=== PATIENT | female | born 1980 | race Caucasian/White ===

== ENCOUNTER 2021-09-07 20:30 | Emergency (ER) | payer OTHER, SELFPAY ==
--- NOTE | ~2021-09-07 | XR_ITS ---
EXAMINATION: XR CHEST CLINICAL INFORMATION: Shortness of breath and cough COMPARISON: 12/12/2013 TECHNIQUE: 2 views of the chest were obtained. FINDINGS: Heart size normal. Multifocal patchy infiltrates are present in both lower lobes and possibly the right upper lobe. No pleural effusions are seen. XR/XR chest 2V IMPRESSION: Commonly reported imaging features of Covid 19 or viral pneumonia are present with new multifocal patchy infiltrates. Other processes such as influenza pneumonia or organizing pneumonia, as can be seen with drug toxicity and connective tissue disease, can cause a similar imaging pattern.
[2021-09-07 20:41] VITALS: BP 199/89; PULSE 97; RESP 20; TEMP 37.4; O2SAT 95; BMI 52.4
[2021-09-07 21:25] LABS: MANUAL DIFF FLAG NO
[2021-09-07 21:26] LABS: Basophils Percent Auto 0.4 % (0-2); Eosinophils Absolute Auto 0.2 X10*3/uL (0.0-0.4); Hematocrit 43.3 % (37.0-47.0); Hemoglobin 13.7 g/dl (12.0-16.0); Imm Gran Abs Auto 0.02 X10*3/uL (0.00-0.03); Imm Gran Pct Auto 0.4 % (0.0-0.4); Lymphocytes Absolute Auto 0.8 X10*3/uL (1.2-4.9); Lymphocytes Percent Auto 14.3 % (20-40); Mean Corpuscular HGB Conc 31.6 g/dl (31.0-35.0); Mean Corpuscular Hemoglobin 29.5 pg (27.0-33.0); Mean Corpuscular Volume 93.1 fL (80.0-98.0); Monocytes Absolute Auto 0.2 X10*3/uL (0.1-1.2); Neutrophils Absolute Auto 4.4 x10*3/uL (2.0-8.3); Neutrophils Percent Auto 77.9 % (45-73); Platelet Count 208 X10*3/uL (160-400); Red Blood Count 4.65 X10*6/uL (4.20-5.50); White Blood Count 5.7 X10*3/uL (4.8-10.8)
[2021-09-07 21:42] LABS: Alanine Aminotransferase 54 U/L (0-31); Albumin Level 3.8 g/dL (3.5-5.0); Alkaline Phosphatase 73 U/L (39-117); Anion Gap 13 (12-20); Aspartate Amino Transferase 40 U/L (5-31); Bilirubin Total 0.2 mg/dL (0.0-1.0); Blood Urea Nitrogen 10 mg/dL (9-16); Calcium 8.6 mg/dL (8.4-10.2); Carbon Dioxide 23 mmol/L (22-29); Chloride 107 mmol/L (96-108); Creatinine Clr Calc Pharmacy 165.5; Estimated Glomerular Filt Rate > 60; Glucose Random 168 mg/dL (60-115); Potassium 3.7 mmol/L (3.3-5.1); Sodium 139 mmol/L (135-145); Total Protein 7.1 g/dL (6.5-8.0)
[2021-09-07 22:07] LABS: Influenza A PCR NEGATIVE (Negative); Influenza B PCR NEGATIVE (Negative); Resp Syncy Virus RNA Qual PCR NEGATIVE (Negative); SARS COV2 PCR INHOUSE POSITIVE (Negative)
[2021-09-07 22:16] LABS: Appearance Urine CLEAR; Color Urine YELLOW; Glucose Urine UA 100 MG/DL (NEG); Leukocyte Esterase Urine NEG (NEG); Nitrite Urine NEG (NEG); Specific Gravity - Urine 1.025 (1.005-1.025); UACC Culture Trigger NO; Urine Blood NEG (NEG); Urine Ketones 5 MG/DL (NEG); Urine Protein 1+ MG/DL (NEG-TRACE)
[2021-09-07 22:21] LABS: UPreg QC Valid YES; Urine Pregnancy NEGATIVE (NEGATIVE)
[2021-09-07 22:30] LABS: Bacteria Urine 1+ /LPF; RBC Urine 0-2 /HPF (0); Squamous Epithelial Cell Urine 1+ /LPF; WBC Urine 0-2 /HPF (0-4)
--- NOTE | 2021-09-07 22:45 | ED.URI ---
HPI - URI/Sore Throat General Chief Complaint: Upper Respiratory Symptoms Stated Complaint: fever Time Seen by Provider: 09/07/21 21:33 Source: patient Mode of arrival: ambulatory History of Present Illness HPI Narrative: 40-year-old female with history of diabetes and COPD presents with 1 week of fevers, worsening dry cough, congestion she on and chest wall pain that she notes is associated and worsened with the coughing. She also endorses that she has positive contact with a COVID positive person. Related Data Allergies Allergy/AdvReac Type Severity Reaction Status Date / Time erythromycin base Allergy Unknown ANAPHYLAXIS Unverified 07/09/20 17:06 [ERYTHROMYCIN BASE] Sulfa (Sulfonamide Allergy Unknown ANAPHYLAXIS Unverified 07/09/20 17:06 Antibiotics) [SULFA (SULFONAMIDE ANTIBIOTICS)] sulfamethoxazole Allergy Unknown HIVES Unverified 07/09/20 17:06 [From BACTRIM] trimethoprim [From BACTRIM] Allergy Unknown HIVES Unverified 07/09/20 17:06 Review of Systems Review of Systems: Pertinent positives and negatives as stated in HPI 10 point review of systems is otherwise negative. PMFSH Past Medical History Source: nursing notes reviewed Medical History Asthma COPD (chronic obstructive pulmonary disease) Depression Diabetes Surgical History H/O knee surgery H/O: History of thyroidectomy Hx of tonsillectomy Social History Social History Advance Directives: No Advance Directives Information Provided: No Patient : No Physical Exam Vital Signs: Vital Signs: Last Vital Signs Temp 99.3 F 09/07/21 20:41 Pulse 97 09/07/21 20:41 Resp 20 09/07/21 20:41 BP 199/89 H 09/07/21 20:41 Pulse Ox 95 09/07/21 20:41 Body Mass Index 52.4 VITAL SIGNS: Reviewed. GENERAL: Well developed, well nourished, in no acute distress. HEAD: Normocephalic/atraumatic EYES: PERRLA, EOMI EARS: Ext canals without abnormality, TMs non-bulging and non-erythematous NOSE: Nares patent bilateral OROPHARYNX: no oral lesions noted, posterior pharynx clear and non-erythematous without noted tonsillar enlargement/erythema/exudates NECK: Supple, no adenopathy LUNGS: Normal breath sounds. No adventitious sounds or accessory muscle use. SpO2<95> CARDIOVASCULAR: Regular rate and rhythm without noted murmurs, no JVD or lower extremity edema. ABDOMEN: Soft, non-tender, non-distended with bowel sounds. SKIN: Inspection of the skin reveals no rashes NEUROLOGIC: Alert and oriented x 4. Strength and sensation to light touch were grossly intact x 4. Course Course Course Narrative: History and clinical presentation most consistent with COVID-19 infection. She is oxygenating well on room air and clinically is without increased work of breathing or tachypnea. On review of all investigations she is positive for COVID-19, all these results were discussed with her bedside and she knows that she needs to self quarantine for the next 14 days. MDM - URI/Sore Throat Lab Data Result diagrams: 09/07/21 21:19 09/07/21 21:19 Labs: Lab Results 09/07/21 09/07/21 09/07/21 Range/Units 21:19 21:19 21:19 WBC 5.7 (4.8-10.8) X10*3/uL RBC 4.65 (4.20-5.50) X10*6/uL Hgb 13.7 (12.0-16.0) g/dl Hct 43.3 (37.0-47.0) % MCV 93.1 (80.0-98.0) fL MCH 29.5 (27.0-33.0) pg MCHC 31.6 (31.0-35.0) g/dl RDW 13.0 (11.0-16.0) % Plt Count 208 (160-400) X10*3/uL MPV 10.0 (9.4-12.3) fL Immature Gran % (Auto) 0.4 (0.0-0.4) % Neut % (Auto) 77.9 H (45-73) % Lymph % (Auto) 14.3 L (20-40) % [place] % (Auto) 4.0 (2-11) % Eos % (Auto) 3.0 (0-4) % Baso % (Auto) 0.4 (0-2) % Lymph # (Auto) 0.8 L (1.2-4.9) X10*3/uL [place] # (Auto) 0.2 (0.1-1.2) X10*3/uL Eos # (Auto) 0.2 (0.0-0.4) X10*3/uL Baso # (Auto) 0.0 (0.0-0.2) X10*3/uL Abs Immat Gran (auto) 0.02 (0.00-0.03) X10*3/uL Absolute Neuts (auto) 4.4 (2.0-8.3) x10*3/uL Absolute Nucleated RBC 0.000 (0.0-0.012) X10*3/uL Nucleated RBC % (auto) 0.0 (0.0-0.2) /100WBC Sodium 139 (135-145) mmol/L Potassium 3.7 (3.3-5.1) mmol/L Chloride 107 (96-108) mmol/L Carbon Dioxide 23 (22-29) mmol/L Anion Gap 13 (12-20) BUN 10 (9-16) mg/dL Creatinine 0.75 (0.5-1.4) mg/dL Estim Creat Clear Calc 165.5 Estimated GFR > 60 Random Glucose 168 H (60-115) mg/dL Calcium 8.6 (8.4-10.2) mg/dL Total Bilirubin 0.2 (0.0-1.0) mg/dL AST 40 H (5-31) U/L ALT 54 H (0-31) U/L Alkaline Phosphatase 73 (39-117) U/L Total Protein 7.1 (6.5-8.0) g/dL Albumin 3.8 (3.5-5.0) g/dL Urine Color Urine Appearance Urine pH (5.0-8.0) Ur Specific [place] (1.005-1.025) Urine Protein (NEG-TRACE) MG/DL Urine Glucose (UA) (NEG) MG/DL Urine Ketones (NEG) MG/DL Urine Blood (NEG) Urine Nitrite (NEG) Ur Leukocyte Esterase (NEG) Urine RBC (0) /HPF Urine WBC (0-4) /HPF Ur Squamous Epith Cells /LPF Urine Bacteria /LPF Urine Yeast /HPF Urine Test (NEGATIVE) Influenza Type A (PCR) NEGATIVE (Negative) Influenza Type B (PCR) NEGATIVE (Negative) RSV RNA Qual (PCR) NEGATIVE (Negative) SARS-CoV-2 RNA (RT-PCR) POSITIVE A (Negative) 09/07/21 09/07/21 Range/Units 22:08 22:08 WBC (4.8-10.8) X10*3/uL RBC (4.20-5.50) X10*6/uL Hgb (12.0-16.0) g/dl Hct (37.0-47.0) % MCV (80.0-98.0) fL MCH (27.0-33.0) pg MCHC (31.0-35.0) g/dl RDW (11.0-16.0) % Plt Count (160-400) X10*3/uL MPV (9.4-12.3) fL Immature Gran % (Auto) (0.0-0.4) % Neut % (Auto) (45-73) % Lymph % (Auto) (20-40) % [place] % (Auto) (2-11) % Eos % (Auto) (0-4) % Baso % (Auto) (0-2) % Lymph # (Auto) (1.2-4.9) X10*3/uL [place] # (Auto) (0.1-1.2) X10*3/uL Eos # (Auto) (0.0-0.4) X10*3/uL Baso # (Auto) (0.0-0.2) X10*3/uL Abs Immat Gran (auto) (0.00-0.03) X10*3/uL Absolute Neuts (auto) (2.0-8.3) x10*3/uL Absolute Nucleated RBC (0.0-0.012) X10*3/uL Nucleated RBC % (auto) (0.0-0.2) /100WBC Sodium (135-145) mmol/L Potassium (3.3-5.1) mmol/L Chloride (96-108) mmol/L Carbon Dioxide (22-29) mmol/L Anion Gap (12-20) BUN (9-16) mg/dL Creatinine (0.5-1.4) mg/dL Estim Creat Clear Calc Estimated GFR Random Glucose (60-115) mg/dL Calcium (8.4-10.2) mg/dL Total Bilirubin (0.0-1.0) mg/dL AST (5-31) U/L ALT (0-31) U/L Alkaline Phosphatase (39-117) U/L Total Protein (6.5-8.0) g/dL Albumin (3.5-5.0) g/dL Urine Color YELLOW Urine Appearance CLEAR Urine pH 6.0 (5.0-8.0) Ur Specific [place] 1.025 (1.005-1.025) Urine Protein 1+ H (NEG-TRACE) MG/DL Urine Glucose (UA) 100 H (NEG) MG/DL Urine Ketones 5 (NEG) MG/DL Urine Blood NEG (NEG) Urine Nitrite NEG (NEG) Ur Leukocyte Esterase NEG (NEG) Urine RBC 0-2 (0) /HPF Urine WBC 0-2 (0-4) /HPF Ur Squamous Epith Cells 1+ /LPF Urine Bacteria 1+ /LPF Urine Yeast TRACE /HPF Urine Test NEGATIVE (NEGATIVE) Influenza Type A (PCR) (Negative) Influenza Type B (PCR) (Negative) RSV RNA Qual (PCR) (Negative) SARS-CoV-2 RNA (RT-PCR) (Negative) Discharge Plan Discharge Clinical Impression: Viral syndrome, SARS-CoV-2 positive Patient Disposition: Home, Self-Care Instructions: Viral Syndrome (ED), COVID-19 (Coronavirus Disease 2019) (ED) Additional Instructions: 1. Tylenol 1000 mg, orally, every 6 hours as needed for pain control/headache/body aches/temperature greater than 100.4. Do not exceed 4000 mg within 24 hours. 2. Ibuprofen 400 mg, orally with milk or food, every 6 hours as needed for pain control/headache/body aches/temperature greater than 100.4. You may take the ibuprofen and Tylenol together. 3. You must adhere to all state and Federal guidelines regarding COVID-19 quarantine and retesting. 4. Follow up with your PCP via Telemedicine appt. Return to the ER for any worsening symptoms. Referrals: Jack Bedoya MD [Primary Care Provider] - 2 days (COVID-19+)
[2021-09-07 23:10] VITALS: BP 154/85; PULSE 87; RESP 19; TEMP 37.2; O2SAT 96
--- NOTE | 2021-09-07 23:11 | PC.NURSE ---
Pt alert and oriented x4, calm and cooperative. Pt denies pain. Pt states she is ready for discharge. No IV in place, vitals stable. Pt ambulated out of ER independently.
== END 2021-09-07 23:11 | disposition home or self-care (01) ==
PROVIDERS: Emergency Provider Student in an Organized Health Care Education/Training Program; PCP Internal Medicine
DX: U07.1 COVID-19 (principal); J44.9 Chronic obstructive pulmonary disease, unspecified; R50.9 Fever, unspecified; Z79.899 Other long term (current) drug therapy
CPT/HCPCS: 0241U; 36415; 71046; 80053; 81001; 81025; 85025; 99283; 99284

== ENCOUNTER → 2024-07-25 11:16 | Outpatient (REF) | payer OTHER, SELFPAY | LOC: HO.SL 11:16 | PROVIDERS: PCP Internal Medicine; Visit Provider Psychiatry & Neurology Neurology | DX: G47.39 Other sleep apnea (principal) | CPT/HCPCS: 95806 ==

== ENCOUNTER → 2024-07-25 19:00 | Outpatient (BNV) | payer OTHER, SELFPAY | PROVIDERS: PCP Internal Medicine; Visit Provider Psychiatry & Neurology Neurology | DX: G47.33 Obstructive sleep apnea (adult) (pediatric) (principal) | CPT/HCPCS: 95806 ==

== ENCOUNTER 2025-01-13 13:10 | Emergency (ER) | payer OTHER, SELFPAY ==
--- NOTE | ~2025-01-13 | CT_ITS ---
EXAMINATION: CT HEAD WITHOUT CONTRAST CLINICAL INFORMATION: Trauma, head strike. COMPARISON: 04/13/2010. TECHNIQUE: Contiguous axial imaging was performed from the skull base to vertex without intravenous administration of contrast. This CT examination was performed using dose optimization techniques as appropriate, variously including the following: *Automated exposure control *Adjustment of mA and/or kV according to patient size (this includes techniques or standardized protocols for targeted exams where dose is matched to indication/reason for exam; i.e. extremities or head) *Use of iterative reconstruction technique FINDINGS: There is no evidence of intracranial hemorrhage or extra-axial fluid collection. There is no mass effect, or edema. No CT evidence of acute territorial infarct. Ventricles, sulci, and cisterns are normal in size and configuration for patient age. No hydrocephalus. No midline shift. Negative hyperdense MCA sign. Negative insular ribbon sign. No significant white matter abnormality. Normal pituitary. Globes and orbital contents image normally. Extra cranial soft tissues demonstrate atrophy of the right parotid gland. No additional abnormalities. The paranasal sinuses, mastoid air cells, and tympanic cavities are normally aerated. No suspicious bony abnormalities. There are no acute fractures evident. There is mild hyperostosis frontalis internus. CT/CT head/brain wo IV con IMPRESSION: No acute intracranial abnormality. No fracture seen. Electronically signed by: Oscar Lopez MD 01/13/2025 04:01 PM EDT
--- NOTE | ~2025-01-13 | CT_ITS ---
EXAMINATION: CT CERVICAL SPINE WITHOUT CONTRAST CLINICAL INFORMATION: Trauma, neck pain. COMPARISON: 04/13/2010. TECHNIQUE: Spiral CT imaging of the cervical spine performed in axial plane without contrast. Multiplanar reformatted images were constructed from the axial data set. This CT examination was performed using dose optimization techniques as appropriate, variously including the following: *Automated exposure control *Adjustment of mA and/or kV according to patient size (this includes techniques or standardized protocols for targeted exams where dose is matched to indication/reason for exam; i.e. extremities or head) *Use of iterative reconstruction technique FINDINGS: CORONAL ALIGNMENT: -Mild levoconvex scoliosis. SAGITTAL ALIGNMENT: -Mild reversal of the normal lordosis, centered at C4. -No subluxations. C1-C2 AND CRANIOCERVICAL JUNCTION: -Intact and normally aligned. VERTEBRAL BODIES AND FACETS: -No fracture, compression deformity, traumatic malalignment. No suspicious bone lesion. -Normal facet alignment and appearance. DISCS: -Early disc degenerative change spanning C4-C7. CENTRAL CANAL: -No evidence of high-grade central canal narrowing or large disc herniation allowing for modality limitations. PREVERTEBRAL AND PARAVERTEBRAL SOFT TISSUES: -No soft tissue swelling. -There has been a total thyroidectomy. LUNG APICES: -Clear bilaterally. CT/CT cervical spine wo IV con IMPRESSION: 1. No CT evidence of acute cervical spine fracture or injury . 2. Total thyroidectomy. Electronically signed by: Oscar Lopez MD 01/13/2025 03:44 PM EDT
[2025-01-13 13:19] VITALS: BP 137/71; PULSE 70; RESP 18; TEMP 36.7; O2SAT 99; BMI 42.3
--- NOTE | 2025-01-13 13:23 | ED.GENADULT ---
HPI - General Adult General Chief complaint: Fall Stated complaint: passed out at work head inj Time Seen by Provider: 01/13/25 18:59 Source: patient Limitations: no limitations History of Present Illness ED Provider: Letha Mirza PA-C HPI narrative: 44-year-old female with a history of dysautonomia, COPD, asthma, depression, morbid obesity who presents after syncopal episode at work. Patient states she developed dizziness/lightheadedness prior to passing out. Patient had a witnessed fall, she did strike her head. The patient was not on blood thinners. Patient now complains of developing migraine, left neck pain, left shoulder pain. Patient states she also has not been feeling well lately, she has had recent cough and cold symptoms. Denies fevers. Denies weakness of upper extremities or paresthesia. Related Data Allergies Allergy/AdvReac Type Severity Reaction Status Date / Time erythromycin base Allergy Unknown ANAPHYLAXIS Verified 01/13/25 13:20 [ERYTHROMYCIN BASE] Sulfa (Sulfonamide Allergy Unknown ANAPHYLAXIS Verified 01/13/25 13:20 Antibiotics) [SULFA (SULFONAMIDE ANTIBIOTICS)] sulfamethoxazole Allergy Unknown HIVES Verified 01/13/25 13:20 [From BACTRIM] trimethoprim [From BACTRIM] Allergy Unknown HIVES Verified 01/13/25 13:20 Review of Systems Review of Systems: Yes all other systems are reviewed and are negative Constitutional: Constitutional: Denies fatigue, Denies fever(s), Reports headache(s) and Reports malaise ENT: Reports dizziness, Reports headache(s) and Reports neck pain Cardiovascular: Cardiovascular: Denies chest pain, Reports syncope and Denies dyspnea Respiratory: Respiratory: Reports cough and Denies dyspnea Gastrointestinal: Gastrointestinal: Denies abdominal pain, Denies nausea and Denies vomiting Musculoskeletal: Musculoskeletal: Reports neck pain Neurologic: Reports dizziness, Reports syncope and Reports headache(s) Endocrine: Endocrine: Denies fatigue PMFSH Past Medical History Attestation statement: The following information was validated with the patient. Medical History Asthma COPD (chronic obstructive pulmonary disease) Depression Diabetes Surgical History H/O knee surgery H/O: History of thyroidectomy Hx of tonsillectomy Social History Social History Smoked in Last 30 Days: No Advance Directives: No Advance Directives Information Provided: No Physical Exam ED Vital Signs: Vital Signs - 24 hr 01/13/25 13:19 01/13/25 19:32 Temperature 98.0 F 97.1 F Pulse Rate 70 73 Respiratory Rate 18 16 Blood Pressure 137/71 116/68 Pulse Oximetry 99 100 Oxygen Delivery Method Room Air Room Air BMI result Body Mass Index 42.3 Const Other: Alert, appears older than stated age Orientation/consciousness: patient oriented x3 Neck Other: Full range of motion Resp Effort & Inspection: normal respiratory effort Cardio Other: Normal peripheral perfusion Skin Other: Warm dry no rash Neuro General: patient oriented x3, gait normal, no focal motor deficits and CN's II-XI intact bilaterally Extrem Other: Full range of motion of left upper extremity no deformity Psych Other: Cooperative Course Course Course Narrative: This is a rapid medical exam performed by Letha Mirza PA-C. The patient is a 44-year-old female who presents after syncopal episode at work. Patient states she developed dizziness prior to passing out. Patient had a witnessed fall she did strike her head. Patient now complains of developing migraine, left neck pain, left shoulder pain. On exam, the patient has full range of motion of the shoulder, there was no deformity, I do not feel she requires an x-ray. Given syncope with collapse, we will screen basic labs and EKG, and scan her head and neck. She also states she has had a fever over the past day, we will add a viral panel. The patient was stable and can return to the waiting room pending her full medical assessment. Medical Decision Making Medical Decision Making MDM Narrative: 44-year-old female with a history of dysautonomia, COPD, asthma, depression, morbid obesity who presents after syncopal episode at work. Patient states she developed dizziness/lightheadedness prior to passing out. Patient had a witnessed fall, she did strike her head. The patient was not on blood thinners. Patient now complains of developing migraine, left neck pain, left shoulder pain. Patient states she also has not been feeling well lately, she has had recent cough and cold symptoms. Denies fevers. Denies weakness of upper extremities or paresthesia. Problem: Dysautonomia, History: Per patient I have considered the following differential diagnoses: Vasovagal syncope, dehydration, anemia, electrolyte abnormality, new arrhythmia, intracranial hemorrhage, cervical spine injury Plan: Patient states she often has near syncopal symptoms with her dysautonomia. She has been recently ill, perhaps this triggered her symptoms today. Screening labs including a viral panel we will be obtained. She did not have preceding palpitations to suggest a new arrhythmia, an EKG was obtained. She had a witnessed fall with significant head strike, now with neck pain, we will be obtaining CT scans. It was reassuring that she is not altered, she is neurologically intact she is not actively vomiting to suggest an intracranial hemorrhage. She also has full range of motion of the neck, I suspect musculoskeletal strain at best. I have independently reviewed the following tests: Labs: No leukocytosis, not anemic, no electrolyte abnormality noted, viral panel negative EKG: Normal sinus rhythm, rate of 65, no ischemic changes no ectopy CT brain: CT/CT head/brain wo IV con IMPRESSION: No acute intracranial abnormality. No fracture seen. CT cervical spine: CT/CT cervical spine wo IV con IMPRESSION: 1. No CT evidence of acute cervical spine fracture or injury . 2. Total thyroidectomy. Lab Data 01/13/25 13:47 01/13/25 13:47 Labs: Lab Results 01/13/25 Range/Units 13:47 WBC 7.7 (4.8-10.8) X10*3/uL RBC 3.97 L (4.20-5.50) X10*6/uL Hgb 11.9 L (12.0-16.0) g/dl Hct 36.8 L (37.0-47.0) % MCV 92.7 (80.0-98.0) fL MCH 30.0 (27.0-33.0) pg MCHC 32.3 (31.0-35.0) g/dl RDW 14.0 (11.0-16.0) % Plt Count 236 (160-400) X10*3/uL MPV 10.1 (9.4-12.3) fL Immature Gran % (Auto) 0.5 H (0.0-0.4) % Neut % (Auto) 71.8 (45-73) % Lymph % (Auto) 18.2 L (20-40) % [place] % (Auto) 8.3 (2-11) % Eos % (Auto) 0.7 (0-4) % Baso % (Auto) 0.5 (0-2) % Lymph # (Auto) 1.4 (1.2-4.9) X10*3/uL [place] # (Auto) 0.6 (0.1-1.2) X10*3/uL Eos # (Auto) 0.1 (0.0-0.4) X10*3/uL Baso # (Auto) 0.0 (0.0-0.2) X10*3/uL Abs Immat Gran (auto) 0.04 H (0.00-0.03) X10*3/uL Absolute Neuts (auto) 5.5 (2.0-8.3) x10*3/uL Absolute Nucleated RBC 0.000 (0.0-0.012) X10*3/uL Nucleated RBC % (auto) 0.0 (0.0-0.2) /100WBC Sodium 140 (135-145) mmol/L Potassium 4.4 (3.3-5.1) mmol/L Chloride 107 (96-108) mmol/L Carbon Dioxide 26 (22-29) mmol/L Anion Gap 11 L (12-20) BUN 21 H (9-16) mg/dL Creatinine 1.22 (0.5-1.4) mg/dL Estim Creat Clear Calc 86.0 Estimated GFR 48 Random Glucose 124 H (60-115) mg/dL Calcium 9.1 (8.4-10.2) mg/dL Magnesium 2.1 (1.6-2.6) mg/dL Beta HCG, Quant < 2 mIU/mL Influenza Type A (PCR) NEGATIVE (Negative) Influenza Type B (PCR) NEGATIVE (Negative) RSV RNA Qual (PCR) NEGATIVE (Negative) SARS-CoV-2 RNA (RT-PCR) NEGATIVE (Negative) Discharge Plan Discharge Clinical Impression: Syncope Patient Disposition: Home, Self-Care Instructions: Syncope (ED) Additional Instructions: All of your screening labs including a viral panel were normal. There were no concerning changes on the EKG. The CT scans of your brain and cervical spine were negative for acute injury. Follow up with your primary care provider as needed. Interventions: ED Discharge Assessment Last Done: 01/13/25 19:33 Print Language: Arabic
--- NOTE | 2025-01-13 13:25 | ECG_ITS ---
Test Reason : syncope Blood Pressure : */* mmHG Vent. Rate : 65 BPM Atrial Rate : 65 BPM P-R Int : 150 ms QRS Dur : 90 ms QT Int : 380 ms P-R-T Axes : -28 29 42 degrees QTcB Int : 395 ms Normal sinus rhythm Normal ECG No previous ECGs available Referred By: Letha Mirza Electronically Signed By: NANCY ZAMORA MD
[2025-01-13 13:59] LABS: MANUAL DIFF FLAG NO
[2025-01-13 14:02] LABS: Basophils Percent Auto 0.5 % (0-2); Eosinophils Absolute Auto 0.1 X10*3/uL (0.0-0.4); Eosinophils Percent Auto 0.7 % (0-4); Hematocrit 36.8 % (37.0-47.0); Hemoglobin 11.9 g/dl (12.0-16.0); Imm Gran Abs Auto 0.04 X10*3/uL (0.00-0.03); Imm Gran Pct Auto 0.5 % (0.0-0.4); Lymphocytes Absolute Auto 1.4 X10*3/uL (1.2-4.9); Lymphocytes Percent Auto 18.2 % (20-40); Mean Corpuscular HGB Conc 32.3 g/dl (31.0-35.0); Mean Corpuscular Volume 92.7 fL (80.0-98.0); Mean Platelet Volume 10.1 fL (9.4-12.3); Monocytes Absolute Auto 0.6 X10*3/uL (0.1-1.2); Monocytes Percent Auto 8.3 % (2-11); Neutrophils Absolute Auto 5.5 x10*3/uL (2.0-8.3); Neutrophils Percent Auto 71.8 % (45-73); Platelet Count 236 X10*3/uL (160-400); Red Blood Count 3.97 X10*6/uL (4.20-5.50); White Blood Count 7.7 X10*3/uL (4.8-10.8)
[2025-01-13 14:23] LABS: Anion Gap 11 (12-20); Blood Urea Nitrogen 21 mg/dL (9-16); Calcium 9.1 mg/dL (8.4-10.2); Carbon Dioxide 26 mmol/L (22-29); Chloride 107 mmol/L (96-108); Estimated Glomerular Filt Rate 48; Glucose Random 124 mg/dL (60-115); Magnesium 2.1 mg/dL (1.6-2.6); Potassium 4.4 mmol/L (3.3-5.1); Sodium 140 mmol/L (135-145)
[2025-01-13 14:24] LABS: HCG Quantitative < 2 mIU/mL
[2025-01-13 14:42] LABS: Influenza A PCR NEGATIVE (Negative); Influenza B PCR NEGATIVE (Negative); Resp Syncy Virus RNA Qual PCR NEGATIVE (Negative); SARS COV2 PCR INHOUSE NEGATIVE (Negative)
[2025-01-13 19:32] VITALS: BP 116/68; PULSE 73; RESP 16; TEMP 36.2; O2SAT 100
[2025-01-13 19:33] VITALS: BP 116/68; PULSE 73; RESP 16; TEMP 36.2; O2SAT 100
--- NOTE | 2025-01-13 19:33 | PC.NURSE ---
Pt reeval by Pit provider, negative workup, cleared for dc home. Pt aware and agreeable to plan of care.
== END 2025-01-13 19:34 | disposition home or self-care (01) ==
PROVIDERS: Physician Assistant Medical; Emergency Provider Emergency Medicine Emergency Medical Services
DX: R55 Syncope and collapse (principal); G43.909 Migraine, unspecified, not intractable, without status migrainosus; R05.9 Cough, unspecified; M54.2 Cervicalgia; M25.512 Pain in left shoulder; Z03.818 Encounter for observation for suspected exposure to other biological agents ruled out; Z79.899 Other long term (current) drug therapy
CPT/HCPCS: 0241U; 36415; 70450; 72125; 80048; 83735; 84702; 85025; 93005; 99284

== ENCOUNTER → 2025-01-13 13:21 | Outpatient (BNV) | payer OTHER, SELFPAY | PROVIDERS: Visit Provider Radiology Diagnostic Radiology | DX: M54.2 Cervicalgia (principal); S09.90XA Unspecified injury of head, initial encounter | CPT/HCPCS: 70450; 72125 ==

== ENCOUNTER → 2025-01-13 13:25 | Outpatient (BNV) | payer OTHER, SELFPAY | PROVIDERS: Emergency Provider Emergency Medicine Emergency Medical Services; Visit Provider Internal Medicine Cardiovascular Disease | DX: R55 Syncope and collapse (principal) | CPT/HCPCS: 93010 ==

== ENCOUNTER 2025-04-26 09:00 | Emergency (ER) | payer OTHER, SELFPAY ==
--- NOTE | ~2025-04-26 | CT_ITS ---
CLINICAL HISTORY: L flank pain CT abdomen and pelvis without contrast Comparison: None provided Findings: The lung bases are clear. Reference axial image 46, there is a 2 mm calculus within the proximal left ureter with moderate left hydroureteronephrosis. No additional urinary calculus. The unenhanced liver, gallbladder, spleen, right adrenal gland and pancreas are unremarkable. Left adrenal nodule on axial 25, measuring up to 13 mm. Hounsfield unit measurement consistent with benign adenoma. No bowel obstruction or free air. Uterus and adnexa are unremarkable. Impression: There is a 2 mm calculus in the proximal left ureter with moderate left hydronephrosis. Additional incidental findings. This document has been electronically signed by: Ba Palma MD on 04/26/2025 11:34:43
[2025-04-26 09:04] VITALS: BP 136/62; PULSE 81; RESP 16; TEMP 36.9; O2SAT 100; BMI 54.1
--- NOTE | 2025-04-26 09:34 | ED.ABDPAIN ---
HPI - Abdominal Pain General Chief Complaint: Abdominal Pain Stated Complaint: LQ pain sent from urgent care Time Seen by Provider: 04/26/25 09:17 Source: patient Mode of arrival: ambulatory Limitations: no limitations History of Present Illness ED Provider: ADELAIDE BRUNNER PA-C HPI narrative: 44-year-old female with pmhx significant for dysautonomia, COPD/asthma, depression, morbid obesity, diabetes on ozempic x2 years, presents to the ED today for evaluation of acute onset left flank pain that woke her from her sleep at 0730 this morning. Pain is wrapping around to her left lower abdomen. Pain is currently 9.5/10. She trialed Motrin early this morning without relief. Reports associated nausea without vomiting. States she had an episode of hematuria on arrival to the ED today. Denies dysuria, increased urinary frequency. Reports normal bowel movements. Denies fever, chills. Denies history of renal stones. Related Data Previous Rx's ?Medication ?Instructions ?Recorded ketorolac 10 mg tablet 10 mg PO Q8H 5 days #15 tabs 04/26/25 prednisone 20 mg tablet 20 mg PO DAILY 3 days #3 tabs 04/26/25 tamsulosin 0.4 mg capsule (Flomax) 0.4 mg PO BEDTIME 14 days #14 caps 04/26/25 Allergies Allergy/AdvReac Type Severity Reaction Status Date / Time erythromycin base Allergy Unknown ANAPHYLAXIS Verified 04/26/25 09:06 (ERYTHROMYCIN BASE) Sulfa (Sulfonamide Allergy Unknown ANAPHYLAXIS Verified 04/26/25 09:06 Antibiotics) (SULFA (SULFONAMIDE ANTIBIOTICS)) sulfamethoxazole (From Allergy Unknown HIVES Verified 04/26/25 09:06 BACTRIM) trimethoprim (From BACTRIM) Allergy Unknown HIVES Verified 04/26/25 09:06 polyethylene glycol Allergy Vomiting Verified 04/26/25 09:06 Review of Systems Review of Systems Constitutional: No fever, chills, fatigue, night sweats, weight changes ENT/Mouth: No ear pain, hearing loss, nasal congestion, sinus pain, rhinorrhea, sore throat Eyes: No eye pain, swelling, redness, vision changes, discharge Cardio: No chest pain, palpitations, BERMUDEZ, orthopnea, peripheral edema Pulm: No SOB, cough, sputum, wheezing, dyspnea, hemoptysis GI: No vomiting, hematemesis, abdominal pain, diarrhea, constipation, hematochezia, melena, +nausea : No irregular bleeding, dysuria, frequency, urgency, hesitancy, urinary flow changes, urinary incontinence or retention, +L flank pain, +hematuria MSK: No back pain, neck pain, joint pain, myalgias Skin: No lesions, rashes Neuro: No weakness, numbness, paresthesias, LOC, dizziness, headache Psych: No anxiety/panic, depression, SI/HI, AH/VH All other systems reviewed and are negative. [facility] Past Medical History Attestation statement: The following information was validated with the patient. Source: old records reviewed and nursing notes reviewed Medical History Diabetes COPD (chronic obstructive pulmonary disease) Asthma Depression Surgical History H/O: H/O knee surgery Hx of tonsillectomy History of thyroidectomy Physical Exam ED Vital Signs: Vital Signs - 24 hr 04/26/25 09:04 04/26/25 10:56 04/26/25 12:27 Temperature 98.4 F 98.5 F 98.5 F Pulse Rate 81 63 63 Respiratory Rate 16 14 14 Blood Pressure 136/62 123/64 123/64 Pulse Oximetry 100 98 98 Oxygen Delivery Method Room Air Room Air Room Air BMI result Body Mass Index 54.1 Vital signs stable, afebrile General: Uncomfortable appearing, holding left flank Skin: Warm, dry, intact. No rashes or lesions. Head: Normocephalic, atraumatic. EENT: Hearing is intact b/l. Conjunctiva clear. PERRLA. EOM intact. Moist mucous membranes.? Neck: Supple without LAD Cardiac: Chest wall symmetric. RRR Lungs: Normal respiratory effort without accessory muscle use. CTA bilaterally. No rales, rhonchi, or wheezes.? Abdomen: Obese abdomen, soft, nondistended, nontender to palpation, no rebound or guarding. Active bowel sounds x4. No CVAT Back: No midline spinous or paraspinal tenderness. No step off deformity. Ext: Upper and lower extremities atraumatic, without tenderness, deformity, swelling or erythema Neuro: AOx3. Normal speech. Ambulating with steady gait. Course Course Course Narrative: CBC without leukocytosis or left shift. H&H stable. Chemistry without acute electrolyte abnormality requiring intervention. No MARY CARMEN. Random glucose 127. Liver function at baseline. Lipase WNL. Beta quant undetectable. Not . Urine showing large blood, over 20 RBCs, trace leukocyte esterase. Negative nitrites, 0-5 WBCs, no urine bacteria. CT abdomen/pelvis showing a 2 mm calculi in the proximal left ureter with moderate left hydronephrosis. > patient treated with IV Toradol and IV fluids with improvement in pain > I did speak with on-call urologist dr. kat - she is recommending patient be discharged home with prednisone, Flomax and pain control with plan for outpatient follow up. Expected to pass stone in 5-9 days. I feel this is reasonable. meds sent to pharmacy. Patient has remained stable throughout ED visit today. Discussed worrisome signs and symptoms and when to return to the ED. All questions answered at this time. Patient is agreeable with disposition and stable for discharge. Medical Decision Making Medical Decision Making [facility] Narrative: 44-year-old female with pmhx significant for dysautonomia, COPD/asthma, depression, morbid obesity, diabetes on ozempic x2 years, presents to the ED today for evaluation of acute onset left flank pain that woke her from her sleep at 0730 this morning. vital signs stable, afebrile. she is uncomfortable appearing holding left flank. Differential diagnosis includes anemia, electrolyte abnormality, UTI, renal colic, nephrolithiasis, pyelonephritis, constipation Plan for labs, UA, pain control, CT, re-evaluation. Differential Diagnosis Differential Diagnoses: The differential diagnosis associated with the presentation includes as above. Admission/Observation not indicated. Consult Healthcare Provider Management of the patient was discussed with: Director Facilities Maintenance (urologist) Lab Data [facility] Lab Attestation statement: I reviewed the patient's lab results. As above 04/26/25 10:16 04/26/25 10:16 Labs: Lab Results 04/26/25 04/26/25 Range/Units 10:16 10:33 WBC 7.3 (4.8-10.8) X10*3/uL RBC 4.01 L (4.20-5.50) X10*6/uL Hgb 12.2 (12.0-16.0) g/dl Hct 36.0 L (37.0-47.0) % MCV 89.8 (80.0-98.0) fL MCH 30.4 (27.0-33.0) pg MCHC 33.9 (31.0-35.0) g/dl RDW 13.1 (11.0-16.0) % Plt Count 250 (160-400) X10*3/uL MPV 9.9 (9.4-12.3) fL Immature Gran % (Auto) 0.3 (0.0-0.4) % Neut % (Auto) 73.2 H (45-73) % Lymph % (Auto) 19.2 L (20-40) % Cache % (Auto) 6.1 (2-11) % Eos % (Auto) 0.7 (0-4) % Baso % (Auto) 0.5 (0-2) % Lymph # (Auto) 1.4 (1.2-4.9) X10*3/uL Cache # (Auto) 0.5 (0.1-1.2) X10*3/uL Eos # (Auto) 0.1 (0.0-0.4) X10*3/uL Baso # (Auto) 0.0 (0.0-0.2) X10*3/uL Abs Immat Gran (auto) 0.02 (0.00-0.03) X10*3/uL Absolute Neuts (auto) 5.4 (2.0-8.3) x10*3/uL Absolute Nucleated RBC 0.000 (0.0-0.012) X10*3/uL Nucleated RBC % (auto) 0.0 (0.0-0.2) /100WBC Sodium 141 (135-145) mmol/L Potassium 4.4 (3.3-5.1) mmol/L Chloride 107 (96-108) mmol/L Carbon Dioxide 24 (22-29) mmol/L Anion Gap 14 (12-20) BUN 13 (9-16) mg/dL Creatinine 1.00 (0.5-1.4) mg/dL Estim Creat Clear Calc 88.7 Estimated GFR > 60 Random Glucose 127 H (60-115) mg/dL Calcium 9.1 (8.4-10.2) mg/dL Magnesium 2.0 (1.6-2.6) mg/dL Total Bilirubin 0.4 (0.0-1.0) mg/dL AST 38 H (5-31) U/L ALT 24 (0-31) U/L Alkaline Phosphatase 60 (39-117) U/L Total Protein 7.1 (6.5-8.0) g/dL Albumin 4.1 (3.5-5.0) g/dL Lipase 35 (8-78) U/L Beta HCG, Quant < 2 mIU/mL Urine Color Other A Urine Appearance Hazy Urine pH 8.0 (5.0-9.0) Ur Specific [place] 1.010 (1.005-1.025) Urine Protein 30 (1+) H (Neg-Trace) mg/dL Urine Glucose (UA) Negative (Negative) mg/dL Urine Ketones Negative (Negative) mg/dL Urine Blood Large (3+) H (Negative) Urine Nitrite Negative (Negative) Ur Leukocyte Esterase Trace H (Negative) Urine RBC >20 H (0-2) /HPF Urine WBC 0-5 (0-5) /HPF Ur Squamous Epith Cells 0-2 (0-2) /HPF Urine Bacteria None Seen (None Seen) Hyaline Casts 0-2 (0-2) /LPF Independent Interpretation I performed an independent interpretation of an: CT Scan Interpretation: ct a/p with L ureteral stone Radiology Impression Discussion of test interpretation with radiology: I have reviewed the radiologist's reading. Radiologist Impression: Procedure(s): CT abdomen pelvis wo IV con Accession Number(s): [id number] cc: Physician,Unknown ; Adelaide Brunner~ Report Number: [id number]: Total DLP = 1039.00 mGy-cm CLINICAL HISTORY: L flank pain CT abdomen and pelvis without contrast Comparison: None provided Findings: The lung bases are clear. Reference axial image 46, there is a 2 mm calculus within the proximal left ureter with moderate left hydroureteronephrosis. No additional urinary calculus. The unenhanced liver, gallbladder, spleen, right adrenal gland and pancreas are unremarkable. Left adrenal nodule on axial 25, measuring up to 13 mm. Hounsfield unit measurement consistent with benign adenoma. No bowel obstruction or free air. Uterus and adnexa are unremarkable. Impression: There is a 2 mm calculus in the proximal left ureter with moderate left hydronephrosis. Additional incidental findings. This document has been electronically signed by: Ba Palma MD on 04/26/2025 11:34:43 External Record Review External record reviewed: Inpatient record Prescription Management I considered prescription management with: Pain Medication (toradol) and Other (prednisone, flomax) Chronic Conditions Patient?s care impacted by: Diabetes Social Determinants Patient?s care significantly limited by Social Determinants of Health including: Other Social Determinant of Health Medications Administered Discontinued Medications Generic Name Dose Route Start Last Admin Trade Name Freq PRN Reason Stop Dose Admin Sodium Chloride 1,000 mls @ 999 mls/hr 04/26/25 10:00 04/26/25 11:20 Ns IV 04/26/25 11:00 Infused .Q1H1M LINDSEY Infusion Ketorolac Tromethamine 30 mg 04/26/25 09:54 04/26/25 10:19 Ketorolac Tromethamine 30 Mg/Ml Vial IVPUSH 04/26/25 09:55 30 mg ONCE ONE Administration Ondansetron HCl 4 mg 04/26/25 10:21 04/26/25 10:30 Ondansetron Hcl 4 Mg/2 Ml Vial IVPUSH 04/26/25 10:22 4 mg ONCE ONE Administration Critical Care Time Critical Care Time Critical Care Time: No Discharge Plan Discharge Clinical Impression: Left ureteral calculus Patient Disposition: Home, Self-Care Instructions: Hydronephrosis (ED), Ureteral Stones (ED) Additional Instructions: Your blood work today is reassuring. Your urine shows a small amount of blood. There is no urinary tract infection. The CT scan of your abdomen shows a 2 mm stone in your left ureter. This is likely the cause of your pain. Urology is recommending we start you on flomax (to help flush the stone out) and prednisone (to decrease inflammation). These have both been sent to your pharmacy. Take these as prescribed. I am also sending toradol (an anti-inflammatory) to your pharmacy for you to take as needed for pain. Do not take this with other NSAIDs such as Motrin/ibuprofen as this can cause increased risk of GI bleeding. You should pass the stone over the next 5-9 days. Please follow up with Urology. You have been provided with a referral. Call them to establish care. They will not call you. Return with any new or worsening symptoms. In the case of an emergency call 911. Prescriptions: New tamsulosin [Flomax] 0.4 mg capsule 0.4 mg PO BEDTIME 14 Days Qty: 14 0RF prednisone 20 mg tablet 20 mg PO DAILY 3 Days Qty: 3 0RF ketorolac 10 mg tablet 10 mg PO Q8H 5 Days Qty: 15 0RF Referrals: [facility] [Provider Group, Urology] Physician,Unknown J [Primary Care Provider, Medical] Interventions: ED Discharge Assessment Last Done: 04/26/25 12:27 Discharge Date/Time: 04/26/25 12:28 Print Language: Ukrainian
[2025-04-26 10:21] LABS: Hematocrit 36.0 % (37.0-47.0); Hemoglobin 12.2 g/dl (12.0-16.0); Imm Gran Abs Auto 0.02 X10*3/uL (0.00-0.03); Imm Gran Pct Auto 0.3 % (0.0-0.4); Lymphocytes Absolute Auto 1.4 X10*3/uL (1.2-4.9); MANUAL DIFF FLAG NO; Mean Corpuscular HGB Conc 33.9 g/dl (31.0-35.0); Mean Corpuscular Hemoglobin 30.4 pg (27.0-33.0); Mean Corpuscular Volume 89.8 fL (80.0-98.0); NRBC Abs Auto 0.000 X10*3/uL (0.0-0.012); NRBC Pct Auto 0.0 /100WBC (0.0-0.2); Platelet Count 250 X10*3/uL (160-400); Red Blood Count 4.01 X10*6/uL (4.20-5.50); White Blood Count 7.3 X10*3/uL (4.8-10.8)
[2025-04-26 10:41] LABS: Alanine Aminotransferase 24 U/L (0-31); Albumin Level 4.1 g/dL (3.5-5.0); Alkaline Phosphatase 60 U/L (39-117); Anion Gap 14 (12-20); Aspartate Amino Transferase 38 U/L (5-31); Blood Urea Nitrogen 13 mg/dL (9-16); Calcium 9.1 mg/dL (8.4-10.2); Carbon Dioxide 24 mmol/L (22-29); Chloride 107 mmol/L (96-108); Creatinine Clr Calc Pharmacy 88.7; Estimated Glomerular Filt Rate > 60; Lipase 35 U/L (8-78); Magnesium 2.0 mg/dL (1.6-2.6); Potassium 4.4 mmol/L (3.3-5.1); Sodium 141 mmol/L (135-145); Total Protein 7.1 g/dL (6.5-8.0)
[2025-04-26 10:49] LABS: Appearance Urine Hazy; Glucose Urine UA Negative (Negative); PH 8.0 (5.0-9.0); Specific Gravity - Urine 1.010 (1.005-1.025)
[2025-04-26 10:50] LABS: UMIC TRIGGER UACC YES
[2025-04-26 10:56] VITALS: BP 123/64; PULSE 63; RESP 14; TEMP 36.9; O2SAT 98
[2025-04-26 12:27] VITALS: BP 123/64; PULSE 63; RESP 14; TEMP 36.9; O2SAT 98
== END 2025-04-26 12:28 | disposition home or self-care (01) ==
PROVIDERS: Physician Assistant Medical; Emergency Provider Emergency Medicine
DX: N20.1 Calculus of ureter (principal); G90.1 Familial dysautonomia [Riley-Day]; J44.89 Other specified chronic obstructive pulmonary disease; F32.A Depression, unspecified; E11.9 Type 2 diabetes mellitus without complications; Z79.84 Long term (current) use of oral hypoglycemic drugs
CPT/HCPCS: 36415; 74176; 80053; 81001; 83690; 83735; 84702; 85025; 96361; 96374; 96375; 99284; 99285; J1885; J2405

== ENCOUNTER → 2025-04-26 10:20 | Outpatient (BNV) | payer OTHER, SELFPAY | PROVIDERS: Emergency Provider Emergency Medicine; Visit Provider Radiology Vascular & Interventional Radiology | DX: N13.2 Hydronephrosis with renal and ureteral calculous obstruction (principal) | CPT/HCPCS: 74176 ==

== ENCOUNTER 2025-07-01 13:47 | Outpatient (AMB) | payer OTHER, SELFPAY ==
--- NOTE | 2025-07-01 13:58 | MHC.OFFVIS ---
Intake Visit Reasons: kidney stone Intake Note: Patient is present for KIDNEY STONE Urology Medication:TAMSULOSIN Antibiotic Allergy:ERTHROMYCIN,SULFA,BACTRIM Blood Thinner:NONE TODAY'S PVR:4ML'S Dishtank Operator Required: No Allergies erythromycin base (ERYTHROMYCIN BASE) Allergy (Unknown, Verified 07/01/25 14:48) ANAPHYLAXIS Sulfa (Sulfonamide Antibiotics) (SULFA (SULFONAMIDE ANTIBIOTICS)) Allergy (Unknown, Verified 07/01/25 14:48) ANAPHYLAXIS sulfamethoxazole (From BACTRIM) Allergy (Unknown, Verified 07/01/25 14:48) HIVES trimethoprim (From BACTRIM) Allergy (Unknown, Verified 07/01/25 14:48) HIVES polyethylene glycol Allergy (Verified 07/01/25 14:48) Vomiting Medication List - Last Reconciled 07/01/25 by KEISHA Brewer- bupropion HCl XL 300 mg PO DAILY cholecalciferol (vitamin D3) (Vitamin D3) 50 mcg PO DAILY epinephrine IM fluvoxamine 100 mg PO BID gabapentin 300 mg PO TID guanfacine ER 2 mg PO DAILY insulin degludec (Tresiba FlexTouch U-100 insulin) units subcut levothyroxine 25 mcg PO DAILY lorazepam mg PO metformin ER 1,000 mg PO BID montelukast 10 mg PO DAILY omeprazole 40 mg PO DAILY semaglutide (Ozempic) mg subcut HPI Comments Details: Juanita is a pleasant 44-year-old female patient. She has a past medical history of diabetes, COPD, asthma, and depression She presents to the office today as a new patient for nephrolithiasis as well as a longstanding history of lower urinary tract symptoms. In discussion with the patient today she reports having seeked emergency room care approximately 2 months ago for left-sided flank pain she had been experiencing at which time a CT KUB was performed and the patient was noted to have a 2 mm calculus in the proximal left ureter with moderate left hydronephrosis. Patient reports shortly after her ER visit pain has since subsided however she does not recall passage of kidney stone. She denies any previous history of nephrolithiasis and or surgical intervention for nephrolithiasis. However, she does report previously following up with [facility] prior to [facility] for her longstanding history of a overactive bladder. She describes having had in office urodynamics and tried multiple medications without any improvement in her lower urinary tract symptoms. She reports she continues with urinary frequency, urinary urgency, and mixed urinary incontinence. In office urinalysis results reviewed with the patient today. 3+ microscopic hematuria however patient is currently on her menses. We did discussed at length potential causes of nephrolithiasis as well as lower urinary tract symptoms. We discussed further workup in risks and benefits of these interventions. All questions were answered. She discusses her intentional weight loss of over 130 lb in the last 15 months with Matteo. She otherwise offers no other issues or concerns at this time. [facility] Medical History Diabetes COPD (chronic obstructive pulmonary disease) Asthma Depression Surgical History H/O: H/O knee surgery Hx of tonsillectomy History of thyroidectomy Review of Systems Const All systems reviewed & are unremarkable except as noted in HPI and below Physical Exam Const General: cooperative, healthy appearing, comfortable, no acute distress, well developed, alert and awake Nutritional Appearance: overweight Orientation/consciousness: patient oriented x3 Limitations: no limitations HEENT Head: Yes normal to inspection, Yes normocephalic and Yes atraumatic Ears: hearing grossly normal bilaterally Eyes General: appearance normal, both eyes and all related structures Neck Neck: Yes normal visual inspection and Yes trachea midline Chest Chest palpation & inspection: normal inspection of the chest Resp Effort & Inspection: normal respiratory effort and able to speak in complete sentences Cardio Rate: regular rate GI Inspection: Yes normal to inspection General: Yes no CVA tenderness Back/Spine/Pelvis Back: no CVA tenderness Skin General skin exam: no rashes or lesions noted Neuro General: patient oriented x3 Extrem General: Yes normal to inspection Psych Appearance: grossly normal and well kempt Mental Status: mental status grossly normal Speech and movement: Normal speech and movement present and Clear speech present Affect: normal affect Attitude: cooperative Thought process: Normal thought process present Thought content: Normal thought content present Insight: Fair insight present (Psych) Judgement: Fair judgement present (Psych) Office Procedures Post Void Residual Post Residual Void Post Void Residual (PVR): 4 [id number] Void Residual by ultrasound Results Reviewed Results Reviewed: Date of Service: 04/26/25 Procedure(s): CT abdomen pelvis wo IV con Findings: The lung bases are clear. Reference axial image 46, there is a 2 mm calculus within the proximal left ureter with moderate left hydroureteronephrosis. No additional urinary calculus. The unenhanced liver, gallbladder, spleen, right adrenal gland and pancreas are unremarkable. Left adrenal nodule on axial 25, measuring up to 13 mm. Hounsfield unit measurement consistent with benign adenoma. No bowel obstruction or free air. Uterus and adnexa are unremarkable. Impression: There is a 2 mm calculus in the proximal left ureter with moderate left hydronephrosis. Assessment & Plan Assessment & Plan (1) Nephrolithiasis: Code(s): N20.0 - Calculus of kidney Category: Medical (2) Lower urinary tract symptoms: Code(s): R39.9 - Unspecified symptoms and signs involving the genitourinary system Category: Medical (3) Urinary incontinence, mixed: Code(s): N39.46 - Mixed incontinence Category: Medical Plan In office urinalysis results reviewed with the patient today; as noted above. PVR 4 mL We did discussed potential causes of nephrolithiasis as well as mixed urinary incontinence; we discussed further treatment options and risks and benefits of these treatment options. All questions were answered. Will obtain retroperitoneal ultrasound for further assessment evaluation. We discussed bladder triggers and irritants. We discussed importance of adequate hydration relation to nephrolithiasis as well as overall health and well-being. We discussed adding 1 oz of lemon juice to water daily. Will schedule for in office urodynamics for further assessment evaluation. Follow-up per doctor's orders; or sooner with any issues, concerns, and or questions. Orders: Orders US retroperitoneal comp Today N20.0 - Calculus of kidney, N39.46 - Mixed incontinence, R39.9 - Unspecified symptoms and signs involving the genitourinary system Urine Cytology Today R31.29 - Other microscopic hematuria Patient Instructions: The patient had an opportunity to ask questions regarding the treatment plan. All questions were answered. Physical exam, labs, and imaging were discussed and reviewed in detail. As well as risks, benefits, and discussion of treatment choices. No major barriers to understanding were identified. The patient expressed understanding and agreement with the above treatment plan. The patient was made aware they should contact our office by phone for worsening of their current condition, the appearance of new symptoms, or with any questions or concerns. Compliance is encouraged with any medications and follow up testing that is ordered. It is a privilege to be allowed the opportunity to participate in? your urological care.? Again, if you have any questions or concerns If you have any questions or concerns please do not hesitate to contact me. The office is [phone]. This note is constructed using voice recognition software. While every effort has been made to ensure accuracy educational technology specialist errors may have been included. Yours sincerely, KEISHA Brewer-JAE Coding Level of Care Code New Pt Level 3 (33802) Diagnoses Nephrolithiasis N20.0 Lower urinary tract symptoms R39.9 Urinary incontinence, mixed N39.46 CPT Codes Post Residual Void - PVR CPT Code: 21228-Cgpv Void Residual by ultrasound ([id number])
--- OUTSIDE RECORDS SUMMARY | 2025-07-01 16:22 | XMS_ITS | Encounter Summary ---
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 Name Role Phone Christie Gonzales MD Primary Care Provider Jack Glynn MD Primary Care Provider Kelli Garcia MD Unavailable [phone] Kalpana Landaverde MD Primary Care Prov ider Sol Womack PA-C Unavailable [phone] Sera Montes MD Unavailable Unava ilable Encounter Details Date Type Department Care Team Description 10/10/2013 Release of Information Medical Records [address] [place] [id number] Abstract, Provider Social History Tobacco Use Types Packs/Day Years Used Date Smoking Tobacco: Never Smokeless Tobacco: Never Alcohol Use Standard Drinks/Week Comments No 0 (1 standard drink = 0.6 oz pur e alcohol) Sex Assigned at Date Recorded Not on file Job Start Date Occupation Industry Not on file Not on file Not on file documented as of this encounter Plan of Treatment Not on file documented as of this encounter Visit Diagnoses Not on filedocumented in this encounter Additional Health Concerns Infection Onset Date Last Indicated Resolved Time COVID-19 Comment:Reporting positive COVID 07/2807/28/2022 07/29/2022 11/14/2022 8:[address] documented as of this encounter Care Teams [employer] Electric[employer] Relationship Specialty Start Date End Date Christie Gonzales MD PCP - General 08/26/10 04/27/21 Jack Bedoya MD PCP - General Internal Medicine 04/28/21 07/24/22 Kalpana Landaverde MD [address] [place] [id number] PCP - General Internal Medicine 07/25/22 Kelli Singh MD Specialist Cardiology 07/06/21 Sol Womack PA-C [address], [place] [id number] Specialist Endocrinology 05/29/24 Sera Montes MD [address] [place] [address] Specialist Neurology 05/29/24 documented as of this encounter
--- OUTSIDE RECORDS SUMMARY | 2025-07-01 16:22 | XMS_ITS | Encounter Summary ---
Author Organization [facility] Address [address] [place] [address] Care Team Providers Care Sole Blacker Name Role Phone Kelli Singh MD Unavailable [phone] Kalpana Landaverde MD Primary Care Prov ider Sol Womack PA-C Unavailable Sera Montes MD Unavailable Unava ilable Reason for Visit * Reason Comments E-prescribe Rx Request Encounter Details Date Type Department Care Team Description 05/05/2023 Refill Endocrinology - [address] [address] Sol Womack PA-C [address] [place] [address] E-prescribe Rx Request Social History Tobacco Use Types Packs/Day Years Used Date Smoking Tobacco: Never Smokeless Tobacco: Never Alcohol Use Standard Drinks/Week Comments Not Currently 0 (1 standard drink = 0.6 oz pur e alcohol) 2 drinks per yr Sex Assigned at Date Recorded Not on file Job Start Date Occupation Industry Not on file Not on file Not on file COVID-19 Exposure Response Date Recorded In the last 10 days, have yo u been in contact with someone who was confirmed or suspected to have Coronavirus/COVID-19? No / Unsure 05/01/2023 11:57 AM EDT documented as of this encounter Miscellaneous Notes * Telephone Encounter - Sol Womack PA-C - 05/10/2023 10:15 AM EDT 5 mg dose was sent to the pharmacy already in March. Please confirm which medication patient is taking. Do they need refill on the 5 mg dose? * Telephone Encounter - Amber Arora PA-C - 05/09/2023 5:24 PM EDT Wrong dose. Provider sent in 5 mg on 04/10/2023. I will forward to ordering provider for consideration. documented in this encounter Plan of Treatment Not on file documented as of this encounter Visit Diagnoses Diagnosis Type 2 diabetes mellitus with diabetic mononeuropathy, without long-term current use of insulin (HCC)- Primary documented in this encounter Care Teams Sole Blacker Relationship Specialty Start Date End Date Kalpana Landaverde MD [address] [place] [address] PCP - General Internal Medicine 07/25/22 Kelli Singh MD Specialist Cardiology 07/06/21 Sol Womack PA-C [address] [place] [address] Specialist Endocrinology 05/29/24 Sera Montes MD [address] [place] [address] Specialist Neurology 05/29/24 documented as of this encounter
--- OUTSIDE RECORDS SUMMARY | 2025-07-01 16:22 | XMS_ITS | Encounter Summary ---
Author Organization [facility] Address [address] [place] [address] Care Team Providers Care Behavioral Science Chair Name Role Phone Christie Gonzales MD Primary Care Provider Jack Glynn MD Primary Care Provider Kelli Garcia MD Unavailable [phone] Kalpana Landaverde MD Primary Care Prov ider Sol Womack PA-C Unavailable [phone] Sera Montes MD Unavailable Unava ilable Encounter Details Date Type Department Care Team Description 03/01/2019 Business Doc Medical Records [address] [place] [address] Abstract, Provider Social History Tobacco Use Types Packs/Day Years Used Date Smoking Tobacco: Never Smokeless Tobacco: Never Alcohol Use Standard Drinks/Week Comments Yes 0 (1 standard drink = 0.6 oz [...] documented as of this encounter Care Teams Behavioral Science Chair Relationship Specialty Start Date End Date Christie Gonzales MD PCP - General 08/26/10 04/27/21 Jack Bedoya MD PCP - General Internal Medicine 04/28/21 07/24/22 Kalpana Landaverde MD [address] [place] [address] PCP - General Internal Medicine 07/25/22 Kelli Singh MD Specialist Cardiology 07/06/21 Sol Womack PA-C [address] [place] [address] Specialist Endocrinology 05/29/24 Sera Montes MD [address] [place] [address] Specialist Neurology 05/29/24 documented as of this encounter
--- OUTSIDE RECORDS SUMMARY | 2025-07-01 16:22 | XMS_ITS | Encounter Summary ---
Author Organization [facility] Address [address] [place] [address] Care Team Providers Care Ammunition Components Inspector Name Role Phone Christie Gonzales MD Primary Care Provider Jack Gylnn MD Primary Care Provider Kelli Garcia MD Unavailable [phone] Kalpana Landaverde MD Primary Care Prov ider Sol Womack PA-C Unavailable [phone] Sera Montes MD Unavailable Unava ilable Reason for Visit * Reason Comments E-prescribe Rx Request Encounter Details Date Type Department Care Team Description 07/07/2019 Refill Adult Medicine [address] [address] Ramesh Atkinson MD [address] [place] [address] E-prescribe Rx Request Social History Tobacco Use [...] on file documented as of this encounter Miscellaneous Notes * Telephone Encounter - Unique Triplett M.A. - 07/08/2019 2:40 PM EDT Last refill 06-10-19 * Telephone Encounter - Vanessa Vu - 07/08/2019 8:28 AM EDT Patient would like script to be: E-PRESCRIBED/FAXED TO PHARMACY WHEN WAS THE PATIENT'S LAST APPOINTMENT IN ADULT MEDICINE? 07-01-19 WHEN WAS THE LAST TIME THE PATIENT SAW THEIR PCP? 11-15-18 Does patient have an upcoming appointment? Yes 09-24-19 (THE MEDICATION REQUESTED IS ON THE MED LIST ABOVE) All of the medications requested were on the CURRENT MEDS list Did you check the Pharmacy information above?: YES Patient wants: 30 -day supply Is this a mail order prescription request ? NO If the refill is from a FAXED refill request what is the RX # listed on the fax? N/A Patients current insurance carrier is: Payor: WORKERS COMP / Plan: WORKERS [place] / Product Type: OTHER documented in this encounter Plan of Treatment Not on file documented as of this encounter Visit Diagnoses Not on filedocumented in this encounter Additional Health Concerns Infection Onset Date Last Indicated Resolved Time COVID-19 Comment:Reporting positive COVID 07/2807/28/2022 07/29/2022 11/14/2022 8:[address] documented as of this encounter Care Teams Ammunition Components Inspector Relationship Specialty Start Date End Date Christie Gonzales MD PCP - General 08/26/10 04/27/21 Jack Bedoya MD PCP - General Internal Medicine 04/28/21 07/24/22 Leila Pérez, Kalpana Herndon MD [address] [place] [address] PCP - General Internal Medicine 07/25/22 Kelli Singh MD Specialist Cardiology 07/06/21 Sol Womack PA-C [address] [place] [address] Specialist Endocrinology 05/29/24 Sera Montes MD [address] [place] [address] Specialist Neurology 05/29/24 documented as of this encounter
--- OUTSIDE RECORDS SUMMARY | 2025-07-01 16:22 | XMS_ITS | Encounter Summary ---
Author Organization [facility] Address [address] [place] [address] Care Team Providers Care Human Resources Manager Name Role Phone Christie Gonzales MD Primary Care Provider Jack Glynn MD Primary Care Provider Kelli Garcia MD Unavailable [phone] Kalpana Landaverde MD Primary Care Prov ider Sol Womack PA-C Unavailable [phone] Sera Montes MD Unavailable Unava ilable Reason for Visit * Reason Onset Date Comments Form 12/28/2018 Encounter Details Date Type Department Care Team Description 12/28/2018 Telephone Endocrinology - [address] [address] John Mejia MD Form Social History Tobacco Use Types Packs/Day Years [...] encounter Miscellaneous Notes * Telephone Encounter - Kathy Car - 12/28/2018 1:31 PM EST [facility] Nuclear med diag. Im department would like form filled out and sent back to them [phone] documented in this encounter Plan of Treatment Not on file documented as of this encounter Visit Diagnoses Not on filedocumented in this encounter Additional Health Concerns Infection Onset Date Last Indicated Resolved Time COVID-19 Comment:Reporting positive COVID 07/2807/28/2022 07/29/2022 11/14/2022 8:[address] documented as of this encounter Care Teams Human Resources Manager Relationship Specialty Start Date End Date Christie Gonzales MD PCP - General 08/26/10 04/27/21 Jack Bedoya MD PCP - General Internal Medicine 04/28/21 07/24/22 Kalpana Landaverde MD [address] [place] [address] PCP - General Internal Medicine 07/25/22 Kelli Singh MD Specialist Cardiology 07/06/21 Sol Womack PA-C [address] [place] [address] Specialist Endocrinology 05/29/24 Sera Montes MD [address] [place] [address] Specialist Neurology 05/29/24 documented as of this encounter
--- OUTSIDE RECORDS SUMMARY | 2025-07-01 16:22 | XMS_ITS | Encounter Summary ---
Author Organization [facility] Address [address] [place] [address] Care Team Providers Care Industrial Organization Manager Name Role Phone Christie Gonzales MD Primary Care Provider Jack Glynn MD Primary Care Provider Kelli Garcia MD Unavailable [phone] Kalpana Landaverde MD Primary Care Prov ider Sol Womack PA-C Unavailable [phone] Sera Montes MD Unavailable Unava ilable Encounter Details Date Type Department Care Team Description 03/04/2019 Telephone General Surgery - [address] [place] [id number] Sylvia Cotto PA-C Social History Tobacco Use Types Packs/Day Years [...] encounter Miscellaneous Notes * Telephone Encounter - Radha Mitchell - 03/05/2019 10:00 AM EDT Lmom about scheduling a 6mth f/u * Telephone Encounter - Sylvia Cotto PA-C - 03/04/2019 11:52 AM EDT Please schedule patient for 6 month f/u with Dr. Vegas s/p total thyroidectomy for thyroid cancer. Pt will have repeat ultrasound prior to this appointment Thank you documented in this encounter Plan of Treatment Not on file documented as of this encounter Visit Diagnoses Not on filedocumented in this encounter Additional Health Concerns Infection Onset Date Last Indicated Resolved Time COVID-19 Comment:Reporting positive COVID 07/2807/28/2022 07/29/2022 11/14/2022 8:[address] documented as of this encounter Care Teams Industrial Organization Manager Relationship Specialty Start Date End Date Christie Gonzales MD PCP - General 08/26/10 04/27/21 Jack Bedoya MD PCP - General Internal Medicine 04/28/21 07/24/22 Kalpana Landaverde MD [address] [place] [address] PCP - General Internal Medicine 07/25/22 Kelli Singh MD Specialist Cardiology 07/06/21 Sol Womack PA-C [address] [place] [address] Specialist Endocrinology 05/29/24 Sera Montes MD [address] [place] [address] Specialist Neurology 05/29/24 documented as of this encounter
--- OUTSIDE RECORDS SUMMARY | 2025-07-01 16:22 | XMS_ITS | Encounter Summary ---
Author Organization [facility] Address [address] [place] [address] Care Team Providers Care Sld Educational Aide Name Role Phone Christie Gonzales MD Primary Care Provider Jack Glynn MD Primary Care Provider Kelli Garcia MD Unavailable [phone] Kalpana Landaverde MD Primary Care Prov ider Sol Womack PA-C Unavailable [phone] Sera Montes MD Unavailable Unava ilable Reason for Visit * Reason Comments E-prescribe Rx Request Encounter Details Date Type Department Care Team Description 05/13/2019 Refill Adult Medicine [address] [address] John Mejia MD E-prescribe Rx Request Social History Tobacco Use [...] encounter Miscellaneous Notes * Telephone Encounter - Bernadette Ordaz - 05/14/2019 11:18 AM EDT Last iov 02/27/2019 Ov 07/01/2019 Lab Results Component Value Date HGBA1C 6.7 02/26/2019 MALBUR 0.7 10/10/2018 MALBCR 1.3 10/10/2018 CHOL 206 10/10/2018 LDL 130 10/10/2018 HDL 42 10/10/2018 TRIG 174 10/10/2018 GLU 170 08/17/2017 CREAT 0.8 10/10/2018 * Telephone Encounter - Estefania Santiago - 05/14/2019 8:55 AM EDT Sent to [facility]ay documented in this encounter Plan of Treatment Not on file documented as of this encounter Visit Diagnoses Not on filedocumented in this encounter Additional Health Concerns Infection Onset Date Last Indicated Resolved Time COVID-19 Comment:Reporting positive COVID 07/2807/28/2022 07/29/2022 11/14/2022 8:[address] documented as of this encounter Care Teams Sld Educational Aide Relationship Specialty Start Date End Date Christie Gonzales MD PCP - General 08/26/10 04/27/21 Jack Bedoya MD PCP - General Internal Medicine 04/28/21 07/24/22 Kalpana Landaverde MD [address] [place] [address] PCP - General Internal Medicine 07/25/22 Kelli Singh MD Specialist Cardiology 07/06/21 Sol Womack PA-C [address] [place] [address] Specialist Endocrinology 05/29/24 Sera Montes MD [address] [place] [address] Specialist Neurology 05/29/24 documented as of this encounter
--- OUTSIDE RECORDS SUMMARY | 2025-07-01 16:22 | XMS_ITS | Encounter Summary ---
Author Organization [facility] Address [address] [place] [address] Care Team Providers Care Center Punch Operator Name Role Phone Christie Gonzales MD Primary Care Provider Jack Glynn MD Primary Care Provider Kelli Garcia MD Unavailable [phone] Kalpana Landaverde MD Primary Care Prov ider Sol Womack PA-C Unavailable [phone] Sera Montes MD Unavailable Unava ilable Encounter Details Date Type Department Care Team Description 11/29/2018 Release of Information Medical Records [address] [place] [address] Abstract, Provider Social History Tobacco Use Types [...] documented as of this encounter Care Teams Center Punch Operator Relationship Specialty Start Date End Date Christie Gonzales MD PCP - General 08/26/10 04/27/21 Jack Bedoya MD PCP - General Internal Medicine 04/28/21 07/24/22 Kalpana Landaverde MD [address] [place] [address] PCP - General Internal Medicine 07/25/22 Kelli Singh MD Specialist Cardiology 07/06/21 Sol Womack PA-C [address] [place] [address] Specialist Endocrinology 05/29/24 Sera Montes MD [address] [place] [address] Specialist Neurology 05/29/24 documented as of this encounter
--- OUTSIDE RECORDS SUMMARY | 2025-07-01 16:22 | XMS_ITS | Encounter Summary ---
Author Organization [facility] Address [address] [place] [address] Care Team Providers Care Eviction Specialist Name Role Phone Christie Gonzales MD Primary Care Provider Jack Glynn MD Primary Care Provider Kelli Garcia MD Unavailable [phone] Kalpana Landaverde MD Primary Care Prov ider Sol Womack PA-C Unavailable [phone] Sera Montes MD Unavailable Unava ilable Encounter Details Date Type Department Care Team Description 05/29/2014 Laboratory Chemical Assistant Report Medical Records [address] [place] [address] Fransico Ngo MD [address] [place] [address] [address] [place] [address] Social History Tobacco Use Types Packs/Day Years [...] documented as of this encounter Care Teams Eviction Specialist Relationship Specialty Start Date End Date Christie Gonzales MD PCP - General 08/26/10 04/27/21 Jack Bedoya MD PCP - General Internal Medicine 04/28/21 07/24/22 Kalpana Landaverde MD [address] [place] [address] PCP - General Internal Medicine 07/25/22 Kelli Singh MD Specialist Cardiology 07/06/21 Sol Womack PA-C [address] [place] [address] Specialist Endocrinology 05/29/24 Sera Montes MD [address] [place] [address] Specialist Neurology 05/29/24 documented as of this encounter
--- OUTSIDE RECORDS SUMMARY | 2025-07-01 16:22 | XMS_ITS | Encounter Summary ---
Author Organization [facility] Address [address] [place] [address] Care Team Providers Care Edge Runner Name Role Phone Jack Bedoya MD Primary Care Provider Kelli Garcia MD Unavailable [phone] Kalpana Landaverde MD Primary Care Prov ider Sol Womack PA-C Unavailable [phone] Sera Montes MD Unavailable Unava ilable Encounter Details Date Type Department Care Team Description 01/20/2022 Pt. Non Urgent Medical Question Endocrinology [facility] [address] [place] [address] Sol Womack PA-C [address] [place], [place] [id number] Social History Tobacco Use Types Packs/Day Years [...] suspected to have Coronavirus/COVID-19? No / Unsure 01/13/2022 4:52 PM EDT documented as of this encounter Plan of Treatment Not on file documented as of this encounter Visit Diagnoses Not on filedocumented in this encounter Additional Health Concerns Infection Onset Date Last Indicated Resolved Time COVID-19 Comment:Reporting positive COVID 07/2807/28/2022 07/29/2022 11/14/2022 8:[address] documented as of this encounter Care Teams Edge Runner Relationship Specialty Start Date End Date Jack Bedoya MD PCP - General Internal Medicine 04/28/21 07/24/22 Kalpana Landaverde MD [address] [place] [address] PCP - General Internal Medicine 07/25/22 Kelli Singh MD Specialist Cardiology 07/06/21 Sol Womack PA-C [address] [place] [address] Specialist Endocrinology 05/29/24 Sera Montes MD [address] [place] [address] Specialist Neurology 05/29/24 documented as of this encounter
--- OUTSIDE RECORDS SUMMARY | 2025-07-01 16:22 | XMS_ITS | Encounter Summary ---
Author Organization [facility] Address [address] [place] [address] Care Team Providers Care Airborne Sensor Specialist Name Role Phone Christie Gonzales MD Primary Care Provider Jack Glynn MD Primary Care Provider Kelli Garcia MD Unavailable [phone] Kalpana Landaverde MD Primary Care Prov ider Sol Womack PA-C Unavailable [phone] Sera Montes MD Unavailable Unava ilable Encounter Details Date Type Department Care Team Description 05/14/2014 Release of Information Medical Records [address] [place] [address] Abstract, Provider Social History Tobacco Use Types [...] documented as of this encounter Care Teams Airborne Sensor Specialist Relationship Specialty Start Date End Date Christie Gonzales MD PCP - General 08/26/10 04/27/21 Jack Bedoya MD PCP - General Internal Medicine 04/28/21 07/24/22 Kalpana Landaverde MD [address] [place] [address] PCP - General Internal Medicine 07/25/22 Kelli Singh MD Specialist Cardiology 07/06/21 Sol Womack PA-C [address] [place] [address] Specialist Endocrinology 05/29/24 Sera Montes MD [address] [place] [address] Specialist Neurology 05/29/24 documented as of this encounter
--- OUTSIDE RECORDS SUMMARY | 2025-07-01 16:22 | XMS_ITS | Encounter Summary ---
Author Organization [facility] Address [address] [place] [address] Care Team Providers Care Professional Services Manager Name Role Phone Christie Gonzales MD Primary Care Provider Jack Glynn MD Primary Care Provider Kelli Garcia MD Unavailable [phone] Kalpana Landaverde MD Primary Care Prov ider Sol Womack PA-C Unavailable [phone] Sera Montes MD Unavailable Unava ilable Encounter Details Date Type Department Care Team Description 01/31/2019 Orders Only Adult Medicine B - [place] [address] [place] [address] John Mejia MD Papillary thyroid carcinoma (HCC) (Primary Dx); Type 2 diabetes mellitus with diabetic mononeuropathy, without long-term current use of insulin (HCC) Social History Tobacco Use Types Packs/Day Years [...] on file documented as of this encounter Results * FREE THYROXINE (T4) (02/26/2019 11:30 AM EDT) FREE T4 (FREE THYROXINE) 1.54 0.70 - 1.80 ng/dL 02/26/2019 3:51 PM EDT [facility] 02/26/2019 11:3 0 AM EDT 02/26/2019 11:30 AM EDT John Mejia MD LAB [facility] * (ABNORMAL) HEMOGLOBIN A1C (02/26/2019 11:30 AM EDT) GLYCATED HEMOGLOBIN A1C 6.7(H) <6.5 % 02/27/2019 12:29 PM EDT [facility] ESTIMATED AVERAGE GLUCOSE 146 mg/dL 02/27/2019 12:29 PM EDT [facility] 02/26/2019 11:3 0 AM EDT 02/26/2019 11:30 AM EDT John Mejia MD LAB Performing Organization Address [facility]/ZIP Co de Phone Number [facility] * TSH (02/26/2019 11:30 AM EDT) TSH 3.18 0.40 - 4.00 uIU/ml 02/26/2019 3:51 PM EDT [facility] 02/26/2019 11:3 0 AM EDT 02/26/2019 11:30 AM EDT John Mejia MD LAB Performing Organization Address [facility]/ZIP Co de Phone Number [facility] documented in this encounter Visit Diagnoses Diagnosis Papillary thyroid carcinoma (HCC)- Primary Malignant neoplasm of thyroid gland Type 2 diabetes mellitus with diabetic mononeuropathy, without long-term current use of insulin (HCC) documented in this encounter Additional Health Concerns Infection Onset Date Last Indicated Resolved Time COVID-19 Comment:Reporting positive COVID 07/2807/28/2022 07/29/2022 11/14/2022 8:[address] documented as of this encounter Care Teams Professional Services Manager Relationship Specialty Start Date End Date Christie Gonzales MD PCP - General 08/26/10 04/27/21 Jack Bedoya MD PCP - General Internal Medicine 04/28/21 07/24/22 Kalpana Landaverde MD [address] [place] [address] PCP - General Internal Medicine 07/25/22 Kelli Singh MD Specialist Cardiology 07/06/21 Sol Womack PA-C [address] [place] [address] Specialist Endocrinology 05/29/24 Sera Montes MD [address] [place] [address] Specialist Neurology 05/29/24 documented as of this encounter
--- OUTSIDE RECORDS SUMMARY | 2025-07-01 16:22 | XMS_ITS | Encounter Summary ---
Author Organization [facility] Address [address] [place] [address] Care Team Providers Care Certified Dialysis Technician Name Role Phone Christie Gonzales MD Primary Care Provider Jack Glynn MD Primary Care Provider Kelli Garcia MD Unavailable [phone] Kalpana Landaverde MD Primary Care Prov ider Sol Womack PA-C Unavailable [phone] Sera Montes MD Unavailable Unava ilable Encounter Details Date Type Department Care Team Description 01/20/2015 Refill Adult Medicine [address] [address] Ankit Brewer PA-C [address] [place] [address] Social History Tobacco Use Types Packs/Day Years [...] encounter Miscellaneous Notes * Telephone Encounter - Lexis Nunes L.P.N. - 01/21/2015 10:41 AM EDT lv 01/19/2015 Juaniat Flores PA-C Script 01/10/2015 #30 refill My chart msg sent * Telephone Encounter - Lexis Nunes L.P.N. - 01/21/2015 10:41 AM EDTFrom: Juanita Fitzgerald To: Ankit Brewer PA-C Sent: 01/20/2015 7:09 AM EDT Subject: Medication Renewal Request Original authorizing provider: JOCELYN Giraldo would like a refill of the following medications: Meclizine HCl 25 MG Tab [Ankit Brewer PA-C] Preferred pharmacy: [id number] [place] - [address] Comment: documented in this encounter Plan of Treatment Not on file documented as of this encounter Visit Diagnoses Diagnosis Sinusitis Unspecified sinusitis (chronic) Vertigo Dizziness and giddiness DIABETES MELLITUS TYPE II-UNCOMPL Type II or unspecified type diabetes mellitus without mention of complication, not stated as uncontrolled documented in this encounter Additional Health Concerns Infection Onset Date Last Indicated Resolved Time COVID-19 Comment:Reporting positive COVID 07/2807/28/2022 07/29/2022 11/14/2022 8:[address] documented as of this encounter Care Teams Certified Dialysis Technician Relationship Specialty Start Date End Date Christie Gonzales MD PCP - General 08/26/10 04/27/21 Jack Bedoya MD PCP - General Internal Medicine 04/28/21 07/24/22 Kalpana Landaverde MD [address] [place] [address] PCP - General Internal Medicine 07/25/22 Kelli Singh MD Specialist Cardiology 07/06/21 Sol Womack PA-C [address] [place] [address] Specialist Endocrinology 05/29/24 Sera Montes MD [address] [place] [address] Specialist Neurology 05/29/24 documented as of this encounter
--- OUTSIDE RECORDS SUMMARY | 2025-07-01 16:22 | XMS_ITS | Encounter Summary ---
Author Organization [facility] Address [address] [place] [address] Care Team Providers Care Revenue Cycle Manager Name Role Phone Christie Gonzales MD Primary Care Provider Jack Glynn MD Primary Care Provider Kelli Garcia MD Unavailable [phone] Kalpana Landaverde MD Primary Care Prov ider Sol Womack PA-C Unavailable [phone] Sera Montes MD Unavailable Unava ilable Encounter Details Date Type Department Care Team Description 04/19/2013 Release of Information Medical Records [address] [place] [address] Abstract, Provider Social History Tobacco Use Types [...] documented as of this encounter Care Teams Revenue Cycle Manager Relationship Specialty Start Date End Date hCristie Gonzales MD PCP - General 08/26/10 04/27/21 Jack Bedoya MD PCP - General Internal Medicine 04/28/21 07/24/22 Kalpana Landaverde MD [address] [place] [address] PCP - General Internal Medicine 07/25/22 Kelli Singh MD Specialist Cardiology 07/06/21 Sol Womack PA-C [address] [place], [place] [address] Specialist Endocrinology 05/29/24 Sera Montes MD [address] [place] [address] Specialist Neurology 05/29/24 documented as of this encounter
--- OUTSIDE RECORDS SUMMARY | 2025-07-01 16:22 | XMS_ITS | Encounter Summary ---
Author Organization [facility] Address [address] [place] [address] Care Team Providers Care Solid Waste Division Supervisor Name Role Phone Christie Gonzales MD Primary Care Provider Jack Glynn MD Primary Care Provider Kelli Garcia MD Unavailable [phone] Kalpana Landaverde MD Primary Care Prov ider Sol Womack PA-C Unavailable [phone] Sera Montes MD Unavailable Unava ilable Reason for Visit * Reason Comments E-prescribe Rx Request Encounter Details Date Type Department Care Team Description 01/24/2019 Refill Adult Medicine [address] [address] Juanita Flores PA-C [address] [place] [address] E-prescribe Rx Request Social History Tobacco Use [...] encounter Miscellaneous Notes * Telephone Encounter - Jamia Amador M.A. - 01/24/2019 11:28 AM EDT Lab Results Component Value Date NA 141 10/10/2018 K 4.7 10/10/2018 CO2 17.7 10/10/2018 CL 105 10/10/2018 BUN 19 10/10/2018 CREAT 0.8 10/10/2018 GLU 138 10/10/2018 CA 9.4 10/10/2018 GFR > 60 10/10/2018 Last rx #90 with 1 refill 07/25/18, last ov with pcp 11/15/18 * Telephone Encounter - Kailey Betancourt - 01/24/2019 11:26 AM EDT Patient would like script to be: E-PRESCRIBED/FAXED TO PHARMACY WHEN WAS THE PATIENT'S LAST APPOINTMENT IN ADULT MEDICINE? 11/15/18 WHEN WAS THE LAST TIME THE PATIENT SAW THEIR PCP? Same as above Does patient have an upcoming appointment? (THE MEDICATION REQUESTED IS ON THE MED LIST ABOVE) All of the medications requested were on the CURRENT MEDS list Did you check the Pharmacy information above?: YES Patient wants: 90 -day supply Is this a mail order [...] Indicated Resolved Time COVID-19 Comment:Reporting positive COVID 10/6 07/28/2022 07/29/2022 11/14/2022 8:[address] documented as of this encounter Care Teams Solid Waste Division Supervisor Relationship Specialty Start Date End Date Christie Gonzales MD PCP - General 08/26/10 04/27/21 Jack Bedoya MD PCP - General Internal Medicine 04/28/21 07/24/22 Kalpana Landaverde MD [address] [place] [address] PCP - General Internal Medicine 07/25/22 Kelli Singh MD Specialist Cardiology 07/06/21 Sol Womack PA-C [address] [place] [address] Specialist Endocrinology 05/29/24 Sera Montes MD [address] [place] [address] Specialist Neurology 05/29/24 documented as of this encounter
--- OUTSIDE RECORDS SUMMARY | 2025-07-01 16:22 | XMS_ITS | Encounter Summary ---
Author Organization [facility] Address [address] [place] [address] Care Team Providers Care Baseball Scout Name Role Phone Christie Gonzales MD Primary Care Provider Jack Glynn MD Primary Care Provider Kelli Garcia MD Unavailable [phone] Kalpana Landaverde MD Primary Care Prov ider Sol Womack PA-C Unavailable [phone] Sera Montes MD Unavailable Unava ilable Encounter Details Date Type Department Care Team Description 12/04/2018 Orders Only Medical Records [address] [place] [address] Matteo Vegas MD [address] [place], [place] [id number] Social History Tobacco Use Types Packs/Day Years [...] on file documented as of this encounter Procedures Procedure Name Priority Date/Time Associated Diagnosis Comments OUTSIDE PATHOLOGY Routine 11/27/2018 documented in this encounter Results * OUTSIDE PATHOLOGY (11/27/2018) Matteo Vegas MD OUTSIDE LAB documented in this encounter Visit Diagnoses Not on filedocumented in this encounter Additional Health Concerns Infection Onset Date Last Indicated Resolved Time COVID-19 Comment:Reporting positive COVID 07/2807/28/2022 07/29/2022 11/14/2022 8:[address] documented as of this encounter Care Teams Baseball Scout Relationship Specialty Start Date End Date Christie Gonzales MD PCP - General 08/26/10 04/27/21 Jack Bedoya MD PCP - General Internal Medicine 04/28/21 07/24/22 Kalpana Landaverde MD [address] [place] [address] PCP - General Internal Medicine 07/25/22 Kelli Singh MD Specialist Cardiology 07/06/21 Sol Womack PA-C [address] [place] [address] Specialist Endocrinology 05/29/24 Sera Montes MD [address] [place] [address] Specialist Neurology 05/29/24 documented as of this encounter
--- OUTSIDE RECORDS SUMMARY | 2025-07-01 16:22 | XMS_ITS | Encounter Summary ---
Author Organization [facility] Address [address] [place] [address] Care Team Providers Care Inside Tester Name Role Phone Christie Gonzales MD Primary Care Provider Jack Glynn MD Primary Care Provider Kelli Garcia MD Unavailable [phone] Kalpana Landaverde MD Primary Care Prov ider Sol Womack PA-C Unavailable [phone] Sera Montes MD Unavailable Unava ilable Reason for Visit * Reason Onset Date Comments Patient Safety Manager Feedback 03/24/2014 Referral to Orth opedics Encounter Details Date Type Department Care Team Description 03/24/2014 Telephone Adult Urgent Care - [address] [address] Natasha Aquino PA-C Patient Safety Manager Feedback (Referral to Orthopedics ) Social History Tobacco Use Types Packs/Day Years [...] Miscellaneous Notes * Telephone Encounter - Radha Garzon - 03/24/2014 2:34 PM EDT GARETH Kaur, you placed a referral for Juanita to be seen for within 2-3 weeks for her Shoulder pain to see JAKE. The soonest appointment I could get her is for 05/08/14. Thank you [facility]'s Coordinator Radha documented in this encounter Plan of Treatment Not on file documented as of this encounter Visit Diagnoses Not on filedocumented in this encounter Additional Health Concerns Infection Onset Date Last Indicated Resolved Time COVID-19 Comment:Reporting positive COVID 07/2807/28/2022 07/29/2022 11/14/2022 8:[address] documented as of this encounter Care Teams Inside Tester Relationship Specialty Start Date End Date Christie Gonzales MD PCP - General 08/26/10 04/27/21 Jack Bedoya MD PCP - General Internal Medicine 04/28/21 07/24/22 Kalpana Landaverde MD [address] [place] [address] PCP - General Internal Medicine 07/25/22 Kelli Singh MD Specialist Cardiology 07/06/21 Sol Womack PA-C [address] [place] [address] Specialist Endocrinology 05/29/24 Sera Montes MD [address] [place] [address] Specialist Neurology 05/29/24 documented as of this encounter
--- OUTSIDE RECORDS SUMMARY | 2025-07-01 16:23 | XMS_ITS | Encounter Summary ---
Author Organization [facility] Address [address] [place] [address] Care Team Providers Care Home Management Supervisor Name Role Phone Kelli Singh MD Unavailable [phone] Kalpana Landaverde MD Primary Care Prov ider Sol Womack PA-C Unavailable [phone] Sera Montes MD Unavailable Unava ilable Reason for Visit * Reason Comments E-prescribe Rx Request Encounter Details Date Type Department Care Team Description 04/08/2024 Refill OBGYN - [address] [place] [phone] Grace Cole, [facility] [address] [place] [address] E-prescribe Rx Request Social History Tobacco Use [...] encounter Miscellaneous Notes * Telephone Encounter - Luna Urbina L.P.N. - 04/10/2024 9:27 AM EDT Rx request for Chayo denied at this time as overdue annual religious studies professor exam has not been scheduled. * Telephone Encounter - Sunitha Laws - 04/08/2024 2:50 PM EDT WHEN WAS THE PATIENTS LAST ANNUAL WIRE STITCHER MACHINE EXAM? 02/07/23 Does patient have an upcoming appointment? No my chart msg sent (THE MEDICATION REQUESTED IS ON THE MED LIST ABOVE) Did you check the Pharmacy information above?: YES Indicate how soon the patient needs the script: BY THE END OF THE DAY Patient would like script to be: E-PRESCRIBED/FAXED TO PHARMACY Is the doctor here today?: YES Can the message wait until the doctor returns?: NO Has the patient been told that the prescription will not be filled until the end of the day? NO Payor: [facility] [employer] [facility] F[facility] / Plan: [facility] / Product Type: MEDICAID RISK documented in this encounter Plan of Treatment Not on file documented as of this encounter Visit Diagnoses Not on filedocumented in this encounter Care Teams Home Management Supervisor Relationship Specialty Start Date End Date Kalpana Landaverde MD [address] [place] [address] PCP - General Internal Medicine 07/25/22 Kelli Singh MD Specialist Cardiology 07/06/21 Sol Womack PA-C [address] [place] [address] Specialist Endocrinology 05/29/24 Sera Motnes MD [address] [place] [address] Specialist Neurology 05/29/24 documented as of this encounter
--- OUTSIDE RECORDS SUMMARY | 2025-07-01 16:23 | XMS_ITS | Encounter Summary ---
Author Organization [facility] Address [address] [place] [address] Care Team Providers Care Manager Diversity Name Role Phone Jack Bedoya MD Primary Care Provider Kelli Garcia MD Unavailable [phone] Kalpana Landaverde MD Primary Care Prov ider Sol Womack PA-C Unavailable [phone] Sera Montes MD Unavailable Unava ilable Encounter Details Date Type Department Care Team Description 09/24/2021 Orders Only Internal Medicine - [address], [address] [place] [address] Emory Andrews MD [address] [place], [place] [phone] Social History Tobacco Use Types Packs/Day Years [...] Exposure Response Date Recorded In the last month, have you been in contact with someone who was confirmed or suspected to have Coronavirus / COVID-19? No / Unsure 09/23/2021 10:26 AM EST documented as of this encounter Plan of Treatment Not on file documented as of this encounter Visit Diagnoses Not on filedocumented in this encounter Additional Health Concerns Infection Onset Date Last Indicated Resolved Time COVID-19 Comment:Reporting positive COVID 10/6 07/28/2022 07/29/2022 11/14/2022 8:[address] documented as of this encounter Care Teams Manager Diversity Relationship Specialty Start Date End Date Jack Bedoya MD PCP - General Internal Medicine 04/28/21 07/24/22 Kalpana Landaverde MD [address] [place] [address] PCP - General Internal Medicine 07/25/22 Kelli Singh MD Specialist Cardiology 07/06/21 Sol Womack PA-C [address] [place] [address] Specialist Endocrinology 05/29/24 Sera Montes MD [address] [place] [address] Specialist Neurology 05/29/24 documented as of this encounter
--- OUTSIDE RECORDS SUMMARY | 2025-07-01 16:23 | XMS_ITS | Encounter Summary ---
Author Organization [facility] Address [address] [place] [address] Care Team Providers Care Chief Station Engineer Name Role Phone Christie Gonzales MD Primary Care Provider Jack Glynn MD Primary Care Provider Kelli Garcia MD Unavailable [phone] Kalpana Landavedre MD Primary Care Prov ider Sol Womack PA-C Unavailable [phone] Sera Montes MD Unavailable Unava ilable Reason for Visit * Reason Comments E-prescribe Rx Request Encounter Details Date Type Department Care Team Description 04/10/2021 Refill Adult Medicine [address] [address] Ankit Brewer PA-C [address] [place] [phone] E-prescribe Rx Request Social History Tobacco Use [...] encounter Miscellaneous Notes * Telephone Encounter - Peyton Tapia M.A. - 04/12/2021 9:41 AM EDT CEE 02/18/2021 (return in 3 mths) No F/U appt * Telephone Encounter - Telma Chung - 04/12/2021 9:32 AM EDT Patient would like script to be: E-PRESCRIBED/FAXED TO PHARMACY WHEN WAS THE PATIENT'S LAST APPOINTMENT IN ADULT MEDICINE? 02/18/21 WHEN WAS THE LAST TIME THE PATIENT SAW THEIR PCP? Same as above Does patient have an upcoming appointment? No-patient refused appointment, will call back to book appointment (THE MEDICATION REQUESTED IS ON THE MED [...] documented as of this encounter Care Teams Chief Station Engineer Relationship Specialty Start Date End Date Christie Gonzales MD PCP - General 08/26/10 04/27/21 Jack Bedoya MD PCP - General Internal Medicine 04/28/21 07/24/22 Kalpana Landaverde MD [address] [place] [address] PCP - General Internal Medicine 07/25/22 Kelli Singh MD Specialist Cardiology 07/06/21 Sol Womack PA-C [address] [place] [address] Specialist Endocrinology 05/29/24 Sera Montes MD [address] [place] [address] Specialist Neurology 05/29/24 documented as of this encounter
--- OUTSIDE RECORDS SUMMARY | 2025-07-01 16:23 | XMS_ITS | Encounter Summary ---
Author Organization [facility] Address [address] [place] [address] Care Team Providers Care Bilingual Elementary School Teacher Name Role Phone Christie Gonzales MD Primary Care Provider Jack Glynn MD Primary Care Provider Kelli Garcia MD Unavailable [phone] Kalpana Landaverde MD Primary Care Prov ider Sol Womack PA-C Unavailable [phone] Sera Montes MD Unavailable Unava ilable Encounter Details Date Type Department Care Team Description 10/17/2020 Pt. Non Urgent Medical Question Adult Medicine [address] [address] Juanita Flores PA-C [address] [place] [address] Social History Tobacco Use Types Packs/Day Years [...] have Coronavirus / COVID-19? No / Unsure 10/12/2020 7:49 AM EST documented as of this encounter Plan of Treatment Not on file documented as of this encounter Visit Diagnoses Not on filedocumented in this encounter Additional Health Concerns Infection Onset Date Last Indicated Resolved Time COVID-19 Comment:Reporting positive COVID 07/2807/28/2022 07/29/2022 11/14/2022 8:[address] documented as of this encounter Care Teams Bilingual Elementary School Teacher Relationship Specialty Start Date End Date Christie Gonzales MD PCP - General 08/26/10 04/27/21 Jack Bedoya MD PCP - General Internal Medicine 04/28/21 07/24/22 Kalpana Landaverde MD [address] [place] [address] PCP - General Internal Medicine 07/25/22 Kelli Singh MD Specialist Cardiology 07/06/21 Sol Womack PA-C [address] [place] [address] Specialist Endocrinology 05/29/24 Sera Montes MD [address] [place] [address] Specialist Neurology 05/29/24 documented as of this encounter
--- OUTSIDE RECORDS SUMMARY | 2025-07-01 16:23 | XMS_ITS | Encounter Summary ---
Author Organization [facility] Address [address] [place] [address] Care Team Providers Care Code Enforcement Officer Name Role Phone Jack Bedoya MD Primary Care Provider Kelli Garcia MD Unavailable [phone] Kalpana Landaverde MD Primary Care Prov ider Sol Womack PA-C Unavailable [phone] Sera Montes MD Unavailable Unava ilable Encounter Details Date Type Department Care Team Description 09/10/2021 Hospital Medical Records [address] [place], [place] [address] [place] [address] Social History Tobacco Use Types Packs/Day Years [...] or suspected to have Coronavirus / COVID-19? Unable to assess 08/23/2021 7:54 AM EDT documented as of this encounter Plan of Treatment Not on file documented as of this encounter Procedures Procedure Name Priority Date/Time Associated Diagnosis Comments OUTSIDE VASCULAR STUDY Routine 09/13/2021 OUTSIDE ECHO Routine 09/13/2021 OUTSIDE EKG Routine 09/12/2021 OUTSIDE PLAIN FILM Routine 09/12/2021 OUTSIDE LAB Routine 09/12/[address] Routine 09/10/2021 documented in this encounter Results * OUTSIDE VASCULAR STUDY (09/13/2021) Provider Default CARDIOLOGY * OUTSIDE ECHO (09/13/2021) Provider Default CARDIOLOGY * OUTSIDE PLAIN FILM (09/12/2021) Provider Default RADIOLOGY * OUTSIDE LAB (09/12/2021) Provider Default LAB * OUTSIDE EKG (09/12/2021) Provider Default CARDIOLOGY * OUTSIDE CT (09/10/2021) Provider Default RADIOLOGY documented in this encounter Visit Diagnoses Not on filedocumented in this encounter Additional Health Concerns Infection Onset Date Last Indicated Resolved Time COVID-19 Comment:Reporting positive COVID 07/2807/28/2022 07/29/2022 11/14/2022 8:[address] documented as of this encounter Care Teams Code Enforcement Officer Relationship Specialty Start Date End Date Jack Bedoya MD PCP - General Internal Medicine 04/28/21 07/24/22 Kalpana Landaverde MD [address] [place] [address] PCP - General Internal Medicine 07/25/22 Kelli Singh MD Specialist Cardiology 07/06/21 Sol Womack PA-C [address] [place] [address] Specialist Endocrinology 05/29/24 Sera Montes MD [address] [place] [address] Specialist Neurology 05/29/24 documented as of this encounter
--- OUTSIDE RECORDS SUMMARY | 2025-07-01 16:23 | XMS_ITS | Encounter Summary ---
Author Organization [facility] Address [address] [place] [address] Care Team Providers Care Statement Request Clerk Name Role Phone Jack Bedoya MD Primary Care Provider Kelli Garcia MD Unavailable [phone] Kalpana Landaverde MD Primary Care Prov ider Sol Womack PA-C Unavailable [phone] Sera Montes MD Unavailable Unava ilable Reason for Visit * Reason Comments E-prescribe Rx Request Encounter Details Date Type Department Care Team Description 03/19/2022 Refill Adult Medicine [address] [address] Jack Bedoya MD E-prescribe Rx Request Social History Tobacco [...] suspected to have Coronavirus/COVID-19? No / Unsure 02/21/2022 10:00 AM EDT documented as of this encounter Miscellaneous Notes * Telephone Encounter - Unique Triplett M.A. - 03/22/2022 10:46 AM EDT Lab Results Component Value Date NA 141 05/28/2021 K 4.4 05/28/2021 CO2 26 05/28/2021 CL 109 05/28/2021 BUN 15 05/28/2021 CREAT 0.58 05/28/2021 GLU 153 12/29/2021 CA 8.9 05/28/2021 GFR > 60 05/28/2021 Ref Range & Units 5 mo ago 9 mo ago 1 yr ago IRON (FE) 40 - 150 ug/dL 40 41 70 TOTAL IRON BINDING CAPACITY 250 - 450 ug/dL 358 375 333 % FE SATURATION 15 - 50 % 11??Low?? 11??Low?? 21 Resulting Agency [facility] Narrative Performed by: [employer] Release to patient->Immediate Specimen Collected: 10/14/21 ??3:47 PM Last Resulted: 10/14/21 ??7:24 PM CEE 10/14/21 NOV 03/31/22 * Telephone Encounter - Kika Alcazar - 03/22/2022 9:12 AM EDT Patient would like script to be: E-PRESCRIBED/FAXED TO PHARMACY WHEN WAS THE PATIENT'S LAST APPOINTMENT IN ADULT MEDICINE? 10/14/2021 WHEN WAS THE LAST TIME THE PATIENT SAW THEIR PCP? 10/05/2021 Does patient have an upcoming appointment? Yes 03/31/2022 (THE MEDICATION REQUESTED IS ON THE MED [...] documented as of this encounter Care Teams Statement Request Clerk Relationship Specialty Start Date End Date Jack Bedoya MD PCP - General Internal Medicine 04/28/21 07/24/22 Kalpana Landaverde MD [address] [place] [address] PCP - General Internal Medicine 07/25/22 Kelli Singh MD Specialist Cardiology 07/06/21 Sol Womack PA-C [address] [place] [address] Specialist Endocrinology 05/29/24 Sera Montes MD [address] [place] [address] Specialist Neurology 05/29/24 documented as of this encounter
--- OUTSIDE RECORDS SUMMARY | 2025-07-01 16:23 | XMS_ITS | Encounter Summary ---
Author Organization [facility] Address [address] [place] [address] Care Team Providers Care Residential Supervisor Name Role Phone Kelli Singh MD Unavailable [phone] Kalpana Landaverde MD Primary Care Prov ider Sol Womack PA-C Unavailable [phone] Sera Montes MD Unavailable Unava ilable Reason for Visit * Reason Onset Date Comments Fainting Spell 01/31/2024 Encounter Details Date Type Department Care Team Description 01/31/2024 Pt. Non Urgent Medical Question Adult Medicine [facility] [address] [place] [address] Kalpana Landaverde MD [address] [place] [phone] Social History Tobacco Use Types Packs/Day Years Used Date Smoking Tobacco: Never Smokeless Tobacco: Never Alcohol Use Standard Drinks/Week Comments Not Currently 0 (1 standard drink = 0.6 oz pur e alcohol) 2 drinks per yr Sex Assigned at Date Recorded Not on file Job Start Date Occupation Industry Not on file Not on file Not on file documented as of this encounter Progress Notes * Unique Triplett M.A. - 02/01/2024 8:09 AM EDT Please review if this PT should be triaged by phone as PT's upcoming appointment is not until 02-12-24. Thank you documented in this encounter Miscellaneous Notes * Telephone Encounter - Jamia Amador M.A. - 01/31/2024 4:20 PM EDTFrom: Juanita Nuno Deal To: Nurys Pérez Sent: 01/31/2024 2:46 PM EDT Subject: Question Good afternoon. I am writing because i have been nearly fainting every time i shower or anytime im very hot. All the symptoms yemi had over the last few months have been things that have gotten worse, like the headaches. 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 Both my pharmacist and one of the drs have told me to conta ct my primary to discuss getting evaluated for POTS. I do have an appointment on the 11 of february, but wanted to mention it cause i am very likely to forget. Dr suggested a blood pressure monitor for those feeling faint moments. Thank you for reading this. Hope to discuss it on the . documented in this encounter Plan of Treatment Not on file documented as of this encounter Visit Diagnoses Not on filedocumented in this encounter Care Teams Residential Supervisor Relationship Specialty Start Date End Date Kalpana Landaverde MD [address] [place] [address] PCP - General Internal Medicine 07/25/22 Kelli Singh MD Specialist Cardiology 07/06/21 Sol Womack PA-C [address] [place] [address] Specialist Endocrinology 05/29/24 Sera Montes MD [address] [place] [address] Specialist Neurology 05/29/24 documented as of this encounter
--- OUTSIDE RECORDS SUMMARY | 2025-07-01 16:23 | XMS_ITS | Encounter Summary ---
Author Organization [facility] Address [address] [place] [address] Care Team Providers Care Timber Mill Worker Name Role Phone Christie Gonzales MD Primary Care Provider Jack Glynn MD Primary Care Provider Kelli Garcia MD Unavailable [phone] Kalpana Landaverde MD Primary Care Prov ider Sol Womack PA-C Unavailable [phone] Sera Montes MD Unavailable Unava ilable Reason for Visit * Reason Onset Date Comments Medication 05/17/2018 Encounter Details Date Type Department Care Team Description 05/17/2018 Telephone Endocrinology - [address] [address] John Mejia MD Medication Social History Tobacco Use Types Packs/Day Years [...] encounter Miscellaneous Notes * Telephone Encounter - Farnaz Morales M.A. - 05/17/2018 8:59 AM EDT As below, pt needs free style per insurance issues * Telephone Encounter - Unique Sykes - 05/17/2018 8:40 AM EDT Who is calling? The patient Name of the medication Kristal flex ( given to her free at appointment ) What is the specific problem or interaction? Needs test strips, but requires PA for them, would like to know if she could be prescribed medication that her insurance covers [facility] [place] [address] [address] [facility] Pharmacy Contact Telephone [phone] Pharmacy Address and Hours Address Hours [address] [place] [address] If the patient is having a problem with taking the med - how long has the problem been going on? N/A documented in this encounter Plan of Treatment Not on file documented as of this encounter Results * FINE NDLE ASPRTN W/IMAGING GUIDANCE (06/20/2018 10:24 AM EDT) 06/20/2018 10:4 0 AM EDT Addenda Addendum by Myrna Khan DO on 07/02/2018 9:18 AM EDT RESULTS ADDENDUM: A.THYROID, RIGHT MID POLE, (FINE NEEDLE ASPIRATION WITH CELL BLOCK): ?? - ?BETHESDA SYSTEM CLASSIFICATION: ATYPIA OF UNDETERMINED SIGNIFICANCE. ? ?? 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 NOTE: PER BETHESDA SYSTEM GUIDELINES, REPEAT/FOLLOW-UP FNA IS RECOMMENDED FOR EVALUATION OF ADDITIONAL CELLULAR MATERIAL. PROCUREMENT OF FNA MATERIAL FOR MOLECULAR TESTING MAY ALSO BE HELPFUL. B.THYROID, LEFT MID POLE, (FINE NEEDLE ASPIRATION WITH CELL BLOCK): ?? - ?BETHESDA SYSTEM CLASSIFICATION: BENIGN. ? ?? -DESCRIPTION: ?BENIGN FOLLICULAR CELLS, COLLOID AND HISTIOCYTES ? MANI WARREN M.D., PATHOLOGIST (CASE ELECTRONICALLY SIGNED 06 27 2018) Impressions [facility] OTHER EXTERNAL - 06/20/2018 10:44 AM EDT IMPRESSION: Successful fine-needle aspiration of dominant bilateral thyroid nodules. Addendum will be issued when results become available. Narrative [facility] OTHER EXTERNAL - 06/20/2018 10:44 AM EDT SONO GUIDED NEEDLE BIOPSY x 2 FINE-NEEDLE ASPIRATION WITH IMAGING GUIDANCE x 2 INDICATION: Denise's disease; multinodular goiter; biopsy of dominant nodules requested. COMPARISON: Thyroid ultrasound study from 06/05/2018. FINDINGS/TECHNIQUE: Following a discussion of the risks, benefits, and alternatives to the procedure, written informed consent was obtained from the patient. The patient was then positioned in supine with neck extended and a timeout was performed by the radiologist. Under image guidance, the previously identified hypoechoic nodule at the right midpole was targeted for biopsy. The skin was prepped with Betadine solution and sterile technique was employed throughout the procedure. Due to the location of the nodule and thickness of overlying soft tissues/strap muscles, patient was informed that biopsy may prove difficult or may be nondiagnostic, prior to sampling. Under direct ultrasound guidance, fine-needle aspiration was performed utilizing 3 separate passes with 27-gauge needles. Although needle position was within the nodule on all 3 attempts, scant material was obtained. Slides and CytoLyt specimen prepared and submitted for pathology review. Next, the heterogeneous nodule at the mid pole of the left lobe was identified and overlying skin was prepped with Betadine solution. Utilizing sterile technique and ultrasound guidance, fine-needle aspiration was performed utilizing 3 separate passes with 27-gauge needles. Separate slides and CytoLyt specimen prepared and submitted for pathology review. The patient tolerated the procedure well with no immediate complications at the time of discharge. The patient was informed that results will be provided directly by the ordering physician. Procedure Note BillMyrna, DO - 06/20/2018 SONO GUIDED NEEDLE BIOPSY x 2 FINE-NEEDLE ASPIRATION WITH IMAGING GUIDANCE x 2 INDICATION: Denise's disease; multinodular goiter; biopsy of dominantnodules requested. COMPARISON: Thyroid ultrasound study from 06/05/2018. FINDINGS/TECHNIQUE: Following a discussion of the risks, benefits, and alternatives to theprocedure, written informed consent was obtained from the patient. The patient was then positioned in supine with neck extended and a timeoutwas performed by the radiologist. Under image guidance, the previously identified hypoechoicnodule at the right midpole was targeted for biopsy. The skin was prepped with Betadinesolution and sterile technique was employed throughout the procedure. Due to the location ofthe nodule and thickness of overlying soft tissues/strap muscles, patient was informedthat biopsy may prove difficult or may be nondiagnostic, prior to sampling. Under direct ultrasound guidance, fine-needle aspiration was performedutilizing 3 separate passes with 27-gauge needles. Although needle position was within thenodule on all 3 attempts, scant material was obtained. Slides and CytoLyt specimen prepared andsubmitted for pathology review. Next, the heterogeneous nodule at the mid pole of the left lobe wasidentified and overlying skin was prepped with Betadine solution. Utilizing sterile technique andultrasound guidance, fine-needle aspiration was performed utilizing 3 separate passes [id number] needles. Separate slides and CytoLyt specimen prepared and submitted for pathologyreview. The patient tolerated the procedure well with no immediate complicationsat the time of discharge. The patient was informed that results will be provided directlyby the ordering physician. IMPRESSION IMPRESSION: Successful fine-needle aspiration of dominant bilateralthyroid nodules. Addendum will be issued when results become available. John Mejia MD ULTRASOUND [facility] OTHER EXTERNAL * US SOFT TISSUE HEAD/NECK (06/05/2018 11:01 AM EDT) 06/05/2018 3:59 PM EDT Narrative [facility] OTHER EXTERNAL - 06/05/2018 4:01 PM EDT Thyroid ultrasound. History Denise disease. No prior studies available for comparison. Right thyroid lobe measures 5 x 1.7 x 1.9 cm. There is small mixed echogenicity lesion in the midpole with slightly irregular margins measuring 0.7 x 1.1 x 0.7 cm. Left thyroid lobe measures 5.3 x 1.8 x 2.1 cm. There is predominantly cystic lesion in the midpole measuring 1.5 x 1.1 x 1.3 cm with somewhat irregular nodular garcia. There is also slightly exophytic well-defined mixed echogenicity lesion located in the mid/lower pole patient 1.1 x 0.5 x 1.1 cm. Ultrasound-guided biopsy of the right mid pole nodule and left mid pole nodules is recommended for further assessment. CONCLUSIONS: Bilateral thyroid nodules as detailed. Ultrasound-guided biopsy of the midpole nodules on each side is recommended. Procedure Note Dilia Ramos MD - 06/05/2018 Thyroid ultrasound. History Denise disease. No prior studies available for comparison. Right thyroid lobe measures 5 x 1.7 x 1.9 cm. There is small mixedechogenicity lesion in the midpole with slightly irregular margins measuring 0.7 x 1.1 x 0.7 cm. Leftthyroid lobe measures 5.3 x 1.8 x 2.1 cm. There is predominantly cystic lesion in themidpole measuring 1.5 x 1.1 x 1.3 cm with somewhat irregular nodular garcia. There is alsoslightly exophytic well-defined mixed echogenicity lesion located in the mid/lower polepatient 1.1 x 0.5 x 1.1 cm. Ultrasound-guided biopsy of the right mid pole nodule and left mid polenodules is recommended for further assessment. CONCLUSIONS: Bilateral thyroid nodules as detailed. Ultrasound-guidedbiopsy of the midpole nodules on each side is recommended. 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 Multinodular goiter Nontoxic multinodular goiter documented in this encounter Additional Health Concerns Infection Onset Date Last Indicated Resolved Time COVID-19 Comment:Reporting positive COVID 07/2807/28/2022 07/29/2022 11/14/2022 8:[address] documented as of this encounter Care Teams Timber Mill Worker Relationship Specialty Start Date End Date Christie Gonzales MD PCP - General 08/26/10 04/27/21 Jack Bedoya MD PCP - General Internal Medicine 04/28/21 07/24/22 Kalpana Landaverde MD [address] [place] [address] PCP - General Internal Medicine 07/25/22 Kelli Singh MD Specialist Cardiology 07/06/21 Sol Womack PA-C [address] [place] [address] Specialist Endocrinology 05/29/24 Sera Montes MD [address] [place] [address] [place] [address] Specialist Neurology 05/29/24 documented as of this encounter
--- OUTSIDE RECORDS SUMMARY | 2025-07-01 16:23 | XMS_ITS | Encounter Summary ---
Author Organization [facility] Address [address] [place] [address] Care Team Providers Care Car Carder Name Role Phone Kelli Singh MD Unavailable [phone] Kalpana Landaverde MD Primary Care Prov ider Sol Womack PA-C Unavailable [phone] Sera Montes MD Unavailable Unava ilable Reason for Visit * Reason Comments E-prescribe Rx Request Encounter Details Date Type Department Care Team Description 12/18/2023 Refill Endocrinology - [place] [address] [place] [address] Sol Womack PA-C [address] [facility] [place] [address] E-prescribe Rx Request Social History Tobacco Use [...] encounter Miscellaneous Notes * Telephone Encounter - Carol Houston M.A. - 12/18/2023 10:30 AM EST Yeni 08/02/23 Ov 12/26/23 Lab Results Component Value Date HGBA1C 7.8 09/04/2023 MALBUR 28.5 05/01/2023 MALBCR 13.4 05/01/2023 CHOL 200 07/20/2023 LDL 122 07/20/2023 HDL 43 07/20/2023 TRIG 176 07/20/2023 GLU 138 11/03/2023 CREAT 0.84 11/03/2023 documented in this encounter Plan of Treatment Not on file documented as of this encounter Visit Diagnoses Diagnosis Type 2 diabetes mellitus with diabetic mononeuropathy, without long-term current use of insulin (HCC) documented in this encounter Care Teams Car Carder Relationship Specialty Start Date End Date Kalpana Landaverde MD [address] [place] [address] PCP - General Internal Medicine 07/25/22 Kelli Singh MD Specialist Cardiology 07/06/21 Sol Womack PA-C [address] [place] [address] Specialist Endocrinology 05/29/24 Sera Montes MD [address] [place] [address] Specialist Neurology 05/29/24 documented as of this encounter
--- OUTSIDE RECORDS SUMMARY | 2025-07-01 16:23 | XMS_ITS | Encounter Summary ---
Author Organization [facility] Address [address] [place] [address] Care Team Providers Care Felter Tennis Balls Name Role Phone Jack Bedoya MD Primary Care Provider Kelli Garcia MD Unavailable [phone] Kalpana Landaverde MD Primary Care Prov ider Sol Womack PA-C Unavailable [phone] Sera Montes MD Unavailable Unava ilable Reason for Visit * Reason Onset Date Comments refill request 03/11/2022 Encounter Details Date Type Department Care Team Description 03/11/2022 Refill Adult Medicine [address] [address] Jack Bedoya MD refill request Social History Tobacco Use Types Packs/Day Years [...] Telephone Encounter - Peyton Tapia M.A. - 03/11/2022 3:08 PM EDT CEE 10/05/2021 F/U appt 03/31/2022 30 day supply pending med f/u appt * Telephone Encounter - Uzma Cho - 03/11/2022 2:50 PM EDT Patient would like script to be: E-PRESCRIBED/FAXED TO PHARMACY WHEN WAS THE PATIENT'S LAST APPOINTMENT IN ADULT MEDICINE? 10/14/21 WHEN WAS THE LAST TIME THE PATIENT SAW THEIR PCP? 10/14/21 Does patient have an upcoming appointment? Yes 03/31/22 (THE MEDICATION REQUESTED IS ON THE MED LIST ABOVE) All of the medications requested were on the CURRENT MEDS list Did you check the Pharmacy information above?: YES Patient wants: 30 -day supply Is this a mail order prescription request ? YES If the refill is from a FAXED [...] documented as of this encounter Care Teams Felter Tennis Balls Relationship Specialty Start Date End Date aJck Bedoya MD PCP - General Internal Medicine 04/28/21 07/24/22 Leila Pérez, Kalpana Herndon MD [address] [place] [address] PCP - General Internal Medicine 07/25/22 Kelli Singh MD Specialist Cardiology 07/06/21 Sol Womack PA-C [address] [place] [address] Specialist Endocrinology 05/29/24 Sera Montes MD [address] [place] [address] Specialist Neurology 05/29/24 documented as of this encounter
--- OUTSIDE RECORDS SUMMARY | 2025-07-01 16:23 | XMS_ITS | Encounter Summary ---
Author Organization [facility] Address [address] [place] [address] Care Team Providers Care Pit Boss Name Role Phone Kelli Singh MD Unavailable [phone] Kalpana Landaverde MD Primary Care Prov ider Sol Womack PA-C Unavailable [phone] Sera Montes MD Unavailable Unava ilable Reason for Visit * Reason Comments E-prescribe Rx Request Encounter Details Date Type Department Care Team Description 12/18/2023 Refill Endocrinology - [place] [address] [place] [address] Foreign Tavarez MD [address] [place], [place] [phone] E-prescribe Rx Request Social History Tobacco Use [...] as of this encounter Visit Diagnoses Diagnosis Denise's disease Chronic lymphocytic thyroiditis documented in this encounter Care Teams Pit Boss Relationship Specialty Start Date End Date Kalpana Landaverde MD [address] [place] [address] PCP - General Internal Medicine 07/25/22 Kelli Singh MD Specialist Cardiology 07/06/21 Sol Womack PA-C [address] [place] [address] Specialist Endocrinology 05/29/24 Sera Montes MD [address] [place] [address] Specialist Neurology 05/29/24 documented as of this encounter
--- OUTSIDE RECORDS SUMMARY | 2025-07-01 16:23 | XMS_ITS | Encounter Summary ---
Author Organization [facility] Address [address] [place] [address] Care Team Providers Care Manager Enterprise Name Role Phone Christie Gonzales MD Primary Care Provider Jack Glynn MD Primary Care Provider Kelli Garcia MD Unavailable [phone] Kalpana Landaverde MD Primary Care Prov ider Sol Womack PA-C Unavailable [phone] Sera Montes MD Unavailable Unava ilable Encounter Details Date Type Department Care Team Description 10/17/2020 Pt. Non Urgent Medic al Question Adult Medicine [address] [address] Christie Gonzales MD Social History Tobacco Use Types Packs/Day Years [...] as of this encounter Care Teams Manager Enterprise Relationship Specialty Start Date End Date Christie Gonzales MD PCP - General 08/26/10 04/27/21 Jack Bedoya MD PCP - General Internal Medicine 04/28/21 07/24/22 Kalpana Landaverde MD [address] [place] [address] PCP - General Internal Medicine 07/25/22 Kelli Singh MD Specialist Cardiology 07/06/21 Sol Womack PA-C [address] [place] [address] Specialist Endocrinology 05/29/24 Sera Montes MD [address] [place] [address] Specialist Neurology 05/29/24 documented as of this encounter
--- OUTSIDE RECORDS SUMMARY | 2025-07-01 16:23 | XMS_ITS | Encounter Summary ---
Author Organization [facility] Address [address] [place] [address] Care Team Providers Care Piano Case Maker Name Role Phone Christie Gonzales MD Primary Care Provider Jack Glynn MD Primary Care Provider Kelli Garcia MD Unavailable [phone] Kalpana Landaverde MD Primary Care Prov ider Sol Womack PA-C Unavailable [phone] Sera Montes MD Unavailable Unava ilable Encounter Details Date Type Department Care Team Description 03/17/2021 Refill Adult Medicine [address] [address] Ankit Brewer PA-C [address] [place] [address] Social History Tobacco Use Types Packs/Day Years [...] have Coronavirus / COVID-19? No / Unsure 02/18/2021 9:39 AM EDT documented as of this encounter Miscellaneous Notes * Telephone Encounter - Honorio Hernandez. - 03/23/2021 12:40 PM EDT tizanidine (ZANAFLEX) 4 MG tablet 90 tablet 0 03/19/2021 Sig: TAKE 1 TABLET BY MOUTH EVERY 8 HOURS NEEDED FOR MUSCLE SPASM Sent to pharmacy as: tiZANidine HCl 4 MG Oral Tablet (ZANAFLEX) Class: Normal Order: [id number] Date/Time Signed: 03/19/2021 ??3:13 PM E-Prescribing Status: Receipt confirmed by pharmacy (03/19/2021 ??3:13 PM EDT) Warnings History * Telephone Encounter - Grace Munguia M.A. - 03/18/2021 1:25 PM EDT Lab Results Component Value Date NA 140 09/25/2020 K 4.3 09/25/2020 CO2 27 09/25/2020 CL 108 09/25/2020 BUN 8 09/25/2020 CREAT 0.64 09/25/2020 GLU 156 09/25/2020 CA 8.9 09/25/2020 GFR > 60 09/25/2020 documented in this encounter Plan of Treatment Not on file documented as of this encounter Visit Diagnoses Not on filedocumented in this encounter Additional Health Concerns Infection Onset Date Last Indicated Resolved Time COVID-19 Comment:Reporting positive COVID 07/2807/28/2022 07/29/2022 11/14/2022 8:[address] documented as of this encounter Care Teams Piano Case Maker Relationship Specialty Start Date End Date Christie Gonzales MD PCP - General 08/26/10 04/27/21 Jack Bedoya MD PCP - General Internal Medicine 04/28/21 07/24/22 Kalpana Landaverde MD [address] [place] [address] PCP - General Internal Medicine 07/25/22 Kelli Singh MD Specialist Cardiology 07/06/21 Sol Womack PA-C [address] [place] [address] Specialist Endocrinology 05/29/24 Sera Montes MD [address] [place] [address] Specialist Neurology 05/29/24 documented as of this encounter
--- OUTSIDE RECORDS SUMMARY | 2025-07-01 16:23 | XMS_ITS | Encounter Summary ---
Author Organization [facility] Address [address] [place] [address] Care Team Providers Care Electrical Engineer Name Role Phone Kelli Singh MD Unavailable [phone] Kalpana Landaverde MD Primary Care Prov ider Sol Womack PA-C Unavailable [phone] Sera Montes MD Unavailable Unava ilable Encounter Details Date Type Department Care Team Description 05/13/2024 Refill Adult Medicine [address] [address] Yue Schwartz PA-C [address] [place] [address] [id number] Social History Tobacco Use Types Packs/Day Years [...] Miscellaneous Notes * Telephone Encounter - Farnaz Dorantes L.P.N. - 05/14/2024 8:38 AM EDT Last visit 04/01/24 Next 05/29/24 Emi I called her because she should have refills left, she said she does not.. she called the pharmacy to verify and they said she has no more refills.. she said she is meeting with you on 05/29 and she will discuss with you if she is to stay on it... so only asking 30 days ,, Radha documented in this encounter Plan of Treatment Not on file documented as of this encounter Visit Diagnoses Not on filedocumented in this encounter Care Teams Electrical Engineer Relationship Specialty Start Date End Date Kalpana Landaverde MD [address] [place] [address] PCP - General Internal Medicine 07/25/22 Kelli Singh MD Specialist Cardiology 07/06/21 Sol Womack PA-C [address] [place] [address] Specialist Endocrinology 05/29/24 Sera Montes MD [address] [place] [address] Specialist Neurology 05/29/24 documented as of this encounter
--- OUTSIDE RECORDS SUMMARY | 2025-07-01 16:23 | XMS_ITS | Encounter Summary ---
Author Organization [facility] Address [address] [place] [address] Care Team Providers Care Club Waiter/Waitress Name Role Phone Jack Bedoya MD Primary Care Provider Kelli Garcia MD Unavailable [phone] Kalpana Landaverde MD Primary Care Prov ider Sol Womack PA-C Unavailable [phone] Sera Montes MD Unavailable Unava ilable Reason for Visit * Reason Onset Date Comments Faxed Refill 07/06/2021 Encounter Details Date Type Department Care Team Description 07/06/2021 Refill Adult Medicine [address] [address] Jack Bedoya MD Faxed Refill Social History Tobacco Use Types Packs/Day Years [...] have Coronavirus / COVID-19? No / Unsure 07/05/2021 8:44 AM EDT documented as of this encounter Miscellaneous Notes * Telephone Encounter - Afia Alvarado M.A. - 07/07/2021 11:45 AM EDT 06/07/21 last refill Please advise * Telephone Encounter - Babak Taveras - 07/06/2021 1:37 PM EDT Patient would like script to be: E-PRESCRIBED/FAXED TO PHARMACY WHEN WAS THE PATIENT'S LAST APPOINTMENT IN ADULT MEDICINE? 07/05/21 WHEN WAS THE LAST TIME THE PATIENT SAW THEIR PCP? 02/18/21 Does patient have an upcoming appointment? Yes 10/05/21 (THE MEDICATION REQUESTED IS ON THE MED LIST ABOVE) One or some of the medications requested were on the HISTORICAL MED list Did you check the Pharmacy information [...] documented as of this encounter Care Teams Club Waiter/Waitress Relationship Specialty Start Date End Date Jack Bedoya MD PCP - General Internal Medicine 04/28/21 07/24/22 Leila Pérez, Kalpana Herndon MD [address] [place] [address] PCP - General Internal Medicine 07/25/22 Kelli Singh MD Specialist Cardiology 07/06/21 Sol Womack PA-C [address] [place] [address] Specialist Endocrinology 05/29/24 Sera Montes MD [address] [place] [address] Specialist Neurology 05/29/24 documented as of this encounter
--- OUTSIDE RECORDS SUMMARY | 2025-07-01 16:23 | XMS_ITS | Encounter Summary ---
Author Organization [facility] Address [address] [place] [address] Care Team Providers Care Registered Health Nurse Name Role Phone Kelli Singh MD Unavailable [phone] Kalpana Landaverde MD Primary Care Prov ider Sol Womack PA-C Unavailable [phone] Sera Montes MD Unavailable Unava ilable Encounter Details Date Type Department Care Team Description 12/13/2023 CGM Report Medical Records [address] [place] [address] Abstract, Provider Social History Tobacco Use Types [...] on filedocumented in this encounter Care Teams Registered Health Nurse Relationship Specialty Start Date End Date Kalpana Landaverde MD [address] [place] [address] PCP - General Internal Medicine 07/25/22 Kelli Singh MD Specialist Cardiology 07/06/21 Sol Womack PA-C [address] [place] [address] Specialist Endocrinology 05/29/24 Sera Montes MD [address] [place] [address] Specialist Neurology 05/29/24 documented as of this encounter
--- OUTSIDE RECORDS SUMMARY | 2025-07-01 16:23 | XMS_ITS | Encounter Summary ---
Author Organization [facility] Address [address] [place] [address] Care Team Providers Care Medical Voucher Clerk Name Role Phone Christie Gonzales MD Primary Care Provider Jack Glynn MD Primary Care Provider Kelli Garcia MD Unavailable [phone] Kalpana Landaverde MD Primary Care Prov ider Sol Wmoack PA-C Unavailable [phone] Sera Montes MD Unavailable Unava ilable Reason for Visit * Reason Comments E-prescribe Rx Request Encounter Details Date Type Department Care Team Description 04/11/2021 Refill Adult Medicine [address] [address] Ankit Brewer PA-C [address] [place] [phone] E-prescribe Rx Request Social History Tobacco Use [...] Encounter - Peyton Tapia M.A. - 04/12/2021 9:38 AM EDT CEE 02/18/2021 (return in 3 mths) No F/U appt * Telephone Encounter - Telma Chung - 04/12/2021 9:33 AM EDT Patient would like script to [...] documented as of this encounter Care Teams Medical Voucher Clerk Relationship Specialty Start Date End Date Christie Gonzales MD PCP - General 08/26/10 04/27/21 Jack Bedoya MD PCP - General Internal Medicine 04/28/21 07/24/22 Kalpana Landaverde MD [address] [place] [address] PCP - General Internal Medicine 07/25/22 Kelli Singh MD Specialist Cardiology 07/06/21 Sol Womack PA-C [address] [place] [address] Specialist Endocrinology 05/29/24 Sera Montes MD [address] [place] [address] Specialist Neurology 05/29/24 documented as of this encounter
--- OUTSIDE RECORDS SUMMARY | 2025-07-01 16:23 | XMS_ITS | Encounter Summary ---
Author Organization [facility] Address [address] [place] [address] Care Team Providers Care Blending Technician Name Role Phone Christie Gonzales MD Primary Care Provider Jack Glynn MD Primary Care Provider Kelli Garcia MD Unavailable [phone] Kalpana Landaverde MD Primary Care Prov ider Sol Womack PA-C Unavailable [phone] Sera Montes MD Unavailable Unava ilable Encounter Details Date Type Department Care Team Description 05/08/2012 Release of Information Medical Records [address] [place] [id number] Abstract, Provider Social History Tobacco Use Types [...] documented as of this encounter Care Teams Blending Technician Relationship Specialty Start Date End Date Christie Gonzales MD PCP - General 08/26/10 04/27/21 Jack Bedoya MD PCP - General Internal Medicine 04/28/21 07/24/22 Kalpana Landaverde MD [address] [place] [id number] PCP - General Internal Medicine 07/25/22 Kelli Singh MD Specialist Cardiology 07/06/21 Sol Womack PA-C [address] [place], [place] [id number] Specialist Endocrinology 05/29/24 Sera Montes MD [address] [place] [address] Specialist Neurology 05/29/24 documented as of this encounter
--- OUTSIDE RECORDS SUMMARY | 2025-07-01 16:23 | XMS_ITS | Encounter Summary ---
Author Organization [facility] Address [address] [place] [address] Care Team Providers Care Paper Finisher Name Role Phone Christie Gonzales MD Primary Care Provider Jack Glynn MD Primary Care Provider Kelli Garcia MD Unavailable [phone] Kalpana Landaverde MD Primary Care Prov ider Sol Womack PA-C Unavailable [phone] Sera Montes MD Unavailable Unava ilable Reason for Visit * Reason Comments E-prescribe Rx Request Encounter Details Date Type Department Care Team Description 11/26/2017 Refill Adult Medicine [address] [address] Christie Gonzales MD E-prescribe Rx Request Social History Tobacco [...] encounter Miscellaneous Notes * Telephone Encounter - Grace Munguia M.A. - 11/28/2017 9:47 AM EST Faxed to pharmacy * Telephone Encounter - Kalina Carr - 11/27/2017 3:20 PM EST Patient would like script to be: E-PRESCRIBED/FAXED TO PHARMACY WHEN WAS THE PATIENT'S LAST APPOINTMENT IN ADULT MEDICINE? 10/31/17 WHEN WAS THE LAST TIME THE PATIENT SAW THEIR PCP? 05/09/17 Does patient have an upcoming appointment? No-unable to reach left voicemaill to call for appointment due to refill request. Appt due (THE MEDICATION REQUESTED IS ON THE MED LIST ABOVE) All of the medications requested were on the CURRENT MEDS list Did you check the Pharmacy information above?: YES Patient wants: 30 -day supply Is this a mail order prescription request ? NO Patients current insurance carrier is: [employer]: WORKERS [...] documented as of this encounter Care Teams Paper Finisher Relationship Specialty Start Date End Date Christie Gonzales MD PCP - General 08/26/10 04/27/21 Jack Bedoya MD PCP - General Internal Medicine 04/28/21 07/24/22 Kalpana Landaverde MD [address] [place] [id number] PCP - General Internal Medicine 07/25/22 Kelli Singh MD Specialist Cardiology 07/06/21 Sol Womack PA-C [address] [place] [address] Specialist Endocrinology 05/29/24 Sera Montes MD [address] [place] [address] Specialist Neurology 05/29/24 documented as of this encounter
--- OUTSIDE RECORDS SUMMARY | 2025-07-01 16:23 | XMS_ITS | Encounter Summary ---
Author Organization [facility] Address [address] [place] [address] Care Team Providers Care Roving Sizer Name Role Phone Christie Gonzales MD Primary Care Provider Jack Glynn MD Primary Care Provider Kelli Garcia MD Unavailable [phone] Kalpana Landaverde MD Primary Care Prov ider Sol Womack PA-C Unavailable [phone] Sera Montes MD Unavailable Unava royaable Encounter Details Date Type Department Care Team Description 02/26/2018 Copyright Clerk Report Medical Records [address] [place] [id number] Chelsea Carrizales, ROBEL Social History Tobacco Use Types Packs/Day Years [...] documented as of this encounter Care Teams Roving Sizer Relationship Specialty Start Date End Date Christie Gonzales MD PCP - General 08/26/10 04/27/21 Jack Bedoya MD PCP - General Internal Medicine 04/28/21 07/24/22 Kalpana Landaverde MD [address] [place] [address] PCP - General Internal Medicine 07/25/22 Kelli Singh MD Specialist Cardiology 07/06/21 Sol Womack PA-C [address] [place] [address] Specialist Endocrinology 05/29/24 Sera Montes MD [address] [place] [address] Specialist Neurology 05/29/24 documented as of this encounter
--- OUTSIDE RECORDS SUMMARY | 2025-07-01 16:23 | XMS_ITS | Encounter Summary ---
Author Organization [facility] Address [address] [place] [address] Care Team Providers Care Cashier Assistant Name Role Phone Christie Gonzales MD Primary Care Provider Jack Glynn MD Primary Care Provider Kelli Garcia MD Unavailable [phone] Kalpana Landaverde MD Primary Care Prov ider Sol Womack PA-C Unavailable [phone] Sera Montes MD Unavailable Unava royaable Encounter Details Date Type Department Care Team Description 06/06/2017 Staff Development Manager Report Medical Records [address] [place] [id number] Chelsea Carrizales, ROBEL Social History Tobacco Use [...] documented as of this encounter Care Teams Cashier Assistant Relationship Specialty Start Date End Date Christie Gonzales MD PCP - General 08/26/10 04/27/21 Jack Bedoya MD PCP - General Internal Medicine 04/28/21 07/24/22 Kalpana Landaverde MD [address] [place] [address] PCP - General Internal Medicine 07/25/22 Kelli Singh MD Specialist Cardiology 07/06/21 Sol Womack PA-C [address] [place] [address] Specialist Endocrinology 05/29/24 Sera Montes MD [address] [place] [address] Specialist Neurology 05/29/24 documented as of this encounter
--- OUTSIDE RECORDS SUMMARY | 2025-07-01 16:23 | XMS_ITS | Clinical Summary ---
Author Organization [facility] [address] [place] [address] [place] [phone] Phone Care Team Providers Care Websphere Developer Name Role Phone Kalpana Feldman MD Primary Care Prov ider Allergies Active Allergy Reactions Criticality Noted Date Comments Erythromycin Anaphylaxis High 11/10/2005 Polyethylene Glycol Hives,Nausea And Vomiting 0 04/18/2022 Sulfa (Sulfonamide Antibiotics) Anaphylaxis High 11/10/2005 Sulfamethoxazole-Trimethopr im 11/10/2005 Medications metFORMIN XR (GLUCOPHAGE-XR) 500 mg 24 hr tablet Take 2 Tablets by mouth 2 times daily (with meals). 3 Active blood-glucose meter kit Test blood sugar daily 4 Active pen needle, diabetic (BD ULTRA-FINE MICRO PEN NEEDLE [facility]) INJECT 4 DEVICES INTO THE SKIN 4 TIMES A DAY 4 Active fluticasone propionate (FLONASE) 50 mcg/actuation nasal spray Administer 2 sprays into affected nostril(s) 1 (one) time each day. 4 Active meloxicam (MOBIC) 7.5 mg tablet Take 1 tablet (7.5 mg total) by mouth 1 (one) time each day if needed. 4 Active glucagon (Baqsimi) 3 mg/actuation nasal spray 1 Dose by Nasal route as needed for Other (hypoglycemia). 3 Active blood sugar diagnostic (FreeStyle Lite Strips) test strip USE TO CHECK BLOOD SUGAR daily , when CGM not working 3 Active fluvoxaMINE (LUVOX) 100 mg tablet Take 1.5 tablets (150 mg total) by mouth at bedtime. 3 Active gabapentin (NEURONTIN) 300 mg capsule Take 1 capsule (300 mg total) by mouth 3 (three) times a day. 3 Active glucagon (Gvoke HypoPen 1-Pack) 1 mg/0.2 mL auto-injector Inject 1 Dose into the skin as needed for Other (sevre hypoglycemia). 2 Active FREESTYLE LANCETS MISC Test blood sugar 1 time daily 8 Active cholecalciferol (VITAMIN D-3) 50 mcg (2,000 unit) capsule Take 1 capsule (2,000 Units total) by mouth 1 (one) time each day. 4 Active buPROPion XL (WELLBUTRIN XL) 300 mg 24 hr tablet Take 1 tablet (300 mg total) by mouth 1 (one) time each day. Do not crush, chew, or split. Active guanFACINE (INTUNIV) 1 mg 24 Hour ER tablet Take 1 tablet (1 mg total) by mouth 1 (one) time each day. 5 Active LORazepam (ATIVAN) 1 mg tablet Take 0.5-1 tablets (0.5-1 mg total) by mouth 1 (one) time each day if needed (Panic attack). 5 Active insulin degludec (Tresiba FlexTouch U-100) 100 unit/mL (3 mL) injection penIndications: Type 2 diabetes mellitus with obesity ([facility]/HCC V24, [facility] V28) 16 unist sc at bedtime 5 Active levothyroxine (SYNTHROID, LEVOTHROID) 200 mcg tablet Take daily 1 tab by mouth 90 each 5 5 Active levothyroxine (SYNTHROID, LEVOTHROID) 25 mcg tablet Take 1 tablet (25 mcg total) by mouth 1 (one) time each day. Take 1 tablet daily along with the 200 mcg tablet. For total 225 daily 30 each 11 5 01/02/20 26 Active montelukast (SINGULAIR) 10 mg tablet TAKE 1 TABLET BY MOUTH AT BEDTIME. 90 tablet 1 5 Active Ventolin HFA 90 mcg/actuation inhaler INHALE 2 PUFFS INTO THE LUNGS EVERY 6 HOURS NEEDED FOR COUGH WHEEZING OR SHORTNESS OF BREATH. 18 each 5 Active EPINEPHrine (EPIPEN) 0.3 mg/0.3 mL injection INJECT 0.3 MG INTO MUSCLE DIRECTED NEEDED (FOR ANAPHYLAXIS TO SULFA/ERYTHOMYCI N ALLERGY) 2 each 1 5 Active omeprazole (PriLOSEC) [address] capsule TAKE 1 CAPSULE BY MOUTH DAILY. 90 capsule 1 5 Active Ozempic 2 mg/dose (8 mg/3 mL) injection penIndications: Type 2 diabetes mellitus with obesity ([facility] V24, [facility] V28) INJECT 2 MG INTO THE SKIN EVERY 7 DAYS. 3 mL 5 5 Active Active Problems Problem Noted Date Diagnosed Date Morbid obesity with BMI of 5 0.0-59.9, adult ([facility] V24, [facility] V28) 07/28/2024 History of papillary adenocarcinoma of thyroid 1 Postural lightheadedness 07/28/2024 Primary hypertension 11/29/2021 Assessment & Plan (09/05/2024 10:37 AM EST): The patient's antihypertensive regimen is based on their underlying medical issues. At the time of this visit, the blood pressure is well controlled on Verapamil (started by neuro). The patient is instructed to follow a low sodium diet and to follow up in 4 months. Orders: Comprehensive metabolic panel; Future Hemoglobin A1c; Future Lipid panel with reflex to direct LDL; Future Palpitations 11/25/2021 History of COVID-19 09/03/2021 Postablative hypothyroidism 02/28/2021 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/2024): After radioactive ablation of papillary thyroid CA Cervical radiculopathy 07/08/2019 Cancer of thyroid ([facility] V24, [facility] V28) 06/2018 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/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 Jun 2018; TADEO Ablation 98.6 mCi 01/10/19 Obsessive-compulsive disorder 06/12/2018 Multinodular goiter 06/09/2018 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/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 Jun 2018 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 Esophageal reflux 11/16/2005 Lumbago 11/16/2005 Cervicalgia 11/16/2005 Immunizations Name Administration Dates Next Due Hepatitis A Adult (Havrix; Vaqta) 19yo and older 05/21/2014 Hepatitis B (Luqrcml-H-Sjdse , Recombivax HB-Adult) 19yo and older 05/01/2023,05/21/2014 Influenza Quadravalent, MDCK , 0.5ml, preservative free (Flucelvax) 6mo and older 11/08/2022 Influenza trivalent, 0.5mL, preservative free (Fluarix; FluLaval; Fluzone) ages 6mo and older (Afluria) 3 years and older 07/20/2016,08/19/2015 Influenza trivalent, MDCK, 0 .5mL, preservative free (Flucelvax) 6mo and older 09/05/2024 Influenza trivalent, with pr eservative (Fluzone; Afluria) 6mo and older 07/03/2021,12/01/2020 Pfizer SARS-CoV-2 COVID-19, mRNA, LNP-S, preservative free 11/14/2021 Pneumococcal polysaccharide 23 valent (Pneumovax 23) 2yo and older 02/27/2019 TD, Adsorbed, Preservative Free 10/23/2000 Tdap Tetanus diptheria acell ular pertussis (Boostrix; Adacel) 7yo and older 08/07/2012 Surgical History Surgery Date Site/Laterality Comments TONSILLECTOMY PROCEDURE: HISTORICAL TONSILLECTOMY SECTION 10/08/2004 PROCEDURE: HISTORICAL DELIVERY THYROIDECTOMY 11/27/2018 PROCEDURE: HISTORICAL TOTAL THYROIDECTOMY; COMMENT: Dr. Vegas; papillary thyroid carcinoma OTHER SURGICAL HISTORY 01/11/2019 PROCEDURE: WHOLE BODY NUCLEAR SCANS, THYROID; COMMENT: TADEO ablation Medical History Medical History Date Comments Lumbago 11/16/2005 DX:Lumbago Cervicalgia 11/16/2005 DX:Cervicalgia Esophageal reflux 11/16/2005 DX:Esophageal reflux Morbid obesity ([facility]/HCC V24, [facility] V28) 11/16/2005 DX:Morbid obesity (HCC) Pure hypercholesterolemia DX:Pur e hypercholesterolemia Diabetes mellitus type 2, co ntrolled, with complications (CMS/HCC V24, CMS/HCC V28) DX:Diabetes mellitus type 2, controlled, with complications ([facility]) 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 DX:Denise 's disease Obsessive-compulsive disorder 06/12/2018 DX :Obsessive-compulsive disorder Elevated BP without diagnosi s of hypertension 10/22/2018 DX:Elevated BP without diagn osis of hypertension Paroxysmal atrial tachycardi a ([facility]/HCC V24) 11/29/2021 DX:Paroxysmal atrial tachyca rdia ([facility]) Primary hypertension 11/29/2021 DX:Primary hypertension PCOS (polycystic ovarian syndrome) DX:PCOS (polycystic ovarian syndrome) Nausea and vomiting DX:Nausea an d vomiting Vagus nerve injury DX:Vagus nerv e injury Back pain DX:Back pain Rectal bleeding DX:Rectal bleedi ng Vaginal bleeding DX:Vaginal blee ding H/O total thyroidectomy DX:H/O t otal thyroidectomy Family History Medical History Relation Name Comments No Known Problems Aunt 1 Breast cancer Aunt 2 Arthritis Father Diabetes Father Hypertension Father Pancreatic cancer Father No Known Problems Grandparent 1 Other cancer Grandparent 2 cancer behind the eye Arthritis Maternal Grandfather Thyroid disease Maternal Grandmother Hash imotos Arthritis Mother Other cancer Mother cancer in OU Other: Other Mother benjun very la rge abd tumor Other: atrial fib Mother has cardio versions Breast cancer Other 2mat cousins Colon cancer Paternal Grandfather Diabetes Paternal Grandfather Cataracts Paternal Grandmother CABG, D M No Known Problems Sister No Known Problems Uncle Blindness Neg Hx Glaucoma Neg Hx Macular degeneration Neg Hx Ovarian cancer Neg Hx Strabismus Neg Hx Uterine cancer Neg Hx Relation Name Status Comments Aunt 1 Aunt 2 Father Grandparent 1 Grandparent 2 Maternal Grandfather Maternal Grandmother Mother Alive Other 2mat cousins Paternal Grandfather Paternal Grandmother Alive Sister Alive Uncle Social History Tobacco Use Types Packs/Day Years Used Date Smoking Tobacco: Never Smokeless Tobacco: Never Tobacco Cessation:Counseling Given: Not Answered Alcohol Use Standard Drinks/Week Comments Not Currently 0 (1 standard drink = 0.6 oz pur e alcohol) Housing Instability Answer Date Recorde d Are you worried that in the next 2 months you may not have stable housing? No 09/05/2024 Food Access & Nutrition Answer Date Rec orded Do you have access to a vari ety of food including fruits and vegetables? Yes 09/05/2024 Access to Healthcare Answer Date Record ed Within the last 3 months, ho barb many times did you visit the emergency department for your medical care? 0 09/05/2024 Health Literacy Answer Date Recorded How often do you need to hav e someone help you when you read instructions, pamphlets, or other written material from your doctor or pharmacy? Never 09/05/2024 Caregiver: How often do you need to have someone help you when you read instructions, pamphlets, or other written material from your doctor or pharmacy? Not on file 09/05/2024 Financial Risk Answer Date Recorded How hard is it for you to pa y for the very basics like food, housing, medical care, and air conditioning / heating? Not very hard 09/05/2024 Transportation Answer Date Recorded Has the lack of transportati on kept you from meetings, work, or from getting things needed for daily living? No Has the lack of transportati on kept you from medical appointments or from getting medications? No 09/05/2024 Social Isolation Answer Date Recorded How often do you feel lonely or isolated from th ose around you? Always 09/05/2024 Food Risk Answer Date Recorded Within the past 12 months we worried whether our food would run out before we got money to buy more. Never true 09/05/2024 Within the past 12 months th e food we bought just didn't last and we didn't have money to get more. Never true 09/05/2024 Dependent Care Answer Date Recorded Do you need help finding or paying for care for your loved ones. For example, child care specialist or elderly care for an older adult? No 09/05/2024 Employment and Income Answer Date Recor ded During the last four weeks, have you been actively looking for work? No 09/05/2024 Living Situation Answer Date Recorded What is your living situation? 1 11/05/2023 Comments No Sex and Gender Information Value Date Recorded Sex Assigned at Female 05/17/2023 9:35 AM EDT Legal Sex Female 3:03 PM EST Gender Identity Female 05/17/2023 9:35 AM EDT Sexual Orientation Bisexual 05/17/2023 9: 35 AM EDT Obstetrics History Para Term AB IAB SAB Ectopic Multiple Livin g Live Births 1 10 23 1 Date Outcome GA Total Labor Labor/2nd/3rd Weight Sex Type Anes PTL Tiffani A1 A5 Name Clin Term Last Filed Vital Signs Vital Sign Reading Time Taken Comments Blood Pressure 118/81 01/17/2025 12:51 PM EDT Pulse 74 01/17/2025 12:51 PM EDT Temperature 36.3 C (97.3 F) 01/17/2025 12:51 PM EDT Respiratory Rate 16 01/17/2025 12:51 PM EDT Oxygen Saturation 97% 12/25/2024 8:33 AM EST Inhaled Oxygen Concentration - - Weight 133 kg (294 lb) 01/22/2025 7:45 AM EDT Height 175.3 cm (5' 9 ) 01/22/2025 7:45 AM EDT Body Mass Index 43.42 01/22/2025 7:45 AM EDT Plan of Treatment Upcoming Encounters Date Type Department Care Team (Late st Contact Info) Description 07/23/2025 10:20 AM EDT Office Visit [facility] - [address] [place] [phone] Kelli Singh MD [address] [place] [address] [place] [phone] Health Maintenance Due Date Last Done Comments Pneumococcal Vaccine: Pediatrics (0 to 5 Years) and At-Risk Patients (6 to 49 Years) (2 of 2 - PCV) 02/28/2020 02/27/2019 HIV Screening 10/01/2022 Hepatitis C Screening 10/01/2022 Hepatitis B Vaccines (3 of 3 - 19+ 3-dose series) 06/26/2023 05/01/2023, 05/21/2014 Diabetes: Annual Urine Albumin-Creatinine Ratio (uACR) 05/29/2025 05/29/2024 Diabetes: Annual Foot Exam 05/29/2025 05/29/2024 COVID-19 Vaccine ( season) 2025 11/14/2021, 01/29/2021 Influenza Vaccine (#1) 2025 , 11/08/2022, 07/03/2021, Additional history exists Diabetes: Blood Sugar Control Test (HGBA1C) 06/28/2025 12/26/2024, 09/05/2024, 05/22/2024, Additional history exists Social Influencers of Health Screening 09/05/2025 09/05/2024 Diabetes: Annual Retina Eye Exam 09/10/2025 09/10/2024 Diabetes: Annual GFR (Glomerular Filtration Rate) 04/21/2026 04/21/2025, 09/05/2024, 03/04/2024, Additional history exists Hypertension/CHF/CAD Annual BMP Blood Test 04/21/2026 04/21/2025, 09/05/2024, 03/04/2024, Additional history exists Breast Cancer Screening 11/09/2026 11/09/19 25, 10/14/2023, 11/06/2018 Cervical Cancer Screening: HPV 03/04/2029 03/04/2024 Cholesterol Screening (Lipid Panel) 09/05/2029 09/05/2024, 07/20/2023 DTaP,Tdap,and Td Vaccines (3 - Td or Tdap) 05/29/2034 05/29/2024, 08/07/2012, 10/23/2000 Hepatitis A Vaccines Aged Out 05/21/2014 No long er eligible based on patient's age to complete this topic Depression Screening Completed 01/17/2025 HIB Vaccines Aged Out No longer eligi ble based on patient's age to complete this topic HPV Vaccines Aged Out No longer eligi ble based on patient's age to complete this topic IPV Vaccines Aged Out No longer eligi ble based on patient's age to complete this topic MMR Vaccines Aged Out No longer eligi ble based on patient's age to complete this topic Meningococcal ACWY Vaccine Aged Out N o longer eligible based on patient's age to complete this topic Meningococcal B Vaccine Aged Out No l onger eligible based on patient's age to complete this topic RSV Immunization Patients Under 20 months Aged Out No longer eligible based on patient's age to complete this topic Varicella Vaccines Aged Out No longer eligible based on patient's age to complete this topic Procedures Procedure Name Priority Date/Time Associated Diagnosis Comments TRIIODOTHYRONINE FREE Routine 04/21/2025 7:59 AM EDT Denise's disease FREE THYROXINE WITH REFLEX TO FREE TRIIODOTHYRONINE Routine 04/21/2025 7:59 AM EDT Denise's disease THYROID STIMULATING HORMONE WITH REFLEX TO FREE T4 AND FREE T3 Routine 04/21/2025 7:59 AM EDT Denise's disease BUN Routine 04/21/2025 7:59 AM EDT Hemorrhage from mouth CREATININE, SERUM Routine 04/21/2025 7:5 9 AM EDT Hemorrhage from mouth HEMOGLOBIN A1C Routine 12/26/2024 3:27 PM EST Type 2 diabetes mellitus with obesity (CMS/HCC V24, CMS/HCC V28) MG MAMMO DIGITAL SCREENING W RUSTAM BILAT Routine 11/09/2024 2:17 PM EST Encounter for screening mammogram for breast cancer LIPID PANEL WITH REFLEX TO DIRECT LDL Routine 09/05/2024 10:45 AM EST Type 2 diabetes mellitus without complication, with long-term current use of insulin ([facility] V24, [facility] V28) Primary hypertension Mixed hyperlipidemia URINE ALBUMIN CREATININE RATIO Routine 05/29/2024 HPV Routine 03/04/2024 from Last 3 Months or Most Recently Relevant to Health Maintenance Results * (ABNORMAL) Thyroid stimulating hormone with reflex to free t4 and free t3 (04/21/2025 7:59 AM EDT) TSH 78.95(H) 0.40 - 4.00 mcIU/mL LAB CHEMISTRY METHOD 04/21/2025 11:17 AM EDT [facility] Blood Venous blood specimen / Unknown Venipuncture / Unknown 04/21/2025 7:59 AM EDT 04/21/2025 7:59 AM EDT Sol WALTERS LAB BLOOD ORDERABLES Final Result [facility] [address] [place] [address], [place] [phone] * (ABNORMAL) Free thyroxine with reflex to free triiodothyronine (04/21/2025 7:59 AM EDT) Free T4 0.53(L) 0.70 - 1.80 ng/dL LAB CHEMISTRY METHOD 04/21/2025 11:39 AM EDT [facility] Blood Venous blood specimen / Unknown Venipuncture / Unknown 04/21/2025 7:59 AM EDT 04/21/2025 7:59 AM EDT Sol WALTERS LAB BLOOD ORDERABLES Final Result [facility] [address] [place] [address], [place] [phone] * (ABNORMAL) Creatinine (04/21/2025 7:59 AM EDT) Pathologist [facility] Creatinine 1.19(H) 0.50 - 1.10 mg/dL LAB CHEMISTRY METHOD 04/21/2025 10:44 AM EDT [facility] eGFR 58(L) >=60 mL/min/1. 73m2 LAB CHEMISTRY METHOD 04/21/2025 10:44 AM EDT [facility] Comment:Calculation based on the Chronic Kidney Disease Epidemiology Collaboration (CKD-EPI) equation refit without adjustment for race. Blood Venous blood specimen / Unknown Venipuncture / Unknown 04/21/2025 7:59 AM EDT 04/21/2025 7:59 AM EDT Reyna WALTERS LAB BLOOD ORDERABLES Final R esult [facility] [address] [place] [address], [place] [phone] * BUN (04/21/2025 7:59 AM EDT) [facility] BUN 14 5 - 25 mg/dL LAB CHEMISTRY METHOD 04/21/2025 10:44 AM EDT [facility] Blood Venous blood specimen / Unknown Venipuncture / Unknown 04/21/2025 7:59 AM EDT 04/21/2025 7:59 AM EDT us Reyna WALTERS LAB BLOOD ORDERABLES Final R esult [facility] [address] [place] [address], [place] [phone] * (ABNORMAL) Triiodothyronine free (04/21/2025 7:59 AM EDT) T3, Free 134(L) 230 - 420 pcg/dL LAB CHEMISTRY METHOD 04/21/2025 12:47 PM EDT [facility] Blood Venous blood specimen / Unknown Venipuncture / Unknown 04/21/2025 7:59 AM EDT 04/21/2025 7:59 AM EDT Sol WALTERS LAB BLOOD ORDERABLES Final Result Performing Organization Address City/[facility]/ZIP Co de Phone Number [facility] [address] [place] [address], [place] [phone] * (ABNORMAL) Hemoglobin A1c (12/26/2024 3:27 PM EST) Hemoglobin A1C 6.8(H) <6.5 % LAB CHEMISTRY METHOD 12/26/2024 9:04 PM EST [facility] Mean Bld Glu Estim. 148 mg/dL LAB CHEMISTRY METHOD 12/26/2024 9:04 PM EST [facility] Blood Venous blood specimen / Unknown Venipuncture / Unknown 12/26/2024 3:27 PM EST 12/26/2024 3:27 PM EST Sol WALTERS LAB BLOOD ORDERABLES Final Result Performing Organization Address [facility]/ZIP Co de Phone Number [facility] [address] [place] [address], [place] [phone] * MG Mammo Digital Screening w Rustam bilat (11/09/2024 2:17 PM EST) Anatomical Region Laterality Modality Breast Bilateral Mammography 11/11/2024 7:34 PM EST Impressions 11/11/2024 7:36 PM EST No mammographic evidence of malignancy. BREAST DENSITY: B - There are scattered areas of fibroglandular density. BI-RADS CATEGORY: 1 - NEGATIVE RECOMMENDATION: Screening bilateral mammogram is recommended in 1 year. MAMMO LOCATION: [facility], [address] [place] [address], [phone], . -------- FINAL REPORT -------- Dictated By: Estefania Giraldo Dictated Date: 11/11/2024 19:34 ET Assigned Physician: Estefania Giraldo Reviewed and Electronically Signed By: Estefania Giraldo Signed Date: 11/11/2024 19:36 ET Workstation ID: [id number] Transcribed By: Self Edit Transcribed Date: 11/11/2024 19:34 ET Narrative 11/11/2024 7:36 PM EST EXAM: Screening Mammogram CLINICAL: 44 years old, Female, routine annual exam. COMPARISON: 10/14/2023 and 11/06/2018 TECHNIQUE: Bilateral MLO and CC views were obtained digitally with 3-D mammogram (digital breast tomosynthesis). Computer-aided detection was utilized in evaluation of this exam (CAD). FINDINGS: No new suspicious mass, architectural distortion, or suspicious calcifications. Procedure Note Estefania Giraldo MD - 11/11/2024 EXAM: Screening Mammogram CLINICAL: 44 years old, Female, routine annual exam. COMPARISON: 10/14/2023 and 11/06/2018 TECHNIQUE: Bilateral MLO and CC views were obtained digitally with 3-Dmammogram (digital breast tomosynthesis). Computer-aided detection wasutilized in evaluation of this exam (CAD). FINDINGS: No new suspicious mass, architectural distortion, or suspiciouscalcifications. IMPRESSION: No mammographic evidence of malignancy. BREAST DENSITY: B - There are scattered areas of fibroglandular density. BI-RADS CATEGORY: 1 - NEGATIVE RECOMMENDATION: Screening bilateral mammogram is recommended in 1 year. MAMMO LOCATION: [facility], [address] [place] [address], [phone], . -------- FINAL REPORT -------- Dictated By: Estefania Giraldo Dictated Date: 11/11/2024 19:34 ET Assigned Physician: Estefania Giraldo Reviewed and Electronically Signed By: Estefania Giraldo Signed Date: 11/11/2024 19:36 ET Workstation ID: [id number] Transcribed By: Self Edit Transcribed Date: 11/11/2024 19:34 ET Kalpana Feldman MD IMG BI PROCEDURES Final Result * (ABNORMAL) Lipid panel with reflex to direct LDL (09/05/2024 10:45 AM EST) [facility] Cholesterol 176 0 - 200 mg/dL LAB CHEMISTRY METHOD 09/05/2024 4:21 PM EST [facility] Triglycerides 100 0 - 150 mg/dL LAB CHEMISTRY METHOD 09/05/2024 4:21 PM EST [facility] HDL 48 >=40 mg/dL LAB CHEMISTRY METHOD 09/05/2024 4:21 PM EST [facility] LDL Calculated 108(H) 0 - 100 mg/dL LAB CHEMISTRY METHOD 09/05/2024 4:21 PM EST [facility] VLDL Cholesterol Dragan 20 mg/dL LAB CHEMISTRY METHOD 09/05/2024 4:21 PM EST [facility] Non HDL Chol. (LDL+VLDL) 128 <145 mg/dL LAB CHEMISTRY METHOD 09/05/2024 4:21 PM EST [facility] Chol/HDL Ratio 3.7 0.0 - 4.4 LAB CHEMISTRY METHOD 09/05/2024 4:21 PM EST [facility] Blood Venous blood specimen / Unknown Venipuncture / Unknown 09/05/2024 10:45 AM EST 09/05/2024 10:45 AM EST us Kalpana Feldman MD LAB BLOOD ORDERABL ES Final Result [facility] [address] [place] [address], * Urine Albumin Creatinine Ratio (05/29/2024) [facility] Urine Albumin Creatinine Ratio abstracted Historical Provider HEALTH MAINTENANCE Final Result * Cervical Cancer Screening: HPV (03/04/2024) [facility] Cervical Cancer Screening: HPV abstracted, negative us Historical Provider HEALTH MAINTENANCE Final Result from Last 3 Months or Most Recently Relevant to Health Maintenance Insurance [facility] Care Teams Websphere Developer Relationship Specialty Start Date End Date Kalpana Feldman MD [address] [place] [phone] PCP - General Internal Medicine 09/06/24
--- OUTSIDE RECORDS SUMMARY | 2025-07-01 16:23 | XMS_ITS | Encounter Summary ---
Author Organization [facility] Address [address] [place] [address] Care Team Providers Care Kettle Operator Name Role Phone Christie Gonzales MD Primary Care Provider Jack Glynn MD Primary Care Provider Kelli Garcia MD Unavailable [phone] Kalpana Landaverde MD Primary Care Prov ider Sol Womack PA-C Unavailable [phone] Sera Montes MD Unavailable Unava ilable Reason for Visit * Reason Comments E-prescribe Rx Request Encounter Details Date Type Department Care Team Description 12/08/2016 Refill Adult Medicine [address] [address] Juanita Flores PA-C [address] [place] [address] E-prescribe Rx Request Social History Tobacco Use [...] Telephone Encounter - Peyton Tapia M.A. - 12/08/2016 2:36 PM EST Yeni 05/19/2016 * Telephone Encounter - Gisselle Lala - 12/08/2016 9:56 AM EST Patient would like script to be: E-PRESCRIBED/FAXED TO PHARMACY WHEN WAS THE PATIENT'S LAST APPOINTMENT IN ADULT MEDICINE? 11/03/16 WHEN WAS THE LAST TIME THE PATIENT SAW THEIR PCP? 05/30/13 Does patient have an upcoming appointment? No-patient [...] Plan: WORKERS COMPENSATION/[place] / Product Type: OTHER * Telephone Encounter - Pam Mariely - 12/08/2016 9:56 AM EST Patient would like script to be: E-PRESCRIBED/FAXED TO PHARMACY WHEN WAS THE PATIENT'S LAST APPOINTMENT IN ADULT MEDICINE? 11/03/16 WHEN WAS THE LAST TIME THE PATIENT SAW THEIR PCP? 05/30/13 Does patient have an upcoming appointment? No-patient will call back to book appointment (THE [...] documented as of this encounter Care Teams Kettle Operator Relationship Specialty Start Date End Date Christie Gonzales MD PCP - General 08/26/10 04/27/21 Jack Bdeoya MD PCP - General Internal Medicine 04/28/21 07/24/22 Kalpana Landaverde MD [address] [place] [address] PCP - General Internal Medicine 07/25/22 Kelli Singh MD Specialist Cardiology 07/06/21 Sol Womack PA-C [address] [place] [address] Specialist Endocrinology 05/29/24 Sera Montes MD [address] [place] [address] Specialist Neurology 05/29/24 documented as of this encounter
--- OUTSIDE RECORDS SUMMARY | 2025-07-01 16:23 | XMS_ITS | Encounter Summary ---
Author Organization [facility] Address [address] [place] [address] Care Team Providers Care It Audit Manager Name Role Phone Jack Bedoya MD Primary Care Provider Kelli Garcia MD Unavailable [phone] Kalpana Landaverde MD Primary Care Prov ider Sol Womack PA-C Unavailable [phone] Sera Montes MD Unavailable Unava ilable Reason for Visit * Reason Onset Date Comments infectious disease 09/03/2021 COVID + URI Symptoms 09/03/2021 Encounter Details Date Type Department Care Team Description 09/03/2021 Pt. Non Urgent Medic al Question Adult Medicine [address] [address] Jack Bedoya MD Social History Tobacco Use Types Packs/Day [...] AM EDT documented as of this encounter Progress Notes * Unique Triplett M.A. - 09/07/2021 7:10 AM EST Please triage BALTAZAR, patient was never contacted yesterday. Thank you * Unique Triplett M.A. - 09/06/2021 12:40 PM EST Refill approved and e-prescribed to patient's pharmacy for rescue inhaler. * Unique Triplett M.A. - 09/06/2021 8:10 AM EST Please see Mychart and triage, thank you. Previously routed inhaler refill request to PCP to refill. * Unique Triplett M.A. - 09/06/2021 7:38 AM EST Please see [employer] message, patient informed of COVID 19 positive testing 09-03-21, requesting refill rescue inhaler as well as Tesalon Perles and offer to schedule Telehealth appointment for treatment/ evaluation. Rescue inhaler pended for your review, h/o asthma. CEE 07/05/21 documented in this encounter Miscellaneous Notes * Telephone Encounter - Unique Triplett M.A. - 09/06/2021 7:34 AM ESTFrom: Juanita Nuno Deal To: Hanane Bedoya Sent: 09/03/2021 11:51 PM EST Subject: Covid Good evening. I just got a positive test result for covid. Due to my history of copd, i was hoping i could ask for a perscription renewal for my rescue inhaler and possibly something for my cough, such as tessalon perles. Any help or guidance would be appreciated. documented in this encounter Plan of Treatment Not on file documented as of this encounter Visit Diagnoses Not on filedocumented in this encounter Additional Health Concerns Infection Onset Date Last Indicated Resolved Time COVID-19 Comment:Reporting positive COVID 07/2807/28/2022 07/29/2022 11/14/2022 8:[address] documented as of this encounter Care Teams It Audit Manager Relationship Specialty Start Date End Date Jack Bedoya MD PCP - General Internal Medicine 04/28/21 07/24/22 Kalpana Landaverde MD [address] [place] [address] PCP - General Internal Medicine 07/25/22 Kelli Singh MD Specialist Cardiology 07/06/21 Sol Womack PA-C [address] [place] [address] Specialist Endocrinology 05/29/24 Sera Montes MD [address] [place] [address] Specialist Neurology 05/29/24 documented as of this encounter
--- OUTSIDE RECORDS SUMMARY | 2025-07-01 16:23 | XMS_ITS | Encounter Summary ---
Author Organization [facility] Address [address] [place] [address] Care Team Providers Care Machine Cloth Trimmer Name Role Phone Christie Gonzales MD Primary Care Provider Jack Glynn MD Primary Care Provider Kelli Garcia MD Unavailable Kalpana Landaverde MD Primary Care Prov ider Sol Womack PA-C Unavailable [phone] Sera Montes MD Unavailable Unava ilable Reason for Visit * Reason Comments E-prescribe Rx Request Encounter Details Date Type Department Care Team Description 10/06/2020 Refill Adult Medicine [address] [address] Christie Gonzales MD E-prescribe Rx Request Social [...] have Coronavirus / COVID-19? No / Unsure 10/07/2020 1:52 PM EST documented as of this encounter Miscellaneous Notes * Telephone Encounter - Oscar Bundy M.A. - 10/07/2020 9:34 AM EST Faxed to pharmacy * Telephone Encounter - Grace Munguia M.A. - 10/06/2020 4:06 PM EST Lab Results Component Value Date NA 140 09/25/2020 K 4.3 09/25/2020 CO2 27 09/25/2020 CL 108 09/25/2020 BUN 8 09/25/2020 CREAT 0.64 09/25/2020 GLU 156 09/25/2020 CA 8.9 09/25/2020 GFR > 60 09/25/2020 \ * Telephone Encounter - Randell Okeefe - 10/06/2020 12:28 PM EST Patient would like script to be: E-PRESCRIBED/FAXED TO PHARMACY WHEN WAS THE PATIENT'S LAST APPOINTMENT IN ADULT MEDICINE? 09/25/20 WHEN WAS THE LAST TIME THE PATIENT SAW THEIR PCP? 03/02/20 Does patient have an upcoming appointment? No, letter mailed to patient to call and schedule a follow up. (THE MEDICATION REQUESTED IS ON THE MED [...] documented as of this encounter Care Teams Machine Cloth Trimmer Relationship Specialty Start Date End Date Christie Gonzales MD PCP - General 08/26/10 04/27/21 Jack Bedoya MD PCP - General Internal Medicine 04/28/21 07/24/22 Kalpana Landaverde MD [address] [place] [address] PCP - General Internal Medicine 07/25/22 Kelli Singh MD Specialist Cardiology 07/06/21 Sol Womack PA-C [address] [place] [address] Specialist Endocrinology 05/29/24 Sera Montes MD [address] [place] [address] Specialist Neurology 05/29/24 documented as of this encounter
--- OUTSIDE RECORDS SUMMARY | 2025-07-01 16:23 | XMS_ITS | Encounter Summary ---
Author Organization [facility] Address [address] [place] [address] Care Team Providers Care Bricklayer'S Assistant Name Role Phone Kelli Singh MD Unavailable [phone] Kalpana Landaverde MD Primary Care Prov ider Sol Womack PA-C Unavailable [phone] Sera Montes MD Unavailable Unava ilable Encounter Details Date Type Department Care Team Description 03/29/2024 Pt. Non Urgent Medical Question Adult Medicine [address] [address] Yue Schwartz PA-C [address] [place] [address] Social History Tobacco Use Types Packs/Day Years [...] as of this encounter Progress Notes * Sandee Suero R.N. - 03/29/2024 1:42 PM EDT Left message for PT on [phone] to call the office back at [phone] Sent my chart message to call the office to book an appointment per Yue * Sandee Suero R.N. - 03/29/2024 12:43 PM EDT Spoke to the patient who c/o Bad headaches -05/01 with the continued neck and head pain. Feels the pain on the left side along her neck that travels up her head. Nothing has changed or gotten worse, but nothing has gotten better. Sumatriptan is not helping, but she is taking it Discovered when she lies down flat the bump disappears. Left ear feels some tingling. No hearing loss. No drainage No swelling in the ear. Neck is slightly swollen on left side where the bump is. Skin is intact. Not red or hot to touch. No red streaking or rashes No known injury No fevers. No blurry vision. No lightheaded/ dizziness. No CP. No SOB. No Vomiting, but occasionally feels nausea when her neck and head are throbbing. Pt feels like it may be some nerve irritation and asking if she should call her back doctor or whatshe should do? documented in this encounter Plan of Treatment Not on file documented as of this encounter Visit Diagnoses Not on filedocumented in this encounter Care Teams Bricklayer'S Assistant Relationship Specialty Start Date End Date Kalpana Landaverde MD [address] [place] [address] PCP - General Internal Medicine 07/25/22 Kelli Singh MD Specialist Cardiology 07/06/21 Sol Womack PA-C [address] [place] [address] Specialist Endocrinology 05/29/24 Sera Montes MD [address] [place] [address] Specialist Neurology 05/29/24 documented as of this encounter
--- OUTSIDE RECORDS SUMMARY | 2025-07-01 16:23 | XMS_ITS | Encounter Summary ---
Author Organization [facility] Address [address] [place] [address] Care Team Providers Care Car Pusher Name Role Phone Christie Gonzales MD Primary Care Provider Jack Glynn MD Primary Care Provider Kelli Garcia MD Unavailable [phone] Kalpana Landaverde MD Primary Care Prov ider Sol Womack PA-C Unavailable [phone] Sera Montes MD Unavailable Unava ilable Reason for Visit * Reason Onset Date Comments Testing 10/30/2020 holter Encounter Details Date Type Department Care Team Description 10/30/2020 Telephone Cardio PVCA Diag Testing [address] [facility] [address] [place] [address] Ankit Brewer PA-C [address] [place] [address] [phone] Testing (holter) Social History Tobacco Use Types Packs/Day Years [...] documented as of this encounter Care Teams Car Pusher Relationship Specialty Start Date End Date Christie Gonzales MD PCP - General 08/26/10 04/27/21 Jack Bedoya MD PCP - General Internal Medicine 04/28/21 07/24/22 Kalpana Landaverde MD [address] [place] [address] PCP - General Internal Medicine 07/25/22 Kelli Singh MD Specialist Cardiology 07/06/21 Sol Womack PA-C [address] [place] [address] Specialist Endocrinology 05/29/24 Sera Montes MD [address] [place] [address] Specialist Neurology 05/29/24 documented as of this encounter
--- OUTSIDE RECORDS SUMMARY | 2025-07-01 16:23 | XMS_ITS | Encounter Summary ---
Author Organization [facility] Address [address] [place] [address] Care Team Providers Care Plate And Weld Inspector Name Role Phone Christie Gonzales MD Primary Care Provider Jack Glynn MD Primary Care Provider Kelli Garcia MD Unavailable [phone] Kalpana Landaverde MD Primary Care Prov ider Sol Womack PA-C Unavailable [phone] Sera Montes MD Unavailable Unava ilable Reason for Visit * Reason Onset Date Comments refill request 01/12/2021 Encounter Details Date Type Department Care Team Description 01/12/2021 Refill Adult Medicine [address] [address] Christie Gonzales MD refill request Social History Tobacco Use [...] Miscellaneous Notes * Telephone Encounter - Jamia Aamdor M.A. - 01/12/2021 4:05 PM EDT Refused pt needs appt per last refill note * Telephone Encounter - Krysten Hernadez - 01/12/2021 2:51 PM EDT Patient would like script to be: E-PRESCRIBED/FAXED TO PHARMACY WHEN WAS THE PATIENT'S LAST APPOINTMENT IN ADULT MEDICINE? [id number] WHEN WAS THE LAST TIME THE PATIENT SAW THEIR PCP? [id number] Does patient have an upcoming appointment? Yes [id number] (THE MEDICATION REQUESTED IS ON THE MED [...] documented as of this encounter Care Teams Plate And Weld Inspector Relationship Specialty Start Date End Date Christie Gonzales MD PCP - General 08/26/10 04/27/21 Jack Bedoya MD PCP - General Internal Medicine 04/28/21 07/24/22 Kalpana Landaverde MD [address] [place] [address] PCP - General Internal Medicine 07/25/22 Kelli Singh MD Specialist Cardiology 07/06/21 Sol Womack PA-C [address] [place] [address] Specialist Endocrinology 05/29/24 Sera Motnes MD [address] [place] [address] Specialist Neurology 05/29/24 documented as of this encounter
--- OUTSIDE RECORDS SUMMARY | 2025-07-01 16:23 | XMS_ITS | Encounter Summary ---
Author Organization [facility] Address [address] [place] [address] Care Team Providers Care Landscape Manager Name Role Phone Christie Gonzales MD Primary Care Provider Jack Glynn MD Primary Care Provider Kelli Garcia MD Unavailable [phone] Kalpana Landaverde MD Primary Care Prov ider Sol Womack PA-C Unavailable [phone] Sera Montes MD Unavailable Unava ilable Encounter Details Date Type Department Care Team Description 08/27/2018 Air Traffic Control Supervisor Report Medical Records [address] [place] [address] Rehab., Miguel Ángel Social History Tobacco Use Types Packs/Day Years [...] documented as of this encounter Care Teams Landscape Manager Relationship Specialty Start Date End Date Christie Gonzales MD PCP - General 08/26/10 04/27/21 Jack Bedoya MD PCP - General Internal Medicine 04/28/21 07/24/22 Kalpana Landaverde MD [address] [place] [address] PCP - General Internal Medicine 07/25/22 Kelli Singh MD Specialist Cardiology 07/06/21 Slo Womack PA-C [address] [place] [address] Specialist Endocrinology 05/29/24 Sera Montes MD [address] [place] [address] Specialist Neurology 05/29/24 documented as of this encounter
--- OUTSIDE RECORDS SUMMARY | 2025-07-01 16:23 | XMS_ITS | Encounter Summary ---
Author Organization [facility] Address [address] [place] [address] Care Team Providers Care Vocational Ed Instructor Name Role Phone Kelli Singh MD Unavailable [phone] Kalpana Landaverde MD Primary Care Prov ider Sol Womack PA-C Unavailable [phone] Sera Montes MD Unavailable Unava ilable Encounter Details Date Type Department Care Team Description 01/05/2024 Orders Only Medical Records [address] [place] [address] Rajinder Fritz Social History Tobacco Use Types Packs/Day Years [...] Name Priority Date/Time Associated Diagnosis Comments OUTSIDE EYE EXAM Routine 11/29/2023 documented in this encounter Results * OUTSIDE EYE EXAM (11/29/2023) Rajinder Fritz PROCEDURES documented in this encounter Visit Diagnoses Not on filedocumented in this encounter Care Teams Vocational Ed Instructor Relationship Specialty Start Date End Date Kalpana Landaverde MD [address] [place], [place] [id number] PCP - General Internal Medicine 07/25/22 Kelli Singh MD Specialist Cardiology 07/06/21 Sol Womack PA-C [address] [place] [address] Specialist Endocrinology 05/29/24 Sera Montes MD [address] [place] [address] Specialist Neurology 05/29/24 documented as of this encounter
--- OUTSIDE RECORDS SUMMARY | 2025-07-01 16:23 | XMS_ITS | Encounter Summary ---
Author Organization [facility] Address [address] [place] [address] Care Team Providers Care Greenhouse Assistant Name Role Phone Kelli Singh MD Unavailable [phone] Kalpana Landaverde MD Primary Care Prov ider Sol Womack PA-C Unavailable [phone] Sera Montes MD Unavailable Unava ilable Reason for Visit * Reason Onset Date Comments Prior Authorization 06/09/2023 Encounter Details Date Type Department Care Team Description 06/09/2023 Telephone Endocrinology - [place] [address] [place] [address] Sol Womack PA-C [address] [facility] [address] Prior Authorization Social History Tobacco Use Types Packs/Day Years [...] suspected to have Coronavirus/COVID-19? No / Unsure 05/25/2023 7:58 AM EDT documented as of this encounter Miscellaneous Notes * Telephone Encounter - Sarah Loja M.A. - 06/09/2023 1:19 PM EDT Auth approved Exp 06/08/24 Faxed to pharm Sarah Rincon Auth Dep Ext [id number] * Telephone Encounter - Sarah Loja M.A. - 06/09/2023 9:56 AM EDT Auth called into [facility] [id number] Tried trulicity, glipizide, insulin aspart flex pen, lantus, humalog, metformin Sarah Loja Prior Auth Dep Ext [phone] * Telephone Encounter - August Garland - 06/09/2023 9:18 AM EDT Prior Authorization for Medication-do not complete and send this encounter unless you have the fax from the pharmacy. Is this a Cover My Meds request: Yes -- Cordon Code [id number] Name of Medication Fiasp Flex Touch Dose of Medication 100 unit / ml How does patient take this med? injection What Pharmacy did the fax come from: [facility] Pharmacy fax #: [phone] [employer] Information from fax: documented in this encounter Plan of Treatment Not on file documented as of this encounter Visit Diagnoses Not on filedocumented in this encounter Care Teams Greenhouse Assistant Relationship Specialty Start Date End Date Kalpana Landaverde MD [address] [place] [address] PCP - General Internal Medicine 07/25/22 Kelli Singh MD Specialist Cardiology 07/06/21 Sol Womack PA-C [address] [place] [address] Specialist Endocrinology 05/29/24 Sera Montes MD [address] [place] [address] Specialist Neurology 05/29/24 documented as of this encounter
--- OUTSIDE RECORDS SUMMARY | 2025-07-01 16:23 | XMS_ITS ---
Author Name [facility] Organization Unknown Care Team Organization Name Specialty Phone Email Start Date End Da te [facility] Kalpana Landaverde Primary Care 02/27/2023 06/10/2024 [facility] Sharee Salomon Primary Care 08/30/20222023
--- OUTSIDE RECORDS SUMMARY | 2025-07-01 16:23 | XMS_ITS | Encounter Summary ---
Author Organization [facility] Address [address] [place] [address] Care Team Providers Care Stuntman Name Role Phone Christie Gonzales MD Primary Care Provider Jack Glynn MD Primary Care Provider Kelli Garcia MD Unavailable [phone] Kalpana Landaverde MD Primary Care Prov ider Sol Womack PA-C Unavailable [phone] Sera Montes MD Unavailable Unava ilable Encounter Details Date Type Department Care Team Description 12/11/2020 Refill Adult Medicine [address] [address] Ankit Brewer PA-C [address] [place] [address] Social History Tobacco Use Types Packs/Day Years [...] encounter Miscellaneous Notes * Telephone Encounter - Christie Gonzales MD - 12/14/2020 5:24 PM EST She was seen within 3 months. I think she can have the 90 day refill Sent a message to contact us for followup * Telephone Encounter - Peyton Tapia M.A. - 12/14/2020 2:10 PM EST CEE 09/25/2020 telehealth (return in 2-3 mths) No F/U appt Lab Results Component Value Date HGBA1C 8.0 10/12/2020 MALBUR 36.8 09/25/2020 MALBCR 19.7 09/25/2020 CHOL 188 09/25/2020 LDL 124 09/25/2020 HDL 45 09/25/2020 TRIG 98 09/25/2020 GLU 156 09/25/2020 CREAT 0.64 09/25/2020 documented in this encounter Plan of Treatment Not on file documented as of this encounter Visit Diagnoses Diagnosis Type 2 diabetes mellitus with diabetic mononeuropathy, without long-term current use of insulin (HCC)- Primary documented in this encounter Additional Health Concerns Infection Onset Date Last Indicated Resolved Time COVID-19 Comment:Reporting positive COVID 07/2807/28/2022 07/29/2022 11/14/2022 8:[address] documented as of this encounter Care Teams Stuntman Relationship Specialty Start Date End Date Christie Gonzales MD PCP - General 08/26/10 04/27/21 Jack Bedoya MD PCP - General Internal Medicine 04/28/21 07/24/22 Kalpana Landaverde MD [address] [place] [address] PCP - General Internal Medicine 07/25/22 Kelli Singh MD Specialist Cardiology 07/06/21 Sol Womack PA-C [address] [place] [address] Specialist Endocrinology 05/29/24 Sera Montes MD [address] [place] [address] Specialist Neurology 05/29/24 documented as of this encounter
--- OUTSIDE RECORDS SUMMARY | 2025-07-01 16:23 | XMS_ITS | Encounter Summary ---
Author Organization [facility] Address [address] [place] [address] Care Team Providers Care Chute Feeder Name Role Phone Kelli Singh MD Unavailable [phone] Kalpana Landaverde MD Primary Care Prov ider Sol Womack PA-C Unavailable [phone] Sera Montes MD Unavailable Unava ilable Encounter Details Date Type Department Care Team Description 07/31/2023 Telephone Adult Medicine [facility] [address] [place] [address] Dale Juarez MD [address] [place] [address] [phone] Social History Tobacco Use Types Packs/Day Years [...] suspected to have Coronavirus/COVID-19? No / Unsure 08/02/2023 4:53 PM EDT documented as of this encounter Miscellaneous Notes * Telephone Encounter - Dale Juarez MD - 07/31/2023 11:19 AM EDT Lab result discussed with patient over the phone. She has abnormal lipid profile along with thyroidprofile. She is on oral contraceptive norethindrone. TSH was 16.58. Free T4 was 0.76. Thyroglobulinlevel was less than 0.01. She does have some generalized body aches and muscle spasms which may be due to uncontrolled hypothyroidism. She has an upcoming appoint with endocrinology. She is compliant with levothyroxine 200 mcg and takes it on an empty stomach with no food or other medications along with it.Advised to follow-up with endocrinology for further management of possible uncontrolled hypothyroidism. FYI to PCP. * Telephone Encounter - Dale Juarez MD - 07/31/2023 11:19 AM EDT ----- Message from Debbie CrainPFerdinandNFerdinand sent at 07/21/2023 8:54 AM EDT ----- Ok to wait documented in this encounter Plan of Treatment Not on file documented as of this encounter Visit Diagnoses Not on filedocumented in this encounter Care Teams Chute Feeder Relationship Specialty Start Date End Date Kalpana Landaverde MD [address] [place] [address] PCP - General Internal Medicine 07/25/22 Kelli Singh MD Specialist Cardiology 07/06/21 Sol Womack PA-C [address] [place] [address] Specialist Endocrinology 05/29/24 Sera Montes MD [address] [place] [address] Specialist Neurology 05/29/24 documented as of this encounter
--- OUTSIDE RECORDS SUMMARY | 2025-07-01 16:23 | XMS_ITS | Encounter Summary ---
Author Organization [facility] Address [address] [place] [address] Care Team Providers Care Industrial Electrician Name Role Phone Jack Bedoya MD Primary Care Provider Kelli Garcia MD Unavailable [phone] Kalpana Landaverde MD Primary Care Prov ider Sol Womack PA-C Unavailable [phone] Sera Montes MD Unavailable Unava ilable Reason for Visit * Reason Comments E-prescribe Rx Request Encounter Details Date Type Department Care Team Description 05/13/2021 Refill Adult Medicine [address] [address] Christie Gonzales MD E-prescribe Rx Request Social [...] have Coronavirus / COVID-19? No / Unsure 05/05/2021 2:27 PM EDT documented as of this encounter Miscellaneous Notes * Telephone Encounter - Peyton Tapia M.A. - 05/13/2021 12:25 PM EDT CEE 05/05/2021 F/U appt 07/05/2021 * Telephone Encounter - Maryjane Olvera - 05/13/2021 11:55 AM EDT Patient would like script to be: E-PRESCRIBED/FAXED TO PHARMACY WHEN WAS THE PATIENT'S LAST APPOINTMENT IN ADULT MEDICINE? 05/05/2021 WHEN WAS THE LAST TIME THE PATIENT SAW THEIR PCP? Not seen by new PCP Does patient have an upcoming appointment? Yes 07/05/2021 (THE MEDICATION REQUESTED IS ON THE MED [...] as of this encounter Care Teams Industrial Electrician Relationship Specialty Start Date End Date Jack Bedoya MD PCP - General Internal Medicine 04/28/21 07/24/22 Leila Pérez, Kalpana Herndon MD [address] [place] [address] PCP - General Internal Medicine 07/25/22 Kelli Singh MD Specialist Cardiology 07/06/21 Sol Womack PA-C [address] [place] [address] Specialist Endocrinology 05/29/24 Sera Montes MD [address] [place] [address] Specialist Neurology 05/29/24 documented as of this encounter
--- OUTSIDE RECORDS SUMMARY | 2025-07-01 16:23 | XMS_ITS | Encounter Summary ---
Author Organization [facility] Address [address] [place] [address] Care Team Providers Care Communications Executive Name Role Phone Christie Gonzales MD Primary Care Provider Jack Glynn MD Primary Care Provider Kelli Garcia MD Unavailable Kalpana Landaverde MD Primary Care Prov ider Sol Womack PA-C Unavailable [phone] Sera Montes MD Unavailable Unava ilable Encounter Details Date Type Department Care Team Description 12/01/2016 Night Triage Doc Medical Records [address] [place] [address] Abstract, Provider Social History Tobacco Use Types [...] documented as of this encounter Care Teams Communications Executive Relationship Specialty Start Date End Date Christie Gonzales MD PCP - General 08/26/10 04/27/21 Jack Bedoya MD PCP - General Internal Medicine 04/28/21 07/24/22 Kalpana Landaverde MD [address] [place] [address] PCP - General Internal Medicine 07/25/22 Kelli Singh MD Specialist Cardiology 07/06/21 Sol Womack PA-C [address] [place] [address] Specialist Endocrinology 05/29/24 Sera Montes MD [address] [place] [address] Specialist Neurology 05/29/24 documented as of this encounter
--- OUTSIDE RECORDS SUMMARY | 2025-07-01 16:23 | XMS_ITS | Encounter Summary ---
Author Organization [facility] Address [address] [place] [address] Care Team Providers Care Toll Test Desk Worker Name Role Phone Christie Gonzales MD Primary Care Provider Jack Glynn MD Primary Care Provider Kelli Garcia MD Unavailable Kalpana Landaverde MD Primary Care Prov ider Sol Womack PA-C Unavailable [phone] Sera Montes MD Unavailable Unava ilable Encounter Details Date Type Department Care Team Description 07/02/2018 Hospital Medical Records [address] [place] [address] Hanane Perez MD [address] [place] [address] Social History Tobacco Use Types Packs/Day Years [...] documented as of this encounter Care Teams Toll Test Desk Worker Relationship Specialty Start Date End Date Christie Gonzales MD PCP - General 08/26/10 04/27/21 Jack Bedoya MD PCP - General Internal Medicine 04/28/21 07/24/22 Kalpana Landaverde MD [address] [place] [address] PCP - General Internal Medicine 07/25/22 Kelli Singh MD Specialist Cardiology 07/06/21 Sol Womack PA-C [address] [place] [address] Specialist Endocrinology 05/29/24 Sera Montes MD [address] [place] [address] Specialist Neurology 05/29/24 documented as of this encounter
--- OUTSIDE RECORDS SUMMARY | 2025-07-01 16:23 | XMS_ITS | Encounter Summary ---
Author Organization [facility] Address [address] [place] [address] Care Team Providers Care Feller Buncher Operator Name Role Phone Jack Bedoya MD Primary Care Provider Kelli Garcia MD Unavailable [phone] Kalpana Landaverde MD Primary Care Prov ider Sol Womack PA-C Unavailable [phone] Sera Montes MD Unavailable Unava ilable Reason for Visit * Reason Comments E-prescribe Rx Request Encounter Details Date Type Department Care Team Description 03/28/2022 Refill Adult Medicine [address] [address] Jack Bedoya MD E-prescribe Rx Request Social [...] suspected to have Coronavirus/COVID-19? No / Unsure 03/31/2022 8:39 AM EDT documented as of this encounter Miscellaneous Notes * Telephone Encounter - Unique Triplett M.A. - 03/28/2022 10:18 AM EDT Lab Results Component Value Date HGBA1C 7.5 03/23/2022 MALBUR 25.9 10/14/2021 MALBCR 15.1 10/14/2021 CHOL 230 10/14/2021 LDL 147 10/14/2021 HDL 40 10/14/2021 TRIG 215 10/14/2021 GLU 153 12/29/2021 CREAT 0.58 05/28/2021 CEE 10/14/21 NOV 03/31/22 *NEW to PCP * Telephone Encounter - Rekha Carr - 03/28/2022 9:28 AM EDT Patient would like script to be: E-PRESCRIBED/FAXED TO PHARMACY WHEN WAS THE PATIENT'S LAST APPOINTMENT IN ADULT MEDICINE? 10/14/21 WHEN WAS THE LAST TIME THE PATIENT SAW THEIR PCP? 10/05/21 Does patient have an upcoming appointment? Yes [...] documented as of this encounter Care Teams Feller Buncher Operator Relationship Specialty Start Date End Date Jack Bedoya MD PCP - General Internal Medicine 04/28/21 07/24/22 Kalpana Landaverde MD [address] [place] [address] PCP - General Internal Medicine 07/25/22 Kelli Singh MD Specialist Cardiology 07/06/21 Sol Womack PA-C [address] [place] [address] Specialist Endocrinology 05/29/24 Sera Montes MD [address] [place] [address] Specialist Neurology 05/29/24 documented as of this encounter
--- OUTSIDE RECORDS SUMMARY | 2025-07-01 16:23 | XMS_ITS | Encounter Summary ---
Author Organization [facility] Address [address] [place] [address] Care Team Providers Care Electronics System Mechanic Name Role Phone Kelli Singh MD Unavailable [phone] Kalpana Landaverde MD Primary Care Prov ider Sol Womack PA-C Unavailable Sera Montes MD Unavailable Unava ilable Reason for Visit * Reason Comments E-prescribe Rx Request Encounter Details Date Type Department Care Team Description 03/27/2024 Refill Endocrinology - [address] [address] Foreign Tavarez MD [address] [place], [place] [id number] E-prescribe Rx Request Social History Tobacco Use [...] encounter Miscellaneous Notes * Telephone Encounter - Shobha Neves M.A. - 03/28/2024 10:00 AM EDT CEE 12/26/23 F/u Lab Results Component Value Date HGBA1C 6.9 12/26/2023 MALBUR 28.5 05/01/2023 MALBCR 13.4 05/01/2023 CHOL 200 07/20/2023 LDL 122 07/20/2023 HDL 43 07/20/2023 TRIG 176 07/20/2023 GLU 160 03/04/2024 CREAT 0.85 03/04/2024 documented in this encounter Plan of Treatment Not on file documented as of this encounter Visit Diagnoses Diagnosis Type 2 diabetes mellitus with diabetic mononeuropathy, without long-term current use of insulin (HCC) documented in this encounter Care Teams Electronics System Mechanic Relationship Specialty Start Date End Date Kalpana Lanadverde MD [address] [place] [address] PCP - General Internal Medicine 07/25/22 Kelli Singh MD Specialist Cardiology 07/06/21 Sol Womack PA-C [address] [place] [address] Specialist Endocrinology 05/29/24 Sera Montes MD [address] [place] [address] Specialist Neurology 05/29/24 documented as of this encounter
--- OUTSIDE RECORDS SUMMARY | 2025-07-01 16:24 | XMS_ITS | Encounter Summary ---
Author Organization [facility] Address [address] [place] [address] Care Team Providers Care Data Communications Technician Name Role Phone Christie Gonzales MD Primary Care Provider Jack Glynn MD Primary Care Provider Kelli Garcia MD Unavailable [phone] Kalpana Landaverde MD Primary Care Prov ider Sol Womack PA-C Unavailable [phone] Sera Montes MD Unavailable Unava ilable Reason for Visit * Reason Comments E-prescribe Rx Request Encounter Details Date Type Department Care Team Description 09/15/2020 Refill Adult Medicine [address] [address] Christie Gonzales MD E-prescribe Rx Request Social [...] encounter Miscellaneous Notes * Telephone Encounter - Dottie Brizuela - 09/15/2020 2:39 PM EST Script sent to pharmacy as requested. * Telephone Encounter - Jamia Amador M.A. - 09/15/2020 11:36 AM EST Lab Results Component Value Date NA 138 06/22/2020 K 4.0 06/22/2020 CO2 23 06/22/2020 CL 106 06/22/2020 BUN 8 06/22/2020 CREAT 0.59 06/22/2020 GLU 116 06/22/2020 CA 8.7 06/22/2020 GFR > 60 06/22/2020 Last appt with pcp 03/02/20 * Telephone Encounter - Jessica Alas - 09/15/2020 7:53 AM EST Patient would like script to be: E-PRESCRIBED/FAXED TO PHARMACY WHEN WAS THE PATIENT'S LAST APPOINTMENT IN ADULT MEDICINE? 06/22/2020 WHEN WAS THE LAST TIME THE PATIENT [...] documented as of this encounter Care Teams Data Communications Technician Relationship Specialty Start Date End Date Christie Gonzales MD PCP - General 08/26/10 04/27/21 Jack Bedoya MD PCP - General Internal Medicine 04/28/21 07/24/22 Kalpana Landaverde MD [address] [place] [address] PCP - General Internal Medicine 07/25/22 Kelli Singh MD Specialist Cardiology 07/06/21 Sol Womack PA-C [address] [place] [address] Specialist Endocrinology 05/29/24 Sera Montes MD [address] [place] [address] Specialist Neurology 05/29/24 documented as of this encounter
--- OUTSIDE RECORDS SUMMARY | 2025-07-01 16:24 | XMS_ITS | Encounter Summary ---
Author Organization [facility] Address [address] [place] [address] Care Team Providers Care Coater Hand Name Role Phone Christie Gonzales MD Primary Care Provider Jack Glynn MD Primary Care Provider Kelli Garcia MD Unavailable [phone] Kalpana Landaverde MD Primary Care Prov ider Sol Womack PA-C Unavailable Sera Montes MD Unavailable Unava ilable Reason for Visit * Reason Comments E-prescribe Rx Request Encounter Details Date Type Department Care Team Description 10/30/2019 Refill Adult Medicine [facility] [address] [place] [address] Juanita Flores PA-C [address] [place] [address] E-prescribe Rx Request Social History Tobacco Use [...] Telephone Encounter - Unique Triplett M.A. - 10/30/2019 1:12 PM EST Lab Results Component Value Date HGBA1C 7.3 10/21/2019 MALBUR 12.9 09/02/2019 MALBCR 8.3 09/02/2019 CHOL 176 07/03/2019 LDL 118 07/03/2019 HDL 36 07/03/2019 TRIG 110 07/03/2019 GLU 144 10/21/2019 CREAT 0.70 10/21/2019 * Telephone Encounter - Telma Suresh - 10/30/2019 7:57 AM EST Patient would like script to be: E-PRESCRIBED/FAXED TO PHARMACY WHEN WAS THE PATIENT'S LAST APPOINTMENT IN ADULT MEDICINE? 10/21/19 WHEN WAS THE LAST TIME THE PATIENT SAW THEIR PCP? 11/15/18 Does patient have an upcoming appointment? Yes 02/24/2020 (THE MEDICATION REQUESTED IS ON THE MED [...] documented as of this encounter Care Teams Coater Hand Relationship Specialty Start Date End Date Gonzales, Christie, MD PCP - General 08/26/10 04/27/21 Jack Bedoya MD PCP - General Internal Medicine 04/28/21 07/24/22 Kalpana Landaverde MD [address] [place] [address] PCP - General Internal Medicine 07/25/22 Kelli Singh MD Specialist Cardiology 07/06/21 Sol Womack PA-C [address] [place] [address] Specialist Endocrinology 05/29/24 Sera Montes MD [address] [place] [address] Specialist Neurology 05/29/24 documented as of this encounter
--- OUTSIDE RECORDS SUMMARY | 2025-07-01 16:24 | XMS_ITS | Encounter Summary ---
Author Organization [facility] Address [address] [place] [address] Care Team Providers Care Transplant Coordinator Name Role Phone Christie Gonzales MD Primary Care Provider Jack Glynn MD Primary Care Provider Kelli Garcia MD Unavailable Kalpana Landaverde MD Primary Care Prov ider Sol Womack PA-C Unavailable [phone] Sera Montes MD Unavailable Unava ilable Encounter Details Date Type Department Care Team Description 01/01/2020 Pt. Non Urgent Medic al Question Adult Medicine [address] [address] Christie Gonzales MD Social History Tobacco Use [...] as of this encounter Progress Notes * Afia Alvarado M.A. - 01/02/2020 8:54 AM EDTFrom: Juanita Nuno Deal To: Christie Gonzales MD Sent: 01/01/2020 7:24 PM EDT Subject: disability Do you think i would qualify for disability? im seriously considering it because of the amount of pain i am in all the time. i thought physical work would be ok, but i dont think i can keep doing it.what do you think? documented in this encounter Plan of Treatment Not on file documented as of this encounter Visit Diagnoses Not on filedocumented in this encounter Additional Health Concerns Infection Onset Date Last Indicated Resolved Time COVID-19 Comment:Reporting positive COVID 07/2807/28/2022 07/29/2022 11/14/2022 8:[address] documented as of this encounter Care Teams Transplant Coordinator Relationship Specialty Start Date End Date Christie Gonzales MD PCP - General 08/26/10 04/27/21 Jack Bedoya MD PCP - General Internal Medicine 04/28/21 07/24/22 Kalpana Landaverde MD [address] [place] [address] PCP - General Internal Medicine 07/25/22 Kelli Singh MD Specialist Cardiology 07/06/21 Sol Womack PA-C [address] [place] [address] Specialist Endocrinology 05/29/24 Sera Montes MD [address] [place] [address] Specialist Neurology 05/29/24 documented as of this encounter
--- OUTSIDE RECORDS SUMMARY | 2025-07-01 16:24 | XMS_ITS | Encounter Summary ---
Author Organization [facility] Address [address] [place] [address] Care Team Providers Care Corrective Therapy Aide Teacher Name Role Phone Christie Gonzales MD Primary Care Provider Jack Glynn MD Primary Care Provider Kelli Garcia MD Unavailable [phone] Kalpana Landaverde MD Primary Care Prov ider Sol Womack PA-C Unavailable [phone] Sera Montes MD Unavailable Unava ilable Reason for Visit * Reason Comments E-prescribe Rx Request Encounter Details Date Type Department Care Team Description 06/10/2020 Refill Adult Medicine [address] [address] Christie Gonzales MD E-prescribe Rx Request Social [...] Telephone Encounter - Oscar Bundy M.A. - 06/11/2020 4:45 PM EDT Faxed to pharmacy * Telephone Encounter - Jessica Alas - 06/10/2020 8:29 AM EDT Patient would like script to be: E-PRESCRIBED/FAXED TO PHARMACY WHEN WAS THE PATIENT'S LAST APPOINTMENT IN ADULT MEDICINE? 05/21/2020 WHEN WAS THE LAST TIME THE PATIENT SAW THEIR PCP? 03/02/2020 Does patient have an upcoming appointment? No-patient [...] documented as of this encounter Care Teams Corrective Therapy Aide Teacher Relationship Specialty Start Date End Date Christie Gonzales MD PCP - General 08/26/10 04/27/21 Jack Bedoya MD PCP - General Internal Medicine 04/28/21 07/24/22 Kalpana Landaverde MD [address] [place] [address] PCP - General Internal Medicine 07/25/22 Kelli Singh MD Specialist Cardiology 07/06/21 Sol Womack PA-C [address] [place] [address] Specialist Endocrinology 05/29/24 Sera Montes MD [address] [place] [address] Specialist Neurology 05/29/24 documented as of this encounter
--- OUTSIDE RECORDS SUMMARY | 2025-07-01 16:24 | XMS_ITS ---
Author Organization [facility] [address] [place] [address] [place] [phone] Phone Care Team Providers Care Comic Illustrator Name Role Phone Kalpana Feldman MD Primary Care Prov ider Active Problems Problem Noted Date Diagnosed Date Morbid obesity with BMI of 5 0.0-59.9, adult ([facility] V24, [facility] V28) 07/28/2024 History of [...] CA Cervical radiculopathy 07/08/2019 Cancer of thyroid ([facility] V24, [facility] V28) 06/2018 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/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 Jun 2018; TADEO Ablation 98.6 mCi 01/10/19 Obsessive-compulsive disorder 06/12/2018 Multinodular goiter 06/09/2018 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/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 Jun 2018 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 Esophageal reflux 11/16/2005 Lumbago 11/16/2005 Cervicalgia 11/16/2005 Current Oncology Plans No current plan information found. Past Plans No past plan information found. Radiation Treatments * No radiation treatments are documented for this patient in [facility]. Treatments may have been administered in another system. Lifetime Dose Tracking * Chemical Lifetime Dose Automatic Entry Manual Entr y CTDIvol 66.37 mGy 66.37 mGy 0 mGy
--- OUTSIDE RECORDS SUMMARY | 2025-07-01 16:24 | XMS_ITS | Encounter Summary ---
Author Organization [facility] Address [address] [place] [address] Care Team Providers Care Trader Name Role Phone Jack Bedoya MD Primary Care Provider Kelli Garcia MD Unavailable [phone] Kalpana Landaverde MD Primary Care Prov ider Sol Womack PA-C Unavailable [phone] Sera Montes MD Unavailable Unava ilable Reason for Visit * Reason Onset Date Comments Medication 04/28/2022 Encounter Details Date Type Department Care Team Description 04/28/2022 Telephone Endocrinology - [address] [address] Sol Womack PA-C [address] [place] [address] Medication Social History Tobacco Use Types Packs/Day [...] suspected to have Coronavirus/COVID-19? No / Unsure 04/27/2022 1:53 PM EDT documented as of this encounter Miscellaneous Notes * Telephone Encounter - Sol Womack PA-C - 04/28/2022 11:43 AM EDT This was ordered again * Telephone Encounter - Joselin Nuno Andres - 04/28/2022 8:50 AM EDT Patient states she was supposed to receive a new prescription for a insulin but has not received it. She says medication is called fiasp. Please review and advise documented in this encounter Plan of Treatment [...] documented as of this encounter Care Teams Trader Relationship Specialty Start Date End Date Jack Bedoya MD PCP - General Internal Medicine 04/28/21 07/24/22 Kalpana Landaverde MD [address] [place] [address] PCP - General Internal Medicine 07/25/22 Kelli Singh MD Specialist Cardiology 07/06/21 Sol Womack PA-C [address] [place] [address] Specialist Endocrinology 05/29/24 Sera Montes MD [address] [place] [address] Specialist Neurology 05/29/24 documented as of this encounter
--- OUTSIDE RECORDS SUMMARY | 2025-07-01 16:24 | XMS_ITS | Encounter Summary ---
Author Organization [facility] Address [address] [place] [address] Care Team Providers Care Real Property Appraiser Name Role Phone Kelli Singh MD Unavailable [phone] Kalpana Landaverde MD Primary Care Prov ider Sol Womack PA-C Unavailable [phone] Sera Montes MD Unavailable Unava ilable Reason for Visit * Reason Onset Date Comments Medication 08/05/2022 Encounter Details Date Type Department Care Team Description 08/05/2022 Refill Gastroenterology - [address] [place] [address] Hanane Perez MD [address] [place] [address] Medication Social History Tobacco Use Types Packs/Day [...] was confirmed or suspected to have Coronavirus/COVID-19? Unable to assess 08/03/2022 8:09 AM EDT documented as of this encounter Plan of Treatment Not on file documented as of this encounter Visit Diagnoses Not on filedocumented in this encounter Additional Health Concerns Infection Onset Date Last Indicated Resolved Time COVID-19 Comment:Reporting positive COVID 07/2807/28/2022 07/29/2022 11/14/2022 8:[address] documented as of this encounter Care Teams Real Property Appraiser Relationship Specialty Start Date End Date Kalpana Landaverde MD [address] [place] [address] PCP - General Internal Medicine 07/25/22 Kelli Singh MD Specialist Cardiology 07/06/21 Sol Womack PA-C [address] [place] [address] Specialist Endocrinology 05/29/24 Sera Montes MD [address] [place] [address] Specialist Neurology 05/29/24 documented as of this encounter
--- OUTSIDE RECORDS SUMMARY | 2025-07-01 16:24 | XMS_ITS | Encounter Summary ---
Author Organization [facility] Address [address] [place] [address] Care Team Providers Care Pet Sitter Name Role Phone Jack Bedoya MD Primary Care Provider Kelli Garcia MD Unavailable [phone] Kalpana Landaverde MD Primary Care Prov ider Sol Womack PA-C Unavailable [phone] Sera Montes MD Unavailable Unava ilable Encounter Details Date Type Department Care Team Description 05/25/2022 CGM Report Medical Records [address] [place] [address] Abstract, Provider Social History Tobacco Use Types [...] documented as of this encounter Care Teams Pet Sitter Relationship Specialty Start Date End Date Jack Bedoya MD PCP - General Internal Medicine 04/28/21 07/24/22 Kalpana Landaverde MD [address] [place] [address] PCP - General Internal Medicine 07/25/22 Kelli Singh MD Specialist Cardiology 07/06/21 Sol Womack PA-C [address] [place] [address] Specialist Endocrinology 05/29/24 Sera Montes MD [address] [place] [address] Specialist Neurology 05/29/24 documented as of this encounter
--- OUTSIDE RECORDS SUMMARY | 2025-07-01 16:24 | XMS_ITS | Encounter Summary ---
Author Organization [facility] Address [address] [place] [address] Care Team Providers Care Carpenter Repairer Name Role Phone Kelli Singh MD Unavailable [phone] Kalpana Landaverde MD Primary Care Prov ider Sol Womack PA-C Unavailable [phone] Sera Montes MD Unavailable Unava ilable Reason for Visit * Reason Onset Date Comments Prior Authorization 04/10/2023 Encounter Details Date Type Department Care Team Description 04/10/2023 Telephone Endocrinology - [place] [address] [place] [address] Sol Womack PA-C [address] [facility] [place] [address] Prior Authorization Social History Tobacco Use Types [...] Telephone Encounter - Sarah Loja M.A. - 04/14/2023 2:19 PM EDT Auth approved Exp 04/13/24 Faxed to pharm Sarah Loja Prior Auth Dep Ext [id number] * Telephone Encounter - Patty Blackburn M.A. - 04/13/2023 4:15 PM EDT Requesting more information. Information completed and faxed back today * Telephone Encounter - Patty Blackburn M.A. - 04/11/2023 12:09 PM EDT Prior authorization for the mounjaro was completed today on cover my meds. Dx code E11.41 type 2 diabetes mellitus with diabetic mononeuropathy , without usp current use of insulin Trials Metformin Trulicity must of tried metformin in combo with Bytania Cohentojenna Trulicity * Telephone Encounter - Janice Zepeda - 04/10/2023 12:59 PM EDT Prior Authorization for Medication-do not complete and send this encounter unless you have the fax from the pharmacy. Is this a Cover My Meds request: Yes -- Cordon Code [id number] Name of Medication Mounjaro Dose of Medication 5 MG/0.5 ML What is the RX # from the faxed refill? How does patient take this med? Inject 5 mg into the skin daily. - Subcutaneous What Pharmacy did the fax come from: [facility] fax #: [phone] [employer] Information from fax: What Prescription Plan does the patient have? BIN/PCN if applicable: Cardholder ID: Person Code: Relationship Code: Help desk phone: documented in this encounter Plan of Treatment Not on file documented as of this encounter Visit Diagnoses Not on filedocumented in this encounter Care Teams Carpenter Repairer Relationship Specialty Start Date End Date Kalpana Landaverde MD [address] [place] [address] PCP - General Internal Medicine 07/25/22 Kelli Singh MD Specialist Cardiology 07/06/21 Sol Womack PA-C [address] [place] [address] Specialist Endocrinology 05/29/24 Sera Montes MD [address] [place] [address] Specialist Neurology 05/29/24 documented as of this encounter
--- OUTSIDE RECORDS SUMMARY | 2025-07-01 16:24 | XMS_ITS | Encounter Summary ---
Author Organization [facility] Address [address] [place] [address] Care Team Providers Care Top Printing Press Operator Name Role Phone Kelli Singh MD Unavailable [phone] Kalpana Landaverde MD Primary Care Prov ider Sol Womack PA-C Unavailable [phone] Sera Montes MD Unavailable Unava ilable Encounter Details Date Type Department Care Team Description 04/11/2023 Pt. Non Urgent Medical Question Endocrinology - [address] [place] [address] Sol Womack PA-C [address] [facility] [place] [address] Social History Tobacco Use Types Packs/Day Years [...] Miscellaneous Notes * Telephone Encounter - Jamia Kimbrough M.A. - 04/11/2023 9:30 AM EDTFrom: Juanita Fitzgerald To: Tracy Womack Sent: 04/11/2023 9:27 AM EDT Subject: Monjauro I forgot to message! Im out of monjauro! My next dose is today documented in this encounter Plan of Treatment Not on file documented as of this encounter Visit Diagnoses Not on filedocumented in this encounter Care Teams Top Printing Press Operator Relationship Specialty Start Date End Date Kalpana Landaverde MD [address] [place] [address] PCP - General Internal Medicine 07/25/22 Kelli Singh MD Specialist Cardiology 07/06/21 Sol Womack PA-C [address] [place] [address] Specialist Endocrinology 05/29/24 Sera Montes MD [address] [place] [address] Specialist Neurology 05/29/24 documented as of this encounter
--- OUTSIDE RECORDS SUMMARY | 2025-07-01 16:24 | XMS_ITS | Encounter Summary ---
Author Organization [facility] Address [address] [place] [address] Care Team Providers Care Hydrologic Engineer Name Role Phone Christie Gonzales MD Primary Care Provider Jack Glynn MD Primary Care Provider Kelli Garcia MD Unavailable [phone] Kalpana Landaverde MD Primary Care Prov ider Sol Womack PA-C Unavailable [phone] Sera Montes MD Unavailable Unava ilable Encounter Details Date Type Department Care Team Description 09/06/2019 Orders Only Adult Medicine - [address] [address] John Mejia MD Social History Tobacco Use Types Packs/Day [...] documented as of this encounter Care Teams Hydrologic Engineer Relationship Specialty Start Date End Date Christie Gonzales MD PCP - General 08/26/10 04/27/21 Jack Bedoya MD PCP - General Internal Medicine 04/28/21 07/24/22 Kalpana Landaverde MD [address] [place] [address] PCP - General Internal Medicine 07/25/22 Kelli Singh MD Specialist Cardiology 07/06/21 Sol Womack PA-C [address] [place] [address] Specialist Endocrinology 05/29/24 Sera Montes MD [address] [place] [address] Specialist Neurology 05/29/24 documented as of this encounter
--- OUTSIDE RECORDS SUMMARY | 2025-07-01 16:24 | XMS_ITS | Encounter Summary ---
Author Organization [facility] Address [address] [place] [address] Care Team Providers Care Laundry Helper Name Role Phone Kelli Singh MD Unavailable [phone] Kalpana Landaverde MD Primary Care Prov ider Sol Womack PA-C Unavailable [phone] Sera Montes MD Unavailable Unava ilable Reason for Visit * Reason Onset Date Comments Medication 11/25/2022 Encounter Details Date Type Department Care Team Description 11/25/2022 Refill Adult Medicine [address] [address] Kalpana Landaverde MD [address] [place] [address] Medication Social History Tobacco Use Types Packs/Day [...] suspected to have Coronavirus/COVID-19? No / Unsure 11/14/2022 8:02 AM EST documented as of this encounter Miscellaneous Notes * Telephone Encounter - Regina Ordonez R.N. - 11/25/2022 9:14 AM EST Has used all the med prescription She was using 3 X daily and it was working really well Asking for a refill She is calling today to start scheduling PT Please advise on refill * Telephone Encounter - Jamia Amador M.A. - 11/25/2022 8:54 AM EST Please triage, pt is requesting a refill of Methocarbamol Last rx 11/14/22 for a 10 day supply only Last appt with pcp 11/14/22 documented in this encounter Plan of Treatment Not on file documented as of this encounter Visit Diagnoses Not on filedocumented in this encounter Care Teams Laundry Helper Relationship Specialty Start Date End Date Kalpana Landaverde MD [address] [place] [address] PCP - General Internal Medicine 07/25/22 Kelli Singh MD Specialist Cardiology 07/06/21 Sol Womack PA-C [address] [place] [address] Specialist Endocrinology 05/29/24 Sera Montes MD [address] [place] [address] Specialist Neurology 05/29/24 documented as of this encounter
--- OUTSIDE RECORDS SUMMARY | 2025-07-01 16:24 | XMS_ITS | Encounter Summary ---
Author Organization [facility] Address [address] [place] [address] Care Team Providers Care Treatment Counselor Name Role Phone Christie Gonzales MD Primary Care Provider Jack Glynn MD Primary Care Provider Kelli Garcia MD Unavailable [phone] Kalpana Landaverde MD Primary Care Prov ider Sol Womack PA-C Unavailable [phone] Sera Montes MD Unavailable Unava ilable Reason for Visit * Reason Comments E-prescribe Rx Request Encounter Details Date Type Department Care Team Description 12/26/2019 Refill Adult Medicine [address] [address] Juanita Flores PA-C [address] [place] [address] [id number] E-prescribe Rx Request Social History Tobacco Use [...] encounter Miscellaneous Notes * Telephone Encounter - Vanessa Vu - 12/26/2019 10:49 AM EST Patient would like script to be: E-PRESCRIBED/FAXED TO PHARMACY WHEN WAS THE PATIENT'S LAST APPOINTMENT IN ADULT MEDICINE? 12/15/19 WHEN WAS THE LAST TIME THE PATIENT SAW THEIR PCP? 11/15/18 Does patient have an upcoming appointment? Yes 02/24/20 (THE MEDICATION REQUESTED IS ON THE MED [...] documented as of this encounter Care Teams Treatment Counselor Relationship Specialty Start Date End Date Christie Gonzales MD PCP - General 08/26/10 04/27/21 Jack Bedoya MD PCP - General Internal Medicine 04/28/21 07/24/22 Kalpana Landaverde MD [address] [place] [address] PCP - General Internal Medicine 07/25/22 Kelli Singh MD Specialist Cardiology 07/06/21 Sol Womack PA-C [address] [place] [address] Specialist Endocrinology 05/29/24 Sera Montes MD [address] [facility] [place] [address] Specialist Neurology 05/29/24 documented as of this encounter
--- OUTSIDE RECORDS SUMMARY | 2025-07-01 16:24 | XMS_ITS | Encounter Summary ---
Author Organization [facility] Address [address] [place] [address] Care Team Providers Care Director Loan Name Role Phone Kelli Singh MD Unavailable [phone] Kalpana Landaverde MD Primary Care Prov ider Sol Womack PA-C Unavailable [phone] Sera Montes MD Unavailable Unava ilable Reason for Visit * Reason Onset Date Comments medication problems 12/28/2022 Encounter Details Date Type Department Care Team Description 12/28/2022 Telephone Adult Medicine [address] [address] Kalpana Landaverde MD [address] [place] [address] medication problems Social History Tobacco Use Types Packs/Day Years [...] suspected to have Coronavirus/COVID-19? No / Unsure 12/07/2022 1:04 PM EST documented as of this encounter Miscellaneous Notes * Telephone Encounter - Alejandro Acuna - 12/28/2022 8:17 AM EST What is the name of the medication patient is having a problem with?: ProAir RespiClick 108 (90 Base) MCG/ACT AEROSOL POWDER,BREATH ACTIVATED What is the problem?: product backordered/unavailable: pro air has been discontinued, please send new RX for Ventolin Is the patient calling about the problem? NO If the patient is not the caller who is? Faxed from [facility] Is this a NEW medication?: NO How long has the patient been taking this medication? Who prescribed this medication for the patient? Kalpana Pérez Who is patients PCP?: Kalpana Pérez Payor: [facility] [email or web address] [facility]FS / Plan: [facility] / Product Type: MEDICAID RISK documented in this encounter Plan of Treatment Not on file documented as of this encounter Visit Diagnoses Not on filedocumented in this encounter Care Teams Director Loan Relationship Specialty Start Date End Date Kalpana Landaverde MD [address] [place] [address] PCP - General Internal Medicine 07/25/22 Kelli Singh MD Specialist Cardiology 07/06/21 Sol Womack PA-C [address] [place] [address] Specialist Endocrinology 05/29/24 Sera Montes MD [address] [place] [address] Specialist Neurology 05/29/24 documented as of this encounter
--- OUTSIDE RECORDS SUMMARY | 2025-07-01 16:24 | XMS_ITS | Encounter Summary ---
Author Organization [facility] Address [address] [place] [address] Care Team Providers Care Research Chief Engineer Name Role Phone Kelli Singh MD Unavailable [phone] Kalpana Landaverde MD Primary Care Prov ider Sol Womack PA-C Unavailable [phone] Sera Montes MD Unavailable Unava ilable Encounter Details Date Type Department Care Team Description 11/01/2022 Pt. Non Urgent Medical Question Adult Medicine [address] [address] Ankit Brewer PA-C [address] [place] [address] Social History Tobacco Use Types Packs/Day Years [...] suspected to have Coronavirus/COVID-19? Unable to assess 10/18/2022 9:17 AM EST documented as of this encounter Progress Notes * Regina Ordonez R.N. - 11/02/2022 10:26 AM EST Left vm for pt to return my call. Sent my chart message documented in this encounter Miscellaneous Notes * Telephone Encounter - Ramu Henning M.A. - 11/01/2022 10:39 AM ESTFrom: Juanita Nuno Deal To: Carlton Brewer Sent: 11/01/2022 10:08 AM EST Subject: Sinus infection Good morning! I took the antibiotics, but the sinus infection has not faded, and it actually seems to be getting worse. My voice improved for like 24 hrs, and is now back to [facility]. I see my surgeon for thyroid follow up tomorrow, so i will ask his opinion on my voice. Not sure what to do about the never ending sinus infection t ho. Let me know what our next step should be. Thanks! Emi documented in this encounter Plan of Treatment Not on file documented as of this encounter Visit Diagnoses Not on filedocumented in this encounter Additional Health Concerns Infection Onset Date Last Indicated Resolved Time COVID-19 Comment:Reporting positive COVID 07/2807/28/2022 07/29/2022 11/14/2022 8:[address] documented as of this encounter Care Teams Research Chief Engineer Relationship Specialty Start Date End Date Kalpana Landaverde MD [address] [place] [address] PCP - General Internal Medicine 07/25/22 Kelli Singh MD Specialist Cardiology 07/06/21 Sol Womack PA-C [address] [place] [address] Specialist Endocrinology 05/29/24 Sera Montes MD [address] [place] [address] Specialist Neurology 05/29/24 documented as of this encounter
--- OUTSIDE RECORDS SUMMARY | 2025-07-01 16:24 | XMS_ITS | Encounter Summary ---
Author Organization [facility] Address [address] [place] [address] Care Team Providers Care Supervisor Hairspring Fabrication Name Role Phone Jack Bedoya MD Primary Care Provider Kelli Garcia MD Unavailable [phone] Kalpana Landaverde MD Primary Care Prov ider Sol Womack PA-C Unavailable [phone] Sera Montes MD Unavailable Unava ilable Reason for Visit * Reason Comments E-prescribe Rx Request Encounter Details Date Type Department Care Team Description 05/27/2022 Refill Endocrinology - [address] [address] Sol Womack PA-C [address] [place] [address] E-prescribe Rx Request Social History Tobacco Use [...] encounter Miscellaneous Notes * Telephone Encounter - Keira Jeffers C.M.A. - 05/27/2022 1:35 PM EDT Last OV Next OV 06/07/22 Last Fill 12/29/21 Lab Results Component Value Date TSH 1.41 03/23/2022 TSH 2.52 12/21/2021 TSH 2.74 10/14/2021 documented in this encounter Plan of Treatment [...] documented as of this encounter Care Teams Supervisor Hairspring Fabrication Relationship Specialty Start Date End Date Jack Bedoya MD PCP - General Internal Medicine 04/28/21 07/24/22 Kalpana Landaverde MD [address] [place] [address] PCP - General Internal Medicine 07/25/22 Kelli Singh MD Specialist Cardiology 07/06/21 Sol Womack PA-C [address] [place] [address] Specialist Endocrinology 05/29/24 Sera Montes MD [address] [place] [address] Specialist Neurology 05/29/24 documented as of this encounter
== END 2025-07-01 14:45 | disposition home or self-care (01) ==
LOC: HO.HUSH 13:47
PROVIDERS: Visit Provider Nurse Practitioner Family
DX: N20.0 Calculus of kidney (principal); R39.9 Unspecified symptoms and signs involving the genitourinary system; N39.46 Mixed incontinence; Z13.9 Encounter for screening, unspecified
CPT/HCPCS: 99203

== ENCOUNTER 2025-07-01 13:47 | Outpatient (REF) | payer OTHER, SELFPAY | END 2025-07-01 13:48 | disposition home or self-care (01) | LOC: HO.LAB 13:47 | PROVIDERS: Visit Provider Nurse Practitioner Family | DX: N20.0 Calculus of kidney (principal); N39.46 Mixed incontinence | CPT/HCPCS: 51798; 81003; 88112; 99202 ==

== ENCOUNTER 2025-08-21 09:03 | Outpatient (AMB) | payer OTHER, SELFPAY ==
--- NOTE | 2025-08-21 09:23 | A.OFFVIS_ITS ---
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 [facility] [facility]. Per ED note, patient states she developed dizziness/lightheadedness before passing out. She had a witnessed fall and did strike her head. After this fall patient had complaints of developing migraine, left neck pain, and left shoulder pain. At today's visit she states that she is having issues with her left side of her neck and the left shoulder, constant dull ache. She noted that she fell at home on 07/31/25, 08/12/25 due to her dysautonomia. She reports that due to her dizzy spells she has to constantly sit down before she feels that she is going to pass out. Allergies erythromycin base (ERYTHROMYCIN BASE) Allergy (Unknown, Verified 07/01/25 14:48) ANAPHYLAXIS Sulfa (Sulfonamide Antibiotics) (SULFA (SULFONAMIDE ANTIBIOTICS)) Allergy (Unknown, Verified 07/01/25 14:48) ANAPHYLAXIS sulfamethoxazole (From BACTRIM) Allergy (Unknown, Verified 07/01/25 14:48) HIVES trimethoprim (From BACTRIM) Allergy (Unknown, Verified 07/01/25 14:48) HIVES polyethylene glycol Allergy (Verified 07/01/25 14:48) Vomiting Medication List - Last Reconciled 08/21/25 by Soo Berg MD bupropion HCl XL 300 mg PO DAILY cholecalciferol (vitamin D3) (Vitamin D3) 50 mcg PO DAILY epinephrine IM fluvoxamine 100 mg PO BID gabapentin 300 mg PO TID guanfacine ER 2 mg PO DAILY insulin degludec (Tresiba FlexTouch U-100 insulin) units subcut levothyroxine 25 mcg PO DAILY lorazepam mg PO metformin ER 1,000 mg PO BID montelukast 10 mg PO DAILY omeprazole 40 mg PO DAILY semaglutide (Ozempic) mg subcut HPI Comments Details: History of DM, dysautonomia (formally diagnosed 1 year ago, though etiology). Gabapentin for the burning between shoulder blades, new medication for 2 years. Neck pain chronic for 15 years. No cspine injections. No PT this year. CT last December reporting No evidence of high-grade central canal narrowing or large disc herniation allowing for modality limitations. Last MRI probably at [facility] more than 2 years ago. Posterior neck pain, goes to occiput. Can get neck and shoulder stiffness. No numbness on arms/hands. Can get dizzy, blurry vision and sensation of blocked ears. There is burning sensation between shoulders. I am not seeing her for WC. 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 Patient was appropriately conversant and oriented. Good historian. MSK: Inspection reveals appropriate head and neck positioning. Tenderness over upper trapezius and cervical paraspinals. No tenderness over occiput or postauricular areas. Cervical ROM was full. Spurling's sign negative. Bilateral shoulder, elbow and wrist ROM WNL. No ligamentous laxity or crepita nce. No increased effusion. Mild right Alberts sign. Negative empty can sign. Strength is 5/5 in all muscle groups tested. No increased tone noted. Neurological: Neurologic examination of the upper and lower extremities was nonfocal with intact sensation, muscle stretch reflexes and without focal motor deficits . Merrill?s negative bilaterally. Babinski was down going bilaterally. Clonus was negative. Gait is non-antalgic without loss of balance. Vital Signs: BMI result Body Mass Index 41.5 Results Reviewed Results Reviewed: Ordering Physician: Letha Mirza Date of Service: 01/13/25 Procedure(s): CT cervical spine wo IV con Accession Number(s): [id number] cc: Letha Mirza; Physician,Unknown ~ Report Number: [id number]: Total DLP = 1425.00 mGy-cm EXAMINATION: CT CERVICAL SPINE WITHOUT CONTRAST CLINICAL INFORMATION: Trauma, neck pain. COMPARISON: 04/13/2010. TECHNIQUE: Spiral CT imaging of the cervical spine performed in axial plane without contrast. Multiplanar reformatted images were constructed from the axial data set. This CT examination was performed using dose optimization techniques as appropriate, variously including the following: *Automated exposure control *Adjustment of mA and/or kV according to patient size (this includes techniques or standardized protocols for targeted exams where dose is matched to indication/reason for exam; i.e. extremities or head) *Use of iterative reconstruction technique FINDINGS: CORONAL ALIGNMENT: -Mild levoconvex scoliosis. SAGITTAL ALIGNMENT: -Mild reversal of the normal lordosis, centered at C4. -No subluxations. C1-C2 AND CRANIOCERVICAL JUNCTION: -Intact and normally aligned. VERTEBRAL BODIES AND FACETS: -No fracture, compression deformity, traumatic malalignment. No suspicious bone lesion. -Normal facet alignment and appearance. DISCS: -Early disc degenerative change spanning C4-C7. CENTRAL CANAL: -No evidence of high-grade central canal narrowing or large disc herniation allowing for modality limitations. PREVERTEBRAL AND PARAVERTEBRAL SOFT TISSUES: -No soft tissue swelling. -There has been a total thyroidectomy. LUNG APICES: -Clear bilaterally. CT/CT cervical spine wo IV con IMPRESSION: 1. No CT evidence of acute cervical spine fracture or injury . 2. Total thyroidectomy. Electronically signed by: Oscar Lopez MD 01/13/2025 03:44 PM EDT Assessment & Plan Assessment & Plan (1) Pain of cervical facet joint: Code(s): M54.2 - Cervicalgia Category: Medical (2) Myofascial pain dysfunction syndrome: Code(s): M79.18 - Myalgia, other site Category: Medical (3) Shoulder pain, bilateral: Code(s): M25.511 - Pain in right shoulder; M25.512 - Pain in left shoulder Category: Medical Qualifiers: Chronicity: chronic Qualified Code(s): M25.511 - Pain in right shoulder; M25.512 - Pain in left shoulder; G89.29 - Other chronic pain Plan Posterior neck pain which I suspect is either cervical facet syndrome versus myofascial pain. No signs of radiculopathy or myelopathy on exam today. Bilateral shoulder pain, which I also suspect is connected to myofascial pain especially of trapezius muscles. Cervical x-ray today to evaluate for facet arthritis. Shoulder x-ray today to evaluate for osteoarthritis. We discussed trial of either cervical facet injections or trigger point injections. She is known to Dr. Briscoe for her lower back pain. Most likely will refer to Dr. Briscoe for cervical facet injections. Patient is eager to proceed with plan. Assessment and plan discussed with patient, and patient was agreeable. All questions were answered thoroughly. Soo Berg MD, MATTEO Board Certified, [place] Board of Physical Medicine and Rehabilitation (ABPMR) Board Certified, [place] Board of Electrodiagnostic Medicine (ABEM) Orders: Orders XR shoulder RT min 2V Today M25.511 - Pain in right shoulder, M25.512 - Pain in left shoulder XR cervical spine 3V Today M25.511 - Pain in right shoulder, M25.512 - Pain in left shoulder, M54.2 - Cervicalgia XR shoulder LT min 2V Today M25.511 - Pain in right shoulder, M25.512 - Pain in left shoulder Coding Level of Care Code New Pt Level 4 (42216) Diagnoses Pain of cervical facet joint M54.2 Myofascial pain dysfunction syndrome M79.18 Chronic pain of both shoulders M25.511; M25.512; G89.29 Chronicity: chronic
[2025-08-21 09:31] VITALS: BMI 41.5
--- OUTSIDE RECORDS SUMMARY | 2025-08-21 10:08 | XMS_ITS | Data Portability ---
Author Organization [place] - [facility], Allergy Address [address] [place] [phone] Care Team Providers Care Full Fashioned Garment Knitter Name Role Phone CARL JIANG Primary Care Provider Assessment Encounter Date Assessment Date Assessment LastModified by Organization Details LastModified Time 04/08/2025 04/08/2025 44-year-old female presents for evaluation of reported salivary gland swelling. On examination the parotid glands are normal to palpation bilaterally without enlargement or defined mass. Submandibular glands are similarly normal to examination and palpation. Examination of the oral mucosa shows normal buccal mucosa, gingival mucosa, and normal tongue. There are several teeth in poor repair. Recommended dental follow-up. Patient is concerned given her history of thyroid cancer. For this reason CT scan of the neck with contrast was ordered. If unremarkable no further intervention will be recommended as her exam is benign. All questions were answered. Not available 04/08/2025 16:38:47 Plan of Treatment Reminders Order Date Submit Date Provider Last Modified By Organization Details Last Modified Time Details Appointments None recorded. Lab None recorded. Referral None recorded. Procedures None recorded. Surgeries None recorded. Imaging CT, neck, soft tissue, w/ contrast 2024 025 [facility], [address] [facility] [address], [place], [address], 10:53:27 Medication Orders None recorded. Patient TargetsNo targets recorded. Patient InstructionsNo instructions recorded. Reason for Referral None Reported. Results Created Date Observation Date Name Description Value Unit Range Abnormal Flag Note LastModifiedBy Organization Detail LastModifiedTime 04/21/20 25 04/21/2025 BUN BUN 14 mg/dL 5-25 Not Available [facility]/S Dept [address] [place], [address], 04/21/2025 10:46:16 04/21/20 25 04/21/2025 BUN note See Report [facility], [address], [place], [place] [id number] Not Available [facility]/S Dept [facility] [place], [address], 04/21/2025 10:46:16 04/21/20 25 04/21/2025 CREAT ININE creatinine 1.19 mg/dL 0.50-1 .10 high Not Available [facility] Dept [address] [place], [place] [address], [address], 04/21/2025 10:46:18 04/21/20 25 04/21/2025 CREAT ININE eGFR 58 mL/mi n/1.7 3m2 >=60 low Calcu latio n based on the Chron ic Kidne y Disea se Epide miolo gy Colla borat ion (CKD- EPI) equat ion refit witho ut adjus tment for race. Not Available [facility] Dept [address] [place], [address], 04/21/2025 10:46:18 04/21/20 25 04/21/2025 CREAT ININE note See Report low [facility], [address], [place], [place] [id number] Not Available [facility]/S Dept [address] [place], [address], 04/21/2025 10:46:18 04/23/20 25 04/22/2025 CT, neck, soft tissu e, w/ contr ast No observ ation record ed. [email or web address] [facility] [address] [address], [place], [address], 05/05/2025 11:25:28 Result Notes None recorded. Problems Name Problem SNOMED Code Status Onset Date Resolution Date Notes Provider Name and Address Organization Details Recorded Time Stomatitis 03934145 Active 025 BRYAN RAMSAY PA-C [address] [facility],[address] [address], [place], [phone], [place] [facility] 16:40:30 Mass of oral cavity 718070640 Active 025 BRYAN RAMSAY PA-C [address] [address], [place], [phone], [facility] 16:41:14 Problem Notes None recorded. Medical Equipment None Reported. Vitals Date Recorded Body weight Body mass index (BMI) Body height Provider Name and Address Organization Details Last Updated DateTime 04/08/2025 065712.16 g 43.4 kg/m2 175.26 cm Marlyn Houston [place] - [facility] 04/08/2025 16:02:08 Social History None recorded. Functional Status None recorded. Mental Status None recorded. Family History Nothing Reported. Medical History No medical history recorded. Gynecological HistoryNo gynecological history recorded. Obstetrics History GPAL:G 0 P 0 0 0 0 Past Encounters Encounter ID Performer Location Encounter Start Date Encounter Closed Date Diagnosis/Indication Diagnosis SNOMED-CT Code Diagnosis ICD10 Code Diagnosis IMO Codes Diagnosis Note [id number] BRYAN RAMSAY PA-C [facility] [address] [place] [address] 04/08/2025 15:42:28 04/08/2025 16:23:38 Mass of oral cavity 416906505 K13.79 212127 Health Concerns Section Related Observation LastModified by Organization Detai ls LastModified Time None Recorded Concern Status LastModified by Organization Details LastModified Time None Recorded Advance Directives Directive None Recorded Payers Insurance Date Sequence Insurance Name Policy Number Policy Abreu Covered Member ID Abreu Member ID Guarantor Name 04/08/2025 1 [facility] NET PLAN (MEDICAID HMO) [id number] Juanita Nuno Deal [id number] Juanita Deal 04/08/2025 1 [facility] (O) [id number] Juanita Nuno Deal [id number] Juanita Deal Notes Date Note Type Note Provider Name and Address Organization Details Recorded Time 04/08/2025 text/html ROS as noted in the HPI 44-year-old female presents for evaluation of reported salivary gland swelling. She states over the last few years she has an area of her inner right cheek which becomes swollen. She often bites the area when she is eating. The swelling is intermittent. It does not bleed. No history of smoking. Does have a history of thyroid cancer treated with radiation. BRYAN RAMSAY PA-C [address] [place] [address], [phone], [place] [facility] 04/08/2025 16:41:48 OBGyn Episode No OBEpisode recorded.
== END 2025-08-21 10:24 | disposition home or self-care (01) ==
LOC: HO.HOS 09:04
PROVIDERS: Visit Provider Physical Medicine & Rehabilitation
DX: M54.2 Cervicalgia (principal); M79.18 Myalgia, other site; M25.511 Pain in right shoulder; M25.512 Pain in left shoulder; G89.29 Other chronic pain
CPT/HCPCS: 99203

== ENCOUNTER 2025-08-21 09:03 | Outpatient (REF) | payer OTHER, SELFPAY ==
--- OUTSIDE RECORDS SUMMARY | 2025-08-20 07:45 | XMS_ITS | Encounter Summary ---
Author Organization [facility] Address [address] [place] [address] Care Team Providers Care Primary [place] Roller Name Role Phone Kalpana Feldman MD Primary Care Prov ider Reason for Referral * Medications - Closed Specialty Diagnoses / Procedures Referred By Fausto lopez Referred To Contact Diagnoses Type 1 diabetes mellitus with retinopathy, macular edema presence unspecified, unspecified laterality, unspecified retinopathy severity (CMS/HCC V24, CMS/HCC V28) Sol Womack PA [address] [place] [address] Phone: tel: fax: Referral ID Status Reason Start Date Expiration Date Visits Re quested Visits Authorized [id number] Closed 1 1 Reason for Visit * Reason Comments Diabetes Mellitus Encounter Details Date Type Department Care Team (Late st Contact Info) Description 08/20/2025 7:45 AM EDT Office Visit Endocrinology - [address] [phone] Sol Womack PA [address] [place] [address] Type 1 diabetes mellitus with retinopathy, macular edema presence unspecified, unspecified laterality, unspecified retinopathy severity (CMS/HCC V24, CMS/HCC V28) (Primary Dx); Postoperative hypothyroidism; Cancer of thyroid (CMS/HCC V24, [facility]/HCC V28) Social History Tobacco Use Types Packs/Day Years [...] ed Within the last 3 months, ho w many times did you visit the emergency [...] your loved ones. For example, child care associate teacher or elderly care for an older adult? No 09/05/2024 Employment and Income Answer Date Recor ded During the last four weeks, have you been actively looking for work? No 09/05/2024 Living Situation Answer Date Recorded What is your living situation? Unrecognized valu e 09/05/2024 Comments No Sex and Gender Information Value Date Recorded Sex Assigned at Female 05/17/2023 9:35 AM EDT Legal Sex Female 3:03 PM EST Gender Identity Female 05/17/2023 9:35 AM EDT Sexual Orientation Bisexual 05/17/2023 9: 35 AM EDT documented as of this encounter Last Filed Vital Signs Vital Sign Reading Time Taken Comments Blood Pressure 109/76 08/20/2025 7:53 AM EDT Pulse 82 08/20/2025 7:53 AM EDT Temperature 36.2 C (97.1 F) 08/20/2025 7:53 AM EDT Respiratory Rate - - Oxygen Saturation - - Inhaled Oxygen Concentration - - Weight 128 kg (281 lb 9.6 oz) 08/20/2025 7:53 AM EDT Height 175.3 cm (5' 9 ) 08/20/2025 7:53 AM EDT Body Mass Index 41.59 08/20/2025 7:53 AM EDT documented in this encounter Ordered Prescriptions Prescription Sig Dispense Quantity Refills Last Filled Start Date End Date levothyroxine (Tirosint) 200 mcg capsule Take 1 tab po daily fasting. 90 capsule 3 08/20/2025 insulin degludec (Tresiba FlexTouch U-100) 100 unit/mL (3 mL) injection pen 14 unist sc at bedtime 15 mL 11 08/20/2025 blood-glucose sensor (FreeStyle Edith 3 Plus Sensor)Indications :Type 1 diabetes mellitus with retinopathy, macular edema presence unspecified, unspecified laterality, unspecified retinopathy severity (CMS/HCC V24, CMS/HCC V28) Apply 1 sensor and change every 15 days. Box = Kit = EA 2 each 11 08/20/2025 documented in this encounter Progress Notes * Raul Stone MA - 08/20/2025 7:45 AM EDT Visit Vitals BP 109/76 (BP Location: Left arm, Patient Position: Sitting, BP Cuff Size: Large adult) Pulse 82 Temp 36.2 ??C (97.1 ??F) (Temporal) Ht 1.753 m (69 ) Wt 128 kg (281 lb 9.6 oz) LMP 07/31/2025 (Exact Date) BMI 41.59 kg/m?? OB Status Having periods Smoking Status Never BSA 2.39 m?? If blood pressure is greater than 140/90 was average BP completed? N/A Medication list reviewed and refills pended: Yes Blood sugar: FSBS: Lab Results Component Value Date GLUCOSE 146 08/20/2025 . Is sugar <70 or > 400? No. Is patient on CGM? No. .If yes, please update blue sticky note with DME or pharmacy information. Are labs up to date? no Foot Exam Due: no Eye Exam Due: no * SELENA Dallas - 08/20/2025 7:45 AM EDT CHIEF COMPLAINT: Diabetes Mellitus IDENTIFIER: Juanita Fitzgerald is a 44 y.o. old female. HPI: Patient presents to the for follow-up on diabetes and thyroid disease. Past medical history of type2 diabetes, hyperlipidemia, hypothyroidism, multinodular goiter, obesity, carpal tunnel syndrome, asthma and history of thyroid cancer. Type 2 diabetes: Hemoglobin A1c Lab Results Component Value Date HGBA1C 6.8 (H) 12/26/2024 HGBA1C 6.2 09/05/2024 HGBA1C 6.7 (A) 05/22/2024 Due for blood work. Patient normally uses CGM. States she has not received it in several months. Was getting it from [facility]. Would like to switch to regular pharmacy. Aware that authorization request could take several weeks for processing Blood sugar in the office 146 Blood sugars at home she states between 11/12/1958 Diabetes medication Patient has been able to get off most of the insulin due to weight loss Lantus 10 units. Previously she was on 16 Ozempic 2 mg Metformin at 1000 mg twice a day Patient has lost over 120 pounds Thyroid carcinoma: Patient with papillary thyroid carcinoma treated with thyroidectomy in 2018. Hadradiation the year after. Now follows up for hypothyroidism. She is supposed to be doing 225 mcg daily. Her TSH have been very high in the 80s and 70s. Patient admits that is because she does not take her medications States when she checks levothyroxine generic she feels dizziness, off balance and like she is goingto fall. When she does not take her thyroid medication she feels better I discussed that huge risk of increased recurrence of thyroid cancer TSH levels are not controlled to the low range of normal Patient is aware of this and understands consequences Follows up with Dr. Awan. He has been doing on monitoring her thyroid ultrasounds. Ultrasound in 2021 demonstrated subcentimeter lesions in the right thyroid bed and another in the left thyroid bed some submandibular lymphadenopathy. This was biopsied and seems that results were inconclusive. They continue to monitor this with ultrasounds. This was rechecked last year. She has not had a follow-up with him this year Ultrasound in 2023 demonstrated stable ultrasound. See below for detailed report Hypertension: Blood pressure 108/76 Wt Readings from Last 3 Encounters: 08/20/25 128 kg (281 lb 9.6 oz) 07/23/25 128 kg (283 lb) 01/22/25 133 kg (294 lb) ROS: GENERAL: No malaise, significant weight loss or fever HEENT: No changes in hearing or vision, nose bleeds or other nasal problems RESPIRATORY: No cough, wheezing or shortness of breath CARDIOVASCULAR: No chest pain, leg swelling or palpitations GI: No abdominal discomfort, blood in stools or black stools ENDOCRINE: See HPI MUSCULOSKELETAL: No joint pain or swelling, back pain, or muscle pain. NEURO: No persistent headache, syncope, seizures, weakness or numbness PAST MEDICAL HISTORY: Patient Active Problem List Diagnosis Date Noted Morbid obesity with BMI of 50.0-59.9, adult ([facility] V24, [facility] V28) 07/28/2024 History of papillary adenocarcinoma of thyroid 07/28/2024 Postural lightheadedness 07/28/2024 Primary hypertension 11/29/2021 Palpitations 11/25/2021 History of COVID-19 09/03/2021 Postablative hypothyroidism 02/28/2021 Cervical radiculopathy 07/08/2019 Cancer of thyroid ([facility] V24, [facility] V28) 07/31/2018 Obsessive-compulsive disorder 06/12/2018 Multinodular goiter 06/09/2018 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 Carpal tunnel syndrome 03/13/2018 Urge incontinence 10/31/2017 Hyperactivity of bladder 10/31/2017 AC joint arthropathy 05/13/2014 Abnormal liver enzymes 01/27/2014 Asthma 12/26/2012 Esophageal reflux 11/16/2005 Lumbago 11/16/2005 Cervicalgia 11/16/2005 SOCIAL HISTORY: Social History Tobacco Use Smoking status: Never Smokeless tobacco: Never Substance Use Topics Alcohol use: Not Currently FAMILY HISTORY: Family Status Relation Name Status Mother Alive Father Sister Alive MGM MGF PGM Alive PGF Aunt (Not Specified) Aunt (Not Specified) Uncle (Not Specified) Grandparent (Not Specified) Grandparent (Not Specified) Other 2mat cousins (Not Specified) Neg Hx (Not Specified) No partnership data on file Family History Problem Relation Name Age of Onset Arthritis Mother Other cancer Mother cancer in [place] Other (Other: Other) Mother karoline very large abd tumor Other (Other: atrial fib) Mother 50.00 has cardioversions Arthritis Father Diabetes Father Hypertension Father Pancreatic cancer Father 54.00 No Known Problems Sister Thyroid disease Maternal Grandmother Hashimotos Arthritis Maternal Grandfather Cataracts Paternal Grandmother CABG, DM Diabetes Paternal Grandfather Colon cancer Paternal Grandfather No Known Problems Aunt Breast cancer Aunt 52.00 No Known Problems Uncle No Known Problems Grandparent Other cancer Grandparent 70.00 cancer behind the eye Breast cancer Other 2mat cousins Blindness Neg Hx Glaucoma Neg Hx Macular degeneration Neg Hx Strabismus Neg Hx Uterine cancer Neg Hx Ovarian cancer Neg Hx ACTIVE MEDICATIONS: Outpatient Medications Marked as Taking for the 08/20/25 encounter (Office Visit) with SELENA Dallas Medication Sig Dispense Refill blood sugar diagnostic (FreeStyle Lite Strips) test strip USE TO CHECK BLOOD SUGAR daily , when CGMnot working blood-glucose meter kit Test blood sugar daily buPROPion XL (WELLBUTRIN XL) 300 mg 24 hr tablet Take 1 tablet (300 mg total) by mouth 1 (one) timeeach day. Do not crush, chew, or split. cholecalciferol (VITAMIN D-3) 50 mcg (2,000 unit) capsule Take 1 capsule (2,000 Units total) by mouth 1 (one) time each day. EPINEPHrine (EPIPEN) 0.3 mg/0.3 mL injection INJECT 0.3 MG INTO MUSCLE DIRECTED NEEDED (FOR ANAPHYLAXIS TO SULFA/ERYTHOMYCIN ALLERGY) 2 each 1 fluvoxaMINE (LUVOX) 100 mg tablet Take 2 tablets (200 mg total) by mouth at bedtime. FREESTYLE LANCETS MISC Test blood sugar 1 time daily gabapentin (NEURONTIN) 300 mg capsule Take 1 capsule (300 mg total) by mouth 3 (three) times a day. glucagon (Baqsimi) 3 mg/actuation nasal spray 1 Dose by Nasal route as needed for Other (hypoglycemia). glucagon (Gvoke HypoPen 1-Pack) 1 mg/0.2 mL auto-injector Inject 1 Dose into the skin as needed forOther (sevre hypoglycemia). guanFACINE (INTUNIV) 1 mg 24 Hour ER tablet Take 1 tablet (1 mg total) by mouth 1 (one) time each day. insulin degludec (Tresiba FlexTouch U-100) 100 unit/mL (3 mL) injection pen 14 unist sc at bedtime 15 mL 11 LORazepam (ATIVAN) 1 mg tablet Take 0.5-1 tablets (0.5-1 mg total) by mouth 1 (one) time each day if needed (Panic attack). midodrine (PROAMATINE) 5 mg tablet Take 0.5 tablets (2.5 mg total) by mouth 2 (two) times a day. 30each 3 montelukast (SINGULAIR) 10 mg tablet TAKE 1 TABLET BY MOUTH AT BEDTIME. 90 tablet 1 omeprazole (PriLOSEC) [address] capsule TAKE 1 CAPSULE BY MOUTH DAILY. 90 capsule 1 Ozempic 2 mg/dose (8 mg/3 mL) injection pen INJECT 2 MG INTO THE SKIN EVERY 7 DAYS. 3 mL 5 pen needle, diabetic (BD ULTRA-FINE MICRO PEN NEEDLE MISC) INJECT 4 DEVICES INTO THE SKIN 4 TIMES ADAY Ventolin HFA 90 mcg/actuation inhaler INHALE 2 PUFFS INTO THE LUNGS EVERY 6 HOURS NEEDED FOR COUGH WHEEZING OR SHORTNESS OF BREATH. 18 each 0 [DISCONTINUED] insulin degludec (Tresiba FlexTouch U-100) 100 unit/mL (3 mL) injection pen 16 unistsc at bedtime [DISCONTINUED] levothyroxine (SYNTHROID, LEVOTHROID) 200 mcg tablet Take daily 1 tab by mouth 90 each 5 [DISCONTINUED] levothyroxine (SYNTHROID, LEVOTHROID) 25 mcg tablet Take 1 tablet (25 mcg total) by mouth 1 (one) time each day. Take 1 tablet daily along with the 200 mcg tablet. For total 225 daily 30 each 11 ALLERGIES: Erythromycin, Sulfa (sulfonamide antibiotics), Polyethylene glycol, and Sulfamethoxazole-trimethoprim PHYSICAL EXAM: Blood pressure 109/76, pulse 82, temperature 36.2 ??C (97.1 ??F), temperature source Temporal, height 1.753 m (69 ), weight 128 kg (281 lb 9.6 oz), last menstrual period 07/31/2025. Body mass index is 41.59 kg/m??. BMI is greater than 25.0 (above the normal range) - see Plan APPEARANCE: Alert and in no acute distress HEART: RRR with normal S1 and S2, no murmurs, no gallops, NECK: no thyroid enlargement, nodules or masses felt. LUNG: clear to auscultation NEURO: Awake, alert and oriented x 3 LABS: Lab Results Component Value Date HGBA1C 6.8 (H) 12/26/2024 CHOL 176 09/05/2024 LDL 122 (A) 07/20/2023 HDL 48 09/05/2024 TRIG 100 09/05/2024 Lab Results Component Value Date GLUCOSE 146 08/20/2025 Lab Results Component Value Date TSH 78.95 (H) 04/21/2025 IMAGING: IMPRESSION: 1. Type 1 diabetes mellitus with retinopathy, macular edema presence unspecified, unspecified laterality, unspecified retinopathy severity (CMS/HCC V24, [facility] V28) 2. Postoperative hypothyroidism 3. Cancer of thyroid ([facility] V24, [facility] V28) PLAN: Patient presents to the office for follow-up on diabetes 1. Diabetes: A1c at goal. Due for blood work Will order CGM to regular pharmacy. Continue with current regimen of metformin and Ozempic Tresiba increased to 14 units Continue with lifestyle modifications Labs ordered 2. Hypothyroidism: Spent most of the visit discussing hypothyroidism and importance of getting her TSH controlled. To the low range of normal. Extensive time explaining risk of increased thyroid carcinoma with uncontrolled TSH Importance of compliance with medications reviewed She mentions side effects to generic brand of levothyroxine. Will try Tirosint. Because she has notbeen taking consistently, I told her lets just start with 200 mcg daily I need her to be consistentfor 4 weeks and then check levels again so we can determine if we need further adjustments If she has side effects reach out to the office Thyroglobulin is ordered as well Follow-up in 3 months 3. Cancer of the thyroid. Due for ultrasound. Will defer to surgery department as she has been following up with them due to enlarged lymph nodes. She agrees to call them to schedule a follow-up appointment Myself and my colleagues maintained a long-term, longitudinal relationship with this patient, overseeing care of chronic conditions including diabetes. This care relationship has significantly influence my decision making and treatment plans during today's encounter. All questions and concerns were addressed. Patient understands and agrees with this treatment plan.Patient was reminded to call or return to the office if any new or existing problems arise This document was made using voice recognition software. It may contain some errors in grammar or syntax Medication and lab orders: Type 1 diabetes mellitus with retinopathy, macular edema presence unspecified, unspecified laterality, unspecified retinopathy severity ([facility] V24, [facility] V28) (Primary) - POC glucose manually resulted - blood-glucose sensor (FreeStyle Edith 3 Plus Sensor); Apply 1 sensor and change every 15 days. Box = Kit = EA Dispense: 2 each; Refill: 11 - Hemoglobin A1c; Future - Basic metabolic panel; Future - Lipid panel with reflex to direct LDL; Future - Microalbumin creatinine urine ratio; Future Postoperative hypothyroidism - Thyroid stimulating hormone with reflex to free t4 and free t3; Future - Thyroglobulin and thyroglobulin antibody panel; Future Cancer of thyroid ([facility] V24, [facility] V28) Other orders - insulin degludec (Tresiba FlexTouch U-100) 100 unit/mL (3 mL) injection pen; 14 unist sc at bedtime Dispense: 15 mL; Refill: 11 - levothyroxine (Tirosint) 200 mcg capsule; Take 1 tab po daily fasting. Dispense: 90 capsule; Refill: 3 SELENA Dallas on 08/20/2025 at 8:38 AM EDT documented in this encounter Plan of Treatment Upcoming Encounters Date Type Department Care Team (Late st Contact Info) Description 11/20/2025 8:40 AM EST Office Visit Endocrinology - [place] [address], [place] [phone] Luis Watson MD [address], [place] Pending Results Name Type Priority Associated Diagnoses Date /Time Thyroglobulin and thyroglobulin antibody panel Lab Routine Denise's disease 08/20/2025 8:47 AM EDT Scheduled Orders Name Type Priority Associated Diagnoses Orde r Schedule Thyroglobulin and thyroglobulin antibody panel Lab Routine Postoperative hypothyroidism 1 Occurrences starting 08/20/2025 until 08/20/2026 documented as of this encounter Procedures Procedure Name Priority Date/Time Associated Diagnosis Comments POC GLUCOSE Routine 08/20/2025 7:57 AM EDT Type 1 diabetes mellitus with retinopathy, macular edema presence unspecified, unspecified laterality, unspecified retinopathy severity ([facility] V24, [facility] V28) documented in this encounter Results * Microalbumin creatinine urine ratio (08/20/2025 8:47 AM EDT) Creatinine, Urine 185.0 mg/dL LAB CHEMISTRY METHOD 08/20/2025 2:26 PM EDT [facility] Microalb, Ur 8.0 0.0 - 29.0 mg/L LAB CHEMISTRY METHOD 08/20/2025 2:26 PM EDT [facility] Microalb/Creat Ratio 4 <30 mg/g creat LAB CHEMISTRY METHOD 08/20/2025 2:26 PM EDT [facility] Urine Urine specimen from urethra / Unknown Non-blood Collection / Unknown 08/20/2025 8:47 AM EDT 08/20/2025 8:47 AM EDT us Sol WALTERS LAB URINE ORDERABLES Final Result [facility] [address] [place] [address], * (ABNORMAL) Lipid panel with reflex to direct LDL (08/20/2025 8:47 AM EDT) Cholesterol 243(H) 0 - 200 mg/dL LAB CHEMISTRY METHOD 08/20/2025 11:01 AM [facility] Triglycerides 114 0 - 150 mg/dL LAB CHEMISTRY METHOD 08/20/2025 11:01 AM [facility] HDL 61 >=40 mg/dL LAB CHEMISTRY METHOD 08/20/2025 11:01 AM [facility] LDL Calculated 159(H) 0 - 100 mg/dL LAB CHEMISTRY METHOD 08/20/2025 11:01 AM [facility] Comment:Estimated LDL Calcul ated using equation: Total cholesterol - HDL cholesterol - (Triglycerides/5) VLDL Cholesterol Dragan 22.8 mg/dL LAB CHEMISTRY METHOD 08/20/2025 11:01 AM [facility] Non HDL Chol. (LDL+VLDL) 182(H) <145 mg/dL LAB CHEMISTRY METHOD 08/20/2025 11:01 AM [facility] Chol/HDL Ratio 4.0 0.0 - 4.4 LAB CHEMISTRY METHOD 08/20/2025 11:01 AM [facility] Blood Venous blood specimen / Unknown Venipuncture / Unknown 08/20/2025 8:47 AM EDT 08/20/2025 8:47 AM EDT us Sol WALTERS LAB BLOOD ORDERABLES Final Result [facility] [address] [place] [address], * Basic metabolic panel (08/20/2025 8:47 AM EDT) Sodium 139 133 - 145 mmol/L LAB CHEMISTRY METHOD 08/20/2025 11:01 AM [facility] Potassium 4.0 3.5 - 5.5 mmol/L LAB CHEMISTRY METHOD 08/20/2025 11:01 AM [facility] Chloride 106 96 - 110 mmol/L LAB CHEMISTRY METHOD 08/20/2025 11:01 AM [facility] CO2 27 21 - 32 mmol/L LAB CHEMISTRY METHOD 08/20/2025 11:01 AM [facility] Anion Gap 6 3 - 11 LAB CHEMISTRY METHOD 08/20/2025 11:01 AM [facility] Glucose 95 70 - 100 mg/dL LAB CHEMISTRY METHOD 08/20/2025 11:01 AM [facility] BUN 16 5 - 25 mg/dL LAB CHEMISTRY METHOD 08/20/2025 11:01 AM [facility] Creatinine 1.05 0.50 - 1.10 mg/dL LAB CHEMISTRY METHOD 08/20/2025 11:01 AM [facility] eGFR 68 >=60 mL/min/1. 73m2 LAB CHEMISTRY METHOD 08/20/2025 11:01 AM [facility] Comment:Calculation based on the Chronic Kidney Disease Epidemiology Collaboration (CKD-EPI) equation refit without adjustment for race. BUN/Creatinine Ratio 15.2 LAB CHEMISTRY METHOD 08/20/2025 11:01 AM [facility] Calcium 9.1 8.5 - 10.5 mg/dL LAB CHEMISTRY METHOD 08/20/2025 11:01 AM [facility] Blood Venous blood specimen / Unknown Venipuncture / Unknown 08/20/2025 8:47 AM EDT 08/20/2025 8:47 AM EDT us Sol WALTERS LAB BLOOD ORDERABLES Final Result [facility] [address] [place] [address], * (ABNORMAL) Thyroid stimulating hormone with reflex to free t4 and free t3 (08/20/2025 8:47 AM EDT) TSH 67.16(H) 0.40 - 4.00 mcIU/mL LAB CHEMISTRY METHOD 08/20/2025 11:56 AM EDT [facility] Blood Venous blood specimen / Unknown Venipuncture / Unknown 08/20/2025 8:47 AM EDT 08/20/2025 8:47 AM EDT us Sol WALTERS LAB BLOOD ORDERABLES Final Result [facility] [address] [place] [address], [place] [phone] * (ABNORMAL) Hemoglobin A1c (08/20/2025 8:47 AM EDT) [facility] Hemoglobin A1C 6.7(H) <6.5 % LAB CHEMISTRY METHOD 08/20/2025 10:53 AM EDT [facility] Mean Bld Glu Estim. 146 mg/dL LAB CHEMISTRY METHOD 08/20/2025 10:53 AM EDT [facility] Blood Venous blood specimen / Unknown Venipuncture / Unknown 08/20/2025 8:47 AM EDT 08/20/2025 8:47 AM EDT us Sol WALTERS LAB BLOOD ORDERABLES Final Result [facility] [address] [place] [address], [place] [phone] * POC glucose manually resulted (08/20/2025 7:57 AM EDT) [facility] Glucose POC 146 mg/dL Blood Capillary blood specimen / Unknown 08/20/2025 7:57 AM EDT us Sol WALTERS POINT OF CARE TEST ENTER/ED IT ORDERABLES Final Result documented in this encounter Visit Diagnoses Diagnosis Type 1 diabetes mellitus with retinopathy, macular edema presence unspecified, unspecified laterality, unspecified retinopathy severity ([facility] V24, [facility] V28)- Primary Postoperative hypothyroidism Postsurgical hypothyroidism Cancer of thyroid ([facility] V24, [facility] V28) Malignant neoplasm of thyroid gland documented in this encounter Discontinued Medications Medication Sig Discontinue Reason Start Date End Da te metFORMIN XR (GLUCOPHAGE-XR) 500 mg 24 hr tablet Take 2 Tablets by mouth 2 times daily (with meals). Formulary change 09/04/2023 08/20/2025 meloxicam (MOBIC) 7.5 mg tablet Take 1 tablet (7.5 mg total) by mouth 1 (one) time each day if needed. Formulary change 12/07/2023 08/20/2025 levothyroxine (SYNTHROID, LEVOTHROID) 25 mcg tablet Take 1 tablet (25 mcg total) by mouth 1 (one) time each day. Take 1 tablet daily along with the 200 mcg tablet. For total 225 daily Formulary change 01/01/2025 08/20/2025 levothyroxine (SYNTHROID, LEVOTHROID) 200 mcg tablet Take daily 1 tab by mouth 01/01/2025 08/20/2025 insulin degludec (Tresiba FlexTouch U-100) 100 unit/mL (3 mL) injection penIndications:Type 2 diabetes mellitus with obesity 16 unist sc at bedtime Reorder 12/25/2024 08/20/2025 documented as of this encounter Additional Health Concerns Assessment Noted Time PHQ-9 Depression Total Score: 23 025 12:35 PM EDT documented as of this encounter Care Teams Primary [place] Relationship Specialty Start Date End Date Kalpana Feldman MD [address] [place] [phone] PCP - General Internal Medicine 09/06/24 documented as of this encounter
--- NOTE | ~2025-08-21 | XR_ITS ---
EXAMINATIONS: 1. XR SHOULDER 2 OR MORE VIEWS RIGHT 2. XR SHOULDER 2 OR MORE VIEWS LEFT CLINICAL INFORMATION: M25.511 - Pain in right shoulder M25.512 - Pain in left shoulder COMPARISON: None available. TECHNIQUE: Two views of the right and left shoulders. FINDINGS: Right: Normal alignment. No fracture. Acromioclavicular and glenohumeral joint spaces are preserved. Tiny curvilinear calcification adjacent to the greater tuberosity of the humerus. Left: Normal alignment. No fracture. Acromioclavicular and glenohumeral joint spaces are preserved. No abnormal soft tissue calcification. XR/XR shoulder LT min 2V IMPRESSION: Right shoulder: Possible minimal calcific tendinitis. No significant degenerative changes. Left shoulder: No significant degenerative changes. Electronically signed by: Sana Gonzalez MD 08/21/2025 10:55 AM EDT
--- NOTE | ~2025-08-21 | XR_ITS ---
EXAMINATION: XR CERVICAL SPINE CLINICAL INFORMATION: M54.2 - Cervicalgia COMPARISON: None available. TECHNIQUE: 3 views of the cervical spine were obtained. FINDINGS: Straightening of the cervical lordosis. No subluxation. Vertebral body heights are maintained. Mild degenerative changes with disc space narrowing and marginal osteophytes are more prominent at C5-C6 and C6-7. Odontoid process appears well aligned with the lateral masses of C1. Multiple surgical clips project over the lower anterior neck. XR/XR cervical spine 3V IMPRESSION: Mild degenerative changes in the lower cervical spine. Electronically signed by: Sana Gonzalez MD 08/21/2025 10:56 AM EDT
--- NOTE | ~2025-08-21 | XR_ITS ---
EXAMINATIONS: 1. XR SHOULDER 2 OR MORE VIEWS RIGHT 2. XR SHOULDER 2 OR MORE VIEWS LEFT CLINICAL INFORMATION: M25.511 - Pain in right shoulder M25.512 - Pain in left shoulder COMPARISON: None available. TECHNIQUE: Two views of the right and left shoulders. FINDINGS: Right: Normal alignment. No fracture. Acromioclavicular and glenohumeral joint spaces are preserved. Tiny curvilinear calcification adjacent to the greater tuberosity of the humerus. Left: Normal alignment. No fracture. Acromioclavicular and glenohumeral joint spaces are preserved. No abnormal soft tissue calcification. XR/XR shoulder RT min 2V IMPRESSION: Right shoulder: Possible minimal calcific tendinitis. No significant degenerative changes. Left shoulder: No significant degenerative changes. Electronically signed by: Sana Gonzalez MD 08/21/2025 10:55 AM EDT
--- OUTSIDE RECORDS SUMMARY | 2025-08-21 11:39 | XMS_ITS ---
Author Organization [facility] [address] [place] [address] [place] [phone] Phone Care Team Providers Care Electrical Worker Name Role Phone Kalpana Feldman MD Primary Care Prov ider Active Problems Problem Noted Date Diagnosed Date Morbid obesity with BMI of 5 0.0-59.9, adult ([facility] V24, [facility] V28) 07/28/2024 History of papillary [...] [place] Cervical radiculopathy 07/08/2019 Cancer of thyroid ([facility] V24, [facility] V28) 06/2018 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/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 Jun 2018; TADEO Ablation 98.6 mCi 01/10/19 Obsessive-compulsive disorder 06/12/2018 Multinodular goiter 06/09/2018 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/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 Jun 2018 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 Carpal tunnel syndrome 03/13/2018 Urge incontinence 10/31/2017 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/2024): [facility]; Jun 2017 Hyperactivity of bladder 10/31/2017 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/2024): [facility]; Jun 2017 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 Esophageal reflux 11/16/2005 Lumbago 11/16/2005 Cervicalgia 11/16/2005 Current Treatment and Therapy Plans No current plan information found. Past Treatment and Therapy Plans No past plan information found. Lifetime Dose Tracking * Chemical Lifetime Dose Automatic Entry Manual Entr y CTDIvol 66.37 mGy 66.37 mGy 0 mGy
--- OUTSIDE RECORDS SUMMARY | 2025-08-21 11:39 | XMS_ITS | Encounter Summary ---
Author Organization [facility] [place] [address] Care Team Providers Care Junior Java Developer Name Role Phone Kalpana Feldman MD Primary Care Prov ider Encounter Details Date Type Department Care Team ([facility] st Contact Info) Description 08/20/2025 Results Follow-Up Endocrinology [address] [phone] Sol Womack PA [address] [place] [address] Social History Tobacco Use Types Packs/Day Years [...] Record ed Within the last 3 months, adarsh day many times did you visit the emergency [...] for your loved ones. For example, child and family services specialist or elderly care for an older [...] as of this encounter Plan of Treatment Upcoming Encounters Date Type Department Care Team (Late st Contact Info) Description 11/20/2025 8:40 AM EST Office Visit Endocrinology - [address] [place] [address] Luis Watson MD [address] [place] [address] documented as of this encounter Visit Diagnoses Not on filedocumented in this encounter Additional Health Concerns Assessment Noted Time PHQ-9 Depression Total Score: 23 01/17/ 025 12:35 PM EDT documented as of this encounter Care Teams Junior Java Developer Relationship Specialty Start Date End Date Kalpana Feldman MD [address] [place] [phone] PCP - General Internal Medicine 09/06/24 documented as of this encounter
--- OUTSIDE RECORDS SUMMARY | 2025-08-21 11:39 | XMS_ITS | Encounter Summary ---
Author Organization [facility] [place] [address] Care Team Providers Care Personal Care Home Administrator Name Role Phone Kalpana Feldman MD Primary Care Prov ider Reason for Visit * Reason Onset Date Comments Allergic Reaction 08/20/2025 Encounter Details Date Type Department Care Team ([facility] st Contact Info) Description 08/20/2025 Telephone Endocrinology [address] [phone] Sol Womack PA [address] [place] [address] Social History Tobacco Use Types Packs/Day Years [...] do you feel lonely or isolated from ose around you? Always 09/05/2024 Food Risk [...] as of this encounter Progress Notes * Kalina James - 08/20/2025 2:11 PM EDT Endocrine Call Primary endocrine provider: Sol Womack PA-C Is the endocrine provider in the office toady?: yes Who is calling? [facility]. If not the patient or parent/guardian please check for authorization to share/verbal release. Why is the person calling? Other question/concern: Pt's pharmacy is calling to request Synthroid asan alternative for Levothyroxine because Pt is allergic. Please forward to endocrine pool (p [phone]). documented in this encounter Plan of Treatment Upcoming Encounters Date Type Department Care Team (Late st Contact Info) Description 11/20/2025 8:40 AM EST Office Visit Endocrinology - [address] [phone] Luis Watson MD [address] [place] [address] documented as of this encounter Visit Diagnoses Not on filedocumented in this encounter Additional Health Concerns Assessment Noted Time PHQ-9 Depression Total Score: 23 01/17/ 025 12:35 PM EDT documented as of this encounter Care Teams Personal Care Home Administrator Relationship Specialty Start Date End Date Kalpana Feldman MD [address] [place] [phone] PCP - General Internal Medicine 09/06/24 documented as of this encounter
--- OUTSIDE RECORDS SUMMARY | 2025-08-21 11:39 | XMS_ITS | Clinical Summary ---
Author Organization [address] Address [address] [place] [phone] Phone Care Team Providers Care Celery Stripper Name Role Phone Kalpana Feldman MD Primary Care Prov ider Allergies Active Allergy Reactions Criticality Noted Date Comments Erythromycin Anaphylaxis High 11/10/2005 Polyethylene Glycol Hives,Nausea And Vomiting 0 04/18/2022 Sulfa (Sulfonamide Antibiotics) Anaphylaxis High 11/10/2005 Sulfamethoxazole-Trimethopr im 11/10/2005 Medications blood-glucose meter kit Test blood sugar daily 04/17/20 24 Active pen needle, diabetic (BD ULTRA-FINE MICRO PEN NEEDLE [facility] [place] INJECT 4 DEVICES INTO THE SKIN 4 TIMES A DAY 03/08/20 24 Active fluticasone propionate (FLONASE) 50 mcg/actuation nasal spray Administer 2 sprays into affected nostril(s) 1 (one) time each day. 01/03/20 24 Active glucagon (Baqsimi) 3 mg/actuation nasal spray 1 Dose by Nasal route as needed for Other (hypoglycemia) . 08/15/20 23 Active blood sugar diagnostic (FreeStyle Lite Strips) test strip USE TO CHECK BLOOD SUGAR daily , when CGM not working 06/08/20 23 Active fluvoxaMINE (LUVOX) 100 mg tablet Take 2 tablets (200 mg total) by mouth at bedtime. 01/19/20 23 Active gabapentin (NEURONTIN) 300 mg capsule Take 1 capsule (300 mg total) by mouth 3 (three) times a day. 11/23/19 23 Active glucagon (Gvoke HypoPen 1-Pack) 1 mg/0.2 mL auto-injector Inject 1 Dose into the skin as needed for Other (sevre hypoglycemia). 06/07/20 22 Active FREESTYLE LANCETS MISC Test blood sugar 1 time daily 05/21/20 18 Active cholecalcifero l (VITAMIN D-3) 50 mcg (2,000 unit) capsule Take 1 capsule (2,000 Units total) by mouth 1 (one) time each day. 05/31/20 24 Active buPROPion XL (WELLBUTRIN XL) 300 mg 24 hr tablet Take 1 tablet (300 mg total) by mouth 1 (one) time each day. Do not crush, chew, or split. Active guanFACINE (INTUNIV) 1 mg 24 Hour ER tablet Take 1 tablet (1 mg total) by mouth 1 (one) time each day. 10/30/19 25 Active LORazepam (ATIVAN) 1 mg tablet Take 0.5-1 tablets (0.5-1 mg total) by mouth 1 (one) time each day if needed (Panic attack). 12/04/19 25 Active montelukast (SINGULAIR) 10 mg tablet TAKE 1 TABLET BY MOUTH AT BEDTIME. 90 tablet 1 01/08/20 25 Active Ventolin HFA 90 mcg/actuation inhaler INHALE 2 PUFFS INTO THE LUNGS EVERY 6 HOURS NEEDED FOR COUGH WHEEZING OR SHORTNESS OF BREATH. 18 each 04/14/20 25 Active EPINEPHrine (EPIPEN) 0.3 mg/0.3 mL injection INJECT 0.3 MG INTO MUSCLE DIRECTED NEEDED (FOR ANAPHYLAXIS TO SULFA/ERYTHOMY ARI ALLERGY) 2 each 1 05/19/20 25 Active omeprazole (PriLOSEC) [address] capsule TAKE 1 CAPSULE BY MOUTH DAILY. 90 capsule 1 05/19/20 25 Active Ozempic 2 mg/dose (8 mg/3 mL) injection penIndications :Type 2 diabetes mellitus with obesity INJECT 2 MG INTO THE SKIN EVERY 7 DAYS. 3 mL 5 05/27/20 25 Active midodrine (PROAMATINE) 5 mg tablet Take 0.5 tablets (2.5 mg total) by mouth 2 (two) times a day. 30 each 3 07/23/20 25 Active blood-glucose sensor (FreeStyle Edith 3 Plus Sensor)Indicat ions:Type 1 diabetes mellitus with retinopathy, macular edema presence unspecified, unspecified laterality, unspecified retinopathy severity ([facility] V24, [facility] V28) Apply 1 sensor and change every 15 days. Box = Kit = EA 2 each 11 08/20/20 Active insulin degludec (Tresiba FlexTouch U-100) 100 unit/mL (3 mL) injection pen 14 unist sc at bedtime 15 mL 11 08/20/20 Active levothyroxine (Tirosint) 200 mcg capsule Take 1 tab po daily fasting. 90 capsule 3 08/20/20 Active metFORMIN XR (GLUCOPHAGE-XR ) 500 mg 24 hr tablet Take 2 Tablets by mouth 2 times daily (with meals). 09/04/20 025 Discontinued(F ormulary change) meloxicam (MOBIC) 7.5 mg tablet Take 1 tablet (7.5 mg total) by mouth 1 (one) time each day if needed. 12/07/19 24 Discontinued(F ormulary change) insulin degludec (Tresiba FlexTouch U-100) 100 unit/mL (3 mL) injection penIndications :Type 2 diabetes mellitus with obesity 16 unist sc at bedtime 12/26/19 Discontinued(R eorder) levothyroxine (SYNTHROID, LEVOTHROID) 200 mcg tablet Take daily 1 tab by mouth 90 each 5 01/02/20 25 025 Discontinued levothyroxine (SYNTHROID, LEVOTHROID) 25 mcg tablet Take 1 tablet (25 mcg total) by mouth 1 (one) time each day. Take 1 tablet daily along with the 200 mcg tablet. For total 225 daily 30 each 11 01/02/20 025 Discontinued(F ormulary change) Active Problems Problem Noted Date Diagnosed Date Morbid obesity with BMI of 5 0.0-59.9, adult (CMS/[facility] V24, [facility] V28) 07/28/2024 History of papillary adenocarcinoma [...] CA Cervical radiculopathy 07/08/2019 Cancer of thyroid (CMS/HCC V24, CMS/HCC V28) 06/2018 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/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 Jun 2018; TADEO Ablation 98.6 mCi 01/10/19 Obsessive-compulsive disorder 06/12/2018 Multinodular goiter 06/09/2018 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/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 Jun 2018 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 Carpal tunnel syndrome 03/13/2018 Urge incontinence 10/31/2017 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/2024): [facility]; Jun 2017 Hyperactivity of bladder 10/31/2017 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/2024): [facility]; Jun 2017 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 Esophageal reflux 11/16/2005 Lumbago 11/16/2005 Cervicalgia 11/16/2005 Encounters Date Type Department Care Team Description 08/20/2025 7:45 AM EDT Office Visit Endocrinology - [address] [phone] Sol Womack PA Type 1 diabetes mellitus with retinopathy, macular edema presence unspecified, unspecified laterality, unspecified retinopathy severity ([facility]/HCC V24, [facility] V28) (Primary Dx); Postoperative hypothyroidism; Cancer of thyroid ([facility] V24, [facility] V28) 08/20/2025 Results Follow-Up Endocrinology - [address] [phone] Sol Womack PA 08/20/2025 Telephone Endocrinology - [address] [phone] Sol Womack PA 07/23/2025 10:20 AM EDT Office Visit [facility] - [facility] [address] [facility] [address] [place] [id number] Kelli Phillips MD Syncope, unspecified syncope type (Primary Dx); Palpitations from Last 3 Months Immunizations Immunization Administration Dates Next Due Hepatitis A Adult (Havrix; Vaqta) 19yo and older 05/21/2014 Hepatitis B (Cwxagsb-[id number]-Inacx , Recombivax HB-Adult) 19yo and older 05/01/2023,05/21/2014 [...] Esophageal reflux 11/16/2005 DX:Esophageal reflux Morbid obesity ([facility] V24, [facility] V28) 11/16/2005 DX:Morbid obesity ([facility]) Pure hypercholesterolemia DX:Pur e hypercholesterolemia Diabetes mellitus type 2, co ntrolled, with complications (CMS/HCC V24, CMS/HCC V28) DX:Diabetes mellitus type 2, controlled, with complications ([facility]) 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 For example, child adolescent care or elderly care for an older adult? [...] Ectopic Multiple Livin g Live Births 1 1 1 1 Date Outcome GA Total Labor Labor/2nd/3rd Weight Sex Type Anes PTL Tiffani A1 A5 Name Clin Term Last Filed Vital Signs Vital Sign Reading Time Taken Comments Blood Pressure 109/76 08/20/2025 7:53 AM EDT Pulse 82 08/20/2025 7:53 AM EDT Temperature 36.2 C (97.1 F) 08/20/2025 7:53 AM EDT Respiratory Rate 16 01/17/2025 12:51 PM EDT Oxygen Saturation 98% 07/23/2025 9:58 AM EDT Inhaled Oxygen Concentration - - Weight 128 kg (281 lb 9.6 oz) 08/20/2025 7:53 AM EDT Height 175.3 cm (5' 9 ) 08/20/2025 7:53 AM EDT Body Mass Index 41.59 08/20/2025 7:53 AM EDT Plan of Treatment Upcoming Encounters Date Type Department Care Team (Late st Contact Info) Description 11/20/2025 8:40 AM EST Office Visit Endocrinology [address] [phone] Luis Watson MD [address] [place] [address] Health Maintenance Due Date Last Done Comments HPV Vaccines (1 - Risk 3-dose SCDM series) 2008 Pneumococcal Vaccine: Pediatrics (0 to 5 Years) and At-Risk Patients (6 to 49 Years) (2 of 2 - PCV) 02/28/2020 02/27/2019 HIV Screening 10/01/2022 Hepatitis C Screening 10/01/2022 Hepatitis B Vaccines (3 of 3 - 19+ 3-dose series) 06/26/2023 05/01/2023, 05/21/2014 Diabetes: Annual Foot Exam 05/29/2025 05/29/2024 COVID-19 Vaccine (3 - 2024- season) 2025 11/14/2021, 01/29/2021 Influenza Vaccine (#1) 2025 , 11/08/2022, 07/03/2021, Additional history exists Social Influencers of Health Screening 09/05/2025 09/05/2024 Diabetes: Annual Retina Eye Exam 09/10/2025 09/10/2024 Diabetes: Blood Sugar Control Test (HGBA1C) 02/18/2026 08/20/2025, 12/26/2024, 09/05/2024, Additional history exists Diabetes: Annual Urine Albumin-Creatinine Ratio (uACR) 08/20/2026 08/20/2025, 05/29/2024 Diabetes: Annual GFR (Glomerular Filtration Rate) 08/20/2026 08/20/2025, 04/21/2025, 09/05/2024, Additional history exists Hypertension/CHF/CAD Annual BMP Blood Test 08/20/2026 08/20/2025, 04/21/2025, 09/05/2024, Additional history exists Breast Cancer Screening 11/09/2026 11/09/19 25, 10/14/2023, 11/06/2018 Cervical Cancer Screening: HPV 03/04/2029 03/04/2024 Cholesterol Screening (Lipid Panel) 09/05/2029 09/05/2024, 07/20/2023 DTaP,Tdap,and Td Vaccines (3 - Td or Tdap) 05/29/2034 05/29/2024, 08/07/2012, 10/23/2000 RSV Immunization Adult Patients (1 - 1-dose 75+ series) 2056 Hepatitis A Vaccines Aged Out 05/21/2014 No [...] Date/Time Associated Diagnosis Comments TRIIODOTHYRONINE FREE Routine 08/20/2025 8:47 AM EDT Denise's disease FREE THYROXINE WITH REFLEX TO FREE TRIIODOTHYRONINE Routine 08/20/2025 8:47 AM EDT Denise's disease HEMOGLOBIN A1C Routine 08/20/2025 8:47 AM EDT Type 1 diabetes mellitus with retinopathy, macular edema presence unspecified, unspecified laterality, unspecified retinopathy severity (CMS/HCC V24, CMS/HCC V28) THYROID STIMULATING HORMONE WITH REFLEX TO FREE T4 AND FREE T3 Routine 08/20/2025 8:47 AM EDT Denise's disease BASIC METABOLIC PANEL Routine 08/20/2025 8:47 AM EDT Type 1 diabetes mellitus with retinopathy, macular edema presence unspecified, unspecified laterality, unspecified retinopathy severity (CMS/HCC V24, CMS/HCC V28) LIPID PANEL WITH REFLEX TO DIRECT LDL Routine 08/20/2025 8:47 AM EDT Type 1 diabetes mellitus with retinopathy, macular edema presence unspecified, unspecified laterality, unspecified retinopathy severity (CMS/HCC V24, CMS/[facility] V28) MICROALBUMIN CREATININE URINE RATIO Routine 08/20/2025 8:47 AM EDT Type 1 diabetes mellitus with retinopathy, macular edema presence unspecified, unspecified laterality, unspecified retinopathy severity (CMS/HCC V24, CMS/[facility] V28) POC GLUCOSE Routine 08/20/2025 7:57 AM EDT Type 1 diabetes mellitus with retinopathy, macular edema presence unspecified, unspecified laterality, unspecified retinopathy severity (CMS/[facility] V24, CMS/[facility] V28) ECG 12-LEAD Routine 07/23/2025 10:15 AM EDT Syncope, unspecified syncope type MG MAMMO DIGITAL SCREENING W RUSTAM BILAT Routine 11/09/2024 2:17 PM EST Encounter for screening mammogram for breast cancer LIPID PANEL WITH REFLEX TO DIRECT LDL Routine 09/05/2024 10:45 AM EST Type 2 diabetes mellitus without complication, with long-term current use of insulin ([facility] V24, CMS/[facility] V28) Primary hypertension Mixed hyperlipidemia HM HPV Routine 03/04/2024 from Last 3 Months or Most Recently Relevant to Health Maintenance Results * (ABNORMAL) Thyroid stimulating hormone with reflex to free t4 and free t3 (08/20/2025 8:47 AM EDT) TSH 67.16(H) 0.40 - 4.00 mcIU/mL LAB CHEMISTRY METHOD 08/20/2025 11:56 AM EDT [facility] Blood Venous blood specimen / Unknown Venipuncture / Unknown 08/20/2025 8:47 AM EDT 08/20/2025 8:47 AM EDT Sol WALTERS LAB BLOOD ORDERABLES Final Result Performing Organization Address [facility]/ZIP Co de Phone Number [facility] [address] [place] [address], [place] [phone] * (ABNORMAL) Free thyroxine with reflex to free triiodothyronine (08/20/2025 8:47 AM EDT) Pathologist [facility] Free T4 0.55(L) 0.70 - 1.80 ng/dL LAB CHEMISTRY METHOD 08/20/2025 12:[address] [facility] Blood Venous blood specimen / Unknown Venipuncture / Unknown 08/20/2025 8:47 AM EDT 08/20/2025 8:47 AM EDT Sol WALTERS LAB BLOOD ORDERABLES Final Result Performing Organization Address [facility]/ZIP Co de Phone Number [facility] [address] [place] [address], [place] [phone] * (ABNORMAL) Lipid panel with reflex to direct LDL (08/20/2025 8:47 AM EDT) Only the most recent of2 resultswithin the time period is included. Cholesterol 243(H) 0 - 200 mg/dL LAB CHEMISTRY METHOD 08/20/2025 11:[address] [facility] Triglycerides 114 0 - 150 mg/dL LAB CHEMISTRY METHOD 08/20/2025 11:[address] [facility] HDL 61 >=40 mg/dL LAB CHEMISTRY METHOD 08/20/2025 11:[address] [facility] LDL Calculated 159(H) 0 - 100 mg/dL LAB CHEMISTRY METHOD 08/20/2025 11:[address] [facility] Comment:Estimated LDL Calcul ated using equation: Total cholesterol - HDL cholesterol - (Triglycerides/5) VLDL Cholesterol Dragan 22.8 mg/dL LAB CHEMISTRY METHOD 08/20/2025 11:[address] [facility] Non HDL Chol. (LDL+VLDL) 182(H) <145 mg/dL LAB CHEMISTRY METHOD 08/20/2025 11:[address] [facility] Chol/HDL Ratio 4.0 0.0 - 4.4 LAB CHEMISTRY METHOD 08/20/2025 11:[address] [facility] Blood Venous blood specimen / Unknown Venipuncture / Unknown 08/20/2025 8:47 AM EDT 08/20/2025 8:47 AM EDT us Sol WALTERS LAB BLOOD ORDERABLES Final Result Performing Organization Address City/[facility]/ZIP Co de Phone Number [facility] [address] [place] [address], [place] [phone] * Microalbumin creatinine urine ratio (08/20/2025 8:47 AM EDT) Creatinine, Urine 185.0 mg/dL LAB CHEMISTRY METHOD 08/20/2025 2:[address] [facility] Microalb, Ur 8.0 0.0 - 29.0 mg/L LAB CHEMISTRY METHOD 08/20/2025 2:[address] [facility] Microalb/Creat Ratio 4 <30 mg/g creat LAB CHEMISTRY METHOD 08/20/2025 2:[address] [facility] Urine Urine specimen from urethra / Unknown Non-blood Collection / Unknown 08/20/2025 8:47 AM EDT 08/20/2025 8:47 AM EDT us Sol WALTERS LAB URINE ORDERABLES Final Result Performing Organization Address [facility]/ZIP Co de Phone Number [facility] [address] [place] [address], [place] [phone] * (ABNORMAL) Triiodothyronine free (08/20/2025 8:47 AM EDT) Pathologist [facility] T3, Free 163(L) 230 - 420 pcg/dL LAB CHEMISTRY METHOD 08/20/2025 4:[address] [facility] Blood Venous blood specimen / Unknown Venipuncture / Unknown 08/20/2025 8:47 AM EDT 08/20/2025 8:47 AM EDT Sol WALTERS LAB BLOOD ORDERABLES Final Result Performing Organization Address [facility]/ZIP Co de Phone Number [facility] [address] [place] [address], [place] [phone] * (ABNORMAL) Hemoglobin A1c (08/20/2025 8:47 AM EDT) [facility] Hemoglobin A1C 6.7(H) <6.5 % LAB CHEMISTRY METHOD 08/20/2025 10:[address] [facility] Mean Bld Glu Estim. 146 mg/dL LAB CHEMISTRY METHOD 08/20/2025 10:[address] [facility] Blood Venous blood specimen / Unknown Venipuncture / Unknown 08/20/2025 8:47 AM EDT 08/20/2025 8:47 AM EDT us Sol WALTERS LAB BLOOD ORDERABLES Final Result Performing Organization Address City/[facility]/ZIP Co de Phone Number [facility] [address] [place] [address], [place] [phone] * Basic metabolic panel (08/20/2025 8:47 AM EDT) [facility] Sodium 139 133 - 145 mmol/L LAB CHEMISTRY METHOD 08/20/2025 11:[address] [facility] Potassium 4.0 3.5 - 5.5 mmol/L LAB CHEMISTRY METHOD 08/20/2025 11:[address] [facility] Chloride 106 96 - 110 mmol/L LAB CHEMISTRY METHOD 08/20/2025 11:01 AM [facility] CO2 27 21 - 32 mmol/L LAB CHEMISTRY METHOD 08/20/2025 11:01 AM [facility] Anion Gap 6 3 - 11 LAB CHEMISTRY METHOD 08/20/2025 11:01 AM [facility] Glucose 95 70 - 100 mg/dL LAB CHEMISTRY METHOD 08/20/2025 11:01 AM [facility] BUN 16 5 - 25 mg/dL LAB CHEMISTRY METHOD 08/20/2025 11:01 AM [facility] Creatinine 1.05 0.50 - 1.10 mg/dL LAB CHEMISTRY METHOD 08/20/2025 11:01 AM [facility] eGFR 68 >=60 mL/min/1. 73m2 LAB CHEMISTRY METHOD 08/20/2025 11:01 AM [facility] Comment:Calculation based on the Chronic Kidney Disease Epidemiology Collaboration (CKD-EPI) equation refit without adjustment for race. BUN/Creatinine Ratio 15.2 LAB CHEMISTRY METHOD 08/20/2025 11:01 AM [facility] Calcium 9.1 8.5 - 10.5 mg/dL LAB CHEMISTRY METHOD 08/20/2025 11:01 AM [facility] Blood Venous blood specimen / Unknown Venipuncture / Unknown 08/20/2025 8:47 AM EDT 08/20/2025 8:47 AM EDT us Sol WALTERS LAB BLOOD ORDERABLES Final Result [facility] [address] [place] [address], * POC glucose manually resulted (08/20/2025 7:57 AM EDT) Glucose POC 146 mg/dL Blood Capillary blood specimen / Unknown 08/20/2025 7:57 AM EDT us Sol WALTERS POINT OF CARE TEST ENTER/ED IT ORDERABLES Final Result * ECG 12 lead (07/23/2025 10:15 AM EDT) Ventricular Rate ECG 68 BPM GEMUSE Atrial Rate 68 BPM GEMUSE P-R Interval 158 ms GEMUSE QRS Duration 96 ms GEMUSE Q-T Interval 386 ms GEMUSE QTc 410 ms GEMUSE P Wave Convent Station 51 degrees GEMUSE R Convent Station 79 degrees GEMUSE T Convent Station 71 degrees GEMUSE ECG Interpretation Normal sinus rhythm Normal ECG When compared with ECG of 12-NOV-2022 16:12, No significant change was found Confirmed by KELLI PHILLIPS ([id number]) on 07/23/2025 12:17:39 PM GEMUSE 07/23/2025 10:1 5 AM EDT 07/23/2025 12:17 PM EDT us Kelli Phillips MD ECG ORDERABLES Final Result GEMUSE * MG Mammo Digital Screening w Urstam bilat (11/09/2024 2:17 PM EST) Anatomical Region Laterality Modality Breast Bilateral Mammography 11/11/2024 7:34 PM EST Impressions 11/11/2024 7:36 PM EST No mammographic evidence of malignancy. BREAST DENSITY: B - There are scattered areas of fibroglandular density. BI-RADS CATEGORY: 1 - NEGATIVE RECOMMENDATION: Screening bilateral mammogram is recommended in 1 year. MAMMO LOCATION: [facility], [address] [place] [address], [phone], . -------- FINAL REPORT -------- Dictated By: Estefania Giraldo Dictated Date: 11/11/2024 19:34 ET Assigned Physician: Estefania Giraldo Reviewed and Electronically Signed By: Estefania Giraldo Signed Date: 11/11/2024 19:36 ET Workstation ID: [id number] Transcribed By: Self Edit Transcribed Date: 11/11/2024 [...] is recommended in 1 year. MAMMO LOCATION: [facility], [address] [place] [address], [phone], . -------- FINAL REPORT -------- Dictated By: Estefania Giraldo Dictated Date: 11/11/2024 19:34 ET Assigned Physician: Estefania Giraldo Reviewed and Electronically Signed By: Estefania Giraldo Signed Date: 11/11/2024 19:36 ET Workstation ID: [id number] Transcribed By: Self Edit Transcribed Date: 11/11/2024 19:34 ET Kalpana Feldman MD IMG BI PROCEDURES Final Result * Cervical Cancer Screening: HPV (03/04/2024) Cervical Cancer Screening: HPV abstracted, negative Historical Provider HEALTH MAINTENANCE Final Result from Last 3 Months or Most Recently Relevant to Health Maintenance Insurance [facility] Care Teams Celery Stripper Relationship Specialty Start Date End Date Kalpana Feldman MD [address] [place] [phone] PCP - General Internal Medicine 09/06/24
== END 2025-08-21 09:04 | disposition home or self-care (01) ==
LOC: HO.HOSX 09:03
PROVIDERS: Visit Provider Physical Medicine & Rehabilitation
DX: M54.2 Cervicalgia (principal); M25.511 Pain in right shoulder; M25.512 Pain in left shoulder; G89.29 Other chronic pain; M79.18 Myalgia, other site; Z79.899 Other long term (current) drug therapy
CPT/HCPCS: 72040; 73030; 99202

== ENCOUNTER → 2025-08-21 09:53 | Outpatient (BNV) | payer OTHER, SELFPAY | PROVIDERS: Visit Provider Radiology Body Imaging | DX: M54.2 Cervicalgia (principal); M25.512 Pain in left shoulder; M25.511 Pain in right shoulder | CPT/HCPCS: 72040; 73030 ==

== ENCOUNTER 2025-09-13 00:16 | Emergency (ER) | payer OTHER, SELFPAY ==
--- OUTSIDE RECORDS SUMMARY | 2025-09-10 09:30 | XMS_ITS | Encounter Summary ---
Author Organization [facility] [place] [address] Care Team Providers Care Ticket Collector Name Role Phone Kalpana Feldman MD Primary Care Prov ider Reason for Referral * Consultation (Routine) - Closed Specialty Diagnoses / Procedures Referred By Fausto lopez Referred To Contact Rheumatology Diagnoses Cervical radiculopathy Dysautonomia (CMS/HCC V24, CMS/HCC V28) Evelina Wilde PA [address] [place] [address] Phone: tel: fax: [facility] Rheumatology [address] [place] [address] Phone: tel: fax: Referral ID Status Reason Start Date Expiration Date V isits Requested Visits Authorized [id number] Closed Specialty Services Required 09/10/2025 09/10/2026 1 1 Reason for Visit * Reason Comments Dizziness Encounter Details Date Type Department Care Team ([facility] st Contact Info) Description 09/10/2025 9:30 AM EST Office Visit Adult Medicine [address] [phone] Evelina Wilde PA [address] [place] [phone] Dysautonomia (CMS/HCC V24, CMS/[facility] V28) (Primary Dx); Type 2 diabetes mellitus [...] care for your loved ones. For example, vocational childcare teacher or elderly care for an older [...] of possible Corrina-Danlos syndrome. She reports contacting [place] rheumatology and was told that they could [...] advised to follow with [facility] POT[facility] program for exercise. Has been trying to work on doing the lower body exercises. Reports walking daily. Hydrating well. Typically having at least 1 core meal daily. Reports having small snacks throughout the day. Ozempichas been curbing her appetite and she has lost a significant amount of weight with this medication. She reports following with external pulmonary disease specialist for cervical radiculopathy. Prescribed gabapentin and [...] Type 2 diabetes mellitus with morbid obesity ([facility] V24, CMS/[facility] V28) 09/10/2025 Dysautonomia (CMS/HCC V24, CMS/[facility] V28) 09/10/2025 Morbid obesity with BMI of 50.0-59.9, adult (CMS/[facility] V24, CMS/[facility] V28) 07/28/2024 History of papillary adenocarcinoma of thyroid 07/28/2024 Postural lightheadedness 07/28/2024 Primary hypertension 11/29/2021 Palpitations 11/25/2021 History of COVID-19 09/03/2021 Postablative hypothyroidism 02/28/2021 Cervical radiculopathy 07/08/2019 Cancer of thyroid ([facility] V24, [facility] V28) 07/31/2018 Obsessive-compulsive disorder 06/12/2018 Multinodular goiter [...] her symptoms. She will schedule appointment with [facility]QU[facility]ENDER to discuss. She is referred to [facility] rheumatology. She will follow-up with physiatry for [...] Referral Reason: Specialty Services Required Referral Location: [facility] - Rheumatology [facility] Requested Specialty: Rheumatology Number of Visits [...] Description 11/20/2025 8:40 AM EST Office Visit [address] [phone] Luis Watson MD [address] [place], [place] 01/08/2026 8:30 AM EDT Office Visit Adult Medicine [address] [phone] Kalpana Feldman MD [address] [place], [place] Scheduled Referrals Name Type Priority Associated Diagnoses Order Schedule Ambulatory referral to Rheumatology Outpatient Referral Routine Cervical radiculopathy Dysautonomia (CMS/HCC V24, CMS/HCC V28) 1 Occurrences starting 09/10/2025 until 09/10/2026 documented as of this encounter Results * Iron and TIBC (09/10/2025 10:15 AM EST) Iron 85 40 - 150 mcg/dL 09/10/2025 1:54 PM EST [facility] TIBC 336 250 - 450 mcg/dL 09/10/2025 1:54 PM EST [facility] Iron Saturation 25 15 - 50 % 1:54 PM EST [facility] Blood Venous blood specimen / Unknown Venipuncture / Unknown 09/10/2025 10:15 AM EST 09/10/2025 10:15 AM EST us Evelina WALTERS LAB BLOOD ORDERABLES Final Resul t [facility] [address] [place] [address], * Ferritin (09/10/2025 10:15 AM EST) Ferritin 31 7 - 271 ng/mL 09/10/2025 1:58 PM EST [facility] Blood Venous blood specimen / Unknown Venipuncture / Unknown 09/10/2025 10:15 AM EST 09/10/2025 10:15 AM EST Evelina WALTERS LAB BLOOD ORDERABLES Final Resul t [facility] [address] [place] [address], documented in this encounter Visit Diagnoses Diagnosis Dysautonomia (CMS/[facility] V24, [facility] V28)- Primary Unspecified disorder of autonomic nervous system Type 2 diabetes mellitus with morbid obesity (CMS/HCC V24, [facility] V28) History of papillary adenocarcinoma of thyroid [...] documented as of this encounter Care Teams Ticket Collector Relationship Specialty Start Date End Date Kalpana Feldman MD [address] [place] [address] PCP - General Internal Medicine 09/06/24 documented as of this encounter
--- OUTSIDE RECORDS SUMMARY | 2025-09-10 10:10 | XMS_ITS | Encounter Summary ---
Author Organization [facility] [place] [address] Care Team Providers Care Riveting Machine Operator Name Role Phone Kalpana Feldman MD Primary Care Prov ider Encounter Details Date Type Department Care Team (Late st Contact Info) Description 09/10/2025 10:10 AM EST Lab Draw Station - [address] [phone] Dysautonomia (CMS/HCC V24, CMS/HCC V28) Social History [...] care for your loved ones. For example, exceptional children teacher or elderly care for an older [...] 11/20/2025 8:40 AM EST Office Visit Endocrinology [address] [phone] Luis Watson MD [address] [place] [address] 01/08/2026 8:30 AM EDT Office Visit Adult Medicine [address] [phone] Kalpana Feldman MD [address] [place], [place] documented as of this encounter Procedures Procedure Name Priority Date/Time Associated Diagnosis Comments CBC WITH AUTO DIFFERENTIAL Routine 09/10/2025 10:15 AM EST Dysautonomia (CMS/HCC V24, CMS/HCC V28) IRON AND TIBC Routine 09/10/2025 10:15 AM EST Dysautonomia ([facility]/HCC V24, CMS/HCC V28) CBC AND DIFFERENTIAL Routine 09/10/2025 10:15 AM EST Dysautonomia ([facility]/HCC V24, CMS/HCC V28) FERRITIN Routine 09/10/2025 10:15 AM EST Dysautonomia ([facility]/HCC V24, CMS/HCC V28) documented in this encounter Results * (ABNORMAL) CBC auto differential (09/10/2025 10:15 AM EST) WBC 8.9 4.8 - 10.8 K/mcL LAB HEMETOLOGY METHOD 09/10/2025 12:28 PM [facility] RBC 4.50 3.80 - 4.80 M/mcL LAB HEMETOLOGY METHOD 09/10/2025 12:28 PM [facility] Hemoglobin 13.1 11.5 - 16.0 g/dL LAB HEMETOLOGY METHOD 09/10/2025 12:28 PM [facility] Hematocrit 41.1 35.0 - 47.0 % LAB HEMETOLOGY METHOD 09/10/2025 12:28 PM [facility] MCV 91.9 79.0 - 98.0 FL LAB HEMETOLOGY METHOD 09/10/2025 12:28 PM [facility] MCH 29.3 27.0 - 32.0 pcg LAB HEMETOLOGY METHOD 09/10/2025 12:28 PM [facility] MCHC 31.9(L) 32.0 - 37.0 g/dL LAB HEMETOLOGY METHOD 09/10/2025 12:28 PM [facility] RDW 13.4 11.0 - 15.0 % LAB HEMETOLOGY METHOD 09/10/2025 12:28 PM [facility] Platelets 321 130 - 400 K/mcL LAB HEMETOLOGY METHOD 09/10/2025 12:28 PM [facility] MPV 10.4 7.0 - 11.0 FL LAB HEMETOLOGY METHOD 09/10/2025 12:28 PM [facility] NRBC 0.0 <1.0 % LAB HEMETOLOGY METHOD 09/10/2025 12:28 PM [facility] NRBC Absolute 0.00 <0.10 K/mcL LAB HEMETOLOGY METHOD 09/10/2025 12:28 PM [facility] Neutrophils Relative 72.3 % LAB HEMETOLOGY METHOD 09/10/2025 12:28 PM [facility] Lymphocytes Relative 19.4 % LAB HEMETOLOGY METHOD 09/10/2025 12:28 PM [facility] Monocytes Relative 6.5 % LAB HEMETOLOGY METHOD 09/10/2025 12:28 PM [facility] Eosinophils Relative 0.5 % LAB HEMETOLOGY METHOD 09/10/2025 12:28 PM [facility] Basophils Relative 0.8 % LAB HEMETOLOGY METHOD 09/10/2025 12:28 PM [facility] Immature Granulocytes Relative 0.5 % LAB HEMETOLOGY METHOD 09/10/2025 12:28 PM [facility] Neutrophils Absolute 6.43 1.50 - 7.00 K/mcL LAB HEMETOLOGY METHOD 09/10/2025 12:28 PM EST [facility] Lymphocytes Absolute 1.72 1.00 - 5.00 K/mcL LAB HEMETOLOGY METHOD 09/10/2025 12:28 PM EST [facility] Monocytes Absolute 0.58 0.20 - 1.00 K/[facility] LAB HEMETOLOGY METHOD 09/10/2025 12:28 PM EST [facility] Eosinophils Absolute 0.04 0.00 - 0.50 K/[facility] LAB HEMETOLOGY METHOD 09/10/2025 12:28 PM EST [facility] Basophils Absolute 0.07 0.00 - 0.20 K/[facility] LAB HEMETOLOGY METHOD 09/10/2025 12:28 PM EST [facility] Immature Granulocytes Absolute 0.04(H) 0.00 - 0.03 K/[facility] LAB HEMETOLOGY METHOD 09/10/2025 12:28 PM EST [facility] Blood Venous blood specimen / Unknown Venipuncture / Unknown 09/10/2025 10:15 AM EST 09/10/2025 10:15 AM EST Evelina WALTERS LAB BLOOD ORDERABLES Final Resul t Performing Organization Address City/[facility]/ZIP Co de Phone Number [facility] [address] [place] [address], * Ferritin (09/10/2025 10:15 AM EST) Ferritin 31 7 - 271 ng/mL 09/10/2025 1:58 PM EST [facility] Blood Venous blood specimen / Unknown Venipuncture / Unknown 09/10/2025 10:15 AM EST 09/10/2025 10:15 AM EST Evelina WALTERS LAB BLOOD ORDERABLES Final Resul t [facility] [address] [place] [address], [place] [phone] * Iron and TIBC (09/10/2025 10:15 AM EST) Iron 85 40 - 150 mcg/dL 09/10/2025 1:54 PM EST [facility] TIBC 336 250 - 450 mcg/dL 09/10/2025 1:54 PM EST [facility] Iron Saturation 25 15 - 50 % 1:54 PM EST [facility] Blood Venous blood specimen / Unknown Venipuncture / Unknown 09/10/2025 10:15 AM EST 09/10/2025 10:15 AM EST us Evelina WALTERS LAB BLOOD ORDERABLES Final Resul t Performing Organization Address City/State/[facility] Co de Phone Number [facility] [address] [place] [address], [place] [phone] documented in this encounter Visit Diagnoses Diagnosis Dysautonomia (CMS/HCC V24, CMS/HCC V28) Unspecified disorder of autonomic nervous system documented in this encounter Additional Health Concerns Assessment Noted Time PHQ-9 Depression Total Score: 23 01/17/ 025 12:35 PM EDT documented as of this encounter Care Teams Riveting Machine Operator Relationship Specialty Start Date End Date Kalpana Feldman MD [address] [place] [phone] PCP - General Internal Medicine 09/06/24 documented as of this encounter
--- NOTE | 2025-09-13 | ECG_ITS ---
Test Reason : SYNCOPE Blood Pressure : */* mmHG Vent. Rate : 85 BPM Atrial Rate : 85 BPM P-R Int : 170 ms QRS Dur : 98 ms QT Int : 376 ms P-R-T Axes : 27 38 44 degrees QTcB Int : 447 ms Normal sinus rhythm Normal ECG When compared with ECG of 13-Jan-2025 13:36, QT has lengthened Referred By: Generic ED Physician Electronically Signed By: JULY WALLS
[2025-09-13 00:18] VITALS: BP 154/78; PULSE 97; RESP 19; TEMP 36.9; O2SAT 97; BMI 40.1
[2025-09-13 00:31] LABS: Glucose, Whole Blood 152 mg/dL (60-115)
[2025-09-13 00:35] VITALS: BP 116/65; PULSE 85
[2025-09-13 00:46] LABS: MANUAL DIFF FLAG NO
--- NOTE | 2025-09-13 00:55 | ED.GENADULT ---
HPI - General Adult General Chief complaint: Syncope Stated complaint: General Medical Time Seen by Provider: 09/13/25 00:34 Source: patient Limitations: no limitations History of Present Illness ED Provider: Letha Mirza PA-C HPI narrative: 44-year-old female with a history of dysautonomia, COPD, asthma, depression, morbid obesity who presents after syncopal episode at home. Per the patient's has been, the patient lost consciousness while on the couch. He states he watched her ?faint?, she began making loud noises with a yelling, her body began to shake. Episode was brief, there was no postictal phase. The patient is not become incontinent of urine there was no biting of the tongue. Patient denies recent illness, cough cold symptoms, fever, nausea vomiting diarrhea. Related Data Home Medications ?Medication ?Instructions ?Recorded ?Confirmed bupropion HCl 300 mg 24 hr tablet, 300 mg PO DAILY 07/01/25 08/21/25 extended release cholecalciferol (vitamin D3) 50 50 mcg PO DAILY 07/01/25 08/21/25 mcg (2,000 unit) capsule (Vitamin D3) epinephrine 0.3 mg/0.3 mL IM 07/01/25 08/21/25 injection, auto-injector fluvoxamine 100 mg tablet 100 mg PO BID 07/01/25 08/21/25 gabapentin 300 mg capsule 300 mg PO TID 07/01/25 08/21/25 guanfacine 2 mg tablet,extended 2 mg PO DAILY 07/01/25 08/21/25 release 24 hr insulin degludec 100 unit/mL (3 unit subcut 07/01/25 08/21/25 mL) subcutaneous pen (Tresiba FlexTouch U-100 insulin) levothyroxine 25 mcg tablet 25 mcg PO DAILY 07/01/25 08/21/25 lorazepam 1 mg tablet mg PO 07/01/25 08/21/25 metformin 500 mg tablet,extended 1,000 mg PO BID 07/01/25 08/21/25 release 24 hr montelukast 10 mg tablet 10 mg PO DAILY 07/01/25 08/21/25 omeprazole 40 mg capsule,delayed 40 mg PO DAILY 07/01/25 08/21/25 release semaglutide 2 mg/dose (8 mg/3 mL) mg subcut 07/01/25 08/21/25 subcutaneous pen injector (Ozempic) Allergies Allergy/AdvReac Type Severity Reaction Status Date / Time erythromycin base Allergy Unknown ANAPHYLAXIS Verified 09/13/25 00:23 (ERYTHROMYCIN BASE) Sulfa (Sulfonamide Allergy Unknown ANAPHYLAXIS Verified 09/13/25 00:23 Antibiotics) (SULFA (SULFONAMIDE ANTIBIOTICS)) sulfamethoxazole (From Allergy Unknown HIVES Verified 09/13/25 00:23 BACTRIM) trimethoprim (From BACTRIM) Allergy Unknown HIVES Verified 09/13/25 00:23 polyethylene glycol Allergy Vomiting Verified 09/13/25 00:23 [facility] Past Medical History Medical History Diabetes COPD (chronic obstructive pulmonary disease) Asthma Depression Surgical History H/O: H/O knee surgery Hx of tonsillectomy History of thyroidectomy Social History Social History (Updated 08/21/25 @ 09:33 by [place] Bhardwaj) Alcohol intake: never Patient Tobacco Use Status: Never used Tobacco Smoked in Last 30 Days: No Use of substances other than those prescribed or required for medical reasons: No Substance Use Type: Marijuana Advance Directives: No Advance Directives Information Provided: No Do you have a plan to hurt others: No Plan Patient : No Current occupational status: employed 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 Physical Exam ED Vital Signs: Vital Signs - 24 hr 09/13/25 00:18 09/13/25 00:35 09/13/25 01:41 Temperature 98.4 F Pulse Rate 97 85 83 Respiratory Rate 19 Blood Pressure 154/78 H 116/65 115/66 Pulse Oximetry 97 Oxygen Delivery Method Room Air 09/13/25 01:42 09/13/25 02:00 09/13/25 02:36 Temperature 98.4 F Pulse Rate 94 67 Respiratory Rate 18 Blood Pressure 111/70 113/56 L Pulse Oximetry 97 98 Oxygen Delivery Method Room Air Room Air 09/13/25 02:36 Temperature 98.4 F Pulse Rate 67 Respiratory Rate 18 Blood Pressure 113/56 L Pulse Oximetry 98 Oxygen Delivery Method Room Air BMI result Body Mass Index 40.1 Medical Decision Making Medical Decision Making MDM Narrative: 44-year-old female with a history of dysautonomia, COPD, asthma, depression, morbid obesity who presents after syncopal episode at home. Per the patient's has been, the patient lost consciousness while on the couch. He states he watched her ?faint?, she began making loud noises with a yelling, her body began to shake. Episode was brief, there was no postictal phase. The patient is not become incontinent of urine there was no biting of the tongue. Patient denies recent illness, cough cold symptoms, fever, nausea vomiting diarrhea. Problem: Known dysautonomia History: Per patient and her I have considered the following differential diagnoses: Episode of POTS, new arrhythmia, vasovagal syncope, dehydration, anemia, orthostatic hypotension, Plan: The patient has known underlying POTS. EKG obtained, there was no new arrhythmia. We will obtain screening labs check for underlying organic causes that could have triggered her syncopal episode; dehydration, electrolyte abnormality, anemia. We will screen her orthostatic vitals. This is not a new diagnosis for the patient. I did consider seizure activity, however for what the describes it is highly atypical, there was no postictal phase there was no injury sustained. She does follow Neurology. I have independently reviewed the following tests: Labs: No leukocytosis, not anemic, no electrolyte abnormality, not , lipase 101.......... She is on Ozempic, she does not drink alcohol she has no abdominal pain or nausea vomiting EKG: Normal sinus rhythm, rate 85, no ischemic changes no ectopy QTC 447 Differential Diagnosis Differential Diagnoses: The differential diagnosis associated with the presentation includes See [facility] Admission/Observation Consideration of admission/observation: Escalation of care including admission/observation considered Not applicable Lab Data [facility] Lab Attestation statement: I reviewed the patient's lab results. 09/13/25 00:41 09/13/25 00:41 Labs: Lab Results 09/13/25 09/13/25 Range/Units 00: 00:41 WBC 7.8 (4.8-10.8) X10*3/uL RBC 3.92 L (4.20-5.50) X10*6/uL Hgb 11.5 L (12.0-16.0) g/dl Hct 35.1 L (37.0-47.0) % MCV 89.5 (80.0-98.0) fL MCH 29.3 (27.0-33.0) pg MCHC 32.8 (31.0-35.0) g/dl RDW 13.4 (11.0-16.0) % Plt Count 248 (160-400) X10*3/uL MPV 9.9 (9.4-12.3) fL Immature Gran % (Auto) 0.4 (0.0-0.4) % Neut % (Auto) 59.0 (45-73) % Lymph % (Auto) 29.4 (20-40) % [place] % (Auto) 9.8 (2-11) % Eos % (Auto) 0.9 (0-4) % Baso % (Auto) 0.5 (0-2) % Lymph # (Auto) 2.3 (1.2-4.9) X10*3/uL [place] # (Auto) 0.8 (0.1-1.2) X10*3/uL Eos # (Auto) 0.1 (0.0-0.4) X10*3/uL Baso # (Auto) 0.0 (0.0-0.2) X10*3/uL Abs Immat Gran (auto) 0.03 (0.00-0.03) X10*3/uL Absolute Neuts (auto) 4.6 (2.0-8.3) x10*3/uL Absolute Nucleated RBC 0.000 (0.0-0.012) X10*3/uL Nucleated RBC % (auto) 0.0 (0.0-0.2) /100WBC Sodium 143 (135-145) mmol/L Potassium 3.5 D (3.3-5.1) mmol/L Chloride 106 (96-108) mmol/L Carbon Dioxide 25 (22-29) mmol/L Anion Gap 16 (12-20) BUN 22 H (9-16) mg/dL Creatinine 1.13 (0.5-1.4) mg/dL Estim Creat Clear Calc 90.2 Estimated GFR 53 POC Glucose 152 H (60-115) mg/dL Random Glucose 151 H (60-115) mg/dL Calcium 9.1 (8.4-10.2) mg/dL Total Bilirubin 0.2 (0.0-1.0) mg/dL AST 38 H (5-31) U/L ALT 26 (0-31) U/L Alkaline Phosphatase 61 (39-117) U/L Troponin I High Sens < 2.7 (<3.5-17.0) ng/L Total Protein 7.1 (6.5-8.0) g/dL Albumin 4.1 (3.5-5.0) g/dL Lipase 101 H (8-78) U/L Beta HCG, Quant < 2 mIU/mL Ethyl Alcohol < 10 mg/dL Independent Interpretation I performed an independent interpretation of an: EKG Discharge Plan Discharge Clinical Impression: Syncope Patient Disposition: Home, Self-Care Instructions: Syncope (ED) Additional Instructions: All of your screening labs including a cardiac enzymes were normal. There were no concerning changes on your EKG. Your orthostatic vitals were also within a normal range. Continue to follow up with your healthcare provider who manages your POTS. Prescriptions: No Action omeprazole 40 mg capsule,delayed release(DR/EC) 40 mg PO DAILY levothyroxine 25 mcg tablet 25 mcg PO DAILY fluvoxamine 100 mg tablet 100 mg PO BID gabapentin 300 mg capsule 300 mg PO TID montelukast 10 mg tablet 10 mg PO DAILY lorazepam 1 mg tablet PO epinephrine 0.3 mg/0.3 mL auto-injector IM metformin 500 mg tablet extended release 24 hr 1,000 mg PO BID bupropion HCl 300 mg tablet extended release 24 hr 300 mg PO DAILY cholecalciferol (vitamin D3) [Vitamin D3] 50 mcg (2,000 unit) capsule 50 mcg PO DAILY guanfacine 2 mg tablet extended release 24 hr 2 mg PO DAILY insulin degludec [Tresiba FlexTouch U-100] 100 unit/mL (3 mL) insulin pen subcut Ozempic 2 mg/dose (8 mg/3 mL) pen injector subcut Interventions: ED Discharge Assessment Last Done: 09/13/25 02:36 Discharge Date/Time: 09/13/25 02:40 Print Language: Kazakh
--- OUTSIDE RECORDS SUMMARY | 2025-09-13 00:59 | XMS_ITS | Encounter Summary ---
Author Organization [facility] Address [address] [place] [address] Care Team Providers Care Thinner Sprayer Name Role Phone Christie Gonzales MD Primary Care Provider Jack Glynn MD Primary Care Provider Kelli Garcia MD Unavailable [phone] Kalpana Landaverde MD Primary Care Prov ider Sol Womack PA-C Unavailable [phone] Sera Montes MD Unavailable Unava ilable Reason for Visit * Reason Comments E-prescribe Rx Request Encounter Details Date Type Department Care Team Description 08/30/2019 Refill Adult Medicine [address] [address] Christie Gonzales MD E-prescribe Rx Request Social [...] encounter Miscellaneous Notes * Telephone Encounter - Kailey Betancourt - 08/31/2019 10:45 AM EST Patient would like script to be: E-PRESCRIBED/FAXED TO PHARMACY WHEN WAS THE PATIENT'S LAST APPOINTMENT IN ADULT MEDICINE? 02/27/19 WHEN WAS THE LAST TIME THE PATIENT SAW THEIR PCP? 02/12/19 Does patient have an upcoming appointment? Yes 09/24/19 (THE MEDICATION REQUESTED IS ON THE MED [...] documented as of this encounter Care Teams Thinner Sprayer Relationship Specialty Start Date End Date Christie Gonzales MD PCP - General 08/26/10 04/27/21 Jack Bedoya MD PCP - General Internal Medicine 04/28/21 07/24/22 Kalpana Landaverde MD [address] [place] [id number] PCP - General Internal Medicine 07/25/22 Kelli Singh MD Specialist Cardiology 07/06/21 Sol Womack PA-C [address] [place] [phone] Specialist Endocrinology 05/29/24 Sera Montes MD [address] [place] [phone] Specialist Neurology 05/29/24 documented as of this encounter
--- OUTSIDE RECORDS SUMMARY | 2025-09-13 00:59 | XMS_ITS ---
Author Organization [address] Address [address] [place] [phone] Phone Care Team Providers Care Dynamometer Tester Name Role Phone Kalpana Feldman MD Primary Care Prov ider Active Problems Problem Noted Date Diagnosed Date Type 2 diabetes mellitus wit h morbid obesity ([facility] V24, [facility] V28) 09/10/2025 Dysautonomia ([facility] V24, [facility] V28) 09/10/20 25 Morbid obesity with BMI of 5 0.0-59.9, adult ([facility] V24, [facility] V28) 07/28/2024 History of papillary adenocarcinoma of [...] CA Cervical radiculopathy 07/08/2019 Cancer of thyroid ([facility]/HCC V24, CMS/HCC V28) 06/2018 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/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 Jun 2018; TADEO Ablation 98.6 mCi 01/10/19 Obsessive-compulsive disorder 06/12/2018 Multinodular goiter 06/09/2018 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/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 Jun 2018 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
--- OUTSIDE RECORDS SUMMARY | 2025-09-13 00:59 | XMS_ITS | Encounter Summary ---
Author Organization [facility] Address [address] [place] [address] Care Team Providers Care Machine Loader Name Role Phone Christie Gonzales MD Primary Care Provider Jack Glynn MD Primary Care Provider Kelli Garcia MD Unavailable [phone] Kalpana Landaverde MD Primary Care Prov ider Sol Womack PA-C Unavailable [phone] Sera Montes MD Unavailable Unava ilable Encounter Details Date Type Department Care Team Description 08/05/2019 Orders Only Physiatry [address] [address] Darryl Aleman PA-C Cervical radiculopathy Social History Tobacco Use Types [...] Procedure Name Priority Date/Time Associated Diagnosis Comments MRI OF CERVICAL SPINE NO CONTRAST Routine 08/05/2019 Cervical radiculopathy documented in this encounter Results * MRI OF CERVICAL SPINE NO CONTRAST (08/05/2019) Darryl Aleman PA-C [facility] documented in this encounter Visit Diagnoses Diagnosis Cervical radiculopathy Brachial neuritis or radiculitis nos documented in this encounter Additional Health Concerns Infection Onset Date Last Indicated Resolved Time COVID-19 Comment:Reporting positive COVID 07/2807/28/2022 07/29/2022 11/14/2022 8:[address] documented as of this encounter Care Teams Machine Loader Relationship Specialty Start Date End Date Christie Gonzales MD PCP - General 08/26/10 04/27/21 Jack Bedoya MD PCP - General Internal Medicine 04/28/21 07/24/22 Leila Pérez, Kalpana Herndon MD [address] [place] [address] PCP - General Internal Medicine 07/25/22 Kelli Singh MD Specialist Cardiology 07/06/21 Sol Womack PA-C [address] [place] [address] Specialist Endocrinology 05/29/24 Sera Montes MD [address] [place] [address] Specialist Neurology 05/29/24 documented as of this encounter
--- OUTSIDE RECORDS SUMMARY | 2025-09-13 00:59 | XMS_ITS | Encounter Summary ---
Author Organization [facility] Address [address] [place] [address] Care Team Providers Care Compatibility Test Engineer Name Role Phone Jack Bedoya MD Primary Care Provider Kelli Garcia MD Unavailable [phone] Kalpana Landaverde MD Primary Care Prov ider Sol Womack PA-C Unavailable [phone] Sera Montes MD Unavailable Unava ilable Reason for Visit * Reason Onset Date Comments LAB WORK 05/20/2021 Encounter Details Date Type Department Care Team Description 05/20/2021 Telephone General Surgery - [place] [address] [facility] [address] [place] [id number] Ronda Kilgore, MS,RDN,LDN [address] [facility] [address] [place] [phone] LAB WORK Social History Tobacco Use Types Packs/Day Years [...] have Coronavirus / COVID-19? No / Unsure 05/20/2021 8:29 AM EDT documented as of this encounter Miscellaneous Notes * Telephone Encounter - Ronda Kilgore MS,ROSELIA,MINNAN - 05/20/2021 9:05 AM EDT Please order bariatric labs documented in this encounter Plan of Treatment Not on file documented as of this encounter Visit Diagnoses Not on filedocumented in this encounter Additional Health Concerns Infection Onset Date Last Indicated Resolved Time COVID-19 Comment:Reporting positive COVID 07/2807/28/2022 07/29/2022 11/14/2022 8:[address] documented as of this encounter Care Teams Compatibility Test Engineer Relationship Specialty Start Date End Date Jack Bedoya MD PCP - General Internal Medicine 04/28/21 07/24/22 Kalpana Landaverde MD [address] [place] [address] PCP - General Internal Medicine 07/25/22 Kelli Singh MD Specialist Cardiology 07/06/21 Sol Womack PA-C [address] [place] [address] Specialist Endocrinology 05/29/24 Sera Montes MD [address] [place] [address] Specialist Neurology 05/29/24 documented as of this encounter
--- OUTSIDE RECORDS SUMMARY | 2025-09-13 00:59 | XMS_ITS | Encounter Summary ---
Author Organization [facility] Address [address] [place] [address] Care Team Providers Care Optometric Assistant Name Role Phone Christie Gonzales MD Primary Care Provider Jack Glynn MD Primary Care Provider Kelli Garcia MD Unavailable Kalpana Landaverde MD Primary Care Prov ider Sol Womack PA-C Unavailable [phone] Sera Montes MD Unavailable Unava ilable Encounter Details Date Type Department Care Team Description 01/20/2015 Refill Adult Medicine [address] [address] Ankit Brewer PA-C [address] [place] [address] Social History Tobacco Use Types Packs/Day Years [...] - 01/21/2015 10:41 AM EDT lv 01/19/2015 Juanita Flores PA-C Script 01/10/2015 #30 refill My chart msg sent * Telephone Encounter - Lexis Nunes L.P.N. - 01/21/2015 10:41 AM EDTFrom: Juanita Fitzgerald To: Ankit Brewer PA-C Sent: 01/20/2015 7:09 AM EDT Subject: Medication Renewal Request Original authorizing provider: JOCELYN Giraldo would like a refill of the following medications: Meclizine HCl 25 MG Tab [Ankit Brewer PA-C] Preferred pharmacy: [id number] [place] - [address] Comment: documented in this encounter [...] documented as of this encounter Care Teams Optometric Assistant Relationship Specialty Start Date End Date Christie Gonzales MD PCP - General 08/26/10 04/27/21 Jack Bedoya MD PCP - General Internal Medicine 04/28/21 07/24/22 Kalpana Landaverde MD [address] [place] [address] PCP - General Internal Medicine 07/25/22 Kelli Singh MD Specialist Cardiology 07/06/21 Sol Womack PA-C [address] [place] [address] Specialist Endocrinology 05/29/24 Sera Montes MD [address] [place] [address] Specialist Neurology 05/29/24 documented as of this encounter
--- OUTSIDE RECORDS SUMMARY | 2025-09-13 00:59 | XMS_ITS | Encounter Summary ---
Author Organization [facility] Address [address] [place] [address] Care Team Providers Care Sewer Pipe Sorter Name Role Phone Christie Gonzales MD Primary Care Provider Jack Glynn MD Primary Care Provider Kelli Garcia MD Unavailable [phone] Kalpana Landaverde MD Primary Care Prov ider Sol Womack PA-C Unavailable [phone] Sera Montes MD Unavailable Unava ilable Reason for Visit * Reason Onset Date Comments Shortness Of Breath 09/02/2013 Encounter Details Date Type Department Care Team Description 09/02/2013 Telephone Adult Medicine [address] [address] Christie Gonzales MD Shortness Of Breath Social History Tobacco Use Types Packs/Day Years [...] encounter Miscellaneous Notes * Telephone Encounter - Alma Delia Jaime R.N. - 09/02/2013 11:48 AM EST Thank you. Pt understands and agrees, she is relieved to try the codeine and will take with OTC guiatuss * Telephone Encounter - Hermelinda Lynch PA-C - 09/02/2013 11:44 AM EST I am Rxing straight codeine 30mg tabs that she can take along with OTC cough medication. I will print and fax this to her pharmacy * Telephone Encounter - Alma Delia Jaime R.N. - 09/02/2013 11:40 AM EST Because the base is OTC even with codeine, the insurance will not pay for this, it would cost the pt $28 and she cannot pay for this ( Prior auth would take too long,) Do you have any other suggestions i can give the pt? * Telephone Encounter - Hermelinda Lynch PA-C - 09/02/2013 11:30 AM EST Will provide note. Can pick it up at [place] [facility] today if neeed. Please call pharmacy and have them fill this script. It is NOT available OTC (CODIENE!!!!) Patient needs this Rx * Telephone Encounter - Alma Delia Jaime R.N. - 09/02/2013 11:26 AM EST Pt was not able to fill cough syrup, ( was told the base was available over the counter so the pharmacist would not fill it) She would like a work note for a few days as she is not well enough to work. * Telephone Encounter - Hermelinda Lynch PA-C - 09/02/2013 11:14 AM EST Thank you. If not improving somewhat in next few days she needs to be re-evaluated * Telephone Encounter - Alma Delia Jaime R.N. - 09/02/2013 10:56 AM EST Pt has had cough for 3 Days, she was seen in urgent care yesterday, last night she had a fever of 104, the cough is not worse but she feels worse with fever and body aches. C/O chest wall pain with deep breath and cough, denies SOB at rest now, but when she coughs she hastrouble breathing, able to speak in full sentences and has no audible wheezing,, cough is Non productive for Sputum, denies fever (99) able to take PO with no difficulty, denies N/V/D, voiding QS Advised home care following the cough Protocol. RN reinforced telephone consultation and advice. Reviewed with the patient the signs and symptoms to watch for that would require immediate attention. If symptoms change, worsen or increase in intensity, to call back immediately. Pt states she was to call Sylvia lynch if she was not better today. * Telephone Encounter - Krysten Hernadez - 09/02/2013 9:28 AM EST Symptoms patient is presenting: congestion, fever last night 104, sob, cough is painful to chest, started antibiotic yesterday How long has patient had these symptoms?: PCP: Christie Gonzales Payor: [employer] FFS Plan: /[facility] [place]/$0/20/F/HMO Product Type: MEDICAID [id number] documented in this encounter Plan of Treatment Not on file documented as of this encounter Visit Diagnoses Not on filedocumented in this encounter Additional Health Concerns Infection Onset Date Last Indicated Resolved Time COVID-19 Comment:Reporting positive COVID 07/2807/28/2022 07/29/2022 11/14/2022 8:[address] documented as of this encounter Care Teams Sewer Pipe Sorter Relationship Specialty Start Date End Date Christie Gonzales MD PCP - General 08/26/10 04/27/21 Jack Bedoya MD PCP - General Internal Medicine 04/28/21 07/24/22 Kalpana Landaverde MD [address] [place] [address] PCP - General Internal Medicine 07/25/22 Kelli Singh MD Specialist Cardiology 07/06/21 Sol Womack PA-C [address] [place] [address] Specialist Endocrinology 05/29/24 Sera Montes MD [address] [place] [address] Specialist Neurology 05/29/24 documented as of this encounter
--- OUTSIDE RECORDS SUMMARY | 2025-09-13 00:59 | XMS_ITS | Encounter Summary ---
Author Organization [facility] Address [address] [place] [address] Care Team Providers Care Transaction Manager Name Role Phone Kelli Singh MD Unavailable [phone] Kalpana Landaverde MD Primary Care Prov ider Sol Womack PA-C Unavailable [phone] Sera Montes MD Unavailable Unava ilable Reason for Visit * Reason Onset Date Comments Fainting Spell 01/31/2024 Encounter Details Date Type Department Care Team Description 01/31/2024 Pt. Non Urgent Medical Question Adult Medicine [facility] [address] [place] [id number] Kalpana Landaverde MD [address] [place] [phone] Social History Tobacco Use Types Packs/Day Years [...] headaches. 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
--- OUTSIDE RECORDS SUMMARY | 2025-09-13 00:59 | XMS_ITS | Encounter Summary ---
Author Organization [facility] Address [address] [place] [address] Care Team Providers Care Solar Hot Water Installer Name Role Phone Christie Gonzales MD Primary Care Provider Jack Glynn MD Primary Care Provider Kelli Garcia MD Unavailable [phone] Kalpana Landaverde MD Primary Care Prov ider Sol Womack PA-C Unavailable [phone] Sera Montes MD Unavailable Unava ilable Reason for Visit * Reason Comments E-prescribe Rx Request Encounter Details Date Type Department Care Team Description 01/24/2019 Refill Adult Medicine [address] [address] Juanita Flores PA-C [address] [place] [address] E-prescribe Rx Request Social History Tobacco Use [...] as of this encounter Care Teams Solar Hot Water Installer Relationship Specialty Start Date End Date Christie Gonzales MD PCP - General 08/26/10 04/27/21 Jack Bedoya MD PCP - General Internal Medicine 04/28/21 07/24/22 Kalpana Landaverde MD [address] [place] [address] PCP - General Internal Medicine 07/25/22 Kelli Singh MD Specialist Cardiology 07/06/21 Sol Womack PA-C [address] [place] [address] Specialist Endocrinology 05/29/24 Sera Montes MD [address] [place] [address] Specialist Neurology 05/29/24 documented as of this encounter
--- OUTSIDE RECORDS SUMMARY | 2025-09-13 00:59 | XMS_ITS | Encounter Summary ---
Author Organization [facility] Address [address] [place] [address] Care Team Providers Care Gm/Svp Global Publisher Business Name Role Phone Christie Gonzales MD Primary Care Provider Jack Glynn MD Primary Care Provider Kelli Garcia MD Unavailable [phone] Kalpana Landaverde MD Primary Care Prov ider Sol Womack PA-C Unavailable [phone] Sera Montes MD Unavailable Unava ilable Encounter Details Date Type Department Care Team Description 01/01/[address] [facility] [address] [place] [address] John Mejia MD Papillary thyroid carcinoma (HCC) Social History Tobacco Use Types Packs/Day [...] Procedure Name Priority Date/Time Associated Diagnosis Comments WHOLE BODY NUCLEAR SCANS, THYROID Routine 12/28/2018 Papillary thyroid carcinoma (HCC) documented in this encounter Results * WHOLE BODY NUCLEAR SCANS, THYROID (12/28/2018) John Mejia MD RADIOLOGY documented in this encounter Visit Diagnoses Diagnosis Papillary thyroid carcinoma (HCC) Malignant neoplasm of thyroid gland documented in this encounter Additional Health Concerns Infection Onset Date Last Indicated Resolved Time COVID-19 Comment:Reporting positive COVID 07/2807/28/2022 07/29/2022 11/14/2022 8:[address] documented as of this encounter Care Teams Gm/Svp Global Publisher Business Relationship Specialty Start Date End Date Christie Gonzales MD PCP - General 08/26/10 04/27/21 Jack Bedoya MD PCP - General Internal Medicine 04/28/21 07/24/22 Kalpana Landaverde MD [address] [place] [address] PCP - General Internal Medicine 07/25/22 Kelli Singh MD Specialist Cardiology 07/06/21 Sol Womack PA-C [address] [place] [address] Specialist Endocrinology 05/29/24 Sera Montes MD [address] [place] [address] Specialist Neurology 05/29/24 documented as of this encounter
--- OUTSIDE RECORDS SUMMARY | 2025-09-13 00:59 | XMS_ITS | Clinical Summary ---
Author Organization [address] Address [address] [place] [phone] Phone Care Team Providers Care Needle Polisher Name Role Phone Kalpana Feldman MD Primary Care Prov ider Allergies Active Allergy Reactions Criticality Noted Date Comments Erythromycin Anaphylaxis High 11/10/2005 Polyethylene Glycol Hives,Nausea And Vomiting 0 04/18/2022 Sulfa (Sulfonamide Antibiotics) Anaphylaxis High 11/10/2005 Sulfamethoxazole-Trimethopr im 11/10/2005 Medications blood-glucose meter kit Test blood sugar daily 04/17/20 24 Active pen needle, diabetic (BD ULTRA-FINE MICRO PEN NEEDLE [facility]) INJECT 4 DEVICES INTO THE SKIN 4 [...] by mouth at bedtime. 01/19/20 23 Active glucagon (Gvoke HypoPen 1-Pack) 1 [...] Box = Kit = EA 2 each 08/20/20 Active insulin degludec (Tresiba FlexTouch U-100) 100 unit/mL (3 mL) injection pen 14 unist sc at bedtime 15 mL 11 08/20/20 Active Synthroid 200 mcg tablet Take 1 tablet (200 mcg total) by mouth 1 (one) time each day. 30 each 08/21/20 026 Active ascorbic acid/collagen hydr (COLLAGEN SKIN RENEWAL ORAL) Take by mouth. Activ e metFORMIN XR (GLUCOPHAGE-XR ) 500 mg 24 hr tablet Take 2 Tablets by mouth 2 times daily (with meals). 09/04/20 025 Discontinued(F ormulary change) meloxicam (MOBIC) 7.5 mg tablet Take 1 tablet (7.5 mg total) by mouth 1 (one) time each day if needed. 12/07/19 025 Discontinued(F ormulary change) gabapentin (NEURONTIN) 300 mg capsule Take 1 capsule (300 mg total) by mouth 3 (three) times a day. 11/23/19 025 Discontinued(E xpired) insulin degludec (Tresiba FlexTouch U-100) 100 unit/mL (3 mL) injection penIndications :Type 2 diabetes mellitus with obesity 16 unist sc at bedtime 12/26/19 025 Discontinued(R eorder) levothyroxine (SYNTHROID, LEVOTHROID) 200 mcg tablet Take daily 1 tab by mouth 90 each 5 01/02/20 025 Discontinued levothyroxine (SYNTHROID, LEVOTHROID) 25 mcg tablet Take 1 tablet (25 mcg total) by mouth 1 (one) time each day. Take 1 tablet daily along with the 200 mcg tablet. For total 225 daily 30 each 11 01/02/20 025 Discontinued(F ormulary change) levothyroxine (Tirosint) 200 mcg capsule Take 1 tab po daily fasting. 90 capsule 3 08/20/20 025 Discontinued Active Problems Problem Noted Date Diagnosed Date Type 2 diabetes mellitus wit h morbid obesity ([facility]24, [facility] V28) 09/10/2025 Dysautonomia ([facility] V24, [facility] V28) 09/10/20 25 Morbid obesity with BMI of 5 0.0-59.9, adult ([facility] V24, [facility] V28) 07/28/2024 History of papillary adenocarcinoma of [...] CA Cervical radiculopathy 07/08/2019 Cancer of thyroid ([facility] V24, [facility] V28) 06/2018 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/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 Jun 2018; TADEO Ablation 98.6 mCi 01/10/19 Obsessive-compulsive disorder 06/12/2018 Multinodular goiter 06/09/2018 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/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 Jun 2018 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 V24, [facility]/HCC V28) 09/10/2025 9:30 AM EST Office Visit Adult Medicine [address] [phone] Evelina Wilde PA Dysautonomia (CMS/HCC V24, CMS/HCC V28) (Primary Dx); Type 2 diabetes mellitus with morbid obesity (CMS/HCC V24, CMS/HCC V28); History of papillary adenocarcinoma of thyroid; Postoperative hypothyroidism; Cervical radiculopathy 09/09/2025 Telephone Adult Medicine [address] [phone] Kalpana Pearce MD 08/20/2025 7:45 AM EDT Office Visit Endocrinology [address] [phone] Sol Womack PA Type 1 diabetes mellitus with retinopathy, macular edema presence unspecified, unspecified laterality, unspecified retinopathy severity (CMS/HCC V24, CMS/HCC V28) (Primary Dx); Postoperative hypothyroidism; Cancer of thyroid ([facility]/HCC V24, CMS/HCC V28) 08/20/2025 Results Follow-Up Endocrinology - [place] [address] [place], [place] [phone] Sol Womack PA 08/20/2025 Telephone Endocrinology - [place] [address] [place], [place] [phone] Sol Womack PA 07/23/2025 10:20 AM EDT Office Visit [facility] [address] [facility] [address] [place] [address] Kelli Phillips MD Syncope, unspecified syncope type (Primary Dx); Palpitations from Last 3 Months Immunizations Immunization Administration Dates Next Due Hepatitis A Adult (Havrix; Vaqta) 19yo and older 05/21/2014 Hepatitis B (Ollrncy-B-Jcjga , Recombivax HB-Adult) 19yo and older 05/01/2023,05/21/2014 [...] Esophageal reflux 11/16/2005 DX:Esophageal reflux Morbid obesity ([facility] V24, [facility] V28) 11/16/2005 DX:Morbid obesity ([facility]) Pure hypercholesterolemia DX:Pur e hypercholesterolemia Diabetes mellitus type 2, co ntrolled, with complications ([facility] V24, [facility] V28) DX:Diabetes mellitus type 2, controlled, with complications (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 V24) 11/29/2021 DX:Paroxysmal atrial tachyca rdia ([facility]) Primary hypertension 11/29/2021 DX:Primary hypertension PCOS [...] Mother cancer in [place]U Other: Other Mother beningn very la rge abd tumor Other: atrial [...] your loved ones. For example, child care development specialist or elderly care for an older [...] Ectopic Multiple Livin g Live Births 1 Date Outcome GA Total Labor Labor/2nd/3rd [...] Mass Index 39.58 09/10/2025 9:30 AM EST Plan of Treatment Upcoming Encounters Date Type Department Care Team (Late st Contact Info) Description 11/20/2025 8:40 AM EST Office Visit Endocrinology [address] [phone] Luis Watson MD [address] [place] [address] 01/08/2026 8:30 AM EDT Office Visit Adult Medicine [address] [phone] Kalpana Feldman MD [address] [place] [address] Health Maintenance Due Date Last Done Comments HPV Vaccines (1 - Risk 3-dose SCDM series) 2008 Pneumococcal Vaccine: Pediatrics (0 to 5 Years) and At-Risk Patients (6 to 49 Years) (2 of 2 - PCV) 02/28/2020 02/27/2019 Hepatitis B Vaccines (3 of 3 - 19+ 3-dose series) 06/26/2023 05/01/2023, 05/21/2014 Diabetes: Annual Foot Exam 05/29/2025 05/29/2024 COVID-19 Vaccine ( - 2024- season) 2025 11/14/2021, 01/29/2021 Influenza Vaccine (#1) 2025 , 11/08/2022, 07/03/2021, Additional history exists Diabetes: Annual Retina Eye Exam 09/10/2025 09/10/2024 Diabetes: Blood Sugar Control Test (HGBA1C) 02/18/2026 08/20/2025, 12/26/2024, 09/05/2024, Additional history exists Diabetes: Annual Urine Albumin-Creatinine Ratio (uACR) 08/20/2026 08/20/2025, 05/29/2024 Diabetes: Annual GFR (Glomerular Filtration Rate) 08/20/2026 08/20/2025, 04/21/2025, 09/05/2024, Additional history exists Hypertension/CHF/CAD Annual BMP Blood Test 08/20/2026 08/20/2025, 04/21/2025, 09/05/2024, Additional history exists Social Influencers of Health Screening 09/10/2026 09/10/2025, 09/05/2024 Breast Cancer Screening 11/09/2026 11/09/19, 10/14/2023, 11/06/2018 Cervical Cancer Screening: HPV 03/04/2029 03/04/2024 Cholesterol Screening (Lipid Panel) 08/20/2030 08/20/2025, 09/05/2024, 07/20/2023 DTaP,Tdap,and Td Vaccines (3 - Td or Tdap) 05/29/2034 05/29/2024, 08/07/2012, 10/23/2000 RSV Immunization Adult Patients (1 - 1-dose 75+ series) 2056 Hepatitis A Vaccines Aged Out 05/21/2014 No long er eligible based on patient's age to complete this topic Depression Screening Completed 01/17/2025 HIB Vaccines Aged Out No longer eligi ble based on patient's age to complete this topic HIV Screening Discontinued Hepatitis C Screening Discontinued IPV Vaccines Aged Out No longer eligi [...] DIFFERENTIAL Routine 09/10/2025 10:15 AM EST Dysautonomia ([facility] V24, [facility] V28) CBC AND DIFFERENTIAL Routine 09/10/2025 10:15 AM EST Dysautonomia ([facility]/HCC V24, CMS/[facility] V28) FERRITIN Routine 09/10/2025 10:15 AM EST Dysautonomia ([facility]/HCC V24, CMS/[facility] V28) IRON AND TIBC Routine 09/10/2025 10:15 AM EST Dysautonomia ([facility]/HCC V24, CMS/[facility] V28) TRIIODOTHYRONINE FREE Routine 08/20/2025 8:47 AM EDT [...] Routine 08/20/2025 8:47 AM EDT Denise's disease THYROGLOBULIN AND THYROGLOBULIN ANTIBODY PANEL Routine 08/20/2025 8:47 AM EDT Denise's disease [...] unspecified retinopathy severity (CMS/HCC V24, CMS/HCC V28) MICROALBUMIN CREATININE URINE RATIO Routine 08/20/2025 8:47 AM EDT Type 1 diabetes mellitus with retinopathy, macular edema presence unspecified, unspecified laterality, unspecified retinopathy severity (CMS/HCC V24, CMS/HCC V28) POC GLUCOSE Routine 08/20/2025 7:57 AM EDT Type 1 diabetes mellitus with retinopathy, macular edema presence unspecified, unspecified laterality, unspecified retinopathy severity (CMS/HCC V24, CMS/HCC V28) ECG 12-LEAD Routine 07/23/2025 10:15 AM EDT Syncope, unspecified syncope type MG MAMMO DIGITAL SCREENING W RUSTAM BILAT Routine 11/09/2024 2:17 PM EST Encounter for screening mammogram for breast cancer HM HPV Routine 03/04/2024 from Last 3 Months or Most Recently Relevant to Health Maintenance Results * (ABNORMAL) CBC auto differential (09/10/2025 10:15 AM EST) WBC 8.9 4.8 - 10.8 K/mcL LAB HEMETOLOGY METHOD 09/10/2025 12:28 PM [facility] RBC 4.50 3.80 - 4.80 M/mcL LAB HEMETOLOGY METHOD 09/10/2025 12:28 PM [facility] Hemoglobin 13.1 11.5 - 16.0 g/dL LAB HEMETOLOGY METHOD 09/10/2025 12:28 PM [facility] Hematocrit 41.1 35.0 - 47.0 % LAB HEMETOLOGY METHOD 09/10/2025 12:28 PM [facility] MCV 91.9 79.0 - 98.0 FL LAB HEMETOLOGY METHOD 09/10/2025 12:28 PM [facility] MCH 29.3 27.0 - 32.0 pcg LAB HEMETOLOGY METHOD 09/10/2025 12:28 PM [facility] MCHC 31.9(L) 32.0 - 37.0 g/dL LAB HEMETOLOGY METHOD 09/10/2025 12:28 PM [facility] RDW 13.4 11.0 - 15.0 % LAB HEMETOLOGY METHOD 09/10/2025 12:28 PM [facility] Platelets 321 130 - 400 K/[facility] LAB HEMETOLOGY METHOD 09/10/2025 12:28 PM [facility] MPV 10.4 7.0 - 11.0 FL LAB HEMETOLOGY METHOD 09/10/2025 12:28 PM [facility] NRBC 0.0 <1.0 % LAB HEMETOLOGY METHOD 09/10/2025 12:28 PM [facility] NRBC Absolute 0.00 <0.10 K/mcL LAB HEMETOLOGY METHOD 09/10/2025 12:28 PM [facility] Neutrophils Relative 72.3 % LAB HEMETOLOGY METHOD 09/10/2025 12:28 PM [facility] Lymphocytes Relative 19.4 % LAB HEMETOLOGY METHOD 09/10/2025 12:28 PM [facility] Monocytes Relative 6.5 % LAB HEMETOLOGY METHOD 09/10/2025 12:28 PM [facility] Eosinophils Relative 0.5 % LAB HEMETOLOGY METHOD 09/10/2025 12:28 PM [facility] Basophils Relative 0.8 % LAB HEMETOLOGY METHOD 09/10/2025 12:28 PM [facility] Immature Granulocytes Relative 0.5 % LAB HEMETOLOGY METHOD 09/10/2025 12:28 PM [facility] Neutrophils Absolute 6.43 1.50 - 7.00 K/mcL LAB HEMETOLOGY METHOD 09/10/2025 12:28 PM [facility] Lymphocytes Absolute 1.72 1.00 - 5.00 K/mcL LAB HEMETOLOGY METHOD 09/10/2025 12:28 PM [facility] Monocytes Absolute 0.58 0.20 - 1.00 K/mcL LAB HEMETOLOGY METHOD 09/10/2025 12:28 PM [facility] Eosinophils Absolute 0.04 0.00 - 0.50 K/mcL LAB HEMETOLOGY METHOD 09/10/2025 12:28 PM [facility] Basophils Absolute 0.07 0.00 - 0.20 K/mcL LAB HEMETOLOGY METHOD 09/10/2025 12:28 PM [facility] Immature Granulocytes Absolute 0.04(H) 0.00 - 0.03 K/mcL LAB HEMETOLOGY METHOD 09/10/2025 12:28 PM [facility] Blood Venous blood specimen / Unknown Venipuncture / Unknown 09/10/2025 10:15 AM EST 09/10/2025 10:15 AM EST Evelina WALTERS LAB BLOOD ORDERABLES Final Resul t Performing Organization Address City/[facility] [address]/ZIP Co de Phone Number [facility] [address] [place] [address], [place] [phone] * Iron and TIBC (09/10/2025 10:15 AM EST) Iron 85 40 - 150 mcg/dL 09/10/2025 1:54 PM EST [facility] TIBC 336 250 - 450 mcg/dL 09/10/2025 1:54 PM EST [facility] Iron Saturation 25 15 - 50 % 1:54 PM EST [facility] Blood Venous blood specimen / Unknown Venipuncture / Unknown 09/10/2025 10:15 AM EST 09/10/2025 10:15 AM EST Evelina WALTERS LAB BLOOD ORDERABLES Final Resul t Performing Organization Address [facility] [address]/ZIP Co de Phone Number [facility] [address] [place] [address], [place] [phone] * Ferritin (09/10/2025 10:15 AM EST) Ferritin 31 7 - 271 ng/mL 09/10/2025 1:58 PM EST [facility] Blood Venous blood specimen / Unknown Venipuncture / Unknown 09/10/2025 10:15 AM EST 09/10/2025 10:15 AM EST Evelina WALTERS LAB BLOOD ORDERABLES Final Resul t Performing Organization Address City/[facility] [address]/ZIP Co de Phone Number [facility] [address] [place] [address], [place] [phone] * (ABNORMAL) Thyroid stimulating hormone with reflex to free t4 and free t3 (08/20/2025 8:47 AM EDT) TSH 67.16(H) 0.40 - 4.00 mcIU/mL LAB CHEMISTRY METHOD 08/20/2025 11:56 AM EDT [facility] Blood Venous blood specimen / Unknown Venipuncture / Unknown 08/20/2025 8:47 AM EDT 08/20/2025 8:47 AM EDT Sol WALTERS LAB BLOOD ORDERABLES Final Result Performing Organization Address [facility] [address]/ZIP Co de Phone Number [facility] [address] [place] [address], [place] [phone] * (ABNORMAL) Free thyroxine with reflex to free triiodothyronine (08/20/2025 8:47 AM EDT) [facility] Free T4 0.55(L) 0.70 - 1.80 ng/dL LAB CHEMISTRY METHOD 08/20/2025 12:45 PM EDT [facility] Blood Venous blood specimen / Unknown Venipuncture / Unknown 08/20/2025 8:47 AM EDT 08/20/2025 8:47 AM EDT us Sol WALTERS LAB BLOOD ORDERABLES Final Result Performing Organization Address [facility] [address]/ZIP Co de Phone Number [facility] [address] [place] [address], [place] [phone] * (ABNORMAL) Lipid panel with reflex to direct LDL (08/20/2025 8:47 AM EDT) Pathologist [facility] Cholesterol 243(H) 0 - 200 mg/dL LAB CHEMISTRY METHOD 08/20/2025 11:01 AM EDT [facility] Triglycerides 114 0 - 150 mg/dL LAB CHEMISTRY METHOD 08/20/2025 11:01 AM EDT [facility] HDL 61 >=40 mg/dL LAB CHEMISTRY METHOD 08/20/2025 11:01 AM EDT [facility] LDL Calculated 159(H) 0 - 100 mg/dL LAB CHEMISTRY METHOD 08/20/2025 11:01 AM EDT [facility] Comment:Estimated LDL Calcul ated using equation: Total cholesterol - HDL cholesterol - (Triglycerides/5) VLDL Cholesterol Dragan 22.8 mg/dL LAB CHEMISTRY METHOD 08/20/2025 11:01 AM EDT [facility] Non HDL Chol. (LDL+VLDL) 182(H) <145 mg/dL LAB CHEMISTRY METHOD 08/20/2025 11:01 AM EDT [facility] Chol/HDL Ratio 4.0 0.0 - 4.4 LAB CHEMISTRY METHOD 08/20/2025 11:01 AM T [facility] Blood Venous blood specimen / Unknown Venipuncture / Unknown 08/20/2025 8:47 AM EDT 08/20/2025 8:47 AM EDT us Sol WALTERS LAB BLOOD ORDERABLES Final Result [facility] [address] [place] [address], * Thyroglobulin and thyroglobulin antibody panel (08/20/2025 8:47 AM EDT) Thyroglobulin Antibody <2 <4 IU/mL 08/22/2025 1:21 PM EDT [facility] Thyroglobulin 2.3 SeeBelow ng/mL 08/22/2025 1:21 PM EDT [facility] Comment: Thyroglobulin Reference Range: Intact thyroid: 1.6-50.0 ng/mL Athyrotic, post-thyroidectomy (tumor marker): <0.1 ng/mL Thyroglobulin antibodies can interfere with the determination of thyroglobulin. If the specimen contains thyroglobulin antibodies, please interpret the thyroglobulin result with caution. The [employer] DXI chemiluminescent immunoassay is used. Results obtained with different assay methods or kits cannot be used interchangeably. Results cannot be interpreted as absolute evidence of the presence or absence of malignant disease. Test performed at [facility], [address], [place] [address] Sachi Doe MD, PhD - Interpreter Blood Venous blood specimen / Unknown Venipuncture / Unknown 08/20/2025 8:47 AM EDT 08/20/2025 8:47 AM EDT Sol WALTERS LAB BLOOD ORDERABLES Final Result [facility] [address] [place] [address] * Microalbumin creatinine urine ratio (08/20/2025 8:47 AM EDT) Creatinine, Urine 185.0 mg/dL LAB CHEMISTRY METHOD 08/20/2025 2:26 PM EDT [facility] Microalb, Ur 8.0 0.0 - 29.0 mg/L LAB CHEMISTRY METHOD 08/20/2025 2:26 PM EDT [facility] Microalb/Creat Ratio 4 <30 mg/g creat LAB CHEMISTRY METHOD 08/20/2025 2:26 PM EDT [facility] Urine Urine specimen from urethra / Unknown Non-blood Collection / Unknown 08/20/2025 8:47 AM EDT 08/20/2025 8:47 AM EDT Sol WALTERS LAB URINE ORDERABLES Final Result [facility] [address] [place] [address], [place] [phone] * (ABNORMAL) Triiodothyronine free (08/20/2025 8:47 AM EDT) T3, Free 163(L) 230 - 420 pcg/dL LAB CHEMISTRY METHOD 08/20/2025 4:14 PM EDT [facility] Blood Venous blood specimen / Unknown Venipuncture / Unknown 08/20/2025 8:47 AM EDT 08/20/2025 8:47 AM EDT Sol WALTERS LAB BLOOD ORDERABLES Final Result Performing Organization Address [facility] [address]/ZIP Co de Phone Number [facility] [address] [place] [address], [place] [phone] * (ABNORMAL) Hemoglobin A1c (08/20/2025 8:47 AM EDT) Hemoglobin A1C 6.7(H) <6.5 % LAB CHEMISTRY METHOD 08/20/2025 10:53 AM EDT [facility] Mean Bld Glu Estim. 146 mg/dL LAB CHEMISTRY METHOD 08/20/2025 10:53 AM EDT [facility] Blood Venous blood specimen / Unknown Venipuncture / Unknown 08/20/2025 8:47 AM EDT 08/20/2025 8:47 AM EDT Sol WALTERS LAB BLOOD ORDERABLES Final Result Performing Organization Address City/[facility] [address]/ZIP Co de Phone Number [facility] [address] [place] [address], [place] [phone] * Basic metabolic panel (08/20/2025 8:47 AM EDT) Sodium 139 133 - 145 mmol/L LAB CHEMISTRY METHOD 08/20/2025 11:01 AM EDT [facility] Potassium 4.0 3.5 - 5.5 mmol/L LAB CHEMISTRY METHOD 08/20/2025 11:01 AM EDT [facility] Chloride 106 96 - 110 mmol/L LAB CHEMISTRY METHOD 08/20/2025 11:01 AM EDT [facility] CO2 27 21 - 32 mmol/L LAB CHEMISTRY METHOD 08/20/2025 11:01 AM EDT [facility] Anion Gap 6 3 - 11 LAB CHEMISTRY METHOD 08/20/2025 11:01 AM [facility] Glucose 95 70 - 100 mg/dL LAB CHEMISTRY METHOD 08/20/2025 11:01 AM [facility] BUN 16 5 - 25 mg/dL LAB CHEMISTRY METHOD 08/20/2025 11:01 AM [facility] Creatinine 1.05 0.50 - 1.10 mg/dL LAB CHEMISTRY METHOD 08/20/2025 11:01 AM [facility] eGFR 68 >=60 mL/min/1. 73m2 LAB CHEMISTRY METHOD 08/20/2025 11:01 AM [facility] Comment:Calculation based on the Chronic Kidney Disease Epidemiology Collaboration (CKD-EPI) equation refit without adjustment for race. BUN/Creatinine Ratio 15.2 LAB CHEMISTRY METHOD 08/20/2025 11:01 AM [facility] Calcium 9.1 8.5 - 10.5 mg/dL LAB CHEMISTRY METHOD 08/20/2025 11:01 AM [facility] Blood Venous blood specimen / Unknown Venipuncture / Unknown 08/20/2025 8:47 AM EDT 08/20/2025 8:47 AM EDT Sol WALTERS LAB BLOOD ORDERABLES Final Result [facility] [address] [place] [address], [place] [phone] * POC glucose manually resulted (08/20/2025 7:57 AM EDT) Glucose POC 146 mg/dL Blood Capillary blood specimen / Unknown 08/20/2025 7:57 AM EDT Sol WALTERS POINT OF CARE TEST ENTER/ED IT ORDERABLES Final Result * ECG 12 lead (07/23/2025 10:15 AM EDT) Ventricular Rate ECG 68 BPM GEMUSE Atrial Rate 68 BPM GEMUSE P-R Interval 158 ms GEMUSE QRS Duration 96 ms GEMUSE Q-T Interval 386 ms GEMUSE QTc 410 ms GEMUSE P Wave [place] 51 degrees GEMUSE R [place] 79 degrees GEMUSE T [place] 71 degrees GEMUSE ECG Interpretation Normal sinus rhythm Normal ECG When compared with ECG of 12-NOV-2022 16:12, No significant change was found Confirmed by KELLI PHILLIPS ([id number]) on 07/23/2025 12:17:39 PM GEMUSE 07/23/2025 10:1 5 AM EDT 07/23/2025 12:17 PM EDT us Kelli Phillips MD ECG ORDERABLES Final Result GEMUSE * MG Mammo Digital Screening w Rustam bilat (11/09/2024 2:17 PM EST) Anatomical Region Laterality Modality Breast Bilateral Mammography 11/11/2024 7:34 PM EST Impressions 11/11/2024 7:36 PM EST No mammographic evidence of malignancy. BREAST DENSITY: B - There are scattered areas of fibroglandular density. BI-RADS CATEGORY: 1 - NEGATIVE RECOMMENDATION: Screening bilateral mammogram is recommended in 1 year. MAMMO LOCATION: [facility], [address] [place] [address], [phone], . -------- FINAL REPORT -------- Dictated By: Estefania Giraldo Dictated Date: 11/11/2024 19:34 ET Assigned Physician: Estefania Giraldo Reviewed and Electronically Signed By: Estefania Giraldo Signed Date: 11/11/2024 19:36 ET Workstation ID: [id number] Transcribed By: Self Edit Transcribed Date: 11/11/2024 [...] is recommended in 1 year. MAMMO LOCATION: [facility], [address] [place] [address], [id number], . -------- FINAL REPORT -------- Dictated By: Estefania Giraldo Dictated Date: 11/11/2024 19:34 ET Assigned Physician: Estefania Giraldo Reviewed and Electronically Signed By: Estefania Giraldo Signed Date: 11/11/2024 19:36 ET Workstation ID: [id number] Transcribed By: Self Edit Transcribed Date: 11/11/2024 19:34 ET Kalpana Feldman MD IMG BI PROCEDURES Final Result * Cervical Cancer Screening: HPV (03/04/2024) Cervical Cancer Screening: HPV abstracted, negative Historical Provider HEALTH MAINTENANCE Final Result from Last 3 Months or Most Recently Relevant to Health Maintenance Insurance [facility] Care Teams Needle Polisher Relationship Specialty Start Date End Date Kalpana Feldman MD [address] [place] [phone] PCP - General Internal Medicine 09/06/24
--- OUTSIDE RECORDS SUMMARY | 2025-09-13 00:59 | XMS_ITS | Encounter Summary ---
Author Organization [facility] Address [address] [place] [address] Care Team Providers Care Sql Consultant Name Role Phone Christie Gonzales MD Primary Care Provider Jack Glynn MD Primary Care Provider Kelli Garcia MD Unavailable [phone] Kalpana Landaverde MD Primary Care Prov ider Sol Womack PA-C Unavailable [phone] Sera Montes MD Unavailable Unava ilable Reason for Referral * Non BARBARA (Urgent) - Authorized/Booked Specialty Diagnoses / Procedures Referred By Fausto lopez Referred To Contact General Surgery Diagnoses Cancer of thyroid (HCC) Multinodular goiter Procedures REFERRAL TO GENERAL SURGERY John Mejia MD [address] [place] [address] Matteo Vegas MD [address] [place] [address] Referral ID Status Reason Start Date Expiration Date V isits Requested Visits Authorized [id number] Authorized/B ooked 07/31/2018 12 12 Reason for Visit * Reason Onset Date Comments other 07/05/2018 FYI Encounter Details Date Type Department Care Team Description 07/05/2018 Telephone Gastroenterology [facility] [address] [place] [address] Noe Tang PAStevenC other (FYI) Social History Tobacco Use Types Packs/Day Years [...] encounter Miscellaneous Notes * Telephone Encounter - Noe Tang PA-C - 07/05/2018 10:53 AM EDT Hopefully the infection/symptoms will resolve by the time of the EGD but if not, she will need to reschedule. * Telephone Encounter - Fabi Morales - 07/05/2018 9:28 AM EDT FYI: Spoke to the patient today to reshedule her upper endoscopy at [facility] with Dr. Perez on 08-07-18 at 1:00pm. While speaking with the patient she make me aware that she saw Juanita Hernandez in adult medicine, had chest x-ray done and found that she has Aspiration pneumonia/cough/fever documented in this encounter Plan of Treatment Not on file documented as of this encounter Visit Diagnoses Diagnosis Cancer of thyroid (HCC) Malignant neoplasm of thyroid gland Multinodular goiter Nontoxic multinodular goiter documented in this encounter Additional Health Concerns Infection Onset Date Last Indicated Resolved Time COVID-19 Comment:Reporting positive COVID 07/2807/28/2022 07/29/2022 11/14/2022 8:[address] documented as of this encounter Care Teams Sql Consultant Relationship Specialty Start Date End Date Christie Gonzales MD PCP - General 08/26/10 04/27/21 Jack Bedoya MD PCP - General Internal Medicine 04/28/21 07/24/22 Kalpana Landaverde MD [address] [place] [address] PCP - General Internal Medicine 07/25/22 Kelli Singh MD Specialist Cardiology 07/06/21 Sol Womack PA-C [address] [place] [address] Specialist Endocrinology 05/29/24 Sera Montes MD [address] [place] [address] Specialist Neurology 05/29/24 documented as of this encounter
--- OUTSIDE RECORDS SUMMARY | 2025-09-13 00:59 | XMS_ITS | Encounter Summary ---
Author Organization [facility] Address [address] [place] [address] Care Team Providers Care Collar Shaper Operator Name Role Phone Kelli Singh MD Unavailable [phone] Kalpana Landaverde MD Primary Care Prov ider Sol Womack PA-C Unavailable [phone] Sera Montes MD Unavailable Unava ilable Encounter Details Date Type Department Care Team Description 05/26/2023 CGM Report Medical Records [address] [place] [address] Abstract, Provider Social History Tobacco Use Types [...] on filedocumented in this encounter Care Teams Collar Shaper Operator Relationship Specialty Start Date End Date Kalpana Landaverde MD [address] [place] [address] PCP - General Internal Medicine 07/25/22 Kelli Singh MD Specialist Cardiology 07/06/21 Sol Womack PA-C [address] [place] [address] Specialist Endocrinology 05/29/24 Sera Montes MD [address] [place] [address] Specialist Neurology 05/29/24 documented as of this encounter
--- OUTSIDE RECORDS SUMMARY | 2025-09-13 00:59 | XMS_ITS | Encounter Summary ---
Author Organization [facility] Address [address] [place] [address] Care Team Providers Care Family Mediator Name Role Phone Christie Gonzales MD Primary Care Provider Jack Glynn MD Primary Care Provider Kelli Garcia MD Unavailable [phone] Kalpana Landaverde MD Primary Care Prov ider Sol Womack PA-C Unavailable [phone] Sera Montes MD Unavailable Unava ilable Encounter Details Date Type Department Care Team Description 05/14/2014 Release of Information Medical Records [address] [place] [address] Abstract, Provider Social History Tobacco Use Types [...] documented as of this encounter Care Teams Family Mediator Relationship Specialty Start Date End Date Christie Gonzales MD PCP - General 08/26/10 04/27/21 Jack Bedoya MD PCP - General Internal Medicine 04/28/21 07/24/22 Kalpana Landaverde MD [address] [place] [address] PCP - General Internal Medicine 07/25/22 Kelli Singh MD Specialist Cardiology 07/06/21 Sol Womack PA-C [address] [place] [address] Specialist Endocrinology 05/29/24 Sera Montes MD [address] [place] [address] Specialist Neurology 05/29/24 documented as of this encounter
--- OUTSIDE RECORDS SUMMARY | 2025-09-13 00:59 | XMS_ITS | Encounter Summary ---
Author Organization [facility] Address [address] [place] [address] Care Team Providers Care Natural Resources Extension Educator Name Role Phone Jack Bedoya MD Primary Care Provider Kelli Garcia MD Unavailable [phone] Kalpana Landaverde MD Primary Care Prov ider Sol Womack PA-C Unavailable [phone] Sera Montes MD Unavailable Unava ilable Reason for Visit * Reason Comments E-prescribe Rx Request Encounter Details Date Type Department Care Team Description 02/20/2022 Refill Adult Medicine [address] [address] Evelina Wilde PA [address] [place] [address] E-prescribe Rx Request Social History Tobacco Use [...] Telephone Encounter - Unique Triplett M.A. - 02/22/2022 10:38 AM EDT Lab Results Component Value Date HGBA1C 7.8 12/21/2021 MALBUR 25.9 10/14/2021 MALBCR 15.1 10/14/2021 CHOL 230 10/14/2021 LDL 147 10/14/2021 HDL 40 10/14/2021 TRIG 215 10/14/2021 GLU 153 12/29/2021 CREAT 0.58 05/28/2021 CEE 10/14/21- PCP NOV 03/31/22 * Telephone Encounter - Marisela Espinoza - 02/22/2022 9:34 AM EDT Patient would like script to [...] documented as of this encounter Care Teams Natural Resources Extension Educator Relationship Specialty Start Date End Date Jack Bedoya MD PCP - General Internal Medicine 04/28/21 07/24/22 Kalpana Landaverde MD [address] [place] [address] PCP - General Internal Medicine 07/25/22 Kelli Singh MD Specialist Cardiology 07/06/21 Sol Womack PA-C [address] [place] [address] Specialist Endocrinology 05/29/24 Sera Montes MD [address] [place] [address] Specialist Neurology 05/29/24 documented as of this encounter
--- OUTSIDE RECORDS SUMMARY | 2025-09-13 00:59 | XMS_ITS | Encounter Summary ---
Author Organization [facility] Address [address] [place] [address] Care Team Providers Care Women'S Studies Lecturer Name Role Phone Christie Gonzales MD Primary Care Provider Jack Glynn MD Primary Care Provider Kelli Garcia MD Unavailable [phone] Kalpana Landaverde MD Primary Care Prov ider Sol Womack PA-C Unavailable [phone] Sera Montes MD Unavailable Unava ilable Encounter Details Date Type Department Care Team Description 12/04/2018 Orders Only Medical Records [address] [place] [address] Matteo Vegas MD [address] [place], [place] [id number] Social History Tobacco Use Types Packs/Day Years [...] documented as of this encounter Care Teams Women'S Studies Lecturer Relationship Specialty Start Date End Date Christie Gonzales MD PCP - General 08/26/10 04/27/21 Jack Bedoya MD PCP - General Internal Medicine 04/28/21 07/24/22 Kalpana Landaverde MD [address] [place] [address] PCP - General Internal Medicine 07/25/22 Kelli Singh MD Specialist Cardiology 07/06/21 Sol Womack PA-C [address] [place] [address] Specialist Endocrinology 05/29/24 Sera Montes MD [address] [place] [address] Specialist Neurology 05/29/24 documented as of this encounter
--- OUTSIDE RECORDS SUMMARY | 2025-09-13 00:59 | XMS_ITS | Encounter Summary ---
Author Organization [facility] Address [address] [place] [address] Care Team Providers Care Mobile Heavy Equipment Mechanic Name Role Phone Christie Gonzales MD Primary Care Provider Jack Glynn MD Primary Care Provider Kelli Garcia MD Unavailable Kalpana Landaverde MD Primary Care Prov ider Sol Womack PA-C Unavailable [phone] Sera Montes MD Unavailable Unava ilable Encounter Details Date Type Department Care Team Description 11/27/2018 Orders Only Medical Records [address] [place] [address] Matteo Vegas MD [address] [place], [place] [id number] Social History Tobacco Use Types Packs/Day Years [...] Name Priority Date/Time Associated Diagnosis Comments OUTSIDE LAB Routine 11/27/2018 documented in this encounter Results * OUTSIDE LAB (11/27/2018) Matteo Vegas MD LAB documented in this encounter Visit Diagnoses Not on filedocumented in this encounter Additional Health Concerns Infection Onset Date Last Indicated Resolved Time COVID-19 Comment:Reporting positive COVID 07/2807/28/2022 07/29/2022 11/14/2022 8:[address] documented as of this encounter Care Teams Mobile Heavy Equipment Mechanic Relationship Specialty Start Date End Date Christie Gonzales MD PCP - General 08/26/10 04/27/21 Jack Bedoya MD PCP - General Internal Medicine 04/28/21 07/24/22 Kalpana Landaverde MD [address] [place] [address] PCP - General Internal Medicine 07/25/22 Kelli Singh MD Specialist Cardiology 07/06/21 Sol Womack PA-C [address] [place] [address] Specialist Endocrinology 05/29/24 Sera Montes MD [address] [place] [address] Specialist Neurology 05/29/24 documented as of this encounter
--- OUTSIDE RECORDS SUMMARY | 2025-09-13 00:59 | XMS_ITS | Encounter Summary ---
Author Organization [facility] Address [address] [place] [address] Care Team Providers Care Wireless Sales Associate Name Role Phone Jack Bedoya MD Primary Care Provider Kelli Garcia MD Unavailable [phone] Kalpana Landaverde MD Primary Care Prov ider Sol Womack PA-C Unavailable [phone] Sera Montes MD Unavailable Unava ilable Encounter Details Date Type Department Care Team Description 05/17/2021 Pediatric Ophthalmologist Report Medical Records [address] [place] [address] Alexsander Wilkins MD, MD Social History Tobacco Use Types Packs/Day [...] documented as of this encounter Care Teams Wireless Sales Associate Relationship Specialty Start Date End Date Jack Bedoya MD PCP - General Internal Medicine 04/28/21 07/24/22 Kalpana Landaverde MD [address] [place] [address] PCP - General Internal Medicine 07/25/22 Kelli Singh MD Specialist Cardiology 07/06/21 Sol Womack PA-C [address] [place] [address] Specialist Endocrinology 05/29/24 Sera Montes MD [address] [place] [address] Specialist Neurology 05/29/24 documented as of this encounter
--- OUTSIDE RECORDS SUMMARY | 2025-09-13 00:59 | XMS_ITS | Encounter Summary ---
Author Organization [facility] Address [address] [place] [address] Care Team Providers Care Mechanical Engineering Draftsperson Name Role Phone Christie Gonzales MD Primary Care Provider Jack Glynn MD Primary Care Provider Kelli Garcia MD Unavailable [phone] Kalpana Landaverde MD Primary Care Prov ider Sol Womack PA-C Unavailable [phone] Sera Montes MD Unavailable Unava ilable Encounter Details Date Type Department Care Team Description 04/19/2013 Release of Information Medical Records [address] [place] [address] Abstract, Provider Social History Tobacco Use Types [...] documented as of this encounter Care Teams Mechanical Engineering Draftsperson Relationship Specialty Start Date End Date Christie Gonzales MD PCP - General 08/26/10 04/27/21 Jack Bedoya MD PCP - General Internal Medicine 04/28/21 07/24/22 Kalpana Landaverde MD [address] [place] [address] PCP - General Internal Medicine 07/25/22 Kelli Singh MD Specialist Cardiology 07/06/21 Sol Womack PA-C [address] [place], [place] [id number] Specialist Endocrinology 05/29/24 Sera Montes MD [address] [place] [address] Specialist Neurology 05/29/24 documented as of this encounter
--- OUTSIDE RECORDS SUMMARY | 2025-09-13 00:59 | XMS_ITS | Encounter Summary ---
Author Organization [facility] Address [address] [place] [address] Care Team Providers Care Phone Manager Name Role Phone Christie Gonzales MD Primary Care Provider Jack Glynn MD Primary Care Provider Kelli Garcia MD Unavailable [phone] Kalpana Landaverde MD Primary Care Prov ider Sol Womack PA-C Unavailable [phone] Sera Montes MD Unavailable Unava ilable Encounter Details Date Type Department Care Team Description 01/31/2019 Telephone Adult Medicine [address] [address] John Mejia MD Social History Tobacco Use [...] encounter Miscellaneous Notes * Telephone Encounter - John Mejia MD - 01/31/2019 3:49 PM EDT D/w pt will check tsh > 6 weeks on meds. A1C also. Has loss of taste ?? 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 documented in this encounter Additional Health Concerns Infection Onset Date Last Indicated Resolved Time COVID-19 Comment:Reporting positive COVID 07/2807/28/2022 07/29/2022 11/14/2022 8:[address] documented as of this encounter Care Teams Phone Manager Relationship Specialty Start Date End Date Christie Gonzales MD PCP - General 08/26/10 04/27/21 Jack Bedoya MD PCP - General Internal Medicine 04/28/21 07/24/22 Kalpana Landaverde MD [address] [place] [address] PCP - General Internal Medicine 07/25/22 Kelli Singh MD Specialist Cardiology 07/06/21 Sol Womack PA-C [address] [place] [address] Specialist Endocrinology 05/29/24 Sera Montes MD [address] [place] [address] Specialist Neurology 05/29/24 documented as of this encounter
--- OUTSIDE RECORDS SUMMARY | 2025-09-13 00:59 | XMS_ITS | Encounter Summary ---
Author Organization [facility] Address [address] [place] [address] Care Team Providers Care Regional Facilities Specialist Name Role Phone Kelli Singh MD Unavailable [phone] Kalpana Landaverde MD Primary Care Prov ider Sol Womack PA-C Unavailable [phone] Sera Montes MD Unavailable Unava ilable Reason for Visit * Reason Comments E-prescribe Rx Request Encounter Details Date Type Department Care Team Description 12/18/2023 Refill Endocrinology - [place] [address] [place] [address] Foreign Tavarez MD [address] [place], [place] [phone] E-prescribe Rx Request Social History Tobacco Use [...] thyroiditis documented in this encounter Care Teams Regional Facilities Specialist Relationship Specialty Start Date End Date Kalpana Landaverde MD [address] [place] [address] PCP - General Internal Medicine 07/25/22 Kelli Singh MD Specialist Cardiology 07/06/21 Sol Womack PA-C [address] [place] [address] Specialist Endocrinology 05/29/24 Sera Montes MD [address] [place] [address] Specialist Neurology 05/29/24 documented as of this encounter
--- OUTSIDE RECORDS SUMMARY | 2025-09-13 00:59 | XMS_ITS | Encounter Summary ---
Author Organization [facility] Address [address] [place] [address] Care Team Providers Care Hr Business Partner Name Role Phone Jack Bedoya MD Primary Care Provider Kelli Garcia MD Unavailable [phone] Kalpana Landaverde MD Primary Care Prov ider Sol Womack PA-C Unavailable [phone] Sera Montes MD Unavailable Unava ilable Encounter Details Date Type Department Care Team Description 09/10/2021 Hospital Medical Records [address] [place], [place] [id number] [place] [address] Social History Tobacco Use Types Packs/Day Years [...] documented as of this encounter Care Teams Hr Business Partner Relationship Specialty Start Date End Date Jack Bedoya MD PCP - General Internal Medicine 04/28/21 07/24/22 Kalpana Landaverde MD [address] [place] [address] PCP - General Internal Medicine 07/25/22 Kelli Singh MD Specialist Cardiology 07/06/21 Sol Womack PA-C [address] [place] [address] Specialist Endocrinology 05/29/24 Sera Montes MD [address] [place] [address] Specialist Neurology 05/29/24 documented as of this encounter
--- OUTSIDE RECORDS SUMMARY | 2025-09-13 00:59 | XMS_ITS | Encounter Summary ---
Author Organization [facility] Address [address] [place] [address] Care Team Providers Care Visual Design Lead Name Role Phone Jack Bedoya MD Primary Care Provider Kelli Garcia MD Unavailable [phone] Kalpana Landaverde MD Primary Care Prov ider Sol Womack PA-C Unavailable [phone] Sera Montes MD Unavailable Unava ilable Reason for Visit * Reason Onset Date Comments Faxed Refill 07/06/2021 Encounter Details Date Type Department Care Team Description 07/06/2021 Refill Adult Medicine [address] [address] Jack Bedoya MD Faxed Refill Social History [...] documented as of this encounter Care Teams Visual Design Lead Relationship Specialty Start Date End Date Jack Bedoya MD PCP - General Internal Medicine 04/28/21 07/24/22 Leila Pérez, Kalpana Herndon MD [address] [place] [address] PCP - General Internal Medicine 07/25/22 Kelli Singh MD Specialist Cardiology 07/06/21 Sol Womack PA-C [address] [place] [address] Specialist Endocrinology 05/29/24 Sera Montes MD [address] [place] [address] Specialist Neurology 05/29/24 documented as of this encounter
--- OUTSIDE RECORDS SUMMARY | 2025-09-13 00:59 | XMS_ITS | Encounter Summary ---
Author Organization [facility] Address [address] [place] [address] Care Team Providers Care Echo Tech Name Role Phone Kelli Singh MD Unavailable [phone] Kalpana Landaverde MD Primary Care Prov ider Sol Womack PA-C Unavailable [phone] Sera Montes MD Unavailable Unava ilable Encounter Details Date Type Department Care Team Description 07/31/2023 Telephone Adult Medicine [address] [address] Dale Juarez MD [address] [place] [address] Social History Tobacco Use Types Packs/Day Years [...] on filedocumented in this encounter Care Teams Echo Tech Relationship Specialty Start Date End Date Kalpana Landaverde MD [address] [place] [address] PCP - General Internal Medicine 07/25/22 Kelli Singh MD Specialist Cardiology 07/06/21 Sol Womack PA-C [address] [place] [address] Specialist Endocrinology 05/29/24 Sera Montes MD [address] [place] [address] Specialist Neurology 05/29/24 documented as of this encounter
--- OUTSIDE RECORDS SUMMARY | 2025-09-13 00:59 | XMS_ITS | Encounter Summary ---
Author Organization [facility] Address [address] [place] [address] Care Team Providers Care Blueprint Reader Name Role Phone Kelli Singh MD Unavailable [phone] Kalpana Landaverde MD Primary Care Prov ider Sol Womack PA-C Unavailable [phone] Sera Montes MD Unavailable Unava ilable Reason for Visit * Reason Comments E-prescribe Rx Request Encounter Details Date Type Department Care Team Description 01/24/2024 Refill Endocrinology - [place] [address] [place] [address] Sol Womack PA-C [address] [facility] [place] [address] E-prescribe Rx Request Social History Tobacco Use [...] Telephone Encounter - Carol Houston M.A. - 01/24/2024 5:01 PM EDT Yeni 12/26/23 Ov 06/27/24 Lab Results Component Value Date HGBA1C 6.9 12/26/2023 MALBUR 28.5 05/01/2023 MALBCR 13.4 05/01/2023 CHOL 200 07/20/2023 LDL 122 07/20/2023 HDL 43 07/20/2023 TRIG 176 07/20/2023 GLU 138 11/03/2023 CREAT 0.84 11/03/2023 * Telephone Encounter - Zoila Romero - 01/24/2024 11:01 AM EDT Patient would like script to be: E-PRESCRIBED/FAXED TO PHARMACY WHEN WAS THE PATIENT'S LAST APPOINTMENT IN ADULT MEDICINE? 10/19/23 WHEN WAS THE LAST TIME THE PATIENT SAW THEIR PCP? 09/04/23 Does patient have an upcoming appointment? Yes 02/12/24 (THE MEDICATION REQUESTED IS ON THE MED [...] N/A Patients current insurance carrier is: Payor: [facility] [employer] / Plan: [facility] / Product Type: MEDICAID RISK documented in this encounter Plan of Treatment Not on file documented as of this encounter Visit Diagnoses Not on filedocumented in this encounter Care Teams Blueprint Reader Relationship Specialty Start Date End Date Kalpana Landaverde MD [address] [place] [address] PCP - General Internal Medicine 07/25/22 Kelli Singh MD Specialist Cardiology 07/06/21 Sol Womack PA-C [address] [place] [address] Specialist Endocrinology 05/29/24 Sera Montes MD [address] [place] [address] Specialist Neurology 05/29/24 documented as of this encounter
--- OUTSIDE RECORDS SUMMARY | 2025-09-13 00:59 | XMS_ITS | Encounter Summary ---
Author Organization [facility] Address [address] [place] [address] Care Team Providers Care Fight Manager Name Role Phone Christie Gonzales MD Primary Care Provider Jack Glynn MD Primary Care Provider Kelli Garcia MD Unavailable [phone] Kalpana Landaverde MD Primary Care Prov ider Sol Womack PA-C Unavailable [phone] Sera Montes MD Unavailable Unava ilable Reason for Visit * Reason Comments E-prescribe Rx Request Encounter Details Date Type Department Care Team Description 05/13/2019 Refill Adult Medicine [address] [address] John Mejia MD E-prescribe Rx Request Social [...] - 05/14/2019 8:55 AM EDT Sent to [place] documented in this encounter Plan of Treatment Not on file documented as of this encounter Visit Diagnoses Not on filedocumented in this encounter Additional Health Concerns Infection Onset Date Last Indicated Resolved Time COVID-19 Comment:Reporting positive COVID 07/2807/28/2022 07/29/2022 11/14/2022 8:[address] documented as of this encounter Care Teams Fight Manager Relationship Specialty Start Date End Date Christie Gonzales MD PCP - General 08/26/10 04/27/21 Jack Bedoya MD PCP - General Internal Medicine 04/28/21 07/24/22 Kalpana Landaverde MD [address] [place] [address] PCP - General Internal Medicine 07/25/22 Kelli Singh MD Specialist Cardiology 07/06/21 Sol Womack PA-C [address] [place] [address] Specialist Endocrinology 05/29/24 Sera Montes MD [address] [place] [address] Specialist Neurology 05/29/24 documented as of this encounter
--- OUTSIDE RECORDS SUMMARY | 2025-09-13 00:59 | XMS_ITS | Encounter Summary ---
Author Organization [facility] Address [address] [place] [address] Care Team Providers Care Ordnance Corps Officer Name Role Phone Christie Gonzales MD Primary Care Provider Jack Glynn MD Primary Care Provider Kelli Garcia MD Unavailable [phone] Kalpana Landaverde MD Primary Care Prov ider Sol Womack PA-C Unavailable [phone] Sera Montes MD Unavailable Unava ilable Reason for Visit * Reason Onset Date Comments Sales Representative Printing Supplies Feedback 03/24/2014 Referral to Orth opedics Encounter Details Date Type Department Care Team Description 03/24/2014 Telephone Adult Urgent Care - [address] [address] Natasha Aquino PA-C Sales Representative Printing Supplies Feedback (Referral to Orthopedics ) Social History [...] get her is for 05/08/14. Thank you [facility]'s Coordinator Radha documented in this encounter Plan of Treatment Not on file documented as of this encounter Visit Diagnoses Not on filedocumented in this encounter Additional Health Concerns Infection Onset Date Last Indicated Resolved Time COVID-19 Comment:Reporting positive COVID 07/2807/28/2022 07/29/2022 11/14/2022 8:[address] documented as of this encounter Care Teams Ordnance Corps Officer Relationship Specialty Start Date End Date Christie Gonzales MD PCP - General 08/26/10 04/27/21 Jack Bedoya MD PCP - General Internal Medicine 04/28/21 07/24/22 Kalpana Landaverde MD [address] [place] [address] PCP - General Internal Medicine 07/25/22 Kelli Singh MD Specialist Cardiology 07/06/21 Sol Womack PA-C [address] [place] [address] Specialist Endocrinology 05/29/24 Sera Montes MD [address] [place] [address] Specialist Neurology 05/29/24 documented as of this encounter
--- OUTSIDE RECORDS SUMMARY | 2025-09-13 00:59 | XMS_ITS | Encounter Summary ---
Author Organization [facility] Address [address] [place] [address] Care Team Providers Care Admissions Officer Name Role Phone Christie Gonzales MD Primary Care Provider Jack Glynn MD Primary Care Provider Kelli Garcia MD Unavailable [phone] Kalpana Landaverde MD Primary Care Prov ider Sol Womack PA-C Unavailable [phone] Sera Montes MD Unavailable Unava ilable Encounter Details Date Type Department Care Team Description 06/25/2015 APPLICATIONS MANAGER/[facility] Report Medical Records [address] [place] [address] Abstract, Provider Social History Tobacco Use Types [...] documented as of this encounter Care Teams Admissions Officer Relationship Specialty Start Date End Date Christie Gonzales MD PCP - General 08/26/10 04/27/21 Jack Bedoya MD PCP - General Internal Medicine 04/28/21 07/24/22 Kalpana Landaverde MD [address] [place] [address] PCP - General Internal Medicine 07/25/22 Kelli Singh MD Specialist Cardiology 07/06/21 Sol Womack PA-C [address] [place] [address] Specialist Endocrinology 05/29/24 Sera Montes MD [address] [place] [address] Specialist Neurology 05/29/24 documented as of this encounter
--- OUTSIDE RECORDS SUMMARY | 2025-09-13 00:59 | XMS_ITS | Encounter Summary ---
Author Organization [facility] Address [address] [place] [address] Care Team Providers Care Cnc Laser Operator Name Role Phone Kelli Singh MD Unavailable [phone] Kalpana Landaverde MD Primary Care Prov ider Sol Womack PA-C Unavailable [phone] Sera Montes MD Unavailable Unava ilable Encounter Details Date Type Department Care Team Description 07/20/2023 CGM Report Medical Records [address] [place] [address] Abstract, Provider Social History Tobacco Use Types [...] suspected to have Coronavirus/COVID-19? No / Unsure 07/20/2023 1:54 PM EDT documented as of this encounter Plan of Treatment Not on file documented as of this encounter Visit Diagnoses Not on filedocumented in this encounter Care Teams Cnc Laser Operator Relationship Specialty Start Date End Date Kalpana Landaverde MD [address] [place] [address] PCP - General Internal Medicine 07/25/22 Kelli Singh MD Specialist Cardiology 07/06/21 Sol Womack PA-C [address] [place] [address] Specialist Endocrinology 05/29/24 Sera Montes MD [address] [place] [address] Specialist Neurology 05/29/24 documented as of this encounter
--- OUTSIDE RECORDS SUMMARY | 2025-09-13 00:59 | XMS_ITS | Encounter Summary ---
Author Organization [facility] Address [address] [place] [address] Care Team Providers Care Transactional Attorney Name Role Phone Christie Gonzales MD Primary Care Provider Jack Glynn MD Primary Care Provider Kelli Garcia MD Unavailable [phone] Kalpana Landaverde MD Primary Care Prov ider Sol Womack PA-C Unavailable [phone] Sera Montes MD Unavailable Unava ilable Encounter Details Date Type Department Care Team Description 03/04/2019 Telephone General Surgery - [address] [place] [id number] Sylvia Cotto PA-C Social History Tobacco [...] documented as of this encounter Care Teams Transactional Attorney Relationship Specialty Start Date End Date Christie Gonzales MD PCP - General 08/26/10 04/27/21 Jack Bedoya MD PCP - General Internal Medicine 04/28/21 07/24/22 Kalpana Landaverde MD [address] [place] [address] PCP - General Internal Medicine 07/25/22 Kelli Singh MD Specialist Cardiology 07/06/21 Sol Womack PA-C [address] [place] [address] Specialist Endocrinology 05/29/24 Sera Montes MD [address] [place] [address] Specialist Neurology 05/29/24 documented as of this encounter
--- OUTSIDE RECORDS SUMMARY | 2025-09-13 00:59 | XMS_ITS | Encounter Summary ---
Author Organization [facility] Address [address] [place] [address] Care Team Providers Care Passenger Interline Clerk Name Role Phone Christie Gonzales MD Primary Care Provider Jack Glynn MD Primary Care Provider Kelli Garcia MD Unavailable [phone] Kalpana Landaverde MD Primary Care Prov ider Sol Womack PA-C Unavailable [phone] Sera Montes MD Unavailable Unava ilable Reason for Visit * Reason Comments E-prescribe Rx Request Encounter Details Date Type Department Care Team Description 07/07/2019 Refill Adult Medicine [address] [address] Ramesh Atkinson MD [address] [place] [address] E-prescribe Rx Request Social History Tobacco Use [...] documented as of this encounter Care Teams Passenger Interline Clerk Relationship Specialty Start Date End Date Christie Gonzales MD PCP - General 08/26/10 04/27/21 Jack Bedoya MD PCP - General Internal Medicine 04/28/21 07/24/22 Leila Pérez, Kalpana Herndon MD [address] [place] [address] PCP - General Internal Medicine 07/25/22 Kelli Singh MD Specialist Cardiology 07/06/21 Sol Womack PA-C [address] [place] [address] Specialist Endocrinology 05/29/24 Sera Montes MD [address] [place] [address] Specialist Neurology 05/29/24 documented as of this encounter
--- OUTSIDE RECORDS SUMMARY | 2025-09-13 00:59 | XMS_ITS | Encounter Summary ---
Author Organization [facility] Address [address] [place] [address] Care Team Providers Care Supervisor Benzene Refining Name Role Phone Kelli Singh MD Unavailable [phone] Kalpana Landaverde MD Primary Care Prov ider Sol Womack PA-C Unavailable Sera Montes MD Unavailable Unava ilable Reason for Visit * Reason Onset Date Comments Prior Authorization 06/09/2023 Encounter Details Date Type Department Care Team Description 06/09/2023 Telephone Endocrinology - [place] [address] [place] [address] Sol Womack PA-C [address] [facility] [place] [address] Prior Authorization Social History Tobacco Use Types [...] to pharm Sarah Rincon Auth Dep Ext [phone] * Telephone Encounter - Sarah Loja M.A. - 06/09/2023 9:56 AM EDT Auth called into [facility] [id number] Tried trulicity, glipizide, insulin aspart flex pen, lantus, humalog, metformin Sarah Loja Prior Auth Dep Ext [phone] * Telephone Encounter - August Garland - 06/09/2023 9:18 AM EDT Prior Authorization for Medication-do not complete and send this encounter unless you have the fax from the pharmacy. Is this a Cover My Meds request: Yes -- Cordon Code [id number] Name of Medication Fiasp Flex Touch Dose of Medication 100 unit / ml How does patient take this med? injection What Pharmacy did the fax come from: [facility] Pharm[facility] fax #: [phone] [employer] Information from fax: documented in this encounter Plan of Treatment Not on file documented as of this encounter Visit Diagnoses Not on filedocumented in this encounter Care Teams Supervisor Benzene Refining Relationship Specialty Start Date End Date Kalpana Landaverde MD [address] [place] [address] PCP - General Internal Medicine 07/25/22 Kelli Singh MD Specialist Cardiology 07/06/21 Sol Womack PA-C [address] [place] [address] Specialist Endocrinology 05/29/24 Sera Montes MD [address] [place] [address] Specialist Neurology 05/29/24 documented as of this encounter
[2025-09-13 01:00] LABS: Alanine Aminotransferase 26 U/L (0-31); Albumin Level 4.1 g/dL (3.5-5.0); Alkaline Phosphatase 61 U/L (39-117); Anion Gap 16 (12-20); Aspartate Amino Transferase 38 U/L (5-31); Blood Urea Nitrogen 22 mg/dL (9-16); Calcium 9.1 mg/dL (8.4-10.2); Carbon Dioxide 25 mmol/L (22-29); Chloride 106 mmol/L (96-108); Creatinine Clr Calc Pharmacy 90.2; Estimated Glomerular Filt Rate 53; Lipase 101 U/L (8-78); Potassium 3.5 mmol/L (3.3-5.1); Sodium 143 mmol/L (135-145); Total Protein 7.1 g/dL (6.5-8.0)
--- OUTSIDE RECORDS SUMMARY | 2025-09-13 01:00 | XMS_ITS | Encounter Summary ---
Author Organization [facility] Address [address] [place] [address] Care Team Providers Care Political Scientist Name Role Phone Jack Bedoya MD Primary Care Provider Kelli Garcia MD Unavailable [phone] Kalpana Landaverde MD Primary Care Prov ider Sol Womack PA-C Unavailable [phone] Sera Montes MD Unavailable Unava ilable Reason for Visit * Reason Comments E-prescribe Rx Request Encounter Details Date Type Department Care Team Description 03/28/2022 Refill Adult Medicine [address] [address] Jack Bedoya MD E-prescribe Rx Request Social [...] documented as of this encounter Care Teams Political Scientist Relationship Specialty Start Date End Date Jack Bedoya MD PCP - General Internal Medicine 04/28/21 07/24/22 Kalpana Landaverde MD [address] [place] [address] PCP - General Internal Medicine 07/25/22 Kelli Singh MD Specialist Cardiology 07/06/21 Sol Womack PA-C [address] [place] [address] Specialist Endocrinology 05/29/24 Sera Montes MD [address] [place] [address] Specialist Neurology 05/29/24 documented as of this encounter
--- OUTSIDE RECORDS SUMMARY | 2025-09-13 01:00 | XMS_ITS | Encounter Summary ---
Author Organization [facility] Address [address] [place] [address] Care Team Providers Care Towboat Captain Name Role Phone Christie Gonzales MD Primary Care Provider Jack Glynn MD Primary Care Provider Kelli Garcia MD Unavailable [phone] Kalpana Landaverde MD Primary Care Prov ider Sol Womack PA-C Unavailable [phone] Sera Montes MD Unavailable Unava ilable Reason for Visit * Reason Comments E-prescribe Rx Request Encounter Details Date Type Department Care Team Description 10/15/2015 Refill Adult Medicine [address] [address] Juanita Flores PA-C [address] [place] [place] [phone] E-prescribe Rx Request Social History Tobacco Use [...] encounter Miscellaneous Notes * Telephone Encounter - Yaima Pasha - 10/18/2015 2:50 PM EST Patient would like script to be: E-PRESCRIBED/FAXED TO PHARMACY WHEN WAS THE PATIENT'S LAST APPOINTMENT IN ADULT MEDICINE? 09/21/15 WHEN WAS THE LAST TIME THE PATIENT SAW THEIR PCP? 05/30/13 Does patient have an upcoming appointment? No-unable to reach left [facility] to call for appointment due to refill request. Appt due with PCP (THE MEDICATION REQUESTED IS ON THE MED [...] documented as of this encounter Care Teams Towboat Captain Relationship Specialty Start Date End Date Christie Gonzales MD PCP - General 08/26/10 04/27/21 Jack Bedoya MD PCP - General Internal Medicine 04/28/21 07/24/22 Kalpana Landaverde MD [address] [place] [address] PCP - General Internal Medicine 07/25/22 Kelli Singh MD Specialist Cardiology 07/06/21 Sol Womack PA-C [address] [place] [address] Specialist Endocrinology 05/29/24 Sera Montes MD [address] [place] [address] Specialist Neurology 05/29/24 documented as of this encounter
--- OUTSIDE RECORDS SUMMARY | 2025-09-13 01:00 | XMS_ITS | Encounter Summary ---
Author Organization [facility] Address [address] [place] [address] Care Team Providers Care Towel Sorter Name Role Phone Christie Gonzales MD Primary Care Provider Jack Glynn MD Primary Care Provider Kelli Garcia MD Unavailable [phone] Kalpana Landaverde MD Primary Care Prov ider Sol Womack PA-C Unavailable [phone] Sera Montes MD Unavailable Unava ilable Encounter Details Date Type Department Care Team Description 07/02/2018 Hospital Medical Records [address] [place] [address] Hanane Perez MD [address] [place] [address] Social History Tobacco Use Types Packs/Day Years [...] documented as of this encounter Care Teams Towel Sorter Relationship Specialty Start Date End Date Christie Gonzales MD PCP - General 08/26/10 04/27/21 Jack Bedoya MD PCP - General Internal Medicine 04/28/21 07/24/22 Kalpana Landaverde MD [address] [place] [address] PCP - General Internal Medicine 07/25/22 Kelli Singh MD Specialist Cardiology 07/06/21 Sol Womack PA-C [address] [place] [address] Specialist Endocrinology 05/29/24 Sera Montes MD [address] [place] [address] Specialist Neurology 05/29/24 documented as of this encounter
--- OUTSIDE RECORDS SUMMARY | 2025-09-13 01:00 | XMS_ITS | Encounter Summary ---
Author Organization [facility] Address [address] [place] [address] Care Team Providers Care Metal Control Worker Name Role Phone Christie Gonzales MD Primary Care Provider Jack Glynn MD Primary Care Provider Kelli Garcia MD Unavailable [phone] Kalpana Landaverde MD Primary Care Prov ider Sol Womack PA-C Unavailable [phone] Sera Montes MD Unavailable Unava ilable Reason for Visit * Reason Comments E-prescribe Rx Request Encounter Details Date Type Department Care Team Description 12/08/2016 Refill Adult Medicine [address] [address] Juanita Flores PA-C [address] [place] [address] E-prescribe Rx Request Social History Tobacco Use [...] documented as of this encounter Care Teams Metal Control Worker Relationship Specialty Start Date End Date Christie Gonzales MD PCP - General 08/26/10 04/27/21 Jack Bedoya MD PCP - General Internal Medicine 04/28/21 07/24/22 Kalpana Landaverde MD [address] [place] [address] PCP - General Internal Medicine 07/25/22 Kelli Singh MD Specialist Cardiology 07/06/21 Sol Womack PA-C [address] [place] [address] Specialist Endocrinology 05/29/24 Sera Montes MD [address] [place] [address] Specialist Neurology 05/29/24 documented as of this encounter
--- OUTSIDE RECORDS SUMMARY | 2025-09-13 01:00 | XMS_ITS | Encounter Summary ---
Author Organization [facility] Address [address] [place] [address] Care Team Providers Care Cleaning Porter Name Role Phone Christie Gonzales MD Primary Care Provider Jack Glynn MD Primary Care Provider Kelli Garcia MD Unavailable [phone] Kalpana Landaverde MD Primary Care Prov ider Sol Womack PA-C Unavailable [phone] Sera Montes MD Unavailable Unava ilable Reason for Visit * Reason Onset Date Comments LAB WORK 09/27/2018 Encounter Details Date Type Department Care Team Description 09/27/2018 Telephone Endocrinology - [address] [address] John Mejia MD LAB WORK Social History Tobacco Use Types [...] encounter Miscellaneous Notes * Telephone Encounter - Desi Jones L.P.N. - 09/27/2018 1:34 PM EST AIC pended ,please sign if ok ,has appt on 10/11 for 3 month follow up. * Telephone Encounter - Unique Onel - 09/27/2018 12:26 PM EST Patient calling to request labs be ordered: What lab work is patient requesting? A1c Does patient have an upcoming appointment, if yes when and WITH WHO? yes 10/11/[address] Mejia Patients PCP is: Christie Gonzales documented in this encounter Plan of Treatment Not on file documented as of this encounter Results * (ABNORMAL) LIPID PROFILE (10/10/2018 8:50 AM EST) Cholesterol 206(H) 0 - 200 mg/dL 10/10/2018 4:28 PM EST [facility] TRIGLYCERIDES 174(H) 0 - 150 mg/dL 10/10/2018 4:28 PM [facility] HDL CHOLESTEROL 42 >40 mg/dL 8 4:28 PM [facility] LDL CALCULATED 130(H) 0 - 100 mg/dL 10/10/2018 4:32 PM [facility] TC-HDLC RATIO 5(H) 0.0 - 4.4 mg/dL 10/10/2018 4:28 PM [facility] 10/10/2018 8:50 AM EST 10/10/2018 8:51 AM EST John Mejia MD LAB Performing Organization Address City/State/[facility] Co de Phone Number [facility] [address] [facility] * (ABNORMAL) BASIC METABOLIC PANEL (10/10/2018 8:50 AM EST) GLUCOSE 138(H) 70 - 100 mg/dL 10/10/2018 4:28 PM [facility] Comment: Reference range applicable to fasting specimens only Based on recommendations from the ADA and AACE, the fasting glucose reference range has been changed to 70-100 mg/dL. This change is effective March 08, 2010 BUN 19 5 - 25 mg/dL 10/10/2018 4:28 PM [facility] CREAT 0.8 0.7 - 1.5 mg/dL 10/10/2018 4:28 PM [facility] GFR > 60 >60 10/10/2018 4:28 PM [facility] Comment: If patient is -[place], multiply result by 1.21 Chronic Kidney Disease: < 60 ml/min/1.73 square meters Kidney Failure: < 15 ml/min/1.73 square meters Sodium 141 133 - 145 mEq/L 10/10/2018 4:28 PM EST [facility] Potassium 4.7 3.5 - 5.5 mEq/L 10/10/2018 4:28 PM [facility] Chloride 105 96 - 108 mEq/L 10/10/2018 4:28 PM [facility] CO2 17.7(L) 21.0 - 32.0 mEq/L 10/10/2018 4:28 PM [facility] CALCIUM 9.4 8.5 - 10.5 mg/dL 10/10/2018 4:28 PM [facility] 10/10/2018 8:50 AM EST 10/10/2018 8:51 AM EST John Mejia MD LAB Performing Organization Address [facility] Co de Phone Number [address] * (ABNORMAL) HEMOGLOBIN A1C (10/10/2018 8:50 AM EST) Glycosylated Hemoglobin A1C 7.1(H) 4.0 - 6.0 % 10/10/2018 11:45 AM EST [facility] Comment: HbA1C VALUES MAY NOT ACCURATELY REFLECT MEAN BLOOD GLUCOSE IN PATIENTS WITH HEMOGLOBIN VARIANTS SUCH HbF, HbS. 10/10/2018 8:50 AM EST 10/10/2018 8:51 AM EST John Mejia MD LAB Performing Organization Address [facility] Co de Phone Number [address] documented in this encounter Visit Diagnoses Diagnosis Type 2 diabetes mellitus with diabetic mononeuropathy, without long-term current use of insulin (HCC)- Primary documented in this encounter Additional Health Concerns Infection Onset Date Last Indicated Resolved Time COVID-19 Comment:Reporting positive COVID 07/2807/28/2022 07/29/2022 11/14/2022 8:[address] documented as of this encounter Care Teams Cleaning Porter Relationship Specialty Start Date End Date Christie Gonzales MD PCP - General 08/26/10 04/27/21 Jack Bedoya MD PCP - General Internal Medicine 04/28/21 07/24/22 Kalpana Landaverde MD [address] [place] [address] PCP - General Internal Medicine 07/25/22 Kelli Singh MD Specialist Cardiology 07/06/21 Sol Womack PA-C [address] [place] [address] Specialist Endocrinology 05/29/24 Sera Montes MD [address] [place] [address] Specialist Neurology 05/29/24 documented as of this encounter
--- OUTSIDE RECORDS SUMMARY | 2025-09-13 01:00 | XMS_ITS | Encounter Summary ---
Author Organization [facility] Address [address] [place] [address] Care Team Providers Care Circus Performer Name Role Phone Jack Bedoya MD Primary Care Provider Kelli Garcia MD Unavailable [phone] Kalpana Landaverde MD Primary Care Prov ider Sol Womack PA-C Unavailable [phone] Sera Montes MD Unavailable Unava ilable Reason for Visit * Reason Comments E-prescribe Rx Request Encounter Details Date Type Department Care Team Description 05/27/2022 Refill Endocrinology - [address] [address] Sol Womack PA-C [address] [place] [address] E-prescribe Rx Request Social History Tobacco Use [...] documented as of this encounter Care Teams Circus Performer Relationship Specialty Start Date End Date Jack Bedoya MD PCP - General Internal Medicine 04/28/21 07/24/22 Kalpana Landaverde MD [address] [place] [address] PCP - General Internal Medicine 07/25/22 Kelli Singh MD Specialist Cardiology 07/06/21 Sol Womack PA-C [address] [place] [address] Specialist Endocrinology 05/29/24 Sera Montes MD [address] [place] [address] Specialist Neurology 05/29/24 documented as of this encounter
--- OUTSIDE RECORDS SUMMARY | 2025-09-13 01:00 | XMS_ITS | Encounter Summary ---
Author Organization [facility] Address [address] [place] [address] Care Team Providers Care Storeroom Keeper Name Role Phone Christie Gonzales MD Primary Care Provider Jack Glynn MD Primary Care Provider Kelli Garcia MD Unavailable [phone] Kalpana Landaverde MD Primary Care Prov ider Sol Womack PA-C Unavailable [phone] Sera Montes MD Unavailable Unava ilable Reason for Visit * Reason Comments E-prescribe Rx Request Encounter Details Date Type Department Care Team Description 10/06/2020 Refill Adult Medicine [address] [address] Christie Gonzales MD E-prescribe Rx Request Social [...] documented as of this encounter Care Teams Storeroom Keeper Relationship Specialty Start Date End Date Christie Gonzales MD PCP - General 08/26/10 04/27/21 Jack Bedoya MD PCP - General Internal Medicine 04/28/21 07/24/22 Kalpana Landaverde MD [address] [place] [address] PCP - General Internal Medicine 07/25/22 Kelli Singh MD Specialist Cardiology 07/06/21 Sol Womack PA-C [address] [place] [address] Specialist Endocrinology 05/29/24 Sera Montes MD [address] [place] [address] Specialist Neurology 05/29/24 documented as of this encounter
--- OUTSIDE RECORDS SUMMARY | 2025-09-13 01:00 | XMS_ITS | Encounter Summary ---
Author Organization [facility] Address [address] [place] [address] Care Team Providers Care Chemist Food Name Role Phone Christie Gonzales MD Primary Care Provider Jack Glynn MD Primary Care Provider Kelli Garcia MD Unavailable [phone] Kalpana Landaverde MD Primary Care Prov ider Sol Womack PA-C Unavailable [phone] Sera Montes MD Unavailable Unava ilable Reason for Visit * Reason Comments E-prescribe Rx Request Encounter Details Date Type Department Care Team Description 11/26/2017 Refill Adult Medicine [address] [address] Christie Gonzales MD E-prescribe Rx Request Social [...] documented as of this encounter Care Teams Chemist Food Relationship Specialty Start Date End Date Christie Gonzales MD PCP - General 08/26/10 04/27/21 Jack Bedoya MD PCP - General Internal Medicine 04/28/21 07/24/22 Kalpana Landaverde MD [address] [place] [address] PCP - General Internal Medicine 07/25/22 Kelli Singh MD Specialist Cardiology 07/06/21 Sol Womack PA-C [address] [place] [address] Specialist Endocrinology 05/29/24 Sera Montes MD [address] [place] [address] Specialist Neurology 05/29/24 documented as of this encounter
--- OUTSIDE RECORDS SUMMARY | 2025-09-13 01:00 | XMS_ITS | Encounter Summary ---
Author Organization [facility] [place] [address] Care Team Providers Care Engineer Second Assistant Name Role Phone Kalpana Feldman MD Primary Care Prov ider Reason for Visit * Reason Onset Date Comments Dizziness 09/09/2025 Encounter Details Date Type Department Care Team ([facility] st Contact Info) Description 09/09/2025 Telephone Adult Medicine [address] [phone] Kalpana Feldman MD [address] [place] [address] Social History Tobacco Use Types Packs/Day Years [...] for your loved ones. For example, child specialist or elderly care for an older [...] as of this encounter Progress Notes * Jasbir Noble RN - 09/09/2025 12:25 PM EST Called and spoke with pt. Pt c/o dizziness upon standing for the past three days. Pt has recently been worked up for presyncope/syncope dysautonomia. Seen cardiology on 07/23 all neg advised to fu with rheumatology. Pt has not reached out to rheumatology yet. Advised to call. No dizziness now but sts sitting. No head injury no blurred vision no chest pain no sob. Pt has hx of headaches sts steams from neck looking to get injections. Pt c/o nausea also did vomit this morning but not new for pt. Pt sts was on gabapentin which helped with this but has bene off for about a month because provider moved offices and hasn't been able to get a hold of him. Pt is eating and drinking and voiding normally. Appt for tomorrow advised for any new or worsening sx or concerns to go to er for evaluation. Ptsts blood sugars have been good highest 180 now 140. Pt is taking thyroid medication daily again since seeing endo 08/20. * Cami Wilder - 09/09/2025 11:52 AM EST Patient call requires triage: Symptoms patient is presenting: c/o dizziness upon standing How long has patient had these symptoms?: 3 days For ALL patients calling to schedule any appointment (routine, sick visit, follow up, consult, etc.) in the outpatient setting please ask the following questions: Do you have fever of higher than 101, sore throat with difficulty swallowing or severe shortness ofbreath? no If YES to any of these above symptoms, send a message to triage and do not book. Red dot. If no, an audio or video visit should be booked. Have you had close contact with someone with Coronavirus in the last 14 days? no Have you traveled abroad? no Have you traveled recently to another state outside of [place], [place], [place], [place], [place], [place], [place]? no o If yes, did you quarantine for 14 days or have a negative covid test? no If yes to any of the above, patient is not to be scheduled in office until after 14 day quarantine or negative covid test. If pain or injury related was it due to an accident at work or from a motor vehicle accident? If yes, date of accident/Injury: No If yes, gather 3rd green party insurance information Third Libertarian Information: not applicable PCP: Kalpana Pérez MD Payor: [employer] PLAN / Plan: [employer] QHP / Product Type: *No Product type* / documented in this encounter Plan of Treatment Upcoming Encounters Date Type Department Care Team (Late st Contact Info) Description 11/20/2025 8:40 AM EST Office Visit [address] [phone] Luis Watson MD [address] [place] [address] 01/08/2026 8:30 AM EDT Office Visit Adult Medicine [address] [phone] Kalpana Feldman MD [address] [place] [address] documented as of this encounter Visit Diagnoses Not on filedocumented in this encounter Additional Health Concerns Assessment Noted Time PHQ-9 Depression Total Score: 23 025 12:35 PM EDT documented as of this encounter Care Teams Engineer Second Assistant Relationship Specialty Start Date End Date Kalpana Feldman MD [address] [place] [address] PCP - General Internal Medicine 09/06/24 documented as of this encounter
--- OUTSIDE RECORDS SUMMARY | 2025-09-13 01:00 | XMS_ITS | Encounter Summary ---
Author Organization [facility] Address [address] [place] [address] Care Team Providers Care Watch Parts Inspector Name Role Phone Christie Gonzales MD Primary Care Provider Jack Glynn MD Primary Care Provider Kelli Garcia MD Unavailable [phone] Kalpana Landaverde MD Primary Care Prov ider Sol Womack PA-C Unavailable [phone] Sera Montes MD Unavailable Unava ilable Encounter Details Date Type Department Care Team Description 08/27/2018 Tare Man Report Medical Records [address] [place] [address] Rehab., Miguel Ángel Social History Tobacco Use [...] documented as of this encounter Care Teams Watch Parts Inspector Relationship Specialty Start Date End Date Christie Gonzales MD PCP - General 08/26/10 04/27/21 Jack Bedoya MD PCP - General Internal Medicine 04/28/21 07/24/22 Kalpana Landaverde MD [address] [place] [address] PCP - General Internal Medicine 07/25/22 Kelli Singh MD Specialist Cardiology 07/06/21 Sol Womack PA-C [address] [place] [address] Specialist Endocrinology 05/29/24 Sera Montes MD [address] [place] [address] Specialist Neurology 05/29/24 documented as of this encounter
--- OUTSIDE RECORDS SUMMARY | 2025-09-13 01:00 | XMS_ITS | Encounter Summary ---
Author Organization [facility] Address [address] [place] [address] Care Team Providers Care Groundman/Lineman Name Role Phone Jack Bedoya MD Primary Care Provider Kelli Garcia MD Unavailable [phone] Kalpana Landaverde MD Primary Care Prov ider Sol Womack PA-C Unavailable [phone] Sera Montes MD Unavailable Unava ilable Encounter Details Date Type Department Care Team Description 05/25/2022 CGM Report Medical Records [address] [place] [address] Abstract, Provider Social History Tobacco Use Types [...] documented as of this encounter Care Teams Groundman/Lineman Relationship Specialty Start Date End Date Jack Bedoya MD PCP - General Internal Medicine 04/28/21 07/24/22 Kalpana Landaverde MD [address] [place] [address] PCP - General Internal Medicine 07/25/22 Kelli Singh MD Specialist Cardiology 07/06/21 Sol Womack PA-C [address] [place] [address] Specialist Endocrinology 05/29/24 Sera Montes MD [address] [place] [address] Specialist Neurology 05/29/24 documented as of this encounter
--- OUTSIDE RECORDS SUMMARY | 2025-09-13 01:00 | XMS_ITS | Encounter Summary ---
Author Organization [facility] Address [address] [place] [address] Care Team Providers Care Alum Operator Name Role Phone Christei Gonzales MD Primary Care Provider Jack lGynn MD Primary Care Provider Kelli Garcia MD Unavailable [phone] Kalpana Landaverde MD Primary Care Prov ider Sol Womack PA-C Unavailable [phone] Sera Montes MD Unavailable Unava ilable Encounter Details Date Type Department Care Team Description 10/17/2020 Pt. Non Urgent Medical Question Adult Medicine [address] [address] Juanita Flores PA-C [address] [place] [address] Social History Tobacco Use Types Packs/Day Years [...] documented as of this encounter Care Teams Alum Operator Relationship Specialty Start Date End Date Christie Gonzales MD PCP - General 08/26/10 04/27/21 Jack Bedoya MD PCP - General Internal Medicine 04/28/21 07/24/22 Kalpana Landaverde MD [address] [place] [address] PCP - General Internal Medicine 07/25/22 Kelli Singh MD Specialist Cardiology 07/06/21 Sol Womack PA-C [address] [place] [address] Specialist Endocrinology 05/29/24 Sera Montes MD [address] [place] [address] Specialist Neurology 05/29/24 documented as of this encounter
--- OUTSIDE RECORDS SUMMARY | 2025-09-13 01:00 | XMS_ITS | Encounter Summary ---
Author Organization [facility] Address [address] [place] [address] Care Team Providers Care Plate Hanger Name Role Phone Jack Bedoya MD Primary Care Provider Kelli Garcia MD Unavailable [phone] Klapana Landaverde MD Primary Care Prov ider Sol Womack PA-C Unavailable [phone] Sera Montes MD Unavailable Unava ilable Reason for Visit * Reason Comments E-prescribe Rx Request Encounter Details Date Type Department Care Team Description 02/21/2022 Refill Adult Medicine [address] [address] Juanita Flores PA-C [address] [place] [address] E-prescribe Rx Request Social History Tobacco Use [...] encounter Miscellaneous Notes * Telephone Encounter - Jack Bedoya - 02/21/2022 12:41 PM EDT Need office visit * Telephone Encounter - Ayesha Olmos M.A. - 02/21/2022 8:39 AM EDT Lab Results Component Value Date NA 141 05/28/2021 K 4.4 05/28/2021 CO2 26 05/28/2021 CL 109 05/28/2021 BUN 15 05/28/2021 CREAT 0.58 05/28/2021 GLU 153 12/29/2021 CA 8.9 05/28/2021 GFR > 60 05/28/2021 CEE 10/14/2021 w/Hilaria Flores CEE w/PCP 10/05/2021 Next OV 03/31/2022 w/Yue Schwartz * Telephone Encounter - Marisela Espinoza - 02/21/2022 8:30 AM EDT Patient would like script to [...] positive COVID 07/2807/28/2022 07/29/2022 11/14/2022 8:22 AM EST documented as of this encounter Care Teams Plate Hanger Relationship Specialty Start Date End Date Jack Bedoya MD PCP - General Internal Medicine 04/28/21 07/24/22 Kalpana Landaverde MD [address] [place] [address] PCP - General Internal Medicine 07/25/22 Kelli Singh MD Specialist Cardiology 07/06/21 Sol Womack PA-C [address] [place] [address] Specialist Endocrinology 05/29/24 Sera Montes MD [address] [place] [address] Specialist Neurology 05/29/24 documented as of this encounter
--- OUTSIDE RECORDS SUMMARY | 2025-09-13 01:00 | XMS_ITS | Encounter Summary ---
Author Organization [facility] Address [address] [place] [address] Care Team Providers Care Branch Director Name Role Phone Christie Gonzales MD Primary Care Provider Jack Glynn MD Primary Care Provider Kelli Garcia MD Unavailable [phone] Kalpana Landaverde MD Primary Care Prov ider Sol Womack PA-C Unavailable [phone] Sera Montes MD Unavailable Unava ilable Reason for Visit * Reason Onset Date Comments Testing 10/30/2020 holter Encounter Details Date Type Department Care Team Description 10/30/2020 Telephone Cardio PVCA Diag Testing [address] [facility] [address] [place] [address] Ankit Brewer PA-C [address] [place] [address] [id number] Testing (holter) Social History Tobacco Use Types [...] documented as of this encounter Care Teams Branch Director Relationship Specialty Start Date End Date Christie Gonzales MD PCP - General 08/26/10 04/27/21 Jack Bedoya MD PCP - General Internal Medicine 04/28/21 07/24/22 Kalpana Landaverde MD [address] [place] [address] PCP - General Internal Medicine 07/25/22 Kelli Singh MD Specialist Cardiology 07/06/21 Sol Womack PA-C [address] [place] [address] Specialist Endocrinology 05/29/24 Sera Montes MD [address] [place] [address] Specialist Neurology 05/29/24 documented as of this encounter
--- OUTSIDE RECORDS SUMMARY | 2025-09-13 01:00 | XMS_ITS | Encounter Summary ---
Author Organization [facility] Address [address] [place] [address] Care Team Providers Care Manager Helpdesk Name Role Phone Kelli Singh MD Unavailable [phone] Kalpana Landaverde MD Primary Care Prov ider Sol Womack PA-C Unavailable Sera Montes MD Unavailable Unava ilable Reason for Visit * Reason Onset Date Comments Prior Authorization 03/19/2024 Encounter Details Date Type Department Care Team Description 03/19/2024 Telephone Adult Medicine - [place] [address] [place] [address] Kalpana Landaverde MD [address] [place] [address] Prior Authorization Social History Tobacco Use Types [...] Telephone Encounter - Sarah Loja M.A. - 04/30/2024 11:27 AM EDT Pt no longer active with angelina Loja Prior Auth Dep Ext [id number] * Telephone Encounter - Sarah Loja M.A. - 03/20/2024 12:52 PM EDT Auth sent with [facility] [id number] Sarah Loja Prior Auth Dep Ext [id number] * Telephone Encounter - Patty Blackburn M.A. - 03/19/2024 8:47 AM EDT Pre Authorization for Medication-do not complete and send this encounter unless you have the fax from the pharmacy. ? Is this a Cover My Meds request: Yes -- Cordon Code [id number] Name of Medication MOUNJARO ?? Dose of Medication 5 MG / 0.5ML ?? What is the RX # from the faxed refill? ?? How does patient take this med? ?? What Pharmacy did the fax come from: ?? Pharmacy fax #: ?? Third Alliance Party Information from fax: ?? What Prescription Plan does the patient have? ?? BIN/PCN if applicable: ?? Cardholder ID: ?? Person Code: ?? Relationship Code: ?? Help desk phone: ?? documented in this encounter Plan of Treatment Not on file documented as of this encounter Visit Diagnoses Not on filedocumented in this encounter Care Teams Manager Helpdesk Relationship Specialty Start Date End Date Kalpana Landaverde MD [address] [place] [address] PCP - General Internal Medicine 07/25/22 Kelli Singh MD Specialist Cardiology 07/06/21 Sol Womack PA-C [address] [place] [address] Specialist Endocrinology 05/29/24 Sera Montes MD [address] [place] [address] Specialist Neurology 05/29/24 documented as of this encounter
--- OUTSIDE RECORDS SUMMARY | 2025-09-13 01:00 | XMS_ITS | Encounter Summary ---
Author Organization [facility] Address [address] [place] [address] Care Team Providers Care Grave Digger Name Role Phone Kelli Singh MD Unavailable [phone] Kalpana Landaverde MD Primary Care Prov ider Sol Womack PA-C Unavailable [phone] Sera Montes MD Unavailable Unava ilable Encounter Details Date Type Department Care Team Description 04/17/2024 Refill OBGYN - [address] [place] [address] [address] [place] [address] Grace Cole, [facility] [address] [place] [address] Social History Tobacco Use Types Packs/Day Years [...] on filedocumented in this encounter Care Teams Grave Digger Relationship Specialty Start Date End Date Kalpana Landaverde MD [address] [place] [address] PCP - General Internal Medicine 07/25/22 Kelli Singh MD Specialist Cardiology 07/06/21 Sol Womack PA-C [address] [place] [address] Specialist Endocrinology 05/29/24 Sera Montes MD [address] [place] [address] Specialist Neurology 05/29/24 documented as of this encounter
--- OUTSIDE RECORDS SUMMARY | 2025-09-13 01:00 | XMS_ITS | Encounter Summary ---
Author Organization [facility] Address [address] [place] [address] Care Team Providers Care Hot Cell Technician Name Role Phone Christie Gonzales MD Primary Care Provider Jack Glynn MD Primary Care Provider Kelli Garcia MD Unavailable [phone] Kalpana Landaverde MD Primary Care Prov ider Sol Womack PA-C Unavailable [phone] Sera Montes MD Unavailable Unava ilable Reason for Visit * Reason Comments E-prescribe Rx Request Encounter Details Date Type Department Care Team Description 03/13/2017 Refill Adult Medicine [address] [address] Ankit Brewer PA-C [address] [place] [address] E-prescribe Rx Request Social History Tobacco Use [...] encounter Miscellaneous Notes * Telephone Encounter - Kelton Snyder - 03/15/2017 1:49 PM EDT Pt has been made aware of refusal * Telephone Encounter - Marian Waterman - 03/14/2017 12:19 PM EDT Patient would like script to be: E-PRESCRIBED/FAXED TO PHARMACY WHEN WAS THE PATIENT'S LAST APPOINTMENT IN ADULT MEDICINE? 01/24/17 WHEN WAS THE LAST TIME THE PATIENT SAW THEIR PCP? Patient has never seen pcp Does patient have an upcoming appointment? Yes 05/09/17 (THE MEDICATION REQUESTED IS ON THE MED [...] documented as of this encounter Care Teams Hot Cell Technician Relationship Specialty Start Date End Date Christie Gonzales MD PCP - General 08/26/10 04/27/21 Jack Bedoya MD PCP - General Internal Medicine 04/28/21 07/24/22 Kalpana Landaverde MD [address] [place] [address] PCP - General Internal Medicine 07/25/22 Kelli Singh MD Specialist Cardiology 07/06/21 Sol Womack PA-C [address] [place] [address] Specialist Endocrinology 05/29/24 Sera Montes MD [address] [place] [address] Specialist Neurology 05/29/24 documented as of this encounter
--- OUTSIDE RECORDS SUMMARY | 2025-09-13 01:00 | XMS_ITS | Encounter Summary ---
Author Organization [facility] Address [address] [place] [address] Care Team Providers Care Armored Vehicle Officer Name Role Phone Christie Gonzales MD Primary Care Provider Jack Glynn MD Primary Care Provider Kelli Garcia MD Unavailable [phone] Kalpana Landaverde MD Primary Care Prov ider Sol Womack PA-C Unavailable [phone] Sera Montes MD Unavailable Unava ilable Encounter Details Date Type Department Care Team Description 02/09/2017 Release of Information Medical Records [address] [place] [address] Abstract, Provider Social History Tobacco Use Types [...] documented as of this encounter Care Teams Armored Vehicle Officer Relationship Specialty Start Date End Date Christie Gonzales MD PCP - General 08/26/10 04/27/21 Jack Bedoya MD PCP - General Internal Medicine 04/28/21 07/24/22 Kalpana Landaverde MD [address] [place] [address] PCP - General Internal Medicine 07/25/22 Kelli Singh MD Specialist Cardiology 07/06/21 Sol Womack PA-C [address] [place] [address] Specialist Endocrinology 05/29/24 Sera Montes MD [address] [place] [address] Specialist Neurology 05/29/24 documented as of this encounter
--- OUTSIDE RECORDS SUMMARY | 2025-09-13 01:00 | XMS_ITS | Encounter Summary ---
Author Organization [facility] Address [address] [place] [address] Care Team Providers Care Trim Installer Name Role Phone Jack Bedoya MD Primary Care Provider Kelli Garcia MD Unavailable [phone] Kalpana Landaverde MD Primary Care Prov ider Sol Womack PA-C Unavailable [phone] Sera Montes MD Unavailable Unava ilable Reason for Visit * Reason Onset Date Comments medication problems 03/16/2022 Encounter Details Date Type Department Care Team Description 03/16/2022 Telephone Endocrinology - [address] [address] Sol Womack PA-C [address] [facility] [address] medication problems Social History Tobacco Use Types [...] encounter Miscellaneous Notes * Telephone Encounter - Margie Harris 03/22/2022 10:36 AM EDT I spoke with [facility] Pharmacist and Insulin Aspart went through patients insurance with a paid claim. * Telephone Encounter - Sol Womack PA-C - 03/17/2022 2:39 PM EDT Sent again. * Telephone Encounter - Margie Shukla M.A. - 03/17/2022 1:35 PM EDT I called [facility] Pharmacy to check on Insulin Aspart and am told they never received your script. Please refax script. Thank you, Margie Nguyen Prior Authorization Dept Ext [phone] Fax [phone] * Telephone Encounter - Sol Womack PA-C - 03/17/2022 11:32 AM EDT Aspart ordered * Telephone Encounter - Margie Shukla M.A. - 03/17/2022 9:25 AM EDT Humalog is denied by patients insurance. I spoke with [employer] and am told that Insulin Aspart is covered without a prior authorization. Can the patient use Insulin Aspart at least until the back order of Insulin Lispo is available again? If yes, please fax script to [facility]. If no, please let me know the reason why. Thank you. Margie Nguyen Prior Authorization Dept Ext [phone] Fax [phone] * Telephone Encounter - Margie Shukla M.A. - 03/16/2022 3:26 PM EDT Insulin Lispro is what is covered, but this is on back order. Did prior authorization by phone with Sobeida at [facility]/ for brand name Humolog Kwikpen 100 unit/ml. Awaiting decision. * Telephone Encounter - Janice Zepeda - 03/16/2022 1:34 PM EDT Who is calling? Fax received from [facility] Pharmacy Name of the medication Humalog 100 unit kwikpen What is the specific problem or interaction? Fax received requesting alternative: insurance is now requiring a PA If the patient is having a problem [...] documented as of this encounter Care Teams Trim Installer Relationship Specialty Start Date End Date Jack Bedoya MD PCP - General Internal Medicine 04/28/21 07/24/22 Kalpana Landaverde MD [address] [place] [address] PCP - General Internal Medicine 07/25/22 Kelli Singh MD Specialist Cardiology 07/06/21 Sol Womack PA-C [address] [place] [address] Specialist Endocrinology 05/29/24 Sera Montes MD [address] [place] [address] Specialist Neurology 05/29/24 documented as of this encounter
--- OUTSIDE RECORDS SUMMARY | 2025-09-13 01:00 | XMS_ITS | Encounter Summary ---
Author Organization [facility] Address [address] [place] [address] Care Team Providers Care Roustabout Head Name Role Phone Christie Gonzales MD Primary Care Provider Jack Glynn MD Primary Care Provider Kelli Garcia MD Unavailable [phone] Kalpana Landaverde MD Primary Care Prov ider Sol Womack PA-C Unavailable [phone] Sera Montes MD Unavailable Unava ilable Encounter Details Date Type Department Care Team Description 07/08/2016 Senior Director Finance Report Medical Records [address] [place] [address] Gary Santiago MD Social History Tobacco Use Types Packs/Day [...] documented as of this encounter Care Teams Roustabout Head Relationship Specialty Start Date End Date Christie Gonzales MD PCP - General 08/26/10 04/27/21 Jack Bedoya MD PCP - General Internal Medicine 04/28/21 07/24/22 Kalpana Landaverde MD [address] [place] [address] PCP - General Internal Medicine 07/25/22 Kelli Singh MD Specialist Cardiology 07/06/21 Sol Womack PA-C [address] [place] [address] Specialist Endocrinology 05/29/24 Sera Montes MD [address] [place] [address] Specialist Neurology 05/29/24 documented as of this encounter
--- OUTSIDE RECORDS SUMMARY | 2025-09-13 01:00 | XMS_ITS | Encounter Summary ---
Author Organization [facility] Address [address] [place] [address] Care Team Providers Care Train Planner Name Role Phone Jack Bedoya MD Primary Care Provider Kelli Garcia MD Unavailable [phone] Kalpana Landaverde MD Primary Care Prov ider Sol Womack PA-C Unavailable [phone] Sera Montes MD Unavailable Unava ilable Encounter Details Date Type Department Care Team Description 04/14/2022 Hospital Medical Records [address] [place] [address] Hanane Perez MD [address] [place] [address] Social History Tobacco Use Types Packs/Day Years [...] documented as of this encounter Care Teams Train Planner Relationship Specialty Start Date End Date Jack Bedoya MD PCP - General Internal Medicine 04/28/21 07/24/22 Kalpana Landaverde MD [address] [place] [address] PCP - General Internal Medicine 07/25/22 Kelli Singh MD Specialist Cardiology 07/06/21 Sol Womack PA-C [address] [place] [address] Specialist Endocrinology 05/29/24 Sera Montes MD [address] [place] [address] Specialist Neurology 05/29/24 documented as of this encounter
--- OUTSIDE RECORDS SUMMARY | 2025-09-13 01:00 | XMS_ITS | Encounter Summary ---
Author Organization [facility] Address [address] [place] [address] Care Team Providers Care Bending Press Operator Name Role Phone Christie Gonzales MD Primary Care Provider Jack Glynn MD Primary Care Provider Kelli Garcia MD Unavailable [phone] Kalpnaa Landaverde MD Primary Care Prov ider Sol Womack PA-C Unavailable Sera Montes MD Unavailable Unava ilable Encounter Details Date Type Department Care Team Description 10/08/2018 Orders Only General Surgery - [address] [place] [phone] Matteo Vegas MD [address] [place] [address] [phone] Cancer of thyroid (HCC) (Primary Dx) Social History Tobacco Use Types Packs/Day Years [...] encounter Visit Diagnoses Diagnosis Cancer of thyroid (HCC)- Primary Malignant neoplasm of thyroid gland documented in this encounter Additional Health Concerns Infection Onset Date Last Indicated Resolved Time COVID-19 Comment:Reporting positive COVID 07/2807/28/2022 07/29/2022 11/14/2022 8:[address] documented as of this encounter Care Teams Bending Press Operator Relationship Specialty Start Date End Date Christie Gonzales MD PCP - General 08/26/10 04/27/21 Jack Bedoya MD PCP - General Internal Medicine 04/28/21 07/24/22 Kalpana Landaverde MD [address] [place] [address] PCP - General Internal Medicine 07/25/22 Kelli Singh MD Specialist Cardiology 07/06/21 Sol Womack PA-C [address] [place] [address] Specialist Endocrinology 05/29/24 Srea Montes MD [address] [place] [address] Specialist Neurology 05/29/24 documented as of this encounter
--- OUTSIDE RECORDS SUMMARY | 2025-09-13 01:00 | XMS_ITS | Encounter Summary ---
Author Organization [facility] Address [address] [place] [address] Care Team Providers Care Data Integration Developer Name Role Phone Christie Gonzales MD Primary Care Provider Jack Glynn MD Primary Care Provider Kelli Garcia MD Unavailable [phone] Kalpana Landaverde MD Primary Care Prov ider Sol Womack PA-C Unavailable [phone] Sera Montes MD Unavailable Unava ilable Reason for Visit * Reason Onset Date Comments Provider Call Back 05/17/2018 Encounter Details Date Type Department Care Team Description 05/17/2018 Telephone Endocrinology - [address] [address] John Mejia MD Provider Call Back Social History Tobacco Use Types Packs/Day Years [...] Encounter - Farnaz Morales M.A. - 05/17/2018 8:54 AM EDT Get Me Listedt message you sent to pt asked her to call you to discuss results * Telephone Encounter - Unique Sykes - 05/17/2018 8:38 AM EDT Caller requesting call back from provider: Is the caller the patient? YES If caller is not the patient, what is the callers name? N/A Callers relationship to patient? N/A If person calling is not the patient themselves, is there a verbal release in FYI or permanent comments for this person: NO Reason for call back: Patient called regarding test results from 05/16/2018 Caller offered to speak with the nurse for assistance: YES Response: Patient offered to speak with nurse for assistance and patient agreed. Message forwarded to nurse. documented in this encounter Plan of Treatment Not on file documented as of this encounter Visit Diagnoses Not on filedocumented in this encounter Additional Health Concerns Infection Onset Date Last Indicated Resolved Time COVID-19 Comment:Reporting positive COVID 07/2807/28/2022 07/29/2022 11/14/2022 8:[address] documented as of this encounter Care Teams Data Integration Developer Relationship Specialty Start Date End Date Christie Gonzlaes MD PCP - General 08/26/10 04/27/21 Jack Bedoya MD PCP - General Internal Medicine 04/28/21 07/24/22 Kalpana Landaverde MD [address] [place] [address] PCP - General Internal Medicine 07/25/22 Kelli Singh MD Specialist Cardiology 07/06/21 Sol Womack PA-C [address] [place] [address] Specialist Endocrinology 05/29/24 Sera Montes MD [address] [place] [address] Specialist Neurology 05/29/24 documented as of this encounter
--- OUTSIDE RECORDS SUMMARY | 2025-09-13 01:00 | XMS_ITS | Encounter Summary ---
Author Organization [facility] Address [address] [place] [address] Care Team Providers Care Batcher Operator Name Role Phone Kelli Singh MD Unavailable [phone] Kalpana Landaverde MD Primary Care Prov ider Sol Womack PA-C Unavailable [phone] Sera Montes MD Unavailable Unava ilable Encounter Details Date Type Department Care Team Description 03/29/2024 Pt. Non Urgent Medical Question Adult Medicine [address] [address] Yue Schwartz PA-C [address] [place] [address] Social History Tobacco Use Types Packs/Day Years [...] PM EDT Left message for PT on [phone] to call the office back at [phone] Sent my chart message to call the [...] on filedocumented in this encounter Care Teams Batcher Operator Relationship Specialty Start Date End Date Kalpana Landaverde MD [address] [place] [address] PCP - General Internal Medicine 07/25/22 Kelli Singh MD Specialist Cardiology 07/06/21 Sol Womack PA-C [address] [place] [address] Specialist Endocrinology 05/29/24 Sera Montes MD [address] [place] [address] Specialist Neurology 05/29/24 documented as of this encounter
--- OUTSIDE RECORDS SUMMARY | 2025-09-13 01:00 | XMS_ITS | Encounter Summary ---
Author Organization [facility] Address [address] [place] [address] Care Team Providers Care Pressure Test Operator Name Role Phone Jack Bedoya MD Primary Care Provider Kelli Garcia MD Unavailable [phone] Kalpana Landaverde MD Primary Care Prov ider Sol Womack PA-C Unavailable [phone] Sera Montes MD Unavailable Unava ilable Reason for Visit * Reason Onset Date Comments Medication 04/28/2022 Encounter Details Date Type Department Care Team Description 04/28/2022 Telephone Endocrinology - [address] [address] Sol Womack PA-C [address] [place] [address] Medication Social History Tobacco Use Types Packs/Day [...] documented as of this encounter Care Teams Pressure Test Operator Relationship Specialty Start Date End Date Jack Bedoya MD PCP - General Internal Medicine 04/28/21 07/24/22 Kalpana Landaverde MD [address] [place] [address] PCP - General Internal Medicine 07/25/22 Kelli Singh MD Specialist Cardiology 07/06/21 Sol Womack PA-C [address] [place] [address] Specialist Endocrinology 05/29/24 Sera Montes MD [address] [place] [address] Specialist Neurology 05/29/24 documented as of this encounter
--- OUTSIDE RECORDS SUMMARY | 2025-09-13 01:00 | XMS_ITS | Encounter Summary ---
Author Organization [facility] Address [address] [place] [address] Care Team Providers Care Laboratory Chemist Name Role Phone Christie Gonzales MD Primary Care Provider Jack Glynn MD Primary Care Provider Kelli Garcia MD Unavailable Kalpana Landaverde MD Primary Care Prov ider Sol Womack PA-C Unavailable [phone] Sera Montes MD Unavailable Unava ilable Encounter Details Date Type Department Care Team Description 09/18/2018 Telephone Medicine/Pediatrics - [address] [phone] Ryland Brown MD Social History Tobacco Use Types Packs/Day [...] documented as of this encounter Care Teams Laboratory Chemist Relationship Specialty Start Date End Date Christie Gonzales MD PCP - General 08/26/10 04/27/21 Jack Bedoya MD PCP - General Internal Medicine 04/28/21 07/24/22 Kalpana Landaverde MD [address] [place] [address] PCP - General Internal Medicine 07/25/22 Kelli Snigh MD Specialist Cardiology 07/06/21 Sol Womack PA-C [address] [place] [address] Specialist Endocrinology 05/29/24 Sera Montes MD [address] [place] [address] Specialist Neurology 05/29/24 documented as of this encounter
--- OUTSIDE RECORDS SUMMARY | 2025-09-13 01:00 | XMS_ITS | Encounter Summary ---
Author Organization [facility] Address [address] [place] [address] Care Team Providers Care Design Tech Name Role Phone Kelli Singh MD Unavailable [phone] Kalpana Landaverde MD Primary Care Prov ider Sol Womack PA-C Unavailable [phone] Sera Montes MD Unavailable Unava ilable Reason for Visit * Reason Comments E-prescribe Rx Request Encounter Details Date Type Department Care Team Description 04/08/2024 Refill OBGYN - [address] [place] [phone] Grace Cole, [facility] [address] [place] [address] E-prescribe Rx Request Social History Tobacco Use [...] denied at this time as overdue annual hoop riveting machine operator exam has not been scheduled. * Telephone Encounter - Sunitha Laws - 04/08/2024 2:50 PM EDT WHEN WAS THE PATIENTS LAST ANNUAL TAILOR MEN'S READY TO WEAR EXAM? 02/07/23 Does patient have an upcoming [...] the end of the day? NO Payor: [facility] [employer] [facility] FFS / Plan: [facility] / Product Type: MEDICAID RISK documented in this encounter Plan of Treatment Not on file documented as of this encounter Visit Diagnoses Not on filedocumented in this encounter Care Teams Design Tech Relationship Specialty Start Date End Date Kalpana Landaverde MD [address] [place] [address] PCP - General Internal Medicine 07/25/22 Kelli Singh MD Specialist Cardiology 07/06/21 Sol Womack PA-C [address] [place] [address] Specialist Endocrinology 05/29/24 Sera Montes MD [address] [place] [address] Specialist Neurology 05/29/24 documented as of this encounter
--- OUTSIDE RECORDS SUMMARY | 2025-09-13 01:00 | XMS_ITS | Data Portability ---
Author Organization [place] [facility] Address [address] [place] [phone] Care Team Providers Care Water Plant Pump Operator Supervisor Name Role Phone CARL JIANG Primary Care Provider [phone] Assessment Encounter Date Assessment Date Assessment LastModified [...] exam is benign. All questions were answered. [email or web address] Not available 04/08/2025 16:38:47 Plan of Treatment Reminders Order Date Submit Date Provider Last Modified By Organization Details Last Modified Time Details Appointments None recorded. Lab None recorded. Referral None recorded. Procedures None recorded. Surgeries None recorded. Imaging CT, neck, soft tissue, w/ contrast 2024 025 [email or web address] [facility] [place], [address] [facility] [address], [place], [address], 10:53:27 Medication Orders None recorded. Patient TargetsNo targets recorded. Patient InstructionsNo instructions recorded. Reason for Referral None Reported. Results Created Date Observation Date Name Description Value Unit Range Abnormal Flag Note LastModifiedBy Organization Detail LastModifiedTime 04/21/20 25 04/21/2025 BUN BUN 14 mg/dL 5-25 Not Available [facility] U/S Dept [address] [place], [address], 04/21/2025 10:46:16 04/21/20 25 04/21/2025 BUN note See Report [facility], [address], [place] [address] Not Available [facility]/S Dept [facility] [place], [address], 04/21/2025 10:46:16 04/21/20 25 04/21/2025 CREAT ININE creatinine 1.19 mg/dL 0.50-1 .10 high Not Available [facility] Dept [address] [place], [place] [address], [address], 04/21/2025 10:46:18 04/21/20 25 04/21/2025 CREAT ININE eGFR 58 mL/mi n/1.7 3m2 >=60 low Calcu latio n based on the Chron ic Kidne y Disea se Epide miolo gy Colla borat ion (CKD- EPI) equat ion refit witho ut adjus tment for race. Not Available [facility] Dept [address] [place], [address], 04/21/2025 10:46:18 04/21/20 25 04/21/2025 CREAT ININE note See Report low [facility], [address], [place] [address] Not Available [facility]/S Dept [address] [place], [address], 04/21/2025 10:46:18 04/23/20 25 04/22/2025 CT, neck, soft tissu e, w/ contr ast No observ ation record ed. [email or web address] [facility] [place] [address] [address], [place], [address], 05/05/2025 11:25:28 Result Notes None recorded. Problems Name Problem SNOMED Code Status Onset Date Resolution Date Notes Provider Name and Address Organization Details Recorded Time Stomatitis 60038349 Active 025 BRYAN RAMSAY PA-C [address] [facility],[address] [address], [place], [phone], [place] [facility] 16:40:30 Mass of oral cavity 843607976 Active 025 BRYAN RAMSAY PA-C [address] [address], [place], [address], [facility] 16:41:14 Problem Notes None recorded. Medical Equipment None Reported. Vitals Date Recorded Body weight Body mass index (BMI) Body height Provider Name and Address Organization Details Last Updated DateTime 04/08/2025 122155.16 g 43.4 kg/m2 175.26 cm Marlyn Houston [place] - [facility] 04/08/2025 16:02:08 Social History None recorded. Functional Status None recorded. Mental Status None recorded. Family History Nothing Reported. Medical History No medical history recorded. Gynecological HistoryNo gynecological history recorded. Obstetrics History GPAL:G 0 P 0 0 0 0 Past Encounters Encounter ID Performer Location Encounter Start Date Encounter Closed Date Diagnosis/Indication Diagnosis SNOMED-CT Code Diagnosis ICD10 Code Diagnosis IMO Codes Diagnosis Note [id number] BRYAN RAMSAY PA-C [facility] [address] [place] [address] 04/08/2025 15:42:28 04/08/2025 16:23:38 Mass of oral cavity 877[address]2239 K13.79 561709 Health Concerns Section Related Observation LastModified by Organization Detai ls LastModified Time None Recorded Concern Status LastModified by Organization Details LastModified Time None Recorded Advance Directives Directive None Recorded Payers Insurance Date Sequence Insurance Name Policy Number Policy Abreu Covered Member ID Abreu Member ID Guarantor Name 04/08/2025 1 [facility] PLAN (MEDICAID HMO) [id number] Juanita Nuno Deal [id number] Juanita Deal 04/08/2025 1 [facility] (O) [id number] Juanita Nnuo Deal [id number] Juanita Deal Notes Date Note Type Note [...] cancer treated with radiation. BRYAN RAMSAY PA-C [address] [place] [address], [phone], [place] - [facility] 04/08/2025 16:41:48 OBGyn Episode No OBEpisode recorded.
--- OUTSIDE RECORDS SUMMARY | 2025-09-13 01:00 | XMS_ITS | Encounter Summary ---
Author Organization [facility] Address [address] [place] [address] Care Team Providers Care Road Boss Name Role Phone Christie Gonzales MD Primary Care Provider Jack Glynn MD Primary Care Provider Kelli Garcia MD Unavailable [phone] Kalpana Landaverde MD Primary Care Prov ider Sol Womack PA-C Unavailable [phone] Sera Montes MD Unavailable Unava ilable Encounter Details Date Type Department Care Team Description 09/29/2016 Hand Brush Filler Report Medical Records [address] [place] [address] Vijay Keith MD Social History Tobacco Use Types Packs/Day [...] documented as of this encounter Care Teams Road Boss Relationship Specialty Start Date End Date Christie Gonzales MD PCP - General 08/26/10 04/27/21 Jack Bedoya MD PCP - General Internal Medicine 04/28/21 07/24/22 Kalpana Landaverde MD [address] [place] [address] PCP - General Internal Medicine 07/25/22 Kelli Singh MD Specialist Cardiology 07/06/21 Sol Womack PA-C [address] [place] [address] Specialist Endocrinology 05/29/24 Sera Montes MD [address] [place] [address] Specialist Neurology 05/29/24 documented as of this encounter
--- OUTSIDE RECORDS SUMMARY | 2025-09-13 01:00 | XMS_ITS | Encounter Summary ---
Author Organization [facility] Address [address] [place] [address] Care Team Providers Care Schedule Supervisor Name Role Phone Christie Gonzales MD Primary Care Provider Jack Glynn MD Primary Care Provider Kelli Garcia MD Unavailable [phone] Kalpana Landaverde MD Primary Care Prov ider Sol Womack PA-C Unavailable [phone] Sera Montes MD Unavailable Unava ilable Encounter Details Date Type Department Care Team Description 05/08/2012 Release of Information Medical Records [address] [place] [address] Abstract, Provider Social History Tobacco Use Types [...] documented as of this encounter Care Teams Schedule Supervisor Relationship Specialty Start Date End Date Christie Gonzales MD PCP - General 08/26/10 04/27/21 Jack Bedoya MD PCP - General Internal Medicine 04/28/21 07/24/22 Kalpana Landaverde MD [address] [place] [address] PCP - General Internal Medicine 07/25/22 Kelli Singh MD Specialist Cardiology 07/06/21 Sol Womack PA-C [address] [place], [place] [phone] Specialist Endocrinology 05/29/24 Sera Montes MD [address] [place] [address] Specialist Neurology 05/29/24 documented as of this encounter
--- OUTSIDE RECORDS SUMMARY | 2025-09-13 01:00 | XMS_ITS | Encounter Summary ---
Author Organization [facility] Address [address] [place] [address] Care Team Providers Care Hardscape Foreman Name Role Phone Kelli Singh MD Unavailable [phone] Kalpana Landaverde MD Primary Care Prov ider Sol Womack PA-C Unavailable [phone] Sera Montes MD Unavailable Unava ilable Reason for Visit * Reason Onset Date Comments sinus infection 06/05/2024 Encounter Details Date Type Department Care Team Description 06/05/2024 Telephone Triage [address] [place] [address] Kalpana Landaverde MD [address] [place] [address] sinus infection Social History Tobacco Use Types Packs/Day Years [...] encounter Miscellaneous Notes * Telephone Encounter - Jazmin Ordaz - 06/06/2024 8:18 AM EDT Patient has been made aware * Telephone Encounter - Dale Juarez MD - 06/05/2024 4:59 PM EDT Rx sent * Telephone Encounter - Regina Ordonez R.N. - 06/05/2024 4:55 PM EDT Please advise on another round of ABX * Telephone Encounter - Patty Mary Beth - 06/05/2024 4:41 PM EDT Symptoms patient is presenting: patient states she was seen by Dr Juarez for sinus infection and was given Augmentin - she finished Augmentin on 06/01 and symptoms started back up on 06/03 - she wants to see about getting another script stating she doesn't feel like the infection has cleared up For ALL patients calling to schedule any appointment (routine, sick visit, follow up, consult, etc.) in the outpatient setting please ask the following questions: ?? Do you have fever of higher than 101, sore throat with difficulty swallowing or severe shortnessof breath? NO If YES to any of these above symptoms, send a message to triage and do not book. Red dot. If no, an audio or video visit should be booked. ?? Have you had close contact with someone with Coronavirus in the last 14 days? NO ?? Have you traveled abroad? NO ?? Have you traveled recently to another state outside of [place], [place], [place], [place], [place], [place], [place]? NO o If yes, did you quarantine for 14 days or have a negative covid test? NO If yes to any of the above, patient is not to be scheduled in office until after 14 day quarantine or negative covid test. If pain or injury related was it due to an accident at work or from a motor vehicle accident? NO If yes, gather 3rd republican insurance information Date of accident/Injury: n/a How long has patient had these symptoms?: ongoing PCP: Kalpana Pérez Payor: [facility] FFS / Plan: [facility] / Product Type: MEDICAID RISK documented in this encounter Plan of Treatment Not on file documented as of this encounter Visit Diagnoses Not on filedocumented in this encounter Care Teams Hardscape Foreman Relationship Specialty Start Date End Date Kalpana Landaverde MD [address] [place] [address] PCP - General Internal Medicine 07/25/22 Kelli Singh MD Specialist Cardiology 07/06/21 Sol Womack PA-C [address] [place] [address] Specialist Endocrinology 05/29/24 Sera Montes MD [address] [place] [address] Specialist Neurology 05/29/24 documented as of this encounter
--- OUTSIDE RECORDS SUMMARY | 2025-09-13 01:00 | XMS_ITS | Encounter Summary ---
Author Organization [facility] Address [address] [place] [address] Care Team Providers Care Makeup Sales Advisor Name Role Phone Christie Gonzales MD Primary Care Provider Jack Glynn MD Primary Care Provider Kelli Garcia MD Unavailable [phone] Kalpana Landaverde MD Primary Care Prov ider Sol Womack PA-C Unavailable [phone] Sera Montes MD Unavailable Unava ilable Reason for Visit * Reason Onset Date Comments Tingling 01/10/2018 Encounter Details Date Type Department Care Team Description 01/10/2018 Telephone Adult Medicine [address] [address] Christie Gonzales MD Tingling Social History Tobacco Use Types Packs/Day Years [...] encounter Miscellaneous Notes * Telephone Encounter - Evelyn Galicia R.N. - 01/10/2018 12:37 PM EDT Pt c/o numbness/tingling in buttocks and new onset sharp, stabbing pain in lower back lasting a few minutes after first standing and resolved within a few steps ; pt notes unsteady gait; denies falls or injury; LMP 10 stating my first period in 3 years'; pt denies nausea/vomiting, constipation or diarrhea; pt denies any difficulty voiding; notes fair appetite reporting recent changes- unableto eat bread or pasta or meat ; Pt has hx chicken pox; URI dx 3/4 resolved per pt. Given appt at 3:30 with SELENA Moreno today. * Telephone Encounter - Kaileymonica Baldwinno - 01/10/2018 12:12 PM EDT Symptoms patient is presenting: back pain . Pt c/o tingling numbness and loss of balance. Not in extremities just back and buttox Pt states she fell or stumbled three times today If pain or injury related was it due to an accident at work or from a motor vehicle accident? NO If yes, gather 3rd green party insurance information Date of accident/Injury: How long has patient had these symptoms?: 2 weeks PCP: Christie Gonzales Payor: [employer] / Plan: [employer] / Product Type: OTHER documented in this encounter Plan of Treatment Not on file documented as of this encounter Visit Diagnoses Not on filedocumented in this encounter Additional Health Concerns Infection Onset Date Last Indicated Resolved Time COVID-19 Comment:Reporting positive COVID 07/2807/28/2022 07/29/2022 11/14/2022 8:[address] documented as of this encounter Care Teams Makeup Sales Advisor Relationship Specialty Start Date End Date Christie Gonzales MD PCP - General 08/26/10 04/27/21 Jack Bedoya MD PCP - General Internal Medicine 04/28/21 07/24/22 Kalpana Landaverde MD [address] [place] [address] PCP - General Internal Medicine 07/25/22 Kelli Singh MD Specialist Cardiology 07/06/21 Sol Womack PA-C [address] [place] [address] Specialist Endocrinology 05/29/24 Sera Montes MD [address] [place] [address] Specialist Neurology 05/29/24 documented as of this encounter
--- OUTSIDE RECORDS SUMMARY | 2025-09-13 01:00 | XMS_ITS | Encounter Summary ---
Author Organization [facility] [place] [address] Care Team Providers Care Piece Work Inspector Name Role Phone Kalpana Feldman MD Primary Care Prov ider Encounter Details Date Type Department Care Team ([facility] Contact Info) Description 09/11/2025 Results Follow-Up Adult Medicine [facility] [address] [place], [place] [phone] Evelina Wilde PA [address] [place], [place] Social History Tobacco Use Types Packs/Day Years [...] ed Within the last 3 months, adarsh w many times did you visit the [...] care for your loved ones. For example, childcare teacher or elderly care for an [...] 8:40 AM EST Office Visit Endocrinology - [place] [address] [place] [address] Luis Watson MD [address] [place] [address] 01/08/2026 8:30 AM EDT Office Visit Adult Medicine [address] [phone] Kalpana Feldman MD [address] [place] [address] documented as of this encounter Visit Diagnoses Not on filedocumented in this encounter Additional Health Concerns Assessment Noted Time PHQ-9 Depression Total Score: 23 025 12:35 PM EDT documented as of this encounter Care Teams Piece Work Inspector Relationship Specialty Start Date End Date Kalpana Feldman MD [address] [place] [address] PCP - General Internal Medicine 09/06/24 documented as of this encounter
--- OUTSIDE RECORDS SUMMARY | 2025-09-13 01:00 | XMS_ITS | Encounter Summary ---
Author Organization [facility] Address [address] [place] [address] Care Team Providers Care Program Director/Music Director Name Role Phone Christie Gonzales MD Primary Care Provider Jack Glynn MD Primary Care Provider Kelli Garcia MD Unavailable [phone] Kalpana Landaverde MD Primary Care Prov ider Sol Womack PA-C Unavailable [phone] Sera Montes MD Unavailable Unava ilable Reason for Visit * Reason Onset Date Comments Medication 01/21/2021 Encounter Details Date Type Department Care Team Description 01/21/2021 Refill Gastroenterology [facility] [address] [facility] [address] [place] [address] Hanane Perez MD [address] [place] [address] [phone] Medication Social History Tobacco Use Types Packs/Day [...] documented as of this encounter Care Teams Program Director/Music Director Relationship Specialty Start Date End Date Christie Gonzales MD PCP - General 08/26/10 04/27/21 Jack Bedoya MD PCP - General Internal Medicine 04/28/21 07/24/22 Kalpana Landaverde MD [address] [place] [address] PCP - General Internal Medicine 07/25/22 Kelli Singh MD Specialist Cardiology 07/06/21 Sol Womack PA-C [address] [place] [address] Specialist Endocrinology 05/29/24 Sera Montes MD [address] [place] [address] Specialist Neurology 05/29/24 documented as of this encounter
--- OUTSIDE RECORDS SUMMARY | 2025-09-13 01:00 | XMS_ITS | Encounter Summary ---
Author Organization [facility] Address [address] [place] [address] Care Team Providers Care Dehydrating Press Operator Name Role Phone Christie Gonzales MD Primary Care Provider Jack Glynn MD Primary Care Provider Kelli Garcia MD Unavailable [phone] Kalpana Landaverde MD Primary Care Prov ider Sol Womack PA-C Unavailable [phone] Sera Montes MD Unavailable Unava ilable Encounter Details Date Type Department Care Team Description 10/17/2020 Pt. Non Urgent Medic al Question Adult Medicine [address] [address] Christie Gonzales MD Social History Tobacco Use [...] documented as of this encounter Care Teams Dehydrating Press Operator Relationship Specialty Start Date End Date Christie Gonzales MD PCP - General 08/26/10 04/27/21 Jack Bedoya MD PCP - General Internal Medicine 04/28/21 07/24/22 Kalpana Landaverde MD [address] [place] [address] PCP - General Internal Medicine 07/25/22 Kelli Singh MD Specialist Cardiology 07/06/21 Sol Womack PA-C [address] [place] [address] Specialist Endocrinology 05/29/24 Sera Montes MD [address] [place] [address] Specialist Neurology 05/29/24 documented as of this encounter
--- OUTSIDE RECORDS SUMMARY | 2025-09-13 01:01 | XMS_ITS | Encounter Summary ---
Author Organization [facility] Address [address] [place] [address] Care Team Providers Care Production Roustabout Name Role Phone Kelli Singh MD Unavailable Kalpana Landaverde MD Primary Care Prov ider Sol Womack PA-C Unavailable [phone] Sera Montes MD Unavailable Unava ilable Reason for Visit * Reason Onset Date Comments Prior Authorization 04/10/2023 Encounter Details Date Type Department Care Team Description 04/10/2023 Telephone Endocrinology - [place] [address] [place] [address] Sol Womack PA-C [address] [facility] [place] [address] Prior Authorization Social History Tobacco Use Types [...] pharm Sarah Loja Prior Auth Dep Ext [id number] * Telephone Encounter - Patty Blackburn M.A. - 04/13/2023 4:15 PM EDT Requesting more information. Information completed and faxed back today * Telephone Encounter - Patty Blackburn M.A. - 04/11/2023 12:09 PM EDT Prior authorization for the mounjaro was completed today on cover my meds. Dx code E11.41 type 2 diabetes mellitus with diabetic mononeuropathy , without mcfp current use of insulin Trials Metformin Trulicity [...] What Pharmacy did the fax come from: [facility] fax #: [phone] [employer] Information from fax: What Prescription Plan does the patient have? BIN/PCN if applicable: Cardholder ID: Person Code: Relationship Code: Help desk phone: documented in this encounter Plan of Treatment Not on file documented as of this encounter Visit Diagnoses Not on filedocumented in this encounter Care Teams Production Roustabout Relationship Specialty Start Date End Date Kalpana Landaverde MD [address] [place] [address] PCP - General Internal Medicine 07/25/22 Kelli Singh MD Specialist Cardiology 07/06/21 Sol Womack PA-C [address] [place] [address] Specialist Endocrinology 05/29/24 Sera Montes MD [address] [place] [address] Specialist Neurology 05/29/24 documented as of this encounter
--- OUTSIDE RECORDS SUMMARY | 2025-09-13 01:01 | XMS_ITS | Encounter Summary ---
Author Organization [facility] Address [address] [place] [address] Care Team Providers Care Dogger Name Role Phone Christie Gonzales MD Primary Care Provider Jack Glynn MD Primary Care Provider Kelli Garcia MD Unavailable [phone] Kalpana Landaverde MD Primary Care Prov ider Sol Womack PA-C Unavailable [phone] Sera Montes MD Unavailable Unava ilable Encounter Details Date Type Department Care Team Description 09/03/2019 Telephone Adult Medicine [address] [address] John Mejia MD Social History Tobacco Use [...] as of this encounter Plan of Treatment Scheduled Orders Name Type Priority Associated Diagnoses Orde r Schedule TSH Lab Routine Postoperative hypothyroidism Expected: 09/03/2019, Expires: 09/02/2020 documented as of this encounter Visit Diagnoses Diagnosis 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 documented in this encounter Additional Health Concerns Infection Onset Date Last Indicated Resolved Time COVID-19 Comment:Reporting positive COVID 07/2807/28/2022 07/29/2022 11/14/2022 8:[address] documented as of this encounter Care Teams Dogger Relationship Specialty Start Date End Date Christie Gonzales MD PCP - General 08/26/10 04/27/21 Jack Bedoya MD PCP - General Internal Medicine 04/28/21 07/24/22 Kalpana Landaverde MD [address] [place] [address] PCP - General Internal Medicine 07/25/22 Kelli Singh MD Specialist Cardiology 07/06/21 Sol Womack PA-C [address] [place] [address] Specialist Endocrinology 05/29/24 Sera Montes MD [address] [place] [address] Specialist Neurology 05/29/24 documented as of this encounter
--- OUTSIDE RECORDS SUMMARY | 2025-09-13 01:01 | XMS_ITS | Encounter Summary ---
Author Organization [facility] Address [address] [place] [address] Care Team Providers Care Boiler Shop Mechanic Name Role Phone Christie Gonzales MD Primary Care Provider Jack Glynn MD Primary Care Provider Kelli Garcia MD Unavailable [phone] Kalpana Landaverde MD Primary Care Prov ider Sol Womack PA-C Unavailable [phone] Sera Montes MD Unavailable Unava ilable Encounter Details Date Type Department Care Team Description 01/01/2020 Pt. Non Urgent Medic al Question Adult Medicine [address] [address] Christie Gonzales MD Social History Tobacco Use [...] documented as of this encounter Care Teams Boiler Shop Mechanic Relationship Specialty Start Date End Date Christie Gonzales MD PCP - General 08/26/10 04/27/21 Jack Bedoya MD PCP - General Internal Medicine 04/28/21 07/24/22 Kalpana Landaverde MD [address] [place] [address] PCP - General Internal Medicine 07/25/22 Kelli Singh MD Specialist Cardiology 07/06/21 Sol Womack PA-C [address] [place] [address] Specialist Endocrinology 05/29/24 Sera Montes MD [address] [place] [address] Specialist Neurology 05/29/24 documented as of this encounter
--- OUTSIDE RECORDS SUMMARY | 2025-09-13 01:01 | XMS_ITS | Encounter Summary ---
Author Organization [facility] Address [address] [place] [address] Care Team Providers Care Golf Course Mechanic Name Role Phone Kelli Singh MD Unavailable [phone] Kalpana Landaverde MD Primary Care Prov ider Sol Womack PA-C Unavailable [phone] Sera Montes MD Unavailable Unava ilable Encounter Details Date Type Department Care Team Description 09/25/2022 Pt. Non Urgent Medical Question Cardio PVC POC [address] [facility] [address] [place] [address] Kelli Singh MD [address] [place] [address] [phone] Social History Tobacco Use Types Packs/Day Years [...] suspected to have Coronavirus/COVID-19? No / Unsure 09/27/2022 10:01 AM EST documented as of this encounter Plan of Treatment Not on file documented as of this encounter Visit Diagnoses Not on filedocumented in this encounter Additional Health Concerns Infection Onset Date Last Indicated Resolved Time COVID-19 Comment:Reporting positive COVID 07/2807/28/2022 07/29/202211/1411/14/2022 8:[address] documented as of this encounter Care Teams Golf Course Mechanic Relationship Specialty Start Date End Date Kalpana Landaverde MD [address] [place] [address] PCP - General Internal Medicine 07/25/22 Kelli Singh MD Specialist Cardiology 07/06/21 Sol Womack PA-C [address] [place] [address] Specialist Endocrinology 05/29/24 Sera Montes MD [address] [place] [address] Specialist Neurology 05/29/24 documented as of this encounter
--- OUTSIDE RECORDS SUMMARY | 2025-09-13 01:01 | XMS_ITS | Encounter Summary ---
Author Organization [facility] Address [address] [place] [address] Care Team Providers Care Drum Loader And Unloader Name Role Phone Christie Gonzales MD Primary Care Provider Jack Glynn MD Primary Care Provider Kelli Garcia MD Unavailable [phone] Kalpana Landaverde MD Primary Care Prov ider Sol Womack PA-C Unavailable [phone] Sera Montes MD Unavailable Unava ilable Reason for Visit * Reason Comments E-prescribe Rx Request Encounter Details Date Type Department Care Team Description 01/14/2020 Refill Adult Medicine [address] [address] Juanita Flores PA-C [address] [place] [address] E-prescribe Rx Request Social History Tobacco Use [...] Telephone Encounter - Grace Munguia M.A. - 01/14/2020 8:55 AM EDT Lab Results Component Value Date HGBA1C 7.3 10/21/2019 MALBUR 12.9 09/02/2019 MALBCR 8.3 09/02/2019 CHOL 176 07/03/2019 LDL 118 07/03/2019 HDL 36 07/03/2019 TRIG 110 07/03/2019 GLU 157 11/11/2019 CREAT 0.70 10/21/2019 * Telephone Encounter - Kalina Carr - 01/14/2020 8:34 AM EDT Patient would like script to [...] Indicated Resolved Time COVID-19 Comment:Reporting positive COVID 10/07/28/2022 07/29/2022 11/14/2022 8:[address] documented as of this encounter Care Teams Drum Loader And Unloader Relationship Specialty Start Date End Date Gonzales, Christie, MD PCP - General 08/26/10 04/27/21 Jack Bedoya MD PCP - General Internal Medicine 04/28/21 07/24/22 Kalpana Landaverde MD [address] [place] [address] PCP - General Internal Medicine 07/25/22 Kelli Singh MD Specialist Cardiology 07/06/21 Sol Womack PA-C [address] [place] [address] Specialist Endocrinology 05/29/24 Sera Montes MD [address] [place] [address] Specialist Neurology 05/29/24 documented as of this encounter
--- OUTSIDE RECORDS SUMMARY | 2025-09-13 01:01 | XMS_ITS | Encounter Summary ---
Author Organization [facility] Address [address] [place] [address] Care Team Providers Care Television Writer Name Role Phone Christie oGnzales MD Primary Care Provider Jack Glynn MD Primary Care Provider Kelli Garcia MD Unavailable [phone] Kalpana Landaverde MD Primary Care Prov ider Sol Womack PA-C Unavailable Sera Montes MD Unavailable Unava ilable Reason for Visit * Reason Comments E-prescribe Rx Request Encounter Details Date Type Department Care Team Description 10/30/2019 Refill Adult Medicine [facility] [address] [place] [address] Juanita Flores PA-C [address] [place] [address] E-prescribe Rx Request Social History Tobacco Use [...] documented as of this encounter Care Teams Television Writer Relationship Specialty Start Date End Date Gonzales, Christie, MD PCP - General 08/26/10 04/27/21 Jack Bedoya MD PCP - General Internal Medicine 04/28/21 07/24/22 Kalpana Landaverde MD [address] [place] [address] PCP - General Internal Medicine 07/25/22 Kelli Singh MD Specialist Cardiology 07/06/21 Sol Womack PA-C [address] [place] [address] Specialist Endocrinology 05/29/24 Sera Montes MD [address] [place] [address] Specialist Neurology 05/29/24 documented as of this encounter
--- OUTSIDE RECORDS SUMMARY | 2025-09-13 01:01 | XMS_ITS | Encounter Summary ---
Author Organization [facility] Address [address] [place] [address] Care Team Providers Care Leather Staker Name Role Phone Christie Gonzales MD Primary Care Provider Jack Glynn MD Primary Care Provider Kelli Garcia MD Unavailable [phone] Kalpana Landaverde MD Primary Care Prov ider Sol Womack PA-C Unavailable [phone] Sera Montes MD Unavailable Unava ilable Encounter Details Date Type Department Care Team Description 02/24/2020 Pt. Non Urgent Medic al Question Adult Medicine [address] [address] Christie Gonzales MD Social History Tobacco Use [...] documented as of this encounter Care Teams Leather Staker Relationship Specialty Start Date End Date Christie Gonzales MD PCP - General 08/26/10 04/27/21 Jack Bedoya MD PCP - General Internal Medicine 04/28/21 07/24/22 Kalpana Landaverde MD [address] [place] [address] PCP - General Internal Medicine 07/25/22 Kelli Singh MD Specialist Cardiology 07/06/21 Sol Womack PA-C [address] [place] [address] Specialist Endocrinology 05/29/24 Sera Montes MD [address] [place] [address] Specialist Neurology 05/29/24 documented as of this encounter
--- OUTSIDE RECORDS SUMMARY | 2025-09-13 01:01 | XMS_ITS | Encounter Summary ---
Author Organization [facility] Address [address] [place] [address] Care Team Providers Care Watch Train Assembler Name Role Phone Christie Gonzales MD Primary Care Provider Jack Glynn MD Primary Care Provider Kelli Garcia MD Unavailable [phone] Kalpana Landaverde MD Primary Care Prov ider Sol Womack PA-C Unavailable [phone] Sera Montes MD Unavailable Unava ilable Encounter Details Date Type Department Care Team Description 09/06/2019 Orders Only Adult Medicine - [address] [address] John Mejia MD Social History Tobacco Use [...] as of this encounter Care Teams Watch Train Assembler Relationship Specialty Start Date End Date Christie Gonzales MD PCP - General 08/26/10 04/27/21 Jack Bedoya MD PCP - General Internal Medicine 04/28/21 07/24/22 Kalpana Landaverde MD [address] [place] [address] PCP - General Internal Medicine 07/25/22 Kelli Singh MD Specialist Cardiology 07/06/21 Sol Womack PA-C [address] [place] [address] Specialist Endocrinology 05/29/24 Sera Montes MD [address] [place] [address] Specialist Neurology 05/29/24 documented as of this encounter
--- OUTSIDE RECORDS SUMMARY | 2025-09-13 01:01 | XMS_ITS | Encounter Summary ---
Author Organization [facility] Address [address] [place] [address] Care Team Providers Care Proofer Apprentice Name Role Phone Jack Bedoya MD Primary Care Provider Kelli Garcia MD Unavailable [phone] Kalpana Landaverde MD Primary Care Prov ider Sol Womack PA-C Unavailable [phone] Sera Montes MD Unavailable Unava ilable Encounter Details Date Type Department Care Team Description 07/15/2022 Pt. Non Urgent Medical Question General Surgery - [place] [address] [address] Ty Awan MD [address] [place] [address] Social History Tobacco Use Types Packs/Day Years [...] suspected to have Coronavirus/COVID-19? No / Unsure 07/14/2022 8:53 AM EDT documented as of this encounter Miscellaneous Notes * Telephone Encounter - Patricia Flores M.A. - 07/18/2022 8:17 AM EDT Spoke with pt , pt has been given message per , pt stated that she doesn't know what she wants to do yet so she will give us a call back once she makes a decision * Telephone Encounter - Ty Awan MD - 07/15/2022 5:16 PM EDT Options are repeat biopsy or ultrasound surveillance. I don't think the small nodules are responsible for the symptoms. Thx * Telephone Encounter - Pushpa Calderon M.A. - 07/15/2022 4:35 PM EDTFrom: Juanita Nuno Deal To: Kiersten Awan Sent: 07/15/2022 1:40 PM EDT Subject: Question regarding FINE NEEDLE ASPIRATION BX W/US GDN 1ST LESION Considering the inconclusive result, how should we proceed? The dr doing the biopsy had mentioned calcium build up, so not sure if that caused the result. My neck still swells randomly, and i still feel like theres something in my neck/throat. Thank you. documented in this encounter Plan of Treatment Not on file documented as of this encounter Visit Diagnoses Not on filedocumented in this encounter Additional Health Concerns Infection Onset Date Last Indicated Resolved Time COVID-19 Comment:Reporting positive COVID 07/2807/28/2022 07/29/2022 11/14/2022 8:[address] documented as of this encounter Care Teams Proofer Apprentice Relationship Specialty Start Date End Date Jack Bedoya MD PCP - General Internal Medicine 04/28/21 07/24/22 Kalpana Landaverde MD [address] [place] [address] PCP - General Internal Medicine 07/25/22 Kelli Singh MD Specialist Cardiology 07/06/21 Sol Womack PA-C [address] [place] [address] Specialist Endocrinology 05/29/24 Sera Montes MD [address] [place] [address] Specialist Neurology 05/29/24 documented as of this encounter
--- OUTSIDE RECORDS SUMMARY | 2025-09-13 01:01 | XMS_ITS | Encounter Summary ---
Author Organization [facility] Address [address] [place] [address] Care Team Providers Care Hands Hanger Name Role Phone Kalpana Feldman MD Primary Care Prov ider Encounter Details Date Type Department Care Team ([facility] st Contact Info) Description 08/20/2025 Results Follow-Up Endocrinology [address] [address] Sol Womack PA [address] [place] [address] Social History Tobacco Use Types Packs/Day Years [...] your loved ones. For example, child care director or elderly care for an older [...] 8:40 AM EST Office Visit Endocrinology - [place] [address] [place] [address] Luis Watson MD [address] [place] [address] 01/08/2026 8:30 AM EDT Office Visit Adult Medicine [facility] [address] [place] [address] Kalpana Feldman MD [address] [place], [place] documented as of this encounter Visit Diagnoses Not on filedocumented in this encounter Additional Health Concerns Assessment Noted Time PHQ-9 Depression Total Score: 23 025 12:35 PM EDT documented as of this encounter Care Teams Hands Hanger Relationship Specialty Start Date End Date Kalpana Feldman MD [address] [place] [address] PCP - General Internal Medicine 09/06/24 documented as of this encounter
--- OUTSIDE RECORDS SUMMARY | 2025-09-13 01:01 | XMS_ITS | Encounter Summary ---
Author Organization [facility] Address [address] [place] [address] Care Team Providers Care News Photographer Name Role Phone Kelli Singh MD Unavailable [phone] Kalpana Landaverde MD Primary Care Prov ider Sol Womack PA-C Unavailable [phone] Sera Montes MD Unavailable Unava ilable Reason for Visit * Reason Onset Date Comments medication problems 12/28/2022 Encounter Details Date Type Department Care Team Description 12/28/2022 Telephone Adult Medicine [address] [address] Kalpana Landaverde MD [address] [place] [address] medication problems Social History Tobacco Use Types [...] not the caller who is? Faxed from [facility] Is this a NEW medication?: NO How long has the patient been taking this medication? Who prescribed this medication for the patient? Kalpana Pérez Who is patients PCP?: Kalpana Pérez Payor: [facility] [employer] [facility] FFS / Plan: [facility] / Product Type: MEDICAID RISK documented in this encounter Plan of Treatment Not on file documented as of this encounter Visit Diagnoses Not on filedocumented in this encounter Care Teams News Photographer Relationship Specialty Start Date End Date Kalpana Landaverde MD [address] [place] [address] PCP - General Internal Medicine 07/25/22 Kelli Singh MD Specialist Cardiology 07/06/21 Sol Womack PA-C [address] [place] [address] Specialist Endocrinology 05/29/24 Sera Montes MD [address] [place] [address] Specialist Neurology 05/29/24 documented as of this encounter
--- OUTSIDE RECORDS SUMMARY | 2025-09-13 01:01 | XMS_ITS | Encounter Summary ---
Author Organization [facility] Address [address] [place] [address] Care Team Providers Care Medical Sales Associate Name Role Phone Christie Gonzales MD Primary Care Provider Jack Glynn MD Primary Care Provider Kelli Garcia MD Unavailable [phone] Kalpana Landaverde MD Primary Care Prov ider Sol Womack PA-C Unavailable [phone] Sera Montes MD Unavailable Unava ilable Reason for Visit * Reason Onset Date Comments dizziness 09/22/2020 Encounter Details Date Type Department Care Team Description 09/22/2020 Telephone Adult Medicine [address] [address] Christie Gonzales MD dizziness Social History Tobacco Use Types Packs/Day Years [...] have Coronavirus / COVID-19? No / Unsure 09/25/2020 9:23 AM EST documented as of this encounter Miscellaneous Notes * Telephone Encounter - Grace Cartwright R.N. - 09/22/2020 12:13 PM EST Called Juanita again. Message left again -- patient is a diabetic * Telephone Encounter - Grace Cartwright R.N. - 09/22/2020 12:10 PM EST Message left for Juanita to call me back; called DARIAN Orozco and left him a message indicating that I received a message that Juanita passed out this morning . I asked that he call me back as soon as possible * Telephone Encounter - Macie Vargas - 09/22/2020 11:58 AM EST Symptoms patient is presenting: diiziness/passed out this morning For ALL patients calling to schedule any [...] traveled recently to another state outside of [place], [place], [place], [place], [place], [place], [place]? NO o If yes, did you quarantine [...] [employer] insurance information Date of accident/Injury: How long has patient had these symptoms?: off and on for 2 months PCP: Christie Gonzales Payor: [employer] / [...] as of this encounter Care Teams Medical Sales Associate Relationship Specialty Start Date End Date Christie Gonzales MD PCP - General 08/26/10 04/27/21 Jack Bedoya MD PCP - General Internal Medicine 04/28/21 07/24/22 Kalpana Landaverde MD [address] [place] [address] PCP - General Internal Medicine 07/25/22 Kelli Singh MD Specialist Cardiology 07/06/21 Sol Womack PA-C [address] [place] [address] Specialist Endocrinology 05/29/24 Sera Montes MD [address] [place] [address] Specialist Neurology 05/29/24 documented as of this encounter
--- OUTSIDE RECORDS SUMMARY | 2025-09-13 01:01 | XMS_ITS | Encounter Summary ---
Author Organization [facility] Address [address] [place] [address] Care Team Providers Care Director Of Construction Name Role Phone Kelli Singh MD Unavailable [phone] Kalpana Landaverde MD Primary Care Prov ider Sol Womack PA-C Unavailable [phone] Sera Montes MD Unavailable Unava ilable Encounter Details Date Type Department Care Team Description 04/11/2023 Pt. Non Urgent Medical Question Endocrinology - [facility] [address] [place] [address] Sol Womack PA-C [address] [facility] [place] [address] Social History Tobacco Use Types Packs/Day Years [...] filedocumented in this encounter Care Teams Director Of Construction Relationship Specialty Start Date End Date Kalpana Landaverde MD [address] [place] [address] PCP - General Internal Medicine 07/25/22 Kelli Singh MD Specialist Cardiology 07/06/21 Sol Womack PA-C [address] [place] [address] Specialist Endocrinology 05/29/24 Sera Montes MD [address] [place] [address] Specialist Neurology 05/29/24 documented as of this encounter
[2025-09-13 01:06] LABS: Hematocrit 35.1 % (37.0-47.0); Hemoglobin 11.5 g/dl (12.0-16.0); Imm Gran Abs Auto 0.03 X10*3/uL (0.00-0.03); Imm Gran Pct Auto 0.4 % (0.0-0.4); Lymphocytes Absolute Auto 2.3 X10*3/uL (1.2-4.9); Mean Corpuscular HGB Conc 32.8 g/dl (31.0-35.0); Mean Corpuscular Hemoglobin 29.3 pg (27.0-33.0); Mean Corpuscular Volume 89.5 fL (80.0-98.0); NRBC Abs Auto 0.000 X10*3/uL (0.0-0.012); NRBC Pct Auto 0.0 /100WBC (0.0-0.2); Platelet Count 248 X10*3/uL (160-400); Red Blood Count 3.92 X10*6/uL (4.20-5.50); White Blood Count 7.8 X10*3/uL (4.8-10.8)
[2025-09-13 01:07] LABS: Troponin-I High Sensitivity < 2.7 ng/L (<3.5-17.0)
--- NOTE | 2025-09-13 01:25 | MHC.EDTECH ---
orthostatic blood pressures: supine- 115/66 P83 93%RA sitting- 98%RA P85 116/65 standin%RA P94 111/70
[2025-09-13 01:41] VITALS: BP 115/66; PULSE 83
[2025-09-13 01:42] VITALS: BP 111/70; PULSE 94
[2025-09-13 02:00] VITALS: O2SAT 97
[2025-09-13 02:36] VITALS: BP 113/56; PULSE 67; RESP 18; TEMP 36.9; O2SAT 98
== END 2025-09-13 02:40 | disposition home or self-care (01) ==
PROVIDERS: Physician Assistant Medical; Emergency Provider Emergency Medicine; PCP Internal Medicine
DX: R55 Syncope and collapse (principal); E66.01 Morbid (severe) obesity due to excess calories; Z68.41 Body mass index [BMI] 40.0-44.9, adult; E11.9 Type 2 diabetes mellitus without complications; F32.A Depression, unspecified; Z79.899 Other long term (current) drug therapy
CPT/HCPCS: 36415; 80053; 80307; 82947; 83690; 84484; 84702; 85025; 93005; 99283; 99285

== ENCOUNTER → 2025-09-13 00:33 | Outpatient (BNV) | payer OTHER, SELFPAY | PROVIDERS: Emergency Provider Emergency Medicine; PCP Internal Medicine; Visit Provider Internal Medicine | DX: R55 Syncope and collapse (principal) | CPT/HCPCS: 93010 ==

== ENCOUNTER 2025-09-15 13:33 | Emergency (ER) | payer OTHER, SELFPAY ==
--- OUTSIDE RECORDS SUMMARY | 2025-09-10 09:30 | XMS_ITS | Encounter Summary ---
Author Organization [facility] [place] [address] Care Team Providers Care Registered Nurse Teacher Name Role Phone Kalpana Feldman MD Primary Care Prov ider Reason for Referral * Consultation (Routine) - Closed Specialty Diagnoses / Procedures Referred By Fausto lopez Referred To Contact Rheumatology Diagnoses Cervical radiculopathy Dysautonomia (CMS/HCC V24, CMS/HCC V28) Evelina Wilde PA [address] [place] [address] Phone: tel: fax: [facility] Rheumatology [address] [place] [address] Phone: tel: fax: Referral ID Status Reason Start Date Expiration Date V isits Requested Visits Authorized [id number] Closed Specialty Services Required 09/10/2025 09/10/2026 1 1 Reason for Visit * Reason Comments Dizziness Encounter Details Date Type Department Care Team ([facility] st Contact Info) Description 09/10/2025 9:30 AM EST Office Visit Adult Medicine [address] [phone] Evelina Wilde PA [address] [place] [phone] Dysautonomia (CMS/HCC V24, CMS/[facility] V28) (Primary Dx); Type 2 diabetes mellitus with morbid obesity (CMS/HCC V24, CMS/HCC V28); History of papillary adenocarcinoma of thyroid; Postoperative hypothyroidism; Cervical radiculopathy Social History Tobacco Use Types Packs/Day Years Used Date Smoking Tobacco: Never Smokeless Tobacco: Never Tobacco Cessation:Counseling Given: Not Answered Alcohol Use Standard Drinks/Week Comments Not Currently 0 (1 standard drink = 0.6 oz pur e alcohol) Housing Instability Answer Date Recorde d Are you worried that in the next 2 months you may not have stable housing? No 09/10/2025 Food Access & Nutrition Answer Date Rec orded Do you have access to a vari ety of food including fruits and vegetables? Yes 09/10/2025 Access to Healthcare Answer Date Record ed [...] air conditioning / heating? Not very hard 09/10/2025 Transportation Answer Date Recorded Has the lack [...] got money to buy more. Never true 09/10/2025 Within the past 12 months th e food we bought just didn't last and we didn't have money to get more. Never true 09/10/2025 Dependent Care Answer Date Recorded Do you need help finding or paying for care for your loved ones. For example, children's attendant or elderly care for an older adult? No 09/05/2024 Employment and Income Answer Date Recor ded During the last four weeks, have you been actively looking for work? No 09/05/2024 Living Situation Answer Date Recorded What is your living situation? Unrecognized valu e 09/10/2025 Comments No Sex and Gender Information Value Date Recorded Sex Assigned at Female 05/17/2023 9:35 AM EDT Legal Sex Female 3:03 PM EST Gender Identity Female 05/17/2023 9:35 AM EDT Sexual Orientation Bisexual 05/17/2023 9: 35 AM EDT documented as of this encounter Last Filed Vital Signs Vital Sign Reading Time Taken Comments Blood Pressure 125/82 09/10/2025 9:30 AM EST Pulse 83 09/10/2025 9:30 AM EST Temperature 36.6 C (97.9 F) 09/10/2025 9:30 AM EST Respiratory Rate 18 09/10/2025 9:30 AM EST Oxygen Saturation 98% 09/10/2025 9:30 AM EST Inhaled Oxygen Concentration - - Weight 122 kg (268 lb) 09/10/2025 9:30 AM EST Height 175.3 cm (5' 9 ) 09/10/2025 9:30 AM EST Body Mass Index 39.58 09/10/2025 9:30 AM EST documented in this encounter Progress Notes * SELENA Wan - 09/10/2025 9:30 AM EST CHIEF COMPLAINT: Dizziness IDENTIFIER: Juanita Fitzgerald is a 44 y.o. old female. HPI: Patient presents to the office today for evaluation of chronic dizziness. Has been following with cardiology. Had Holter monitor and echocardiogram which were reassuring. Has also seen neurology, allergy and ENT. 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 She reports contacting [place] [facility]ology and was told that they could not see her for this. She would therefore like referral to see an alternate rheumatology office. Reports that symptoms typically flare for a couple of days and then will have days of symptom-free periods.after keeping a symptom diary she feels that symptoms are exacerbated by hormonal fluctuations surrounding her menstrual cycle. Reports getting menses on 08/27/2025. Symptoms were more bothersome from 08/28/2025 to 09/01/2025 while on menses. After menses symptoms got better. Then started to return again during ovulation. Patient is taking midodrine as instructed by cardiology. Does feel that this offers some benefit. She typically wears compression stockings although does not have on today. Was advised to increase salt in diet. Was advised to follow with [facility] POTS program for exercise. Has been trying to work on doing the lower body exercises. Reports walking daily. Hydrating well. Typically having at least 1 core meal daily. Reports having small snacks throughout the day. Ozempichas been curbing her appetite and she has lost a significant amount of weight with this medication. She reports following with external help desk support specialist for cervical radiculopathy. Prescribed gabapentin and was finding helpful. Was initially taking 300 mg 3 times daily and reduced to 2 times daily due to side effect of dizziness. Was tolerating twice daily. Notes that she has been out of this medication for about the last month due to being unable to get a hold of prescribing provider. Reports having upcoming appointment with Dr. Briscoe to discuss injections. Follows with behavioral health for anxiety, depression, OCD. She is prescribed guanfacine, fluvoxamine and lorazepam. Has not taken lorazepam recently. Does feel that guanfacine is contributing to worsening dizziness and will address with behavioral health. Has diabetes. A1c well-controlled. Has history of thyroid cancer and s/p thyroidectomy. Recent TSH significantly elevated. ROS: GENERAL: No fever or chills. HEENT: No acute URI symptoms. No changes in hearing or vision. RESPIRATORY: No cough, wheezing or shortness of breath CARDIOVASCULAR: No chest pain. No leg swelling. GI: No abdominal pain MUSCULOSKELETAL: see HPI ENDO: see HPI NEURO: No persistent headache, seizures PAST MEDICAL HISTORY: Patient Active Problem List Diagnosis Date Noted Type 2 diabetes mellitus with morbid obesity ([facility] V24, CMS/[facility] V28) 09/10/2025 Dysautonomia (CMS/HCC V24, CMS/[facility] V28) 09/10/2025 Morbid obesity with BMI of 50.0-59.9, adult (CMS/[facility] V24, CMS/[facility] V28) 07/28/2024 History of papillary adenocarcinoma of thyroid 07/28/2024 Postural lightheadedness 07/28/2024 Primary hypertension 11/29/2021 Palpitations 11/25/2021 History of COVID-19 09/03/2021 Postablative hypothyroidism 02/28/2021 Cervical radiculopathy 07/08/2019 Cancer of thyroid ([facility] V24, [facility] V28) 07/31/2018 Obsessive-compulsive disorder 06/12/2018 Multinodular goiter [...] Specified) No partnership data on file Family History[1] ACTIVE MEDICATIONS: Medications Taking[2] ALLERGIES: Erythromycin, Sulfa (sulfonamide antibiotics), Polyethylene glycol, and Sulfamethoxazole-trimethoprim PHYSICAL EXAM: Blood pressure 125/82, pulse 83, temperature 36.6 ??C (97.9 ??F), temperature source Temporal, resp. rate 18, height 1.753 m (69 ), weight 122 kg (268 lb), last menstrual period 08/27/2025, SpO2 98%.Body mass index is 39.58 kg/m??. BMI is greater than 25.0 (above the normal range) - see Plan APPEARANCE: Alert and in no acute distress, appears comfortable EYES: Conjunctiva and sclera normal. NOSE/SINUS: Nares normal. Mucosa normal. No drainage. MOUTH/THROAT: No stridor. No tripoding. No dysphonia/hoarseness. No trismus. NECK: No rigidity. HEART: RRR with normal S1 and S2, no murmurs LUNG: clear to auscultation EXTREMITIES: Extremities warm and well perfused without clubbing, cyanosis, or edema NEURO: Awake, alert and oriented x 3. No focal deficit. SKIN: Skin color, texture, turgor normal. No rashes or lesions. PSYCH: Cooperative. LABS: Lab Results Component Value Date HGBA1C 6.7 (H) 08/20/2025 Lab Results Component Value Date TSH 67.16 (H) 08/20/2025 Lab Results Component Value Date NA 139 08/20/2025 K 4.0 08/20/2025 CL 106 08/20/2025 CO2 27 08/20/2025 GLUCOSE 95 08/20/2025 BUN 16 08/20/2025 CREATININE 1.05 08/20/2025 CALCIUM 9.1 08/20/2025 PROT 7.1 09/05/2024 ALBUMIN 3.6 09/05/2024 BILITOT 0.4 09/05/2024 AST 26 09/05/2024 ALT 35 09/05/2024 ALKPHOS 77 09/05/2024 EGFR 68 08/20/2025 BP Readings from Last 5 Encounters: 09/10/25 125/82 08/20/25 109/76 07/23/25 110/80 01/17/25 118/81 12/25/24 102/72 Wt Readings from Last 5 Encounters: 09/10/25 122 kg (268 lb) 08/20/25 128 kg (281 lb 9.6 oz) 07/23/25 128 kg (283 lb) 01/22/25 133 kg (294 lb) 01/17/25 130 kg (287 lb 3.2 oz) IMPRESSION: 1. Dysautonomia (CMS/HCC V24, CMS/HCC V28) 2. Type 2 diabetes mellitus with morbid obesity (CMS/HCC V24, CMS/HCC V28) 3. History of papillary adenocarcinoma of thyroid 4. Postoperative hypothyroidism 5. Cervical radiculopathy PLAN: Patient will continue with midodrine as instructed. She will wear compression stockings daily. She will increase salt in diet. She will continue with exercise program. She will have small frequent meals and avoid skipping meals. She will maintain adequate hydration. She will continue weight loss efforts. She will continue with Lantus and Ozempic as instructed by endocrinology. She will continue with low carbohydrate diet. TSH significantly elevated with goal of less than 1. She will take Synthroid on an empty stomach 30 minutes prior to meals and other medications. She will keep upcoming appointment with endocrinology as scheduled. We did have extensive discussion regarding the numerous medications patient is prescribed that can cause side effect of dizziness including guanfacine, bupropion, fluoxetine, lorazepam, montelukast. She does feel that guanfacine is contributing and will discuss with behavioral health to consider adjustment in regimen. She also feels that hormonal fluctuations with menstrual cycle are exacerbating her symptoms. She will schedule appointment with [facility]EL[facility] to discuss. She is referred to [facility] rheumatology. She will follow-up with physiatry for ongoing evaluation and management of cervical radiculopathy. Did discuss considering bridging patient with gabapentin as has been unable to hear back from prescribing provider for refill. Though we did also discuss that this medication can cause side effect of sedation, dizziness. Patient reports being out of medication for 1 month. Reviewed prescription drugmonitoring program for this patient and no report of gabapentin being dispensed in the last 2 years. Therefore will defer consideration of refill to prescribing provider. Reports prior history of anemia. Will check CBC and iron studies. Pt is educated on alarm sx's that would warrant emergency room evaluation. Patient understands and agrees to plan. Patient will return to the office for routine care with PCP. Will contact the officesooner with any further problems or concerns. The total length of this visit was 46 minutes. This includes time reviewing chart prior to the visit, obtaining history, interaction with and evaluation of the patient, review of recent lab work,/Holter monitor/echocardiogram, most recent cardiology office visit note, coordinating care, ordering labs/referral, documenting clinical information as well as providing counseling regarding the above diagnoses. Orders Placed This Encounter Procedures CBC and differential Standing Status: Future Number of Occurrences: 1 Expiration Date: 09/10/2026 Ferritin Standing Status: Future Number of Occurrences: 1 Expiration Date: 09/10/2026 Iron and TIBC Standing Status: Future Number of Occurrences: 1 Expiration Date: 09/10/2026 Ambulatory referral to Rheumatology POTS. ? Corrina' danlos rheum w/u recommended per cardiology. Standing Status: Future Expiration Date: 09/10/2026 Referral Priority: Routine Referral Type: Consultation Referral Reason: Specialty Services Required Referral Location: [facility] - Rheumatology [facility] Requested Specialty: Rheumatology Number of Visits Requested: 1 ADDITIONAL ORDERS: AMB REFERRAL TO RHEUMATOLOGY SELENA Wan on 09/10/2025 at 11:39 AM EST [1] Family History Problem Relation Name Age of Onset Arthritis Mother Other cancer Mother cancer in [place] Other (Other: Other) Mother stepheningkaren very large abd tumor Other (Other: atrial [...] cancer Neg Hx Ovarian cancer Neg Hx [2] Outpatient Medications Marked as Taking for the 09/10/25 encounter (Office Visit) with SELENA Wan Medication Sig Dispense Refill ascorbic acid/collagen hydr (COLLAGEN SKIN RENEWAL ORAL) Take by mouth. blood sugar diagnostic (FreeStyle Lite Strips) test strip USE TO CHECK BLOOD SUGAR daily , when CGMnot working blood-glucose meter kit Test blood sugar daily blood-glucose sensor (FreeStyle Edith 3 Plus Sensor) Apply 1 sensor and change every 15 days. Box =Kit = EA 2 each 11 buPROPion XL (WELLBUTRIN XL) 300 mg 24 [...] ANAPHYLAXIS TO SULFA/ERYTHOMYCIN ALLERGY) 2 each 1 fluticasone propionate (FLONASE) 50 mcg/actuation nasal spray Administer 2 sprays into affected nostril(s) 1 (one) time each day. fluvoxaMINE (LUVOX) 100 mg tablet Take 2 tablets (200 mg total) by mouth at bedtime. FREESTYLE LANCETS MISC Test blood sugar 1 time daily glucagon (Baqsimi) 3 mg/actuation nasal spray 1 [...] needle, diabetic (BD ULTRA-FINE MICRO PEN NEEDLE MIS) INJECT 4 DEVICES INTO THE SKIN 4 TIMES ADAY Synthroid 200 mcg tablet Take 1 tablet (200 mcg total) by mouth 1 (one) time each day. 30 each 11 Ventolin HFA 90 mcg/actuation inhaler INHALE 2 PUFFS INTO THE LUNGS EVERY 6 HOURS NEEDED FOR COUGH WHEEZING OR SHORTNESS OF BREATH. 18 each 0 documented in this encounter Plan of Treatment Upcoming Encounters Date Type Department Care Team (Late st Contact Info) Description 11/20/2025 8:40 AM EST Office Visit [address] [phone] Luis Watson MD [address] [place], [place] 01/08/2026 8:30 AM EDT Office Visit Adult Medicine [address] [phone] Kalpana Feldman MD [address] [place], [place] Scheduled Referrals Name Type Priority Associated Diagnoses Order Schedule Ambulatory referral to Rheumatology Outpatient Referral Routine Cervical radiculopathy Dysautonomia (CMS/HCC V24, CMS/HCC V28) 1 Occurrences starting 09/10/2025 until 09/10/2026 documented as of this encounter Results * Iron and TIBC (09/10/2025 10:15 AM EST) Iron 85 40 - 150 mcg/dL 09/10/2025 1:54 PM EST [facility] TIBC 336 250 - 450 mcg/dL 09/10/2025 1:54 PM EST [facility] Iron Saturation 25 15 - 50 % 1:54 PM EST [facility] Blood Venous blood specimen / Unknown Venipuncture / Unknown 09/10/2025 10:15 AM EST 09/10/2025 10:15 AM EST us Evelina WALTERS LAB BLOOD ORDERABLES Final Resul t [facility] [address] [place] [address], * Ferritin (09/10/2025 10:15 AM EST) Ferritin 31 7 - 271 ng/mL 09/10/2025 1:58 PM EST [facility] Blood Venous blood specimen / Unknown Venipuncture / Unknown 09/10/2025 10:15 AM EST 09/10/2025 10:15 AM EST Evelina WALTERS LAB BLOOD ORDERABLES Final Resul t [facility] [address] [place] [address], documented in this encounter Visit Diagnoses Diagnosis Dysautonomia (CMS/[facility] V24, [facility] V28)- Primary Unspecified disorder of autonomic nervous system Type 2 diabetes mellitus with morbid obesity (CMS/HCC V24, [facility] V28) History of papillary adenocarcinoma of thyroid Personal history of malignant neoplasm of thyroid Postoperative hypothyroidism Postsurgical hypothyroidism Cervical radiculopathy Brachial neuritis or radiculitis nos documented in this encounter Discontinued Medications Medication Sig Discontinue Reason Start Date End Da te gabapentin (NEURONTIN) 300 mg capsule Take 1 capsule (300 mg total) by mouth 3 (three) times a day. 11/23/2022 09/10/2025 documented as of this encounter Historical Medications * This list may reflect changes made after this encounter. ascorbic acid/collagen hydr (COLLAGEN SKIN RENEWAL ORAL) Take by mouth. added in this encounter Additional Health Concerns Assessment Noted Time PHQ-9 Depression Total Score: 23 01/17/ 025 12:35 PM EDT documented as of this encounter Care Teams Registered Nurse Teacher Relationship Specialty Start Date End Date Kalpana Feldman MD [address] [place] [address] PCP - General Internal Medicine 09/06/24 documented as of this encounter
--- OUTSIDE RECORDS SUMMARY | 2025-09-10 10:10 | XMS_ITS | Encounter Summary ---
Author Organization [facility] [place] [address] Care Team Providers Care Manager Club Name Role Phone Kalpana Feldman MD Primary Care Prov ider Encounter Details Date Type Department Care Team (Late st Contact Info) Description 09/10/2025 10:10 AM EST Lab Draw Station - [address] [phone] Dysautonomia (CMS/HCC V24, CMS/HCC V28) Social History Tobacco Use Types Packs/Day [...] for your loved ones. For example, children's ministries director or elderly care for an older adult? [...] 11/20/2025 8:40 AM EST Office Visit Endocrinology [address] [phone] Luis Watson MD [address] [place] [address] 01/08/2026 8:30 AM EDT Office Visit Adult Medicine [address] [phone] Kalpana Feldman MD [address] [place], [place] documented as of this encounter Procedures Procedure Name Priority Date/Time Associated Diagnosis Comments CBC WITH AUTO DIFFERENTIAL Routine 09/10/2025 10:15 AM EST Dysautonomia (CMS/HCC V24, CMS/HCC V28) IRON AND TIBC Routine 09/10/2025 10:15 AM EST Dysautonomia ([facility]/HCC V24, CMS/HCC V28) CBC AND DIFFERENTIAL Routine 09/10/2025 10:15 AM EST Dysautonomia ([facility]/HCC V24, CMS/HCC V28) FERRITIN Routine 09/10/2025 10:15 AM EST Dysautonomia ([facility]/HCC V24, CMS/HCC V28) documented in this encounter Results * (ABNORMAL) CBC auto differential (09/10/2025 10:15 AM EST) WBC 8.9 4.8 - 10.8 K/mcL LAB HEMETOLOGY METHOD 09/10/2025 12:28 PM [facility] RBC 4.50 3.80 - 4.80 M/mcL LAB HEMETOLOGY METHOD 09/10/2025 12:28 PM [facility] Hemoglobin 13.1 11.5 - 16.0 g/dL LAB HEMETOLOGY METHOD 09/10/2025 12:28 PM [facility] Hematocrit 41.1 35.0 - 47.0 % LAB HEMETOLOGY METHOD 09/10/2025 12:28 PM [facility] MCV 91.9 79.0 - 98.0 FL LAB HEMETOLOGY METHOD 09/10/2025 12:28 PM [facility] MCH 29.3 27.0 - 32.0 pcg LAB HEMETOLOGY METHOD 09/10/2025 12:28 PM [facility] MCHC 31.9(L) 32.0 - 37.0 g/dL LAB HEMETOLOGY METHOD 09/10/2025 12:28 PM [facility] RDW 13.4 11.0 - 15.0 % LAB HEMETOLOGY METHOD 09/10/2025 12:28 PM [facility] Platelets 321 130 - 400 K/mcL LAB HEMETOLOGY METHOD 09/10/2025 12:28 PM [facility] MPV 10.4 7.0 - 11.0 FL LAB HEMETOLOGY METHOD 09/10/2025 12:28 PM [facility] NRBC 0.0 <1.0 % LAB HEMETOLOGY METHOD 09/10/2025 12:28 PM [facility] NRBC Absolute 0.00 <0.10 K/mcL LAB HEMETOLOGY METHOD 09/10/2025 12:28 PM [facility] Neutrophils Relative 72.3 % LAB HEMETOLOGY METHOD 09/10/2025 12:28 PM [facility] Lymphocytes Relative 19.4 % LAB HEMETOLOGY METHOD 09/10/2025 12:28 PM [facility] Monocytes Relative 6.5 % LAB HEMETOLOGY METHOD 09/10/2025 12:28 PM [facility] Eosinophils Relative 0.5 % LAB HEMETOLOGY METHOD 09/10/2025 12:28 PM [facility] Basophils Relative 0.8 % LAB HEMETOLOGY METHOD 09/10/2025 12:28 PM [facility] Immature Granulocytes Relative 0.5 % LAB HEMETOLOGY METHOD 09/10/2025 12:28 PM [facility] Neutrophils Absolute 6.43 1.50 - 7.00 K/mcL LAB HEMETOLOGY METHOD 09/10/2025 12:28 PM EST [facility] Lymphocytes Absolute 1.72 1.00 - 5.00 K/mcL LAB HEMETOLOGY METHOD 09/10/2025 12:28 PM EST [facility] Monocytes Absolute 0.58 0.20 - 1.00 K/[facility] LAB HEMETOLOGY METHOD 09/10/2025 12:28 PM EST [facility] Eosinophils Absolute 0.04 0.00 - 0.50 K/[facility] LAB HEMETOLOGY METHOD 09/10/2025 12:28 PM EST [facility] Basophils Absolute 0.07 0.00 - 0.20 K/[facility] LAB HEMETOLOGY METHOD 09/10/2025 12:28 PM EST [facility] Immature Granulocytes Absolute 0.04(H) 0.00 - 0.03 K/[facility] LAB HEMETOLOGY METHOD 09/10/2025 12:28 PM EST [facility] Blood Venous blood specimen / Unknown Venipuncture / Unknown 09/10/2025 10:15 AM EST 09/10/2025 10:15 AM EST Evelina WALTERS LAB BLOOD ORDERABLES Final Resul t Performing Organization Address City/[facility]/ZIP Co de Phone Number [facility] [address] [place] [address], * Ferritin (09/10/2025 10:15 AM EST) Ferritin 31 7 - 271 ng/mL 09/10/2025 1:58 PM EST [facility] Blood Venous blood specimen / Unknown Venipuncture / Unknown 09/10/2025 10:15 AM EST 09/10/2025 10:15 AM EST Evelina WALTERS LAB BLOOD ORDERABLES Final Resul t [facility] [address] [place] [address], [place] [phone] * Iron and TIBC (09/10/2025 10:15 AM EST) Iron 85 40 - 150 mcg/dL 09/10/2025 1:54 PM EST [facility] TIBC 336 250 - 450 mcg/dL 09/10/2025 1:54 PM EST [facility] Iron Saturation 25 15 - 50 % 1:54 PM EST [facility] Blood Venous blood specimen / Unknown Venipuncture / Unknown 09/10/2025 10:15 AM EST 09/10/2025 10:15 AM EST us Evelina WALTERS LAB BLOOD ORDERABLES Final Resul t Performing Organization Address City/State/[facility] Co de Phone Number [facility] [address] [place] [address], [place] [phone] documented in this encounter Visit Diagnoses Diagnosis Dysautonomia (CMS/HCC V24, CMS/HCC V28) Unspecified disorder of autonomic nervous system documented in this encounter Additional Health Concerns Assessment Noted Time PHQ-9 Depression Total Score: 23 01/17/ 025 12:35 PM EDT documented as of this encounter Care Teams Manager Club Relationship Specialty Start Date End Date Kalpana Feldman MD [address] [place] [phone] PCP - General Internal Medicine 09/06/24 documented as of this encounter
--- NOTE | ~2025-09-15 | CT_ITS ---
EXAMINATION: CT HEAD WITHOUT CONTRAST CLINICAL INFORMATION: First time seizure. COMPARISON: 01/13/2025. TECHNIQUE: Contiguous axial imaging was performed from the skull base to vertex without intravenous administration of contrast. This CT examination was performed using dose optimization techniques as appropriate, variously including the following: *Automated exposure control *Adjustment of mA and/or kV according to patient size (this includes techniques or standardized protocols for targeted exams where dose is matched to indication/reason for exam; i.e. extremities or head) *Use of iterative reconstruction technique FINDINGS: There is no evidence of intracranial hemorrhage or extra-axial fluid collection. There is no mass effect, or edema. No CT evidence of acute territorial infarct. Ventricles, sulci, and cisterns are normal in size and configuration for patient age. No hydrocephalus. No midline shift. Negative hyperdense MCA sign. Negative insular ribbon sign. There are no white matter attenuation abnormalities. Normal pituitary. Globes and orbital contents image normally. Redemonstration of atrophy of the right parotid gland. Extracranial soft tissues otherwise appear normal. The paranasal sinuses, mastoid air cells, and tympanic cavities are normally aerated. No suspicious bony abnormalities. There are no acute fractures evident. There is hyperostosis frontalis internus. CT/CT head/brain wo IV con IMPRESSION: No acute intracranial abnormality. No significant interval change from 01/13/2025. Electronically signed by: Oscar Lopez MD 09/15/2025 04:44 PM [facility]
[2025-09-15 13:52] VITALS: BP 151/89; PULSE 80; RESP 16; TEMP 37.3; O2SAT 99; BMI 39.4
--- NOTE | 2025-09-15 13:52 | ED.GENADULT ---
HPI - General Adult General Chief complaint: General Medical Stated complaint: Fever Body Aches Time Seen by Provider: 09/15/25 15:46 Source: patient, RN notes reviewed and old records reviewed Mode of arrival: ambulatory Limitations: no limitations History of Present Illness ED Provider: Candice Barker PA-C HPI narrative: 44-year-old female with history of dysautonomia, POTS, COPD, asthma, depression, obesity who was seen here 2 days ago for evaluation of what was thought to be a syncopal episode who presents back to the ER today for evaluation of a hematoma on the left lateral aspect of her tongue along with diffuse body aches. She is more concerned that she had a seizure, that she bit her tongue and it is now infected. she reports pain with eating and swallowing. she is handling her secretions normally. No other injuries. She has never had a seizure before. She reports diffuse body aches and pains, primarily the right shoulder and the left knee, overall improving since the event. MD complaint: tongue bruising, concern for infection Onset (ago): day(s) Location: face Pain Consistency: constant Associated symptoms: other (body aches) Treatments prior to arrival: none Related Data Home Medications ?Medication ?Instructions ?Recorded ?Confirmed bupropion HCl 300 mg 24 hr tablet, 300 mg PO DAILY 07/01/25 08/21/25 extended release cholecalciferol (vitamin D3) 50 50 mcg PO DAILY 07/01/25 08/21/25 mcg (2,000 unit) capsule (Vitamin D3) epinephrine 0.3 mg/0.3 mL IM 07/01/25 08/21/25 injection, auto-injector fluvoxamine 100 mg tablet 100 mg PO BID 07/01/25 08/21/25 gabapentin 300 mg capsule 300 mg PO TID 07/01/25 08/21/25 guanfacine 2 mg tablet,extended 2 mg PO DAILY 07/01/25 08/21/25 release 24 hr insulin degludec 100 unit/mL (3 unit subcut 07/01/25 08/21/25 mL) subcutaneous pen (Tresiba FlexTouch U-100 insulin) levothyroxine 25 mcg tablet 25 mcg PO DAILY 07/01/25 08/21/25 lorazepam 1 mg tablet mg PO 07/01/25 08/21/25 metformin 500 mg tablet,extended 1,000 mg PO BID 07/01/25 08/21/25 release 24 hr montelukast 10 mg tablet 10 mg PO DAILY 07/01/25 08/21/25 omeprazole 40 mg capsule,delayed 40 mg PO DAILY 07/01/25 08/21/25 release semaglutide 2 mg/dose (8 mg/3 mL) mg subcut 07/01/25 08/21/25 subcutaneous pen injector (Ozempic) Previous Rx's ?Medication ?Instructions ?Recorded amoxicillin 500 mg-potassium 1 tab PO BID #6 tabs 09/15/25 clavulanate 125 mg tablet (Augmentin) chlorhexidine gluconate 0.12 % 15 ml buccal BID #120 mL 09/15/25 mouthwash (Paroex Oral Rinse) Allergies Allergy/AdvReac Type Severity Reaction Status Date / Time erythromycin base Allergy Unknown ANAPHYLAXIS Verified 09/15/25 13:55 (ERYTHROMYCIN BASE) Sulfa (Sulfonamide Allergy Unknown ANAPHYLAXIS Verified 09/15/25 13:55 Antibiotics) (SULFA (SULFONAMIDE ANTIBIOTICS)) sulfamethoxazole (From Allergy Unknown HIVES Verified 09/15/25 13:55 BACTRIM) trimethoprim (From BACTRIM) Allergy Unknown HIVES Verified 09/15/25 13:55 polyethylene glycol Allergy Vomiting Verified 09/15/25 13:55 Review of Systems Review of Systems: Yes all other systems are reviewed and are negative PMFSH Past Medical History Medical History Diabetes COPD (chronic obstructive pulmonary disease) Asthma Depression Surgical History H/O: H/O knee surgery Hx of tonsillectomy History of thyroidectomy Social History Social History (Updated 08/21/25 @ 09:33 by [place] Bhardwaj) Alcohol intake: never Patient Tobacco Use Status: Never used Tobacco Substance Use Type: Marijuana Advance Directives: No Advance Directives Information Provided: Yes Current occupational status: employed 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 Oriented X3. No acute distress. Head: normocephalic, atraumatic. Eyes: Pupils equal, round and reactive to light. ENT: Pharynx w/ moist mucus membranes. Normal posterior oropharynx, no swelling. no tonsils. tongue with moderate ecchymosis on the left lateral side of the tongue and underside with minimal swelling. no lacerations. Neck: Normal inspection. Neck supple. CVS: Normal heart rate and rhythm. Pulses normal. Respiratory: No respiratory distress. Breath sounds normal. Skin: Skin warm and dry. Normal skin color. Normal skin turgor. No rashes. Extremities: No lower extremity edema. No joint swelling. soft tissue tenderness diffusely of the upper arms R>L, bilateral thighs with soft and compressible compartments. FROM of all joints. Neuro/psych: Oriented X 3. No motor deficit. No sensory deficit. CN II-XII intact. Normal speech and cognition. Vital Signs: Vital Signs - 24 hr 09/15/25 13:52 09/15/25 15:53 Temperature 99.1 F 98.5 F Pulse Rate 80 78 Respiratory Rate 16 13 Blood Pressure 151/89 H 130/64 Pulse Oximetry 99 99 Oxygen Delivery Method Room Air Room Air BMI result Body Mass Index 39.4 Course Course Course Narrative: This is an RME: Additional HPI, ROS, PE not included below will be deferred to primary provider. RME assessment and note performed by: Veronica Guidry PA-C This is a [id number], with a PMHx of dysautonomia, COPD, asthma, depression, morbid obesity, who presents to the ER with concerns of bruising on her tongue. Patient was seen here 2 days ago after a reported syncopal episode however is unsure now if it was a seizure. States that the time she did not realize that she bit her tongue however now has had a large bruise on her tongue and is unsure if it is infected. She reports that her entire body is in a lot of pain. No known seizure diagnosis, no seizure-like activity or syncopal episodes since her visit to the ED 2 days ago. Plan: labs, further ER eval needed Medical Decision Making Medical Decision Making MDM Narrative: 44 yo female with history of POTS, dysautonomia, COPD, asthma, depression who presents to the ER for evaluation of tongue bruising and concern for infection of the tongue after she likely had a seizure on Monday. She reports her witnessed her having shaking movements and was yelling out. She does not recall the episode and was confused after per her report. Documentation from 09/13 visit here reports no post ictal state and no tongue biting. she states the bruising didnt develop until the next day. same with her diffuse body aches and fatigue. these symptoms can be seen after epileptic and nonepileptic seizures. her labs today are reassuring. she did not get a CT of her head on 09/13 as the etiology was thought to be syncope rather than seizure. CT head today is without acute abnormality. her tongue bruising and swelling is moderate without affecting her airway, ability to eat or handle secretions. low risk of infection without a laceration but will give 3 day course of empiric abx along with antiseptic mouth wash. diet modifications d/w the patient. stable for d/c home with plan to f/u with her PCP for further evaluation of possible new onset seizure. Differential Diagnosis Differential Diagnoses: The differential diagnosis associated with the presentation includes new onset seizure, tongue hematoma, tongue laceration, psychogenic nonepileptic seizures Admission/Observation Consideration of admission/observation: Escalation of care including admission/observation considered Lab Data MDM Lab Attestation statement: I reviewed the patient's lab results. stable anemia, mild CPK elevation not concerning for rhabdomyolysis 09/15/25 14:12 09/15/25 14:12 Labs: Lab Results 09/15/25 Range/Units 14:12 WBC 8.9 (4.8-10.8) X10*3/uL RBC 3.94 L (4.20-5.50) X10*6/uL Hgb 11.5 L (12.0-16.0) g/dl Hct 36.0 L (37.0-47.0) % MCV 91.4 (80.0-98.0) fL MCH 29.2 (27.0-33.0) pg MCHC 31.9 (31.0-35.0) g/dl RDW 13.4 (11.0-16.0) % Plt Count 261 (160-400) X10*3/uL MPV 10.1 (9.4-12.3) fL Immature Gran % (Auto) 0.3 (0.0-0.4) % Neut % (Auto) 69.8 (45-73) % Lymph % (Auto) 21.3 (20-40) % [place] % (Auto) 7.7 (2-11) % Eos % (Auto) 0.3 (0-4) % Baso % (Auto) 0.6 (0-2) % Lymph # (Auto) 1.9 (1.2-4.9) X10*3/uL [place] # (Auto) 0.7 (0.1-1.2) X10*3/uL Eos # (Auto) 0.0 (0.0-0.4) X10*3/uL Baso # (Auto) 0.1 (0.0-0.2) X10*3/uL Abs Immat Gran (auto) 0.03 (0.00-0.03) X10*3/uL Absolute Neuts (auto) 6.2 (2.0-8.3) x10*3/uL Absolute Nucleated RBC 0.000 (0.0-0.012) X10*3/uL Nucleated RBC % (auto) 0.0 (0.0-0.2) /100WBC Sodium 142 (135-145) mmol/L Potassium 3.9 (3.3-5.1) mmol/L Chloride 109 H (96-108) mmol/L Carbon Dioxide 26 (22-29) mmol/L Anion Gap 11 L (12-20) BUN 14 (9-16) mg/dL Creatinine 0.90 (0.5-1.4) mg/dL Estim Creat Clear Calc 112.1 Estimated GFR > 60 Random Glucose 110 (60-115) mg/dL Calcium 9.3 (8.4-10.2) mg/dL Total Bilirubin 0.4 (0.0-1.0) mg/dL Direct Bilirubin 0.1 (0.0-0.5) mg/dL AST 35 H (5-31) U/L ALT 25 (0-31) U/L Alkaline Phosphatase 57 (39-117) U/L Total Creatine Kinase 502 H (26-140) U/L Total Protein 7.2 (6.5-8.0) g/dL Albumin 4.2 (3.5-5.0) g/dL Influenza Type A (PCR) NEGATIVE (Negative) Influenza Type B (PCR) NEGATIVE (Negative) RSV RNA Qual (PCR) NEGATIVE (Negative) SARS-CoV-2 RNA (RT-PCR) NEGATIVE (Negative) Independent Interpretation I performed an independent interpretation of an: CT Scan Interpretation: no mass or edema Radiology Impression Discussion of test interpretation with radiology: I have reviewed the radiologist's reading. External Record Review External record reviewed: Outpatient record, Prior outpatient labs and Prior outpatient radiology Prescription Management I considered prescription management with: Pain Medication and Antibiotic Chronic Conditions Patient?s care impacted by: Other (POTS) Discharge Plan Discharge Clinical Impression: Hematoma of tongue, New onset seizure Patient Disposition: Home, Self-Care Instructions: New-Onset Seizure in Adults (ED), Hematoma (ED) Additional Instructions: Your CT head was normal Use the antiseptic mouth wash 2 times per day until resolved Take the prescribed antibiotics as directed, complete the entire course and do not miss any doses Eat soft, easy to eat foods until resolved Follow up with your doctor If you develop new or worsening symptoms call 911 or come back to the ER for further evaluation. Prescriptions: New chlorhexidine gluconate [Paroex Oral Rinse] 0.12 % mouthwash 15 ml buccal BID Qty: 120 0RF amoxicillin-pot clavulanate [Augmentin] 500-125 mg tablet 1 tab PO BID Qty: 6 0RF No Action omeprazole 40 mg capsule,delayed release(DR/EC) 40 mg PO DAILY levothyroxine 25 mcg tablet 25 mcg PO DAILY fluvoxamine 100 mg tablet 100 mg PO BID gabapentin 300 mg capsule 300 mg PO TID montelukast 10 mg tablet 10 mg PO DAILY lorazepam 1 mg tablet PO epinephrine 0.3 mg/0.3 mL auto-injector IM metformin 500 mg tablet extended release 24 hr 1,000 mg PO BID bupropion HCl 300 mg tablet extended release 24 hr 300 mg PO DAILY cholecalciferol (vitamin D3) [Vitamin D3] 50 mcg (2,000 unit) capsule 50 mcg PO DAILY guanfacine 2 mg tablet extended release 24 hr 2 mg PO DAILY insulin degludec [Tresiba FlexTouch U-100] 100 unit/mL (3 mL) insulin pen subcut Ozempic 2 mg/dose (8 mg/3 mL) pen injector subcut Referrals: Kalpana Landaverde MD [Primary Care Provider, Internal Medicine] Referral Note: new onset seizure Clinical Impression: New onset seizure; Hematoma of tongue Print Language: Kenyan
[2025-09-15 14:19] LABS: MANUAL DIFF FLAG NO
[2025-09-15 14:23] LABS: Hematocrit 36.0 % (37.0-47.0); Hemoglobin 11.5 g/dl (12.0-16.0); Imm Gran Abs Auto 0.03 X10*3/uL (0.00-0.03); Imm Gran Pct Auto 0.3 % (0.0-0.4); Lymphocytes Absolute Auto 1.9 X10*3/uL (1.2-4.9); Mean Corpuscular HGB Conc 31.9 g/dl (31.0-35.0); Mean Corpuscular Hemoglobin 29.2 pg (27.0-33.0); Mean Corpuscular Volume 91.4 fL (80.0-98.0); NRBC Abs Auto 0.000 X10*3/uL (0.0-0.012); NRBC Pct Auto 0.0 /100WBC (0.0-0.2); Platelet Count 261 X10*3/uL (160-400); Red Blood Count 3.94 X10*6/uL (4.20-5.50); White Blood Count 8.9 X10*3/uL (4.8-10.8)
[2025-09-15 14:37] LABS: Alanine Aminotransferase 25 U/L (0-31); Albumin Level 4.2 g/dL (3.5-5.0); Alkaline Phosphatase 57 U/L (39-117); Anion Gap 11 (12-20); Aspartate Amino Transferase 35 U/L (5-31); Blood Urea Nitrogen 14 mg/dL (9-16); Calcium 9.3 mg/dL (8.4-10.2); Carbon Dioxide 26 mmol/L (22-29); Chloride 109 mmol/L (96-108); Creatinine Clr Calc Pharmacy 112.1; Estimated Glomerular Filt Rate > 60; Potassium 3.9 mmol/L (3.3-5.1); Sodium 142 mmol/L (135-145); Total Protein 7.2 g/dL (6.5-8.0)
[2025-09-15 14:58] LABS: Resp Syncy Virus RNA Qual PCR NEGATIVE (Negative); SARS COV2 PCR INHOUSE NEGATIVE (Negative)
[2025-09-15 15:53] VITALS: BP 130/64; PULSE 78; RESP 13; TEMP 36.9; O2SAT 99
[2025-09-15 17:09] VITALS: BP 127/75; PULSE 73; RESP 16; TEMP 36.6; O2SAT 100
--- OUTSIDE RECORDS SUMMARY | 2025-09-15 19:26 | XMS_ITS ---
Author Organization [address] Address [address] [place] [phone] Phone Care Team Providers Care Solutions Manager Name Role Phone Kalpana Feldman MD Primary Care Prov ider Active Problems Problem Noted Date Diagnosed Date Type 2 diabetes mellitus wit h morbid obesity ([facility] V24, [facility] V28) 09/10/2025 Dysautonomia ([facility] V24, [facility] V28) 09/10/20 25 Morbid obesity with BMI of 5 0.0-59.9, adult ([facility] V24, [facility] V28) 07/28/2024 History of papillary adenocarcinoma [...] CA Cervical radiculopathy 07/08/2019 Cancer of thyroid ([facility]/HCC V24, CMS/HCC V28) 06/2018 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/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 Jun 2018; [facility] Ablation 98.6 mCi 01/10/19 Obsessive-compulsive disorder 06/12/2018 Multinodular goiter 06/09/2018 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/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 Jun 2018 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
--- OUTSIDE RECORDS SUMMARY | 2025-09-15 19:26 | XMS_ITS | Clinical Summary ---
Author Organization [address] Address [address] [place] [phone] Phone Care Team Providers Care Grappler Name Role Phone Kalpana Feldman MD Primary Care Prov ider Allergies Active Allergy Reactions Criticality Noted Date Comments Erythromycin Anaphylaxis High 11/10/2005 Polyethylene Glycol Hives,Nausea And Vomiting 0 04/18/2022 Sulfa (Sulfonamide Antibiotics) Anaphylaxis High 11/10/2005 Sulfamethoxazole-Trimethopr im 11/10/2005 Medications blood-glucose meter kit Test blood sugar daily 04/17/20 24 Active pen needle, diabetic (BD ULTRA-FINE MICRO PEN NEEDLE [facility] [place] INJECT 4 DEVICES INTO THE SKIN 4 [...] 2 diabetes mellitus wit h morbid obesity ([facility] V24, [facility] V28) 09/10/2025 Dysautonomia ([facility] V24, [facility] V28) 09/10/20 25 Morbid obesity with BMI of 5 0.0-59.9, adult ([facility] V24, [facility] V28) 07/28/2024 History of papillary adenocarcinoma of [...] CA Cervical radiculopathy 07/08/2019 Cancer of thyroid ([facility] V24, [facility] V28) 06/2018 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/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 Jun 2018; TADEO Ablation 98.6 mCi 01/10/19 Obsessive-compulsive disorder 06/12/2018 Multinodular goiter 06/09/2018 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/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 Jun 2018 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 Carpal tunnel syndrome 03/13/2018 Urge incontinence 10/31/2017 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/2024): [facility]; Jun 2017 Hyperactivity of bladder 10/31/2017 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/2024): [facility]; Jun 2017 AC joint [...] Team Description 09/11/2025 Results Follow-Up Adult Medicine [address] [phone] Evelina Wilde PA 09/10/2025 10:10 AM EST Lab Draw Station [address] Dysautonomia ([facility] V24, [facility]/HCC V28) 09/10/2025 9:30 AM EST Office Visit Adult Medicine [address] [phone] Evelina Wilde PA Dysautonomia (CMS/HCC V24, CMS/HCC V28) (Primary Dx); Type 2 diabetes mellitus with morbid obesity (CMS/HCC V24, CMS/HCC V28); History of papillary adenocarcinoma of thyroid; Postoperative hypothyroidism; Cervical radiculopathy 09/09/2025 Telephone Adult Medicine [address] [phone] Kalpana Pearce MD 08/20/2025 7:45 AM EDT Office Visit Endocrinology [address] [phone] Sol Womack PA Type 1 diabetes mellitus with retinopathy, macular edema presence unspecified, unspecified laterality, unspecified retinopathy severity (CMS/HCC V24, CMS/HCC V28) (Primary Dx); Postoperative hypothyroidism; Cancer of thyroid ([facility]/HCC V24, CMS/HCC V28) 08/20/2025 Results Follow-Up Endocrinology - [place] [address], [place] [phone] Sol Womack PA 08/20/2025 Telephone Endocrinology - [place] [address], [place] [phone] Slo Womack PA 07/23/2025 10:20 AM EDT Office Visit [facility] [address] [facility] [address] [place] [address] Kelli Phillips MD Syncope, unspecified syncope type (Primary Dx); Palpitations from Last 3 Months Immunizations Immunization Administration Dates Next Due Hepatitis A Adult (Havrix; Vaqta) 19yo and older 05/21/2014 Hepatitis B (Kkjnkwl-C-Blrch , Recombivax HB-Adult) 19yo and older 05/01/2023,05/21/2014 [...] Esophageal reflux 11/16/2005 DX:Esophageal reflux Morbid obesity ([facility] V24, [facility] V28) 11/16/2005 DX:Morbid obesity ([facility]) Pure hypercholesterolemia DX:Pur e hypercholesterolemia Diabetes mellitus type 2, co ntrolled, with complications ([facility] V24, [facility] V28) DX:Diabetes mellitus type 2, controlled, with complications ([facility]) 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 DX:Denise 's disease Obsessive-compulsive disorder 06/12/2018 DX :Obsessive-compulsive disorder Elevated BP without diagnosi s of hypertension 10/22/2018 DX:Elevated BP without diagn osis of hypertension Paroxysmal atrial tachycardi a ([facility] V24) 11/29/2021 DX:Paroxysmal atrial tachyca rdia ([facility]) Primary hypertension 11/29/2021 DX:Primary hypertension PCOS (polycystic [...] 11/20/2025 8:40 AM EST Office Visit Endocrinology [address] [phone] Luis Watson MD [address] [place] [address] 01/08/2026 8:30 AM EDT Office Visit Adult Medicine [address] [phone] Kalpana Feldman MD [address] [place] [address] Health Maintenance Due Date Last Done Comments [...] DIFFERENTIAL Routine 09/10/2025 10:15 AM EST Dysautonomia ([facility] V24, [facility] V28) CBC AND DIFFERENTIAL Routine 09/10/2025 10:15 AM EST Dysautonomia ([facility]/HCC V24, CMS/[facility] V28) FERRITIN Routine 09/10/2025 10:15 AM EST Dysautonomia ([facility]/HCC V24, CMS/[facility] V28) IRON AND TIBC Routine 09/10/2025 10:15 AM EST Dysautonomia ([facility]/HCC V24, CMS/[facility] V28) TRIIODOTHYRONINE FREE Routine 08/20/2025 8:47 AM [...] K/mcL LAB HEMETOLOGY METHOD 09/10/2025 12:28 PM [facility] RBC 4.50 3.80 - 4.80 M/mcL LAB HEMETOLOGY METHOD 09/10/2025 12:28 PM [facility] Hemoglobin 13.1 11.5 - 16.0 g/dL LAB HEMETOLOGY METHOD 09/10/2025 12:28 PM [facility] Hematocrit 41.1 35.0 - 47.0 % LAB HEMETOLOGY METHOD 09/10/2025 12:28 PM [facility] MCV 91.9 79.0 - 98.0 FL LAB HEMETOLOGY METHOD 09/10/2025 12:28 PM [facility] MCH 29.3 27.0 - 32.0 pcg LAB HEMETOLOGY METHOD 09/10/2025 12:28 PM [facility] MCHC 31.9(L) 32.0 - 37.0 g/dL LAB HEMETOLOGY METHOD 09/10/2025 12:28 PM [facility] RDW 13.4 11.0 - 15.0 % LAB HEMETOLOGY METHOD 09/10/2025 12:28 PM [facility] Platelets 321 130 - 400 K/[facility] LAB HEMETOLOGY METHOD 09/10/2025 12:28 PM [facility] MPV 10.4 7.0 - 11.0 FL LAB HEMETOLOGY METHOD 09/10/2025 12:28 PM [facility] NRBC 0.0 <1.0 % LAB HEMETOLOGY METHOD 09/10/2025 12:28 PM [facility] NRBC Absolute 0.00 <0.10 K/mcL LAB HEMETOLOGY METHOD 09/10/2025 12:28 PM [facility] Neutrophils Relative 72.3 % LAB HEMETOLOGY METHOD 09/10/2025 12:28 PM [facility] Lymphocytes Relative 19.4 % LAB HEMETOLOGY METHOD 09/10/2025 12:28 PM [facility] Monocytes Relative 6.5 % LAB HEMETOLOGY METHOD 09/10/2025 12:28 PM [facility] Eosinophils Relative 0.5 % LAB HEMETOLOGY METHOD 09/10/2025 12:28 PM [facility] Basophils Relative 0.8 % LAB HEMETOLOGY METHOD 09/10/2025 12:28 PM [facility] Immature Granulocytes Relative 0.5 % LAB HEMETOLOGY METHOD 09/10/2025 12:28 PM [facility] Neutrophils Absolute 6.43 1.50 - 7.00 K/mcL LAB HEMETOLOGY METHOD 09/10/2025 12:28 PM [facility] Lymphocytes Absolute 1.72 1.00 - 5.00 K/mcL LAB HEMETOLOGY METHOD 09/10/2025 12:28 PM [facility] Monocytes Absolute 0.58 0.20 - 1.00 K/mcL LAB HEMETOLOGY METHOD 09/10/2025 12:28 PM [facility] Eosinophils Absolute 0.04 0.00 - 0.50 K/mcL LAB HEMETOLOGY METHOD 09/10/2025 12:28 PM [facility] Basophils Absolute 0.07 0.00 - 0.20 K/mcL LAB HEMETOLOGY METHOD 09/10/2025 12:28 PM [facility] Immature Granulocytes Absolute 0.04(H) 0.00 - 0.03 K/mcL LAB HEMETOLOGY METHOD 09/10/2025 12:28 PM [facility] Blood Venous blood specimen / Unknown Venipuncture / Unknown 09/10/2025 10:15 AM EST 09/10/2025 10:15 AM EST Evelina WALTERS LAB BLOOD ORDERABLES Final Resul t Performing Organization Address City/[facility]/ZIP Co de Phone Number [facility] [address] [place] [address], [place] [phone] * Iron and TIBC (09/10/2025 10:15 AM EST) Iron 85 40 - 150 mcg/dL 09/10/2025 1:54 PM EST [facility] TIBC 336 250 - 450 mcg/dL 09/10/2025 1:54 PM EST [facility] Iron Saturation 25 15 - 50 % 1:54 PM EST [facility] Blood Venous blood specimen / Unknown Venipuncture / Unknown 09/10/2025 10:15 AM EST 09/10/2025 10:15 AM EST Evelina WALTERS LAB BLOOD ORDERABLES Final Resul t Performing Organization Address [facility]/ZIP Co de Phone Number [facility] [address] [place] [address], [place] [phone] * Ferritin (09/10/2025 10:15 AM EST) Ferritin 31 7 - 271 ng/mL 09/10/2025 1:58 PM EST [facility] Blood Venous blood specimen / Unknown Venipuncture / Unknown 09/10/2025 10:15 AM EST 09/10/2025 10:15 AM EST Evelina WALTERS LAB BLOOD ORDERABLES Final Resul t Performing Organization Address City/[facility]/ZIP Co de Phone Number [facility] [address] [place] [address], [place] [phone] * (ABNORMAL) Thyroid stimulating hormone with reflex to free t4 and free t3 (08/20/2025 8:47 AM EDT) TSH 67.16(H) 0.40 - 4.00 mcIU/mL LAB CHEMISTRY METHOD 08/20/2025 11:56 AM EDT [facility] Blood Venous blood specimen / Unknown Venipuncture / Unknown 08/20/2025 8:47 AM EDT 08/20/2025 8:47 AM EDT Sol WALTERS LAB BLOOD ORDERABLES Final Result Performing Organization Address [facility]/ZIP Co de Phone Number [facility] [address] [place] [address], [place] [phone] * (ABNORMAL) Free thyroxine with reflex to free triiodothyronine (08/20/2025 8:47 AM EDT) [facility] Free T4 0.55(L) 0.70 - 1.80 ng/dL LAB CHEMISTRY METHOD 08/20/2025 12:45 PM EDT [facility] Blood Venous blood specimen / Unknown Venipuncture / Unknown 08/20/2025 8:47 AM EDT 08/20/2025 8:47 AM EDT us Sol WALTERS LAB BLOOD ORDERABLES Final Result Performing Organization Address [facility]/ZIP Co de Phone Number [facility] [address] [place] [address], [place] [phone] * (ABNORMAL) Lipid panel with reflex to direct LDL (08/20/2025 8:47 AM EDT) Pathologist [facility] Cholesterol 243(H) 0 - 200 mg/dL LAB CHEMISTRY METHOD 08/20/2025 11:01 AM EDT [facility] Triglycerides 114 0 - 150 mg/dL LAB CHEMISTRY METHOD 08/20/2025 11:01 AM EDT [facility] HDL 61 >=40 mg/dL LAB CHEMISTRY METHOD 08/20/2025 11:01 AM EDT [facility] LDL Calculated 159(H) 0 - 100 mg/dL LAB CHEMISTRY METHOD 08/20/2025 11:01 AM EDT [facility] Comment:Estimated LDL Calcul ated using equation: Total cholesterol - HDL cholesterol - (Triglycerides/5) VLDL Cholesterol Dragan 22.8 mg/dL LAB CHEMISTRY METHOD 08/20/2025 11:01 AM EDT [facility] Non HDL Chol. (LDL+VLDL) 182(H) <145 mg/dL LAB CHEMISTRY METHOD 08/20/2025 11:01 AM EDT [facility] Chol/HDL Ratio 4.0 0.0 - 4.4 LAB CHEMISTRY METHOD 08/20/2025 11:01 AM T [facility] Blood Venous blood specimen / Unknown Venipuncture / Unknown 08/20/2025 8:47 AM EDT 08/20/2025 8:47 AM EDT us Sol WALTERS LAB BLOOD ORDERABLES Final Result [facility] [address] [place] [address], * Thyroglobulin and thyroglobulin antibody panel (08/20/2025 8:47 AM EDT) Thyroglobulin Antibody <2 <4 IU/mL 08/22/2025 1:21 PM EDT [facility] Thyroglobulin 2.3 SeeBelow ng/mL 08/22/2025 1:21 PM EDT [facility] Comment: Thyroglobulin Reference Range: Intact thyroid: 1.6-50.0 ng/mL Athyrotic, post-thyroidectomy (tumor marker): <0.1 ng/mL Thyroglobulin antibodies can interfere with the determination of thyroglobulin. If the specimen contains thyroglobulin antibodies, please interpret the thyroglobulin result with caution. The [employer] DXI chemiluminescent immunoassay is used. Results obtained with different assay methods or kits cannot be used interchangeably. Results cannot be interpreted as absolute evidence of the presence or absence of malignant disease. Test performed at [facility], [address], [place] [address] Sachi Doe MD, PhD - [employer] Blood Venous blood specimen / Unknown Venipuncture / Unknown 08/20/2025 8:47 AM EDT 08/20/2025 8:47 AM EDT Sol WALTERS LAB BLOOD ORDERABLES Final Result [facility] [address] [place] [address] * Microalbumin creatinine urine ratio (08/20/2025 8:47 AM EDT) Creatinine, Urine 185.0 mg/dL LAB CHEMISTRY METHOD 08/20/2025 2:26 PM EDT [facility] Microalb, Ur 8.0 0.0 - 29.0 mg/L LAB CHEMISTRY METHOD 08/20/2025 2:26 PM EDT [facility] Microalb/Creat Ratio 4 <30 mg/g creat LAB CHEMISTRY METHOD 08/20/2025 2:26 PM EDT [facility] Urine Urine specimen from urethra / Unknown Non-blood Collection / Unknown 08/20/2025 8:47 AM EDT 08/20/2025 8:47 AM EDT Sol WALTERS LAB URINE ORDERABLES Final Result [facility] [address] [place] [address], [place] [phone] * (ABNORMAL) Triiodothyronine free (08/20/2025 8:47 AM EDT) T3, Free 163(L) 230 - 420 pcg/dL LAB CHEMISTRY METHOD 08/20/2025 4:14 PM EDT [facility] Blood Venous blood specimen / Unknown Venipuncture / Unknown 08/20/2025 8:47 AM EDT 08/20/2025 8:47 AM EDT Sol WALTERS LAB BLOOD ORDERABLES Final Result Performing Organization Address [facility]/ZIP Co de Phone Number [facility] [address] [place] [address], [place] [phone] * (ABNORMAL) Hemoglobin A1c (08/20/2025 8:47 AM EDT) Hemoglobin A1C 6.7(H) <6.5 % LAB CHEMISTRY METHOD 08/20/2025 10:53 AM EDT [facility] Mean Bld Glu Estim. 146 mg/dL LAB CHEMISTRY METHOD 08/20/2025 10:53 AM EDT [facility] Blood Venous blood specimen / Unknown Venipuncture / Unknown 08/20/2025 8:47 AM EDT 08/20/2025 8:47 AM EDT Sol WALTERS LAB BLOOD ORDERABLES Final Result Performing Organization Address City/[facility]/ZIP Co de Phone Number [facility] [address] [place] [address], [place] [phone] * Basic metabolic panel (08/20/2025 8:47 AM EDT) Sodium 139 133 - 145 mmol/L LAB CHEMISTRY METHOD 08/20/2025 11:01 AM EDT [facility] Potassium 4.0 3.5 - 5.5 mmol/L LAB CHEMISTRY METHOD 08/20/2025 11:01 AM EDT [facility] Chloride 106 96 - 110 mmol/L LAB CHEMISTRY METHOD 08/20/2025 11:01 AM EDT [facility] CO2 27 21 - 32 mmol/L LAB CHEMISTRY METHOD 08/20/2025 11:01 AM EDT [facility] Anion Gap 6 3 - 11 LAB CHEMISTRY METHOD 08/20/2025 11:[address] [facility] Glucose 95 70 - 100 mg/dL LAB CHEMISTRY METHOD 08/20/2025 11:[address] [facility] BUN 16 5 - 25 mg/dL LAB CHEMISTRY METHOD 08/20/2025 11:[address] [facility] Creatinine 1.05 0.50 - 1.10 mg/dL LAB CHEMISTRY METHOD 08/20/2025 11:[address] [facility] eGFR 68 >=60 mL/min/1. 73m2 LAB CHEMISTRY METHOD 08/20/2025 11:[address] [facility] Comment:Calculation based on the Chronic Kidney Disease Epidemiology Collaboration (CKD-EPI) equation refit without adjustment for race. BUN/Creatinine Ratio 15.2 LAB CHEMISTRY METHOD 08/20/2025 11:[address] [facility] Calcium 9.1 8.5 - 10.5 mg/dL LAB CHEMISTRY METHOD 08/20/2025 11:[address] [facility] Blood Venous blood specimen / Unknown Venipuncture / Unknown 08/20/2025 8:47 AM EDT 08/20/2025 8:47 AM EDT Sol WALTERS LAB BLOOD ORDERABLES Final Result [facility] [address] [place] [address], [place] [phone] * POC glucose manually resulted (08/20/2025 7:57 [...] GEMUSE QTc 410 ms GEMUSE P Wave [place] 51 degrees GEMUSE R [place] 79 degrees GEMUSE T [place] 71 degrees GEMUSE ECG Interpretation Normal sinus [...] is recommended in 1 year. MAMMO LOCATION: [place] [facility], [address] [place] [address], [address], . -------- FINAL REPORT -------- Dictated By: Estefania Giraldo Dictated Date: 11/11/2024 19:34 ET Assigned Physician: Estefania Giraldo Reviewed and Electronically Signed By: Estefania Giraldo Signed Date: 11/11/2024 19:36 ET Workstation ID: [id number] Transcribed By: Self Edit Transcribed Date: 11/11/2024 [...] is recommended in 1 year. MAMMO LOCATION: [place] [facility], [address] [place] [address], [address], . -------- FINAL REPORT -------- Dictated By: Estefania Giraldo Dictated Date: 11/11/2024 19:34 ET Assigned Physician: Estefania Giraldo Reviewed and Electronically Signed By: Estefania Giraldo Signed Date: 11/11/2024 19:36 ET Workstation ID: [id number] Transcribed By: Self Edit Transcribed Date: 11/11/2024 19:34 ET Kalpana Feldman MD IMG BI PROCEDURES Final Result * Cervical Cancer Screening: HPV (03/04/2024) Cervical Cancer Screening: HPV abstracted, negative Historical Provider HEALTH MAINTENANCE Final Result from Last 3 Months or Most Recently Relevant to Health Maintenance Insurance [facility] Care Teams Grappler Relationship Specialty Start Date End Date Kalpana Feldman MD [address] [place] [phone] PCP - General Internal Medicine 09/06/24
--- OUTSIDE RECORDS SUMMARY | 2025-09-15 19:26 | XMS_ITS | Data Portability ---
Author Organization [place] [facility], Allergy Address [address] [place] [phone] Care Team Providers Care Alodize Machine Operator Name Role Phone CARL JIANG Primary Care [...] exam is benign. All questions were answered. [email or web address] Not available 04/08/2025 16:38:47 Plan of Treatment Reminders Order Date Submit Date Provider Last Modified By Organization Details Last Modified Time Details Appointments None recorded. Lab None recorded. Referral None recorded. Procedures None recorded. Surgeries None recorded. Imaging CT, neck, soft tissue, w/ contrast 2024 025 [id number] [facility], [address] [facility] [address], [place], [address], 10:53:27 Medication Orders None recorded. Patient TargetsNo targets recorded. Patient InstructionsNo instructions recorded. Reason for Referral None Reported. Results Created Date Observation Date Name Description Value Unit Range Abnormal Flag Note LastModifiedBy Organization Detail LastModifiedTime 04/21/20 25 04/21/2025 BUN BUN 14 mg/dL 5-25 Not Available [facility] U/S Dept [address] [place], [address], 04/21/2025 10:46:16 04/21/20 25 04/21/2025 BUN note See Report [facility], [address], [place] [address] Not Available [facility]/S Dept [facility] [place], [address], 04/21/2025 10:46:16 04/21/20 25 04/21/2025 CREAT ININE creatinine 1.19 mg/dL 0.50-1 .10 high Not Available [facility] Dept [address] [place], [place] [address], [address], 04/21/2025 10:46:18 04/21/20 25 04/21/2025 CREAT ININE eGFR 58 mL/mi n/1.7 3m2 >=60 low Calcu latio n based on the Chron ic Kidne y Disea se Epide miolo gy Colla borat ion (CKD- EPI) equat ion refit witho ut adjus tment for race. Not Available [facility] Dept [address] [place], [address], 04/21/2025 10:46:18 04/21/20 25 04/21/2025 CREAT ININE note See Report low [facility], [address], [place], [place] [address] Not Available [facility]/S Dept [address] [place], [address], 04/21/2025 10:46:18 04/23/20 25 04/22/2025 CT, neck, soft tissu e, w/ contr ast No observ ation record ed. [facility] [address] [address], [place], [address], 05/05/2025 11:25:28 Result Notes None recorded. Problems Name Problem SNOMED Code Status Onset Date Resolution Date Notes Provider Name and Address Organization Details Recorded Time Stomatitis 47834316 Active 025 BRYAN RAMSAY PA-C [address] [facility],[address] [address], [place], [phone], [place] [facility] 16:40:30 Mass of oral cavity 054732597 Active 025 BRYAN RAMSAY PA-C [address] [address], [place], [phone], [facility] 16:41:14 Problem Notes None recorded. Medical Equipment None Reported. Vitals Date Recorded Body weight Body mass index (BMI) Body height Provider Name and Address Organization Details Last Updated DateTime 04/08/2025 929613.16 g 43.4 kg/m2 175.26 cm Marlyn Houston [...] ICD10 Code Diagnosis IMO Codes Diagnosis Note [id number] BRYAN RAMSAY PA-C [facility] [address] [place] [address] 04/08/2025 15:42:28 04/08/2025 16:23:38 Mass of oral cavity 508041017 K13.79 018838 Health Concerns Section Related Observation LastModified by Organization Detai ls LastModified Time None Recorded Concern Status LastModified by Organization Details LastModified Time None Recorded Advance Directives Directive None Recorded Payers Insurance Date Sequence Insurance Name Policy Number Policy Abreu Covered Member ID Abreu Member ID Guarantor Name 04/08/2025 1 [facility] (MEDICAID HMO) [id number] Juanita Nuno Deal [id number] Juanita Deal 04/08/2025 1 [facility] (O) [id number] Juanita Nuno Deal [id number] Juanita Deal Notes Date Note Type Note [...] cancer treated with radiation. BRYAN RAMSAY PA-C [address] [place] [address], [phone], [place] - [facility] 04/08/2025 16:41:48 OBGyn Episode No OBEpisode recorded.
--- OUTSIDE RECORDS SUMMARY | 2025-09-15 19:26 | XMS_ITS | Encounter Summary ---
Author Organization [facility] [place] [address] Care Team Providers Care Portfolio Architect Name Role Phone Kalpana Feldman MD Primary Care Prov ider Encounter Details Date Type Department Care Team ([facility] st Contact Info) Description 08/20/2025 Results Follow-Up Endocrinology [address] [phone] Sol Womack PA [address] [place] [address] Social History Tobacco Use Types Packs/Day Years [...] for your loved ones. For example, childcare provider or elderly care for an older adult? [...] 8:40 AM EST Office Visit Endocrinology - [place] [address] [place] [address] Luis Watson MD [address] [place] [address] 01/08/2026 8:30 AM EDT Office Visit Adult Medicine [facility] [address] [place] [address] Kalpana Feldman MD [address] [place], [place] documented as of this encounter Visit Diagnoses Not on filedocumented in this encounter Additional Health Concerns Assessment Noted Time PHQ-9 Depression Total Score: 23 025 12:35 PM EDT documented as of this encounter Care Teams Portfolio Architect Relationship Specialty Start Date End Date Kalpana Feldman MD [address] [place] [address] PCP - General Internal Medicine 09/06/24 documented as of this encounter
--- OUTSIDE RECORDS SUMMARY | 2025-09-15 19:26 | XMS_ITS | Encounter Summary ---
Author Organization [facility] [address] Care Team Providers Care Metal Stamping Machine Operator Name Role Phone Kalpana Feldman MD Primary Care Prov ider Encounter Details Date Type Department Care Team ([facility] Contact Info) Description 09/11/2025 Results Follow-Up Adult Medicine [facility] [address] [place], [place] [phone] Evelina Wilde PA [address] [place], [place] Social History Tobacco Use Types Packs/Day [...] for your loved ones. For example, children's entertainer or elderly care for an older adult? [...] 8:40 AM EST Office Visit Endocrinology - [place] [address] [place] [phone] Luis Watson MD [address] [place] [address] 01/08/2026 8:30 AM EDT Office Visit Adult Medicine [address] [phone] Kalpana Feldman MD [address] [place] [address] documented as of this encounter Visit Diagnoses Not on filedocumented in this encounter Additional Health Concerns Assessment Noted Time PHQ-9 Depression Total Score: 23 025 12:35 PM EDT documented as of this encounter Care Teams Metal Stamping Machine Operator Relationship Specialty Start Date End Date Kalpana Feldman MD [address] [place] [address] PCP - General Internal Medicine 09/06/24 documented as of this encounter
== END 2025-09-15 17:09 | disposition home or self-care (01) ==
PROVIDERS: Physician Assistant Medical; Emergency Provider Emergency Medicine; PCP Internal Medicine
DX: R56.9 Unspecified convulsions (principal); R50.9 Fever, unspecified; S00.53 Contusion of lip and oral cavity; Z03.818 Encounter for observation for suspected exposure to other biological agents ruled out; R55 Syncope and collapse; E11.9 Type 2 diabetes mellitus without complications; J45.909 Unspecified asthma, uncomplicated; J44.9 Chronic obstructive pulmonary disease, unspecified
CPT/HCPCS: 70450; 80048; 80076; 82550; 85025; 87637; 99283; 99284

== ENCOUNTER → 2025-09-15 16:00 | Outpatient (BNV) | payer OTHER, SELFPAY | PROVIDERS: Emergency Provider Emergency Medicine; PCP Internal Medicine; Visit Provider Radiology Diagnostic Radiology | DX: R56.9 Unspecified convulsions (principal) | CPT/HCPCS: 70450 ==

== ENCOUNTER 2025-10-03 12:12 | Outpatient (AMB) | payer OTHER, SELFPAY ==
--- NOTE | 2025-10-03 12:15 | MHC.OFFVIS ---
Vital Signs 10/03/25 12:28 Height 5 ft 9 in Weight 267 lb BMI 39.4 Intake Visit Reasons: New Patient - Bilateral Shoulder Pain Intake Note: Juanita is a 45 year old right hand dominant female who presents today as new patient for an evaluation of bilateral shoulder pain. Patient reports pain for a while, with her right shoulder being the worse. She was seen by her PCP, x-rays were performed and referred to orthopedics. She states in December she has a syncope episode, she hit the ground hard. She had ongoing soreness, however her left side improved. She recently had a seizure like episode and may have injured her shoulder as she was told that she was thrashing around. She has to rotate her shoulder to lift her arm above her head. Denies numbness and tingling. Allergies erythromycin base (ERYTHROMYCIN BASE) Allergy (Unknown, Verified 10/03/25 12:27) ANAPHYLAXIS Sulfa (Sulfonamide Antibiotics) (SULFA (SULFONAMIDE ANTIBIOTICS)) Allergy (Unknown, Verified 10/03/25 12:27) ANAPHYLAXIS sulfamethoxazole (From BACTRIM) Allergy (Unknown, Verified 10/03/25 12:27) HIVES trimethoprim (From BACTRIM) Allergy (Unknown, Verified 10/03/25 12:27) HIVES polyethylene glycol Allergy (Verified 10/03/25 12:27) Vomiting Medication List - Last Reconciled 10/03/25 by Noah Del Rosario PA-C chlorhexidine gluconate 0.12% (Paroex Oral Rinse) 15 mL buccal BID cholecalciferol (vitamin D3) (Vitamin D3) 50 mcg PO DAILY epinephrine IM fluvoxamine 100 mg PO BID guanfacine ER 2 mg PO DAILY insulin degludec (Tresiba FlexTouch U-100 insulin) units subcut levothyroxine 25 mcg PO DAILY lorazepam mg PO montelukast 10 mg PO DAILY omeprazole 40 mg PO DAILY semaglutide (Ozempic) mg subcut HPI Comments Details: History of Present Illness The patient is a 45 year old female presenting with right shoulder pain which began approximately three weeks ago and has been constant. She reports pain with pressure on the shoulder and with movement, specifying she must twist her arm in a particular way to raise it overhead and to bring it back down. The pain is localized to the deltoid, radiates down the posterior triceps, and across to the forearm, an area where she has had tendinitis previously. She denies any numbness, tingling, or sensation of instability in the shoulder. Her pain interferes with sleep, requiring her to lie on her left side, prop her arm with stuffed animals, and use a heating pad. She has tried Tylenol and ibuprofen with little effect and has not had physical therapy for this recent episode. She reports her left shoulder is less bothersome at this time. The patient has a history of right shoulder impingement, diagnosed after a work injury at [employer] many years ago where she was trapped by falling doors. At that time, surgery to shave the bone was recommended, but she declined. She also has a history of calcifications in her elbow, diabetes with a recent A1C of 6.7, and neck issues for which she may receive injections. She has had injections in her lower back in the past but never in her shoulder. Social History - Employment: The patient is currently employed at [employer] [facility] Medical History (Reviewed 07/01/25 @ 14:38 by RUKHSANA BrewerW[facility]) Diabetes COPD (chronic obstructive pulmonary disease) Asthma Depression Surgical History H/O: H/O knee surgery Hx of tonsillectomy History of thyroidectomy Social History (Updated 08/21/25 @ 09:33 by [place] Bhardwaj) Alcohol intake: never Patient Tobacco Use Status: Never used Tobacco Substance Use Type: Marijuana Current occupational status: employed 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 - Reports pain is aggravated by pressure and movement, particularly overhead activities. - Reports pain at night requiring specific positioning to sleep. - Reports less bothersome pain in the left shoulder. - Reports history of elbow tendinitis. - Reports issues with her neck. - Neurological: Denies numbness, tingling, or instability in the right upper extremity. - Denies a history of seizures. Physical Exam Exam Exam: Physical Exam - Right Shoulder: Active forward flexion is limited and requires compensatory motion. - Tenderness to palpation over the AC joint and proximal biceps. - Strength is grossly intact but painful with belly press test. - Positive Obriens, which elicit pain. - + Alberts. - Left Shoulder: Full active forward flexion without apparent difficulty. Vital Signs: BMI result Body Mass Index 39.4 Results Reviewed Results Reviewed: xrays of the right shoulder obtained on 08/08/25 show evidence of impingement syndrome Assessment & Plan Assessment & Plan (1) Impingement of right shoulder: Code(s): M25.811 - Other specified joint disorders, right shoulder Category: Medical Plan Plan 1. Right Shoulder Impingement Syndrome The patient's presentation is consistent with right shoulder impingement syndrome, supported by physical exam findings and x-rays revealing a hooked acromion causing irritation to the rotator cuff. While her strength is maintained, suggesting the rotator cuff is likely intact, it is significantly inflamed. Treatment options including an MRI, cortisone injection, and physical therapy were discussed. Given the patient's preference and her history of diabetes, which could be affected by a cortisone injection, the plan is to start with physical therapy and a two-week course of anti-inflammatories. If her symptoms do not improve, she will follow up for a possible cortisone injection. A referral will be placed for physical therapy at the hospital to accommodate her work schedule. Consent Patient was informed and verbally consented to the use of an ambient scribe for clinic note documentation during this visit. Orders: Orders PT Evaluation and Treatment Today M25.811 - Other specified joint disorders, right shoulder Coding Level of Care Code Est Pt Level 3 (20410) Add On Problem Visit Only Diagnoses Impingement of right shoulder M25.811
[2025-10-03 12:28] VITALS: BMI 39.4
--- OUTSIDE RECORDS SUMMARY | 2025-10-03 17:33 | XMS_ITS ---
Author Organization [facility] [address] [place] [address] [place] [phone] Phone Care Team Providers Care Director Chemistry Name Role Phone Kalpana Feldman MD Primary Care Prov ider Active Problems Problem Noted Date Diagnosed Date Bupropion contraindicated 09/23/2025 Type 2 diabetes mellitus with morbid obesity Dysautonomia 09/10/2025 Morbid obesity with BMI of 50.0-59.9, adult 03/2024 History of papillary adenocarcinoma of thyroid 1 [...] CA Cervical radiculopathy 07/08/2019 Cancer of thyroid 07/31/2018 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/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 Jun 2018; TADEO Ablation 98.6 mCi 01/10/19 Obsessive-compulsive disorder 06/12/2018 Multinodular goiter 06/09/2018 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/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 Jun 2018 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
--- OUTSIDE RECORDS SUMMARY | 2025-10-03 17:33 | XMS_ITS ---
TECHNIQUE: 4 views of the cervical spine COMPARISON: Cervical spine radiograph from 04/01/2024 FINDINGS: The cervical spine is visualized from C1-C7. Vertebral body height is grossly maintained. Decreased disc height at C4-C5 and C5-C6 with endplate sclerosis. The cervical alignment is maintained without spondylolisthesis. Mild neuroforaminal stenosis at the lower cervical spine. Uncovertebral arthropathy of the cervical spine. No acute fracture or dislocation is seen. There is no prevertebral soft tissue swelling. Procedure Note Heladio Alford MD - 09/23/2025 HISTORY: pain TECHNIQUE: 4 views of the cervical spine COMPARISON: Cervical spine radiograph from 04/01/2024 FINDINGS: The cervical spine is visualized from C1-C7. Vertebral body height isgrossly maintained. Decreased disc height at C4-C5 and C5-C6 with endplatesclerosis. The cervical alignment is maintained without spondylolisthesis.Mild neuroforaminal stenosis at the lower cervical spine. Uncovertebralarthropathy of the cervical spine. No acute fracture or dislocation isseen. There is no prevertebral soft tissue swelling. IMPRESSION: Degenerative changes of the cervical spine. -------- FINAL REPORT -------- Dictated By: Heladio Alford Dictated Date: 09/23/2025 19:04 ET Assigned Physician: Heladio Alford Reviewed and Electronically Signed By: Heladio Alford Signed Date: 09/23/2025 19:06 ET Workstation ID: [id number] Transcribed By: Self Edit Transcribed Date: 09/23/2025 19:04 ET Juanita WALTERS IMG XR PROCEDURES Final Result * CT Head wo Contrast (09/15/2025 11:46 AM EST) Anatomical Region Laterality Modality Head and Neck Computed Tomogra phy Historical Provider IMMike CT PROCEDURES Final R esult * (ABNORMAL) CBC auto differential (09/10/2025 10:15 AM EST) WBC 8.9 4.8 - 10.8 K/[facility] LAB HEMETOLOGY METHOD 09/10/2025 12:28 PM [facility] RBC 4.50 3.80 - 4.80 M/mcL LAB HEMETOLOGY METHOD 09/10/2025 12:28 PM [facility] Hemoglobin 13.1 11.5 - 16.0 g/dL LAB HEMETOLOGY METHOD 09/10/2025 12:28 PM [facility] Hematocrit 41.1 35.0 - 47.0 % LAB HEMETOLOGY METHOD 09/10/2025 12:28 PM [facility] MCV 91.9 79.0 - 98.0 FL LAB HEMETOLOGY METHOD 09/10/2025 12:28 PM [facility] MCH 29.3 27.0 - 32.0 pcg LAB HEMETOLOGY METHOD 09/10/2025 12:28 PM [facility] MCHC 31.9(L) 32.0 - 37.0 g/dL LAB HEMETOLOGY METHOD 09/10/2025 12:28 PM [facility] RDW 13.4 11.0 - 15.0 % LAB HEMETOLOGY METHOD 09/10/2025 12:28 PM [facility] Platelets 321 130 - 400 K/mcL LAB HEMETOLOGY METHOD 09/10/2025 12:28 PM [facility] MPV 10.4 7.0 - 11.0 FL LAB HEMETOLOGY METHOD 09/10/2025 12:28 PM [facility] NRBC 0.0 <1.0 % LAB HEMETOLOGY METHOD 09/10/2025 12:28 PM [facility] NRBC Absolute 0.00 <0.10 K/mcL LAB HEMETOLOGY METHOD 09/10/2025 12:28 PM [facility] Neutrophils Relative 72.3 % LAB HEMETOLOGY METHOD 09/10/2025 12:28 PM [facility] Lymphocytes Relative 19.4 % LAB HEMETOLOGY METHOD 09/10/2025 12:28 PM [facility] Monocytes Relative 6.5 % LAB HEMETOLOGY METHOD 09/10/2025 12:28 PM [facility] Eosinophils Relative 0.5 % LAB HEMETOLOGY METHOD 09/10/2025 12:28 PM [facility] Basophils Relative 0.8 % LAB HEMETOLOGY METHOD 09/10/2025 12:28 PM [facility] Immature Granulocytes Relative 0.5 % LAB HEMETOLOGY METHOD 09/10/2025 12:28 PM [facility] Neutrophils Absolute 6.43 1.50 - 7.00 K/mcL LAB HEMETOLOGY METHOD 09/10/2025 12:28 PM [facility] Lymphocytes Absolute 1.72 1.00 - 5.00 K/mcL LAB HEMETOLOGY METHOD 09/10/2025 12:28 PM [facility] Monocytes Absolute 0.58 0.20 - 1.00 K/mcL LAB HEMETOLOGY METHOD 09/10/2025 12:28 PM [facility] Eosinophils Absolute 0.04 0.00 - 0.50 K/mcL LAB HEMETOLOGY METHOD 09/10/2025 12:28 PM [facility] Basophils Absolute 0.07 0.00 - 0.20 K/mcL LAB HEMETOLOGY METHOD 09/10/2025 12:28 PM [facility] Immature Granulocytes Absolute 0.04(H) 0.00 - 0.03 K/mcL LAB HEMETOLOGY METHOD 09/10/2025 12:28 PM [facility] Blood Venous blood specimen / Unknown Venipuncture / Unknown 09/10/2025 10:15 AM EST 09/10/2025 10:15 AM EST Evelina WALTERS LAB BLOOD ORDERABLES Final Resul t Performing Organization Address City/[facility]/ZIP Co de Phone Number [facility] [address] [place] [address], [place] [phone] * Iron and TIBC (09/10/2025 10:15 AM EST) Pathologist [facility] Iron 85 40 - 150 mcg/dL 09/10/2025 1:[address] [facility] TIBC 336 250 - 450 mcg/dL 09/10/2025 1:[address] [facility] Iron Saturation 25 15 - 50 % 1:[address] [facility] Blood Venous blood specimen / Unknown Venipuncture / Unknown 09/10/2025 10:15 AM EST 09/10/2025 10:15 AM EST Evelina WALTERS LAB BLOOD ORDERABLES Final Resul t Performing Organization Address City/[facility]/ZIP Co de Phone Number [facility] [address] [place] [address], [place] [phone] * Ferritin (09/10/2025 10:15 AM EST) Pathologist [facility] Ferritin 31 7 - 271 ng/mL 09/10/2025 1:[address] [facility] Blood Venous blood specimen / Unknown Venipuncture / Unknown 09/10/2025 10:15 AM EST 09/10/2025 10:15 AM EST us Evelina WALTERS LAB BLOOD ORDERABLES Final Resul t Performing Organization Address City/[facility]/ZIP Co de Phone Number [facility] [address] [place] [address], [place] [phone] * (ABNORMAL) Thyroid stimulating hormone with reflex to free t4 and free t3 (08/20/2025 8:47 AM EDT) Pathologist [facility] TSH 67.16(H) 0.40 - 4.00 mcIU/mL LAB CHEMISTRY METHOD 08/20/2025 11:[address] [facility] Blood Venous blood specimen / Unknown Venipuncture / Unknown 08/20/2025 8:47 AM EDT 08/20/2025 8:47 AM EDT Sol WALTERS LAB BLOOD ORDERABLES Final Result Performing Organization Address [facility]/ZIP Co de Phone Number [facility] [address] [place] [address], [place] [phone] * (ABNORMAL) Free thyroxine with reflex to free triiodothyronine (08/20/2025 8:47 AM EDT) Free T4 0.55(L) 0.70 - 1.80 ng/dL LAB CHEMISTRY METHOD 08/20/2025 12:[address] [facility] Blood Venous blood specimen / Unknown Venipuncture / Unknown 08/20/2025 8:47 AM EDT 08/20/2025 8:47 AM EDT us Sol WALTERS LAB BLOOD ORDERABLES Final Result Performing Organization Address [facility] de Phone Number [facility] [address] [place] [address], [place] [phone] * (ABNORMAL) Lipid panel with reflex to [...] Final Result [facility] [address] [place] [address], * Thyroglobulin and thyroglobulin antibody panel (08/20/2025 8:47 AM EDT) Thyroglobulin Antibody <2 <4 IU/mL 08/22/2025 1:21 PM EDT [facility] Thyroglobulin 2.3 SeeBelow ng/mL 08/22/2025 1:[address] [facility] Comment: Thyroglobulin Reference Range: Intact thyroid: 1.6-50.0 ng/mL Athyrotic, post-thyroidectomy (tumor marker): <0.1 ng/mL Thyroglobulin antibodies can interfere with the determination of thyroglobulin. If the specimen contains thyroglobulin antibodies, please interpret the thyroglobulin result with caution. The Folica DXI chemiluminescent immunoassay is used. Results obtained with different assay methods or kits cannot be used interchangeably. Results cannot be interpreted as absolute evidence of the presence or absence of malignant disease. Test performed at [facility], [address] , [place] [address] Sachi Doe MD, PhD - Linux Systems Administrator Blood Venous blood specimen / Unknown Venipuncture / Unknown 08/20/2025 8:47 AM EDT 08/20/2025 8:47 AM EDT Sol WALTERS LAB BLOOD ORDERABLES Final Result ROLAND HARTMANN [address] [place] [address] * Microalbumin creatinine urine ratio (08/20/2025 8:47 [...] Sol WALTERS LAB URINE ORDERABLES Final Result [facility] [address] [place] [address], [place] [phone] * (ABNORMAL) Triiodothyronine free (08/20/2025 8:47 AM EDT) T3, Free 163(L) 230 - 420 pcg/dL LAB CHEMISTRY METHOD 08/20/2025 4:[address] [facility] Blood Venous blood specimen / Unknown Venipuncture / Unknown 08/20/2025 8:47 AM EDT 08/20/2025 8:47 AM EDT Sol WALTERS LAB BLOOD ORDERABLES Final Result [facility] [address] [place] [address], [place] [phone] * (ABNORMAL) Hemoglobin A1c (08/20/2025 8:47 AM [...] BLOOD ORDERABLES Final Result Performing Organization Address City/[facility]/ZIP Co de Phone Number [facility] [address] [place] [address], [place] [phone] * Basic metabolic panel (08/20/2025 8:47 AM EDT) Sodium 139 133 - 145 mmol/L LAB CHEMISTRY METHOD 08/20/2025 11:[address] [facility] Potassium 4.0 3.5 - 5.5 mmol/L LAB CHEMISTRY METHOD 08/20/2025 11:[address] [facility] Chloride 106 96 - 110 mmol/L LAB CHEMISTRY METHOD 08/20/2025 11:[address] [facility] CO2 27 21 - 32 mmol/L LAB CHEMISTRY METHOD 08/20/2025 11:[address] [facility] Anion Gap 6 3 - 11 LAB CHEMISTRY METHOD 08/20/2025 11:[address] [facility] Glucose 95 70 - 100 mg/dL LAB CHEMISTRY METHOD 08/20/2025 11:[address] [facility] BUN 16 5 - 25 mg/dL LAB CHEMISTRY METHOD 08/20/2025 11:[address] [facility] Creatinine 1.05 0.50 - 1.10 mg/dL LAB CHEMISTRY METHOD 08/20/2025 11:[address] [facility] eGFR 68 >=60 mL/min/1. 73m2 LAB CHEMISTRY METHOD 08/20/2025 11:[address] [facility] Comment:Calculation based on the Chronic Kidney Disease Epidemiology Collaboration (CKD-EPI) equation refit without adjustment for race. BUN/Creatinine Ratio 15.2 LAB CHEMISTRY METHOD 08/20/2025 11:[address] [facility] Calcium 9.1 8.5 - 10.5 mg/dL LAB CHEMISTRY METHOD 08/20/2025 11:[address] [facility] Blood Venous blood specimen / Unknown Venipuncture / Unknown 08/20/2025 8:47 AM EDT 08/20/2025 8:47 AM EDT Sol WALTERS LAB BLOOD ORDERABLES Final Result [facility] [address] [place] [address], [place] [phone] * POC glucose manually resulted (08/20/2025 7:57 [...] GEMUSE QTc 410 ms GEMUSE P Wave [place] 51 degrees GEMUSE R [place] 79 degrees GEMUSE T [place] 71 degrees GEMUSE ECG Interpretation Normal sinus rhythm Normal ECG When compared with ECG of 12-NOV-2022 16:12, No significant change was found Confirmed by KELLI PHILLIPS ([id number]) on 07/23/2025 12:17:39 PM GEMUSE 07/23/2025 10:1 5 AM EDT 07/23/2025 12:17 PM EDT us Kelli Phillips MD ECG ORDERABLES Final Result JOSEUSE * MG Mammo Digital Screening w Rustam bilat (11/09/2024 2:17 PM EST) Anatomical Region Laterality Modality Breast Bilateral Mammography 11/11/2024 7:34 PM EST Impressions 11/11/2024 7:36 PM EST No mammographic evidence of malignancy. BREAST DENSITY: B - There are scattered areas of fibroglandular density. BI-RADS CATEGORY: 1 - NEGATIVE RECOMMENDATION: Screening bilateral mammogram is recommended in 1 year. MAMMO LOCATION: [facility], [address] [place] [address], [id number], . -------- FINAL REPORT -------- Dictated By: Estefania Giraldo Dictated Date: 11/11/2024 19:34 ET Assigned Physician: Estefania Giraldo Reviewed and Electronically Signed By: Estefania Giraldo Signed Date: 11/11/2024 19:36 ET Workstation ID: [id number] Transcribed By: Self Edit Transcribed Date: 11/11/2024 [...] is recommended in 1 year. MAMMO LOCATION: [facility], [address] [place] [address], [id number], . -------- FINAL REPORT -------- Dictated By: Estefania Giraldo Dictated Date: 11/11/2024 19:34 ET Assigned Physician: Estefania Giraldo Reviewed and Electronically Signed By: Estefania Giraldo Signed Date: 11/11/2024 19:36 ET Workstation ID: [id number] Transcribed By: Self Edit Transcribed Date: 11/11/2024 19:34 ET Kalpana Feldman MD IMG BI PROCEDURES Final Result * Cervical Cancer Screening: HPV (03/04/2024) Cervical Cancer Screening: HPV abstracted, negative Historical Provider HEALTH MAINTENANCE Final Result from Last 3 Months or Most Recently Relevant to Health Maintenance Insurance [employer] Care Teams Manager Trainee Relationship Specialty Start Date End Date Kalpana Feldman MD [address] [place] [phone] PCP - General Internal Medicine 09/06/24
--- OUTSIDE RECORDS SUMMARY | 2025-10-03 17:33 | XMS_ITS | Encounter Summary ---
Author Organization [place] [address] Care Team Providers Care Guinea Pig Breeder Name Role Phone Kalpana Feldman MD Primary Care Prov ider Encounter Details Date Type Department Care Team ([facility] st Contact Info) Description 08/20/2025 Results Follow-Up Endocrinology [address] [phone] Sol Womack PA [address] [place] [address] Social History Tobacco Use Types Packs/Day Years [...] care for your loved ones. For example, early childhood teacher assistant or elderly care for an older adult? [...] Care Team (Late st Contact Info) Description 10/13/2025 9:40 AM EST Office Visit [facility] - [address] [facility] [address] [place] [phone] Chaim Fuentes NP [address] [place] [address] Dr BenavidesFIELDPREM [phone] 11/20/2025 8:40 AM EST Office Visit Endocrinology [address] [phone] Luis Watson MD [address] [place] [address] 01/08/2026 8:30 AM EDT Office Visit Adult Medicine [address] [phone] Kalpaan Feldman MD [address] [place] [address] documented as of this encounter Visit Diagnoses Not on filedocumented in this encounter Additional Health Concerns Assessment Noted Time PHQ-9 Depression Total Score: 23 01/17/ 025 12:35 PM EDT documented as of this encounter Care Teams Guinea Pig Breeder Relationship Specialty Start Date End Date Kalpana Feldman MD [address] [place] [address] PCP - General Internal Medicine 09/06/24 documented as of this encounter
--- OUTSIDE RECORDS SUMMARY | 2025-10-03 17:33 | XMS_ITS | Encounter Summary ---
Author Organization [facility] [place] [address] Care Team Providers Care Poultry Cutter Name Role Phone Kalpana Feldman MD Primary Care Prov ider Encounter Details Date Type Department Care Team ([facility] Contact Info) Description 09/11/2025 Results Follow-Up Adult Medicine [facility] [address] [place], [place] [phone] Evelina Wilde PA [address] [place], [place] Social History Tobacco Use Types Packs/Day [...] your loved ones. For example, child care teacher or elderly care for an older [...] Description 10/13/2025 9:40 AM EST Office Visit [facility] - [facility] [address] [facility] [address] [place] [phone] Chaim Fuentes NP [address] [place] [address] [place] [phone] 11/20/2025 8:40 AM EST Office Visit Endocrinology [address] [phone] Luis Watson MD [address] [place] [address] 01/08/2026 8:30 AM EDT Office Visit [facility] - [address] [phone] Kalpana Feldman MD [address] [place] [address] documented as of this encounter Visit Diagnoses Not on filedocumented in this encounter Additional Health Concerns Assessment Noted Time PHQ-9 Depression Total Score: 23 01/17/ 025 12:35 PM EDT documented as of this encounter Care Teams Poultry Cutter Relationship Specialty Start Date End Date Kalpana Feldman MD [address] [place] [address] PCP - General Internal Medicine 09/06/24 documented as of this encounter
--- OUTSIDE RECORDS SUMMARY | 2025-10-03 17:33 | XMS_ITS | Encounter Summary ---
Author Organization [facility] [place] [address] Care Team Providers Care Pit Worker Power Shovel Name Role Phone Kalpana Feldman MD Primary Care Prov ider Reason for Visit * Reason Onset Date Comments Hospital Follow-up 09/23/2025 Encounter Details Date Type Department Care Team (Late st Contact Info) Description 09/23/2025 Telephone [facility] - [facility] [address] [facility] [address] [place] [address] Kelli Singh MD [address] [place] [address] [place] [phone] Social History Tobacco Use Types Packs/Day Years Used Date Smoking Tobacco: Never Smokeless Tobacco: Never Alcohol Use Standard Drinks/Week Comments Not Currently 0 (1 standard drink = 0.6 oz pur e alcohol) Housing Instability Answer Date Recorde d Are you worried that in the next 2 months you may not have stable housing? No 09/23/2025 Food Access & Nutrition Answer Date Rec orded Do you have access to a vari ety of food including fruits and vegetables? Yes 09/23/2025 Access to Healthcare Answer Date Record ed Within the last 3 months, adarsh w many times did you visit the emergency department for your medical care? 2 09/23/2025 Health Literacy Answer Date Recorded How often do you need to hav e someone help you when you read instructions, pamphlets, or other written material from your doctor or pharmacy? Never 09/23/2025 Caregiver: How often do you need to have someone help you when you read instructions, pamphlets, or other written material from your doctor or pharmacy? Not on file 09/23/2025 Financial Risk Answer Date Recorded How hard is it for you to pa y for the very basics like food, housing, medical care, and air conditioning / heating? Not very hard 09/23/2025 Transportation Answer Date Recorded Has the lack of transportati on kept you from meetings, work, or from getting things needed for daily living? No Has the lack of transportati on kept you from medical appointments or from getting medications? No 09/23/2025 Social Isolation Answer Date Recorded How often do you feel lonely or isolated from ose around you? Never 09/23/2025 Food Risk Answer Date Recorded Within the past 12 months we worried whether our food would run out before we got money to buy more. Never true 09/23/2025 Within the past 12 months th e food we bought just didn't last and we didn't have money to get more. Never true 09/23/2025 Dependent Care Answer Date Recorded Do you need help finding or paying for care for your loved ones. For example, child development associate teacher or elderly care for an older adult? No 09/23/2025 Education Answer Date Recorded Do you think completing more education or training, like finishing a GED, going to college, or learning a trade, would be helpful for you? No 09/23/2025 Employment and Income Answer Date Recor ded During the last four weeks, have you been actively looking for work? No 09/23/2025 Living Situation Answer Date Recorded What is your living situation? Unrecognized valu e 09/23/2025 Comments No Sex and Gender Information Value Date Recorded Sex Assigned at Female 05/17/2023 9:35 AM EDT Legal Sex Female 3:03 PM EST Gender Identity Female 05/17/2023 9:35 AM EDT Sexual Orientation Bisexual 05/17/2023 9: 35 AM EDT documented as of this encounter Progress Notes * Jyotsna Houston - 10/02/2025 9:34 AM EST Spoke with the patient and scheduled for 10/13/25 with Chaim Fuentes. * Jyotsna Houston - 09/23/2025 1:26 PM EST Reached out and left a message to schedule her hospital follow up appointment. documented in this encounter Plan of Treatment Upcoming Encounters Date Type Department Care Team (Late st Contact Info) Description 10/13/2025 9:40 AM EST Office Visit [facility] - [facility] [address] [facility] [address] [place] [phone] Chaim Fuentes, ROBEL [address] [place] [address] [place] [address] 11/20/2025 8:40 AM EST Office Visit Endocrinology - [address] [phone] Luis Watson MD [address] [place] [address] 01/08/2026 8:30 AM EDT Office Visit [facility] - [address] [phone] Kalpana Feldman MD [address] [place] [address] documented as of this encounter Visit Diagnoses Not on filedocumented in this encounter Additional Health Concerns Assessment Noted Time PHQ-9 Depression Total Score: 12 025 11:36 AM EST documented as of this encounter Care Teams Pit Worker Power Shovel Relationship Specialty Start Date End Date Kalpana Feldman MD [address] [place] [address] PCP - General Internal Medicine 09/06/24 documented as of this encounter
--- OUTSIDE RECORDS SUMMARY | 2025-10-03 17:33 | XMS_ITS | Data Portability ---
Author Organization [place] - [facility], Allergy Address [address] [place] [phone] Care Team Providers Care Phlebotomy Manager Name Role Phone CARL JIANG Primary Care Provider [phone] Assessment Encounter Date Assessment Date Assessment LastModified [...] exam is benign. All questions were answered. [email or web address] Not available 04/08/2025 16:38:47 Plan of Treatment Reminders Order Date Submit Date Provider Last Modified By Organization Details Last Modified Time Details Appointments None recorded. Lab None recorded. Referral None recorded. Procedures None recorded. Surgeries None recorded. Imaging CT, neck, soft tissue, w/ contrast 2024 025 [email or web address] [facility], [address] [facility] [address], [place], [address], 10:53:27 Medication Orders None recorded. Patient TargetsNo targets recorded. Patient InstructionsNo instructions recorded. Reason for Referral None Reported. Results Created Date Observation Date Name Description Value Unit Range Abnormal Flag Note LastModifiedBy Organization Detail LastModifiedTime 04/21/20 25 04/21/2025 BUN BUN 14 mg/dL 5-25 Not Available [facility] U/S Dept [address] [place], [address], 04/21/2025 10:46:16 04/21/20 25 04/21/2025 BUN note See Report [facility], [address], [place] [address] Not Available [facility]/S Dept [facility] [place], [address], 04/21/2025 10:46:16 04/21/20 25 04/21/2025 CREAT ININE creatinine 1.19 mg/dL 0.50-1 .10 high Not Available [facility] Dept [address] [place], [place] [address], [address], 04/21/2025 10:46:18 04/21/20 25 04/21/2025 CREAT ININE eGFR 58 mL/mi n/1.7 3m2 >=60 low Calcu latio n based on the Chron ic Kidne y Disea se Epide miolo gy Colla borat ion (CKD- EPI) equat ion refit witho ut adjus tment for race. Not Available [facility] Dept [address] [place], [address], 04/21/2025 10:46:18 04/21/20 25 04/21/2025 CREAT ININE note See Report low [facility], [address], [place], [place] [address] Not Available [facility]/S Dept [address] [place], [address], 04/21/2025 10:46:18 04/23/20 25 04/22/2025 CT, neck, soft tissu e, w/ contr ast No observ ation record ed. [email or web address] [facility] [address] [address], [place], [address], 05/05/2025 11:25:28 Result Notes None recorded. Problems Name Problem SNOMED Code Status Onset Date Resolution Date Notes Provider Name and Address Organization Details Recorded Time Stomatitis 66842083 Active 025 BRYAN RAMSAY PA-C [address] [facility] [address], [place], [phone], [place] [facility] 16:40:30 Mass of oral cavity 388506766 Active 025 BRYAN RAMSAY PA-C [address] [address], [place], [address], [facility] 16:41:14 Problem Notes None recorded. Medical Equipment None Reported. Vitals Date Recorded Body weight Body mass index (BMI) Body height Provider Name and Address Organization Details Last Updated DateTime 04/08/2025 204500.16 g 43.4 kg/m2 175.26 cm Marlyn Houston [place] - [facility] 04/08/2025 16:02:08 Social History None recorded. Functional Status None recorded. Mental Status None recorded. Family History Nothing Reported. Medical History No medical history recorded. Gynecological HistoryNo gynecological history recorded. Obstetrics History GPAL:G 0 P 0 0 0 0 Past Encounters Encounter ID Performer Location Encounter Start Date Encounter Closed Date Diagnosis/Indication Diagnosis SNOMED-CT Code Diagnosis ICD10 Code Diagnosis IMO Codes Diagnosis Note [id number] BRYAN RAMSAY PA-C [facility] [address] [place] [address] 04/08/2025 15:42:28 04/08/2025 16:23:38 Mass of oral cavity 661659015 K13.79 280849 Health Concerns Section Related Observation LastModified by Organization Detai ls LastModified Time None Recorded Concern Status LastModified by Organization Details LastModified Time None Recorded Advance Directives Directive None Recorded Payers Insurance Date Sequence Insurance Name Policy Number Policy Abreu Covered Member ID Abreu Member ID Guarantor Name 04/08/2025 1 [facility] PL[facility] (MEDICAID HMO) [id number] Juanita Nuno Deal [id number] Juanita Deal 04/08/2025 1 [facility] (O) [id number] Juanita Nuno Deal [id number] Juanita Deal Notes Date Note Type Note [...] cancer treated with radiation. BRYAN RAMSAY PA-C [address] [place] [address], [phone], [place] - [facility] 04/08/2025 16:41:48 OBGyn Episode No OBEpisode recorded.
== END 2025-10-03 12:54 | disposition home or self-care (01) ==
LOC: HO.HOS 12:13
PROVIDERS: Visit Provider Physician Assistant
DX: M25.811 Other specified joint disorders, right shoulder (principal)
CPT/HCPCS: 99213

== ENCOUNTER → 2025-10-03 12:12 | Outpatient (BNVA) | payer OTHER, SELFPAY | PROVIDERS: Visit Provider Physician Assistant | DX: M25.811 Other specified joint disorders, right shoulder (principal); M75.41 Impingement syndrome of right shoulder | CPT/HCPCS: 99212 ==

== ENCOUNTER 2025-10-06 07:57 | Outpatient (REF) | payer OTHER, SELFPAY ==
--- NOTE | ~2025-10-06 | US_ITS ---
CLINICAL HISTORY: N20.0 - Calculus of kidney Ultrasound kidneys. COMPARISON: CT abdomen and pelvis dated 04/26/25 at 10:48 EDT Technique: Real time sonographic imaging, including color-flow imaging, was performed by the groundman. Multiple statement services representative static images were saved for review. FINDINGS: Right kidney: Cortical medullary differentiation is maintained. Normal color flow by Doppler. No calculus or focal parenchymal abnormality identified. No hydronephrosis. Right kidney size: 13.5 x 5.3 x 6.3 cm Left kidney: Cortical medullary differentiation is maintained. Normal color flow by Doppler. No calculus or focal parenchymal abnormality identified. Mild left hydronephrosis. Left kidney size: 12.6 x 6.2 x 5.3 cm The urinary bladder is unremarkable. Ureteral jets were not visualized bilaterally. Prevoid volume: 35 mL Postvoid volume: 7 mL IMPRESSION: 1. Mild left hydronephrosis. No calculus identified bilaterally. 2. No evidence of urinary bladder retention. Ureteral jets were not visualized bilaterally. This document has been electronically signed by: Jovan Humphrey MD on 10/06/2025 14:01:37
== END 2025-10-06 07:58 | disposition home or self-care (01) ==
LOC: HO.US 07:57
PROVIDERS: PCP Internal Medicine; Visit Provider Nurse Practitioner Family
DX: N20.0 Calculus of kidney (principal); N39.46 Mixed incontinence; R39.9 Unspecified symptoms and signs involving the genitourinary system
CPT/HCPCS: 76770

== ENCOUNTER → 2025-10-06 07:58 | Outpatient (BNV) | payer OTHER, SELFPAY | PROVIDERS: PCP Internal Medicine; Visit Provider Radiology Diagnostic Radiology | DX: N13.30 Unspecified hydronephrosis (principal) | CPT/HCPCS: 76770 ==